=== PATIENT | female | born 1975 | race Caucasian/White ===

== ENCOUNTER 2017-11-01 20:14 | Emergency (ER) | payer BC, MEDICARE, MEDICAID, SELFPAY ==
[2017-11-01 20:40] VITALS: BP 148/111; PULSE 107; RESP 18; TEMP 37.1; O2SAT 97; BMI 44.6
--- NOTE | 2017-11-01 20:51 | CT_ITS ---
CT abdomen pelvis wo con CLINICAL INDICATION: Right flank pain ITS.REASON: RIGHT FLANK PAIN ORDERING PHYSICIAN: Jensen Torres MD PATIENT AGE: 42 years COMPARISON: 03/05/2017 TECHNIQUE: Axial images obtained with sagittal and coronal reformats. PROCEDURE: Oral Contrast: None IV Contrast: None . FINDINGS: Lung bases are clear. Prior cholecystectomy without ductal dilatation. The liver, spleen, adrenal glands, and pancreas have an unremarkable unenhanced CT appearance. No renal calculi, ureteral calculi, or hydronephrosis is evident. No intestinal obstruction or free air. No evidence of appendicitis or diverticulitis. There is a small umbilical hernia containing fat. There is also a small left paracentral abdominal wall hernia in the infraumbilical region which contains fat. Prior hysterectomy. Prominent soft tissue density is present in the left lower pelvic region measuring 5.8 x 3.6 cm. This may be related to an enlarged ovary. Please correlate with surgical history. If the left ovary has been removed, then adenopathy is a consideration. A slightly hypodense rounded lesion is present just anterior to the soft tissue density which is not significant change from 03/05/2017. No acute bony anomalies. IMPRESSION: 1. No acute abdominal or pelvic findings. 2. 5.8 x 3.6 cm soft tissue density left pelvic region which may represent an enlarged left ovary. Consider pelvic ultrasound for further evaluation. Differential diagnosis would include adenopathy if the ovary has been removed. There are post hysterectomy changes. 3. No obstructing ureteral calculi. No evidence of appendicitis 4. Umbilical hernia and small left periumbilical hernia containing fat
[2017-11-01 21:24] LABS: Microscopic, Urine URINE MICROSCOPIC (MICROSCOPIC)
[2017-11-01 21:27] LABS: Basophils # 0.1 K/mm3 (0-0.2); Basophils % 1.3 % (0.1-2.0); Eosinophils # 0.1 K/mm3 (0.0-0.4); Eosinophils % 1.4 % (0.1-12.0); Hematocrit 48.1 % (37.0-47.0); Hemoglobin 16.2 g/dL (12.2-16.2); Mean Corpuscular HGB Conc 33.6 g/dL (31.8-35.4); Mean Corpuscular Hemoglobin 28.5 pg (27.0-31.2); Mean Corpuscular Volume 84.9 fl (81-99); Mean Platelet Volume 8.1 fl (7.4-10.4); Monocytes # 0.4 K/mm3 (0.1-1.0); Monocytes % 5.1 % (1.7-9.3); Neutrophils # 4.4 K/mm3 (1.8-7.8); Neutrophils % 63.3 % (37.0-80.0); Platelet Count 253 K/mm3 (142-424); Red Blood Count 5.67 M/mm3 (4.20-5.40); Red Cell Distribution Width 13.2 % (11.5-17.5); White Blood Count 6.9 K/mm3 (4.8-10.8)
--- NOTE | 2017-11-01 21:27 | HMH.EDGENADL ---
ED Disposition Clinical Impression: RUQ abdominal pain, Hyperglycemia Disposition: Home, Self-Care Condition on Discharge: Good Additional Instructions: Please schedule a follow up appointment with dr. Smith regarding your left ovarian lesion, as soon as possible. Please follow up with Dr Flor regarding your right upper quadrant pain, call in the morning to arrange for an appointment. Referrals: Michel Chacon [Primary Care Provider] - Jens Smith MD [Staff Physician] - Time of Disposition: 22:27 - Critical Care Critical Care Time: No Attestation: On 11/01/17, the high probability of a clinically significant, sudden or life threatening deterioration of the following system(s) required my full and direct attention, intervention and personal management. The time I documented below is in addition to time spent performing reported procedures but includes the following listed in this critical care notation. Medical Decision Making - Medical Records Medical records reviewed: Yes: I reviewed the patient's medical records. Vital Signs: 11/01/17 20:40 11/01/17 21:37 11/02/17 00:29 Temperature 98.7 F Temperature Source Oral Pulse Rate Pulse Rate [Right Brachial] 107 H 85 78 Respiratory Rate 18 18 14 Blood Pressure Blood Pressure [Right Arm] 148/111 148/88 148/96 Blood Pressure Mean [Right Arm] 123 108 113 Blood Pressure Source Blood Pressure Source [Right Arm] Automatic Cuff Automatic Cuff Automatic Cuff Blood Pressure Position Blood Pressure Position [Right Arm] Sitting Supine Supine 02 Sat by Pulse Oximetry 97 97 97 Oxygen Delivery Method Room Air Room Air Room Air 11/02/17 01:45 Temperature 98.1 F Temperature Source Oral Pulse Rate 86 Pulse Rate [Right Brachial] Respiratory Rate 18 Blood Pressure 138/73 Blood Pressure [Right Arm] Blood Pressure Mean [Right Arm] Blood Pressure Source Automatic Cuff Blood Pressure Source [Right Arm] Blood Pressure Position Supine Blood Pressure Position [Right Arm] 02 Sat by Pulse Oximetry Oxygen Delivery Method Room Air - Lab Data Lab results reviewed: Yes: I reviewed the patient's lab results. Lab Results 11/01/17 20:57: Urine Color Yellow, Urine Appearance Clear, Urine pH 5.0, Ur Specific [place] 1.010, Urine Protein Negative, Urine Glucose (UA) 3+, Urine Ketones Negative, Urine Blood Negative, Urine Nitrate Negative, Urine Bilirubin Negative, Urine Urobilinogen 0.2, Ur Leukocyte Esterase Negative, Urine WBC 3-5, Ur Squamous Epith Cells 5-10, Urine Bacteria 1+ 11/01/17 21:10: WBC 6.9, RBC 5.67 H, Hgb 16.2, Hct 48.1 H, MCV 84.9, MCH 28.5, MCHC 33.6, RDW 13.2, Plt Count 253, MPV 8.1, Neut % (Auto) 63.3, Lymph % (Auto) 29.0, [place] % (Auto) 5.1, Eos % (Auto) 1.4, Baso % (Auto) 1.3, Neut # (Auto) 4.4, Lymph # (Auto) 2.0, [place] # (Auto) 0.4, Eos # (Auto) 0.1, Baso # (Auto) 0.1 11/01/17 21:10: Sodium 136, Potassium 4.6, Chloride 100, Carbon Dioxide 24, Anion Gap 16.6 H, BUN 9, Creatinine 0.83, Estimated Creat Clear 75, Estimated GFR 75, Est GFR ( Amer) 91, Glucose 456 H*, Calcium 9.4, Total Bilirubin 0.4, AST 10 L, ALT 31, Alkaline Phosphatase 87, Total Protein 7.3, Albumin 3.7, Globulin 3.6 H, Albumin/Globulin Ratio 1.0 L 11/01/17 21:10: Amylase 47, Lipase 108 11/02/17 00:26: POC Glucose 320 Result diagrams: 11/01/17 21:10 11/01/17 21:10 Orders (Tests/Meds): ED MEDICATIONS Discontinued Medications Generic Name Dose Route Start Last Admin Trade Name Amy PRN Reason Stop Dose Admin Sodium Chloride 1,000 mls @ 999 mls/hr 11/01/17 21:30 11/01/17 21:32 Sod Chlor 0.9% 1000ml Bag IV 11/01/17 22:30 999 mls/hr .Q1H1M PATRICK Administration Insulin Human Regular 8 unit 11/01/17 21:45 11/01/17 21:51 Humulin R Insulin 100 Units/Ml 10ml Vial IVP 11/01/17 21:46 8 unit ONCE ONE Administration Morphine Sulfate 4 mg 11/01/17 21:27 11/01/17 21:32 Morphine 4mg/Ml Syringe IV 11/01/17 21:28 4 mg ONCE ONE Adm
[2017-11-01 21:37] VITALS: BP 148/88; PULSE 85; RESP 18; O2SAT 97
[2017-11-01 21:38] LABS: Alanine Aminotransferase 31 U/L (12-78); Albumin Level 3.7 gm/dL (3.4-5.0); Alkaline Phosphatase 87 U/L (46-116); Anion Gap 16.6 mEq/L (5-15); Aspartate Amino Transferase 10 U/L (15-37); Bilirubin,Total 0.4 mg/dL (0.2-1.0); Blood Urea Nitrogen 9 mg/dL (7-18); Calcium 9.4 mg/dL (8.5-10.1); Carbon Dioxide 24 mmol/L (21.0-32.0); Chloride 100 mmol/L (98-107); Creatinine Clearance Estimated 75 mL/min (0-300); Creatinine,Serum 0.83 mg/dL (0.55-1.02); Estimated Glomerular Filt Rate 75 ml/min (>60); GFR (African American) 91 ML/MIN (>60); Globulin 3.6 gm/dl (1.3-3.2); Potassium 4.6 mmoL/L (3.5-5.1); Sodium 136 mmol/L (136-145); Total Protein,Serum 7.3 gm/dL (6.4-8.2)
[2017-11-01 21:39] LABS: Appearance,Urine CLEAR (Clear); Bilirubin,Urine Negative (Negative); Blood, Urine Negative (Negative); Color,Urine YELLOW (Yellow); Glucose,Urine (UA) 3+ (Negative); Ketones,Urine Negative (Negative); Leukocyte Esterase,Urine Negative (Negative); Nitrate,Urine Negative (Negative); Protein,Urine Negative (Negative); Urobilinogen,Urine 0.2 EU/dl (0.2)
[2017-11-01 21:40] LABS: Glucose 456 mg/dL (74-106)
--- NOTE | 2017-11-01 21:40 | PC.NURSE ---
glucose 446 called from lab, pt is diabetic aware
[2017-11-01 21:43] LABS: Amylase 47 U/L (25-125); Lipase 108 u/L (73-393)
[2017-11-01 21:53] LABS: Bacteria,Urine 1+ /lpf
--- NOTE | 2017-11-01 21:53 | PC.NURSE ---
CT ABD DONE
[2017-11-02 00:29] VITALS: BP 148/96; PULSE 78; RESP 14; O2SAT 97
[2017-11-02 00:34] LABS: POC Glucose,Bedside 320 mg/dL
[2017-11-02 01:45] VITALS: BP 138/73; PULSE 86; RESP 18; TEMP 36.7; O2SAT 97
== END 2017-11-02 00:50 | disposition home or self-care (01) ==
PROVIDERS: Emergency Provider Emergency Medicine; Family Provider Family Medicine; PCP Family Medicine
DX: R10.11 Right upper quadrant pain (principal); R10.31 Right lower quadrant pain; E11.65 Type 2 diabetes mellitus with hyperglycemia; Z88.7 Allergy status to serum and vaccine; Z88.8 Allergy status to other drugs, medicaments and biological substances; Z88.6 Allergy status to analgesic agent; N83.8 Other noninflammatory disorders of ovary, fallopian tube and broad ligament
CPT/HCPCS: 74176; 80053; 81001; 82150; 82962; 83690; 85025; 96365; 96375; 99283; J2405

== ENCOUNTER → 2018-04-22 14:22 | Outpatient (CLI) | payer BC, MEDICARE, SELFPAY ==
--- NOTE | 2018-04-22 14:25 | CA_ITS ---
PROCEDURE: 2-D M-mode and color Doppler study INDICATIONS FOR THE TEST: Chest pain + COPD Heart Murmur Tobacco Smoking Palpitations+ Fatigue+ Syncope Edema+ Hypertension+Diabetes Mellitus+ Rheumatic Fever SOB+PAINTING Obesity+Hyperlipidemia Family History HD Additional History TYRONE PATIENT INFORMATION HEIGHT: 63 WEIGHT:276 GENDER: Female B/P:150/86 2-D/M-MODE INTERPRETATION: 2-D MEASUREMENTS OBSERVED VALUES IN CMS Right Ventricular Dimension (RVDd) 2.3 Interventricular Septum (Thickness)(IVsd) 1.1 Left Ventricular Internal Dimensions(LVIDd) 4.7 Left Ventricular Posterior Wall (Thickness)(LVPWd) 1.0 Aortic Root 3.6 Aortic Cusp Separation 2.3 Left Atrial Dimensions (LAD) 3.5 2D 1. Left atrium is mildly enlarged, left ventricle is normal size, mild qualitative concentric left ventricular hypertrophy, visually estimated ejection fraction 55% with no obvious regional wall motion abnormality. 2. The right atrium and right ventricle are normal size and contractility. 3. The aortic valve is minimally thickened and fibrosed. 4. The mitral and tricuspid valve are grossly normal. 5. The pulmonic valve is poorly visualized. 6. No significant pericardial effusion noted. DOPPLER INTERROGATION: Doppler interrogation of the aortic, mitral and tricuspid valvular presence of mild mitral and tricuspid regurgitation, tricuspid and jet velocity is insufficient for calculation of the right ventricular systolic pressure, diastolic parameters are inconclusive. CONCLUSION: 1. Mildly enlarged left atrium, normal left ventricular size, mild qualitative concentric left ventricular hypertrophy, visually estimated ejection fraction 55% with no obvious regional wall motion abnormality, diastolic parameters are inconclusive. 2. Mild mitral and tricuspid regurgitation 3. No significant pericardial effusion noted.
== END ==
PROVIDERS: Family Provider Family Medicine; PCP Family Medicine; Visit Provider Internal Medicine
DX: R00.0 Tachycardia, unspecified (principal); I10 Essential (primary) hypertension
CPT/HCPCS: 93306

== ENCOUNTER 2019-03-12 13:46 | Observation (INO) ==
[2019-03-12 14:03] LABS: Appearance,Urine CLEAR (Clear); Bilirubin,Urine Negative (Negative); Blood, Urine Negative (Negative); Color,Urine YELLOW (Yellow); Glucose,Urine (UA) Negative (Negative); Ketones,Urine Negative (Negative); Leukocyte Esterase,Urine Negative (Negative); Microscopic, Urine URINE MICROSCOPIC (MICROSCOPIC); Protein,Urine Negative (Negative); Urobilinogen,Urine 0.2 EU/dl (0.2)
[2019-03-12 14:17] LABS: RBC,Urine Occasional #/hpf (0-3); Squamous Epithelial Cell,Urine 20-50 #/hpf (0-5); WBC,Urine Occasional #/hpf (0-3)
[2019-03-12 14:18] LABS: Amphetamine/Metha Screen,Urine Negative ng/mL (<1000); Bacteria,Urine Trace /lpf; Barbiturates Screen,Urine Negative ng/mL (<200); Benzodiazepines Screen,Urine Negative ng/mL (<200); Cannabinoid Screen,Urine Negative ng/mL (<50); Cocaine Screen,Urine Negative ng/mL (<300); Methadone Screen,Urine Negative ng/mL (<300); Opiate Screen,Urine Negative ng/mL (<300); Phencyclidine Screen,Urine Negative ng/mL (<25)
[2019-03-12 14:18] LABS: Basophils # 0.1 K/mm3 (0-0.2); Basophils % 0.9 % (0.1-2.0); Eosinophils # 0.2 K/mm3 (0.0-0.4); Eosinophils % 2.4 % (0.1-12.0); Hematocrit 42.9 % (37.0-47.0); Hemoglobin 13.8 g/dL (12.2-16.2); Lymphocytes # 2.3 K/mm3 (0.7-4.5); Lymphocytes % 28.4 % (10-50); Mean Corpuscular HGB Conc 32.1 g/dL (31.8-35.4); Mean Corpuscular Volume 87.6 fl (81-99); Mean Platelet Volume 7.9 fl (7.4-10.4); Monocytes # 0.4 K/mm3 (0.1-1.0); Monocytes % 4.9 % (1.7-9.3); Neutrophils # 5.1 K/mm3 (1.8-7.8); Neutrophils % 63.5 % (37.0-80.0); Platelet Count 216 K/mm3 (142-424); Red Blood Count 4.89 M/mm3 (4.20-5.40); Red Cell Distribution Width 12.9 % (11.5-17.5)
[2019-03-12 14:48] LABS: Alanine Aminotransferase 49 U/L (12-78); Albumin Level 3.3 gm/dL (3.4-5.0); Albumin/Globulin Ratio 1.1 (1.1-1.8); Alkaline Phosphatase 70 U/L (46-116); Anion Gap 10.4 mEq/L (5-15); Aspartate Amino Transferase 22 U/L (15-37); Bilirubin,Total 0.4 mg/dL (0.2-1.0); Blood Urea Nitrogen 15 mg/dL (7-18); Calcium 8.6 mg/dL (8.5-10.1); Carbon Dioxide 29 mmol/L (21.0-32.0); Chloride 106 mmol/L (98-107); Globulin 3.1 gm/dl (1.3-3.2); Glucose 117 mg/dL (74-106); Sodium 141 mmol/L (136-145); Total Protein,Serum 6.4 gm/dL (6.4-8.2)
--- NOTE | 2019-03-12 15:50 | Emergency Department Note ---
ED Disposition Clinical Impression: Syncope and collapse Disposition: Admitted as Observation Condition on Discharge: Good Instructions: DI for Syncope in Adults (Fainting) Referrals: Walter Anaya MD [Primary Care Provider] - Time of Disposition: 16:04 - Critical Care Critical Care Time: No Attestation: On 03/12/19, the high probability of a clinically significant, sudden or life threatening deterioration of the following system(s) required my full and direct attention, intervention and personal management. The time I documented below is in addition to time spent performing reported procedures but includes the following listed in this critical care notation. Medical Decision Making - Medical Records Medical records reviewed: Yes: I reviewed the patient's medical records. - Jelani Inquiry Pt receiving controlled substance: No Jelani was queried for this patient: No Vital Signs: 03/12/19 13:58 Temperature 98.0 F Temperature Source Oral Pulse Rate [Right Brachial] 79 Respiratory Rate 18 Blood Pressure [137/85] 137/85 Blood Pressure Mean [137/85] 102 02 Sat by Pulse Oximetry 100 Oxygen Delivery Method Room Air - Lab Data Lab results reviewed: Yes: I reviewed the patient's lab results. Lab Results 03/12/19 13:55: Urine Color Yellow, Urine Appearance Clear, Urine pH 7.0, Ur S pecific [place] 1.020, Urine Protein Negative, Urine Glucose (UA) Negative, Urine Ketones Negative, Urine Blood Negative, Urine Nitrate Negative, Urine Bilirubin Negative, Urine Urobilinogen 0.2, Ur Leukocyte Esterase Negative, Urine RBC Occasional, Urine WBC Occasional, Ur Squamous Epith Cells 20-50, Urine Bacteria Trace 03/12/19 13:55: Urine Opiates Screen Negative, Urine Methadone Screen Negative, Ur Barbituates Screen Negative, Ur Phencyclidine Scrn Negative, Ur Amphetamines Screen Negative, U Benzodiazepines Scrn Negative, Urine Cocaine Screen Negative, U Marijuana (THC) Screen Negative 03/12/19 14:05: WBC 8.0, RBC 4.89, Hgb 13.8, Hct 42.9, MCV 87.6, MCH 28.2, MCHC 32.1, RDW 12.9, Plt Count 216, MPV 7.9, Neut % (Auto) 63.5, Lymph % (Auto) 28.4, [place] % (Auto) 4.9, Eos % (Auto) 2.4, Baso % (Auto) 0.9, Neut # (Auto) 5.1, Lymph # (Auto) 2.3, [place] # (Auto) 0.4, Eos # (Auto) 0.2, Baso # (Auto) 0.1 03/12/19 14:05: Sodium 141, Potassium 4.4, Chloride 106, Carbon Dioxide 29, Anion Gap 10.4, BUN 15, Creatinine 0.70, Estimated Creat Clear 147, Estimated GFR 91, Est GFR ( Amer) 110, Glucose 117 H, Calcium 8.6, Total Bilirubin 0.4, AST 22, ALT 49, Alkaline Phosphatase 70, Troponin I < 0.02, Total Protein 6.4, Albumin 3.3 L, Globulin 3.1, Albumin/Globulin Ratio 1.1 Result diagrams: 03/12/19 14:05 03/12/19 14:05 - Physician Consults Physician Consulted: teddy Time: 16:03 Comment/Response: rule out, monitor, consult in am Additional Consult: kim Time: 16:03 Reason -: Admission, Cardiology Eval/Care General Adult HPI - General Chief complaint: Syncope Stated complaint: dizziness, passsed out and hit shoulder Time Seen by Provider: 03/12/19 15:51 Mode of Arrival: Family Vehicle Source of Information: Patient Limitations: No Limitations Description of Symptoms (Recalled from ER Triage Doc. by RN): had a syncopal episode this morning; resulting in right shoulder pain after falling this morning; pt had pain to head and neck just prior to episode - History of Present Illness HPI narrative: full syncope this am, preceded by dizziness... no chest pain or dyspnea - Related Data Home Medications Medication Instructions Recorded Confirmed albuterol sulfate HFA 90 1 puff INHALATION Q6H PRN 04/16/18 01/20/19 mcg/actuation aerosol inhaler cholecalciferol (vitamin D3) 5,000 5,000 unit PO DAILY cap 04/16/18 01/20/19 unit capsule epinephrine 0.3 mg/0.3 mL 0.3 mg IM ONCE PRN 04/16/18 01/20/19 injection, auto-injector hydroxyzine HCl 50 mg tablet 50 mg PO DAILY PRN tab 04/16/18 01/20/19 trazodone 100 mg tablet 100 mg PO QHS 04/16/18 01/20/19 biotin 10,000 mcg disintegrating 10,000 mcg PO DAILY 10/21/18 01/20/19 tablet mecobalamin (vitamin B12) 1,000 1,000 mcg SUBLINGUAL DAILY 10/21/18 01/20/19 mcg disintegrating tablet,sublingual multivitamin tablet 2 tab PO DAILY tab 10/21/18 01/20/19 omeprazole 40 mg capsule,delayed 40 mg PO DAILY 10/21/18 01/20/19 release Allergies Allergy/AdvReac Type Severity Reaction Status Date / Time hydromorphone [From Dilaudid] Allergy Severe rash, Verified 01/20/19 09:34 itching lisinopril [LISINOPRIL] Allergy Unknown Verified 01/20/19 09:34 paroxetine [From PAXIL] Allergy Unknown Verified 01/20/19 09:34 promethazine [From PHENERGAN] Allergy Unknown Verified 01/20/19 09:34 tetanus and diphtheria Allergy Unknown Verified 01/20/19 09:34 toxoids [TETANUS & DIPHTHERIA TOXOIDS] ibuprofen Allergy Verified 01/20/19 09:34 BEE STINGS Allergy Unknown S-SWELLS-OR Uncoded 01/20/19 09:34 AL/THROAT [facility] History - Hepatitis A Screen Drug use history?: No High risk sexual behaviors?: No History of sexually transmitted infection?: No Currently employed?: No Childcare worker?: No Do you have indoor plumbing?: Yes Do you have electricity?: Yes Attestation statement:: This patient has been screened for Hepatitis A risk factors. I have reviewed the patient's past medical history: Yes Medical History: Reports:: Diabetes Mellitus Type 2 Denies:: Cancer, Diabetes Mellitus Type 1, MRSA Other Medical History: Reports: Anemia, Blood Transfusion Reaction, Fibromyalgia Other Surgeries: Yes: Bariatric Surgery (10/07/2018), Hysterectomy-Partial Amputation: No Fractures: No - Social History Smoking Status: Never smoker Alcohol Intake: never Alcohol Intake Frequency:: other Substance Use Type: denies use Occupational Status: employed Family Hx:: No significant family history ROS Obtained: Yes All systems reviewed & no additional complaints - Constitutional Constitutional: Denies fever(s), Denies lethargy - Eyes Eyes: Reports blurry vision - Cardiovascular Cardiovascular: Denies chest pain, Denies chest pain at rest, Denies diaphoresis, Denies dyspnea, Denies palpitations - Respiratory Respiratory: No cough, No dyspnea - Musculoskeletal Musculoskeletal: Denies joint pain, Denies decreased muscle mass, Denies joint stiffness, Denies joint swelling - Integumentary/Breasts Skin/Breast: Denies redness, Denies new lesions - Neurologic Neurologic: Reports syncope, Denies vertigo, Denies weakness - Hematologic/Lymphatic Henatologic/Lymphatic: Denies easy bleeding, Denies easy bruising Physical Exam - General General appearance: alert, in no apparent distress - Head Head exam: atraumatic, normocephalic, normal inspection - Eye Eye exam: Present: normal appearance, PERRL, EOMI - ENT ENT exam: Present: normal exam, normal oropharynx, mucous membranes moist, TM's normal bilaterally, normal external ear exam - Neck Neck exam: Present: normal inspection, full ROM, trachea midline. Absent: meningismus, lymphadenopathy - Chest Chest inspection: Present: normal inspection, symmetric chest wall rise. Absent: tenderness - Respiratory Respiratory exam: Present: normal lung sounds bilaterally. Absent: respiratory distress - Cardiovascular Cardiovascular exam: Present: regular rate, normal rhythm. Absent: JVD - Extremities Exam Extremities exam: Present: normal inspection, full ROM, normal capillary refill. Absent: calf tenderness - Back Exam Back exam: Present: normal inspection. Absent: tenderness - Neurological Exam Neurological exam: Present: alert, oriented X3 - Psychiatric Psychiatric exam: Present: normal affect, normal mood - Skin Skin exam: Present: warm, dry, intact, normal color
--- NOTE | 2019-03-12 16:31 | History & Physical Report ---
*Admission Date: 03/12/19 *Chief complaint: syncope, shoulder pain *History of present illness: Ms. Franco is a 43yo female with a hx of Type 2 DM diet controlled after bariatric surgery, fibromyalgia, SVT followed by Dr. Zhong, asthma, depression, anxiety, and disability d/t anoxic brain injury who experienced a syncopal episode and injured her right shoulder when she fell this am. She states she was dizzy before the episode and afterward she did have some right shoulder pain and neck pain on the left side. She drove herself to meet some family members after the episode and felt dizzy and weak again and had a near sycopal episode, therefore she presented to the ER for evaluation. Head CT and shoulder x-ray showed nothing acute. She was admitted and placed on telemetry and cardiology was consulted. Of note, she was recently diagnosed with hereditary hemochromatosis and has had ferritin levels over 600. She has not yet had phlebotomy. [facility] History I have reviewed the patient's past medical history: Yes Medical History: Reports:: Anxiety, Depression, Diabetes Mellitus Type 2, MRSA Denies:: Cancer, Diabetes Mellitus Type 1 *Have you ever received a pneumonia vaccine?: No *Have you received a flu vaccine this season?: No Other Medical History: Reports: Anemia, Blood Transfusion Reaction, Fibromyalgia, Other (Anoxic brain injury with severe toxemia, hereditary hemochromatosis) Other Surgeries: Yes: Bariatric Surgery (10/07/2018), Cholecystectomy, C- section, Hysterectomy-Partial Amputation: No Fractures: No - *Social History Smoking Status: Never smoker Alcohol Intake: never Alcohol Intake Frequency:: other Substance Use Type: denies use *Occupational Status:: employed *Travel in the last 8 weeks: None Family Hx:: Coronary Artery Disease, Diabetes, Hypertension Review of Systems - Constitutional Reports weakness, Denies body ache(s), Denies fever(s) - Eyes Denies blurry vision, Denies double vision - ENT Denies nasal congestion, Denies sore throat - *Cardiovascular Denies chest pain, Denies shortness of breath, Denies rapid, pounding, or irregular heartbeat - *Respiratory Denies cough, Denies shortness of breath - *Gastrointestinal Denies abdominal pain, Denies loose stools, Denies nausea, Denies vomiting - *Genitourinary Denies difficulty urinating, Denies painful urination - *Musculoskeletal Reports joint pain (right shoulder), Reports neck pain - *Neurologic Reports fainting, Reports dizziness, Denies seizure-like activity, Denies weakness Meds Home Medications Medication Instructions Recorded Confirmed Type albuterol sulfate HFA 90 1 puff INHALATION Q6H PRN 04/16/18 01/20/19 History mcg/actuation aerosol inhaler epinephrine 0.3 mg/0.3 mL 0.3 mg IM ONCE PRN 04/16/18 01/20/19 History injection, auto-injector hydroxyzine HCl 50 mg tablet 50 mg PO DAILY PRN tab 04/16/18 01/20/19 History trazodone 100 mg tablet 100 mg PO QHS 04/16/18 01/20/19 History biotin 10,000 mcg disintegrating 10,000 mcg PO DAILY 10/21/18 01/20/19 History tablet mecobalamin (vitamin B12) 1,000 1,000 mcg SUBLINGUAL DAILY 10/21/18 01/20/19 History mcg disintegrating tablet,sublingual multivitamin tablet 2 tab PO DAILY tab 10/21/18 01/20/19 History Cholecalciferol (Vitamin D3) 50,000 unit PO WEEKLY 03/12/19 03/12/19 History [Vitamin D3 50,000 unit Cap] Omeprazole 20 mg PO HS 03/12/19 03/12/19 History Allergies Allergy/AdvReac Type Severity Reaction Status Date / Time duloxetine [From Cymbalta] Allergy Severe liver Verified 03/12/19 16:57 swelling hydromorphone [From Dilaudid] Allergy Severe rash, Verified 03/12/19 16:57 itching ibuprofen Allergy Severe swelling Verified 03/12/19 16:57 lisinopril [LISINOPRIL] Allergy Severe chokes Verified 03/12/19 16:57 promethazine [From PHENERGAN] AdvReac Severe hallucinati Verified 03/12/19 16:57 ons sertraline [From Zoloft] AdvReac Severe suicidal Verified 03/12/19 16:57 paroxetine [From PAXIL] AdvReac Intermediate Palpitation Verified 03/12/19 16:57 s tetanus and diphtheria AdvReac Intermediate vomitting Verified 03/12/19 16:57 toxoids [TETANUS & DIPHTHERIA TOXOIDS] BEE STINGS Allergy Severe Anaphylaxis Uncoded 03/12/19 16:57 Exam Vital signs and Labs for Last 24 Hours: Temp Pulse Resp BP Pulse Ox 98.0 F 64 18 118/74 98 03/12/19 13:58 03/12/19 16:12 03/12/19 13:58 03/12/19 16:12 03/12/19 16:12 Laboratory Results - last 24 hr 03/12/19 13:55: Urine Color Yellow, Urine Appearance Clear, Urine pH 7.0, Ur Specific [place] 1.020, Urine Protein Negative, Urine Glucose (UA) Negative, Urine Ketones Negative, Urine Blood Negative, Urine Nitrate Negative, Urine Bilirubin Negative, Urine Urobilinogen 0.2, Ur Leukocyte Esterase Negative, Urine RBC Occasional, Urine WBC Occasional, Ur Squamous Epith Cells 20-50, Urine Bacteria Trace 03/12/19 13:55: Urine Opiates Screen Negative, Urine Methadone Screen Negative, Ur Barbituates Screen Negative, Ur Phencyclidine Scrn Negative, Ur Amphetamines Screen Negative, U Benzodiazepines Scrn Negative, Urine Cocaine Screen Negative, U Marijuana (THC) Screen Negative 03/12/19 14:05: WBC 8.0, RBC 4.89, Hgb 13.8, Hct 42.9, MCV 87.6, MCH 28.2, MCHC 32.1, RDW 12.9, Plt Count 216, MPV 7.9, Neut % (Auto) 63.5, Lymph % (Auto) 28.4, [place] % (Auto) 4.9, Eos % (Auto) 2.4, Baso % (Auto) 0.9, Neut # (Auto) 5.1, Lymph # (Auto) 2.3, [place] # (Auto) 0.4, Eos # (Auto) 0.2, Baso # (Auto) 0.1 03/12/19 14:05: Sodium 141, Potassium 4.4, Chloride 106, Carbon Dioxide 29, Anion Gap 10.4, BUN 15, Creatinine 0.70, Estimated Creat Clear 147, Estimated GFR 91, Est GFR ( Amer) 110, Glucose 117 H, Calcium 8.6, Total Bilirubin 0.4, AST 22, ALT 49, Alkaline Phosphatase 70, Troponin I < 0.02, Total Protein 6.4, Albumin 3.3 L, Globulin 3.1, Albumin/Globulin Ratio 1.1 I & O for Last 24 hours: Intake & Output 06/17/19 06/18/19 06/19/19 06/20/19 11:59 11:59 11:59 11:59 Weight 200 lb - Constitutional no acute distress - *Routine HEENT Exam Head: Present: normocephalic Eye: Present: EOMI, PERRL ENT: Present: mucous membranes moist - *Routine Neck Exam Present: supple. Absent: carotid bruit, lymphadenopathy - *Routine Respiratory Exam Present: CTA bilaterally - *Routine Cardiovascular Exam Present: RRR - *Routine Abdominal Exam Present: soft, normoactive bowel sounds. Absent: tenderness - *Routine Extremities Exam Present: full ROM (but some ttp along the posterior right shoulder). Absent: cyanosis, clubbing, edema - *Routine Skin Exam Present: warm. Absent: rash - *Routine Neurological Exam Present: alert, oriented X3, CN II-XII intact, moving all extremities, normal speech H&P: Result - Impressions Head CT and Right shoulder x-ray with nothing acute Assessment and Plan (1) Syncope and collapse Current visit: Yes Status: Acute Category: Medical Code(s): R55 - Syncope and collapse (2) Hereditary hemochromatosis Current visit: Yes Status: Chronic Category: Medical Code(s): E83.110 - Hereditary hemochromatosis (3) History of paroxysmal supraventricular tachycardia Current visit: Yes Status: Chronic Category: Medical Code(s): Z86.79 - Personal history of other diseases of the circulatory system (4) Type 2 diabetes mellitus Current visit: Yes Status: Chronic Category: Medical Code(s): E11.9 - Type 2 diabetes mellitus without complications - Assessment and plan all Dx Assessment and Plan for all problems:: Patient has been admitted overnight for monitoring. Will place on telemetry and get an echo and carotid duplex. Will also check her ferritin level. Cardiology has been consulted.
--- NOTE | 2019-03-13 07:29 | Pharmacy Consult Notes ---
[facility] Pharmacy VTE Monitoring - Patient Demographics Admission date: 03/12/19 Report Date: 03/13/19 Time: 07:29 Allergies/Adverse Reactions: Patient Allergies duloxetine [From Cymbalta] Allergy (Severe, Verified 03/12/19 16:57) liver swelling hydromorphone [From Dilaudid] Allergy (Severe, Verified 03/12/19 16:57) rash, itching ibuprofen Allergy (Severe, Verified 03/12/19 16:57) swelling lisinopril [LISINOPRIL] Allergy (Severe, Verified 03/12/19 16:57) chokes promethazine [From PHENERGAN] Adverse Reaction (Severe, Verified 03/12/19 16:57) hallucinations sertraline [From Zoloft] Adverse Reaction (Severe, Verified 03/12/19 16:57) suicidal paroxetine [From PAXIL] Adverse Reaction (Intermediate, Verified 03/12/19 16:57) Palpitations tetanus and diphtheria toxoids [TETANUS & DIPHTHERIA TOXOIDS] Adverse Reaction (Intermediate, Verified 03/12/19 16:57) vomitting BEE STINGS Allergy (Severe, Uncoded 03/12/19 16:57) Anaphylaxis Height: 1.63 m Weight: 89.074 kg Patient Problems: Current Active Problems (Updated 03/12/19 @ 17:10 by ZACKARY Menon) Syncope and collapse (Acute) Hereditary hemochromatosis (Chronic) History of paroxysmal supraventricular tachycardia (Chronic) Type 2 diabetes mellitus (Chronic) - VTE Risk Labs: VTE Related Lab Results Hgb 13.8 g/dL (12.2-16.2) 03/12/19 14:05 Hct 42.9 % (37.0-47.0) 03/12/19 14:05 Plt Count 216 K/mm3 (142-424) 03/12/19 14:05 BUN 15 mg/dL (7-18) 03/12/19 14:05 Creatinine 0.70 mg/dL (0.55-1.02) 03/12/19 14:05 Estimated Creat Clear 147 mL/min (50-200) 03/12/19 14:05 Was VTE Risk Assessment Performed: Yes VTE Score: 1 Clinical Trial Participant: No - Prophylaxis VTE Prophylaxis Ordered?: Yes Types of VTE Prophylaxis: TEDS Knee High
--- NOTE | 2019-03-13 07:52 | Consult Report ---
History of Present Illness Consult date: 03/13/19 Requesting physician: Walter Anaya Chief complaint: syncope Additional Medical History:: 1. History of diabetes mellitus, controlled after bariatric surgery without medication 2. History of SVT, resolved after bariatric surgery 3. History of obesity status post bariatric surgery 2017 with subsequent greater than 80 pound weight loss 4. Asthma 5. Anxiety and depression 6. Hemochromatosis, newly diagnosed 2018 7. History of anoxic brain injury 8. History of HTN A. Echo, 03/2018, 1. Mildly enlarged left atrium, normal left ventricular size, mild qualitative concentric left ventricular hypertrophy, visually estimated ejection fraction 55% with no obvious regional wall motion abnormality, diastolic parameters are inconclusive. 2. Mild mitral and tricuspid regurgitation 3. No significant pericardial effusion noted History of present illness: Ms. Franco is a 43yo female with a hx of Type 2 DM diet controlled after bariatric surgery, fibromyalgia, SVT followed by Dr. Zhong, asthma, depression, anxiety, and disability d/t anoxic brain injury who experienced a syncopal episode and injured her right shoulder when she fell this am. She states she was dizzy before the episode and afterward she did have some right shoulder pain and neck pain on the left side. She drove herself to meet some family members after the episode and felt dizzy and weak again and had a near sycopal episode, therefore she presented to the ER for evaluation. Head CT and shoulder x-ray showed nothing acute. She was admitted and placed on telemetry and cardiology was consulted. Of note, she was recently diagnosed with hereditary hemochromatosis and has had ferritin levels over 600. She has not yet had phlebotomy. The above per Shayla Gant PA-C 43-year-old white female patient with a history of supraventricular tachycardia is admitted after an episode of syncope. She was working on placing a SIM card in her 's cell phone and lost consciousness. She is not recently been aware of heart rhythm disturbances but has the past history of supraventricular tachycardia. She is followed by Dr. Zhong. She has been admitted and placed on monitoring tech. Currently her heart has regular rate and rhythm and she monitors sinus rhythm slightly bradycardic at [address] Anaya Patient has noticed heart rates in the 40s and 50s per her apple watch mainly when she is at rest or sleeping. Since her gastric bypass surgery she has lost over 80 pounds and is no longer taking medications for SVT and has had no problems with this occurring. Telemetry reviewed with no significant tacky or bradycardia arrhythmias noted even during symptoms of dizziness. [facility] History Medical History: Reports:: Anxiety, Arrhythmia, Depression, MRSA Denies:: Cancer, Diabetes Mellitus Type 1, Diabetes Mellitus Type 2 *Have you ever received a pneumonia vaccine?: Yes *Have you received a flu vaccine this season?: Yes Other Medical History: Reports: Anemia, Blood Transfusion Reaction, Fibromyalgia, Other (Anoxic brain injury with severe toxemia, hereditary hemochromatosis) Other Surgeries: Yes: Bariatric Surgery (10/07/2018), Cholecystectomy, C- section, Hysterectomy-Partial Amputation: No Fractures: No - *Social History Smoking Status: Never smoker Alcohol Intake: never Alcohol Intake Frequency:: other Substance Use Type: denies use *Occupational Status:: employed Housing: house Household Members: spouse *Travel in the last 8 weeks: None - Psychiatric History Expresses thoughts of harming self/others: None Suicide Plan Description: No Plan Pschychiatric History:: Reports:: Anxiety, Depression Family Hx:: Coronary Artery Disease, Diabetes, Hypertension Meds Home Medications Medication Instructions Recorded Confirmed Type albuterol sulfate HFA 90 1 puff INHALATION Q6HP PRN 04/16/18 03/12/19 History mcg/actuation aerosol inhaler epinephrine 0.3 mg/0.3 mL 0.3 mg IM NEEDED PRN 04/16/18 03/13/19 History injection, auto-injector hydroxyzine HCl 50 mg tablet 50 mg PO TIDP PRN tab 04/16/18 03/13/19 History trazodone 100 mg tablet 100 mg PO HS 04/16/18 03/13/19 History biotin 10,000 mcg disintegrating 10,000 mcg PO DAILY 10/21/18 03/12/19 History tablet mecobalamin (vitamin B12) 1,000 1,000 mcg SUBLINGUAL DAILY 10/21/18 03/12/19 History mcg disintegrating tablet,sublingual multivitamin tablet 2 tab PO DAILY tab 10/21/18 03/12/19 History Cholecalciferol (Vitamin D3) 50,000 unit PO WEEKLY 03/12/19 03/12/19 History [Vitamin D3 50,000 unit Cap] Omeprazole 20 mg PO HS 03/12/19 03/12/19 History Allergies Allergy/AdvReac Type Severity Reaction Status Date / Time duloxetine [From Cymbalta] Allergy Severe liver Verified 03/12/19 16:57 swelling hydromorphone [From Dilaudid] Allergy Severe rash, Verified 03/12/19 16:57 itching ibuprofen Allergy Severe swelling Verified 03/12/19 16:57 lisinopril [LISINOPRIL] Allergy Severe chokes Verified 03/12/19 16:57 promethazine [From PHENERGAN] AdvReac Severe hallucinati Verified 03/12/19 16:57 ons sertraline [From Zoloft] AdvReac Severe suicidal Verified 03/12/19 16:57 paroxetine [From PAXIL] AdvReac Intermediate Palpitation Verified 03/12/19 16:57 s tetanus and diphtheria AdvReac Intermediate vomitting Verified 03/12/19 16:57 toxoids [TETANUS & DIPHTHERIA TOXOIDS] BEE STINGS Allergy Severe Anaphylaxis Uncoded 03/12/19 16:57 Review of Systems - *Cardiovascular Reports slow heart rate, Denies chest pain - *Respiratory Denies cough, Denies shortness of breath - *Gastrointestinal Denies abdominal pain, Denies nausea, Denies vomiting - *Genitourinary Denies blood in urine - *Musculoskeletal Denies joint pain, Denies back pain - *Neurologic Reports fainting, Reports dizziness, Reports weakness, Denies seizure-like activity Exam Vital signs and Labs for Last 24 Hours: Temp Pulse Resp BP Pulse Ox 98.3 F 69 17 108/69 L 98 03/13/19 07:27 03/13/19 07:27 03/13/19 07:27 03/13/19 07:27 03/13/19 07:27 Laboratory Results - last 24 hr 03/12/19 13:55: Urine Color Yellow, Urine Appearance Clear, Urine pH 7.0, Ur Specific [place] 1.020, Urine Protein Negative, Urine Glucose (UA) Negative, Urine Ketones Negative, Urine Blood Negative, Urine Nitrate Negative, Urine Bilirubin Negative, Urine Urobilinogen 0.2, Ur Leukocyte Esterase Negative, Urine RBC Occasional, Urine WBC Occasional, Ur Squamous Epith Cells 20-50, Urine Bacteria Trace 03/12/19 13:55: Urine Opiates Screen Negative, Urine Methadone Screen Negative, Ur Barbituates Screen Negative, Ur Phencyclidine Scrn Negative, Ur Amphetamines Screen Negative, U Benzodiazepines Scrn Negative, Urine Cocaine Screen Negative, U Marijuana (THC) Screen Negative 03/12/19 14:05: WBC 8.0, RBC 4.89, Hgb 13.8, Hct 42.9, MCV 87.6, MCH 28.2, MCHC 32.1, RDW 12.9, Plt Count 216, MPV 7.9, Neut % (Auto) 63.5, Lymph % (Auto) 28.4, [place] % (Auto) 4.9, Eos % (Auto) 2.4, Baso % (Auto) 0.9, Neut # (Auto) 5.1, Lymph # (Auto) 2.3, [place] # (Auto) 0.4, Eos # (Auto) 0.2, Baso # (Auto) 0.1 03/12/19 14:05: Sodium 141, Potassium 4.4, Chloride 106, Carbon Dioxide 29, Anion Gap 10.4, BUN 15, Creatinine 0.70, Estimated Creat Clear 147, Estimated GFR 91, Est GFR ( Amer) 110, Glucose 117 H, Calcium 8.6, Total Bilirubin 0.4, AST 22, ALT 49, Alkaline Phosphatase 70, Troponin I < 0.02, Total Protein 6.4, Albumin 3.3 L, Globulin 3.1, Albumin/Globulin Ratio 1.1 03/12/19 14:05: Ferritin 459 H 03/12/19 17:30: Troponin I < 0.02 03/12/19 20:20: Troponin I < 0.02 I & O for Last 24 hours: Intake & Output 03/10/19 03/11/19 03/12/19 03/13/19 11:59 11:59 11:59 11:59 Intake Total 945 / 945 Output Total 300 / 300 Balance 645 / 645 Weight 196 lb 6 oz - *Routine HEENT Exam Head: Present: normocephalic Eye: Present: EOMI, PERRL ENT: Present: mucous membranes moist - *Routine Neck Exam Present: supple. Absent: JVD, carotid bruit - *Routine Respiratory Exam Present: CTA bilaterally. Absent: accessory muscle use, rales, rhonchi, wheezes - *Routine Cardiovascular Exam Present: RRR. Absent: murmur, gallop, rubs - *Routine Abdominal Exam Present: soft. Absent: tenderness, distended, guarding - *Routine Extremities Exam Absent: edema, calf tenderness - *Routine Neurological Exam Present: alert, oriented X3, moving all extremities Assessment and Plan (1) Syncope and collapse Current visit: Yes Status: Acute Category: Medical Code(s): R55 - Syncope and collapse (2) Hereditary hemochromatosis Current visit: Yes Status: Chronic Category: Medical Code(s): E83.110 - Hereditary hemochromatosis (3) History of paroxysmal supraventricular tachycardia Current visit: Yes Status: Chronic Category: Medical Code(s): Z86.79 - Personal history of other diseases of the circulatory system (4) Type 2 diabetes mellitus Current visit: Yes Status: Chronic Category: Medical Code(s): E11.9 - Type 2 diabetes mellitus without complications - Assessment and plan all Dx Assessment and Plan for all problems:: 1. Syncope with concern for bradyarrhythmia or high grade conduction abnormality vs possible CAD. Continue telemetry. With history of DM and syncope, will plan to proceed with [facility] today. 2. Echo ordered, will await results. 3. Further recommendations to follow.
--- NOTE | 2019-03-13 08:24 | Progress Note ---
<Shayla Gant - Last Filed: 03/13/19 08:22> Internal Medicine - PN: Subj *Date: 03/13/19 *Time: 08:22 Interval history: Patient states she is feeling a little bit better this morning. She still had a few dizzy episodes during the night that were accompanied with neck pain. She is currently getting an echo and carotid Doppler this morning. Exam Vital signs and Labs for Last 24 Hours: Temp Pulse Resp BP Pulse Ox 98.3 F 69 17 108/69 L 98 03/13/19 07:27 03/13/19 07:27 03/13/19 07:27 03/13/19 07:27 03/13/19 07:27 Laboratory Results - last 24 hr 03/12/19 13:55: Urine Color Yellow, Urine Appearance Clear, Urine pH 7.0, Ur Specific [place] 1.020, Urine Protein Negative, Urine Glucose (UA) Negative, Urine Ketones Negative, Urine Blood Negative, Urine Nitrate Negative, Urine Bilirubin Negative, Urine Urobilinogen 0.2, Ur Leukocyte Esterase Negative, Urine RBC Occasional, Urine WBC Occasional, Ur Squamous Epith Cells 20-50, Urine Bacteria Trace 03/12/19 13:55: Urine Opiates Screen Negative, Urine Methadone Screen Negative, Ur Barbituates Screen Negative, Ur Phencyclidine Scrn Negative, Ur Amphetamines Screen Negative, U Benzodiazepines Scrn Negative, Urine Cocaine Screen Negative, U Marijuana (THC) Screen Negative 03/12/19 14:05: WBC 8.0, RBC 4.89, Hgb 13.8, Hct 42.9, MCV 87.6, MCH 28.2, MCHC 32.1, RDW 12.9, Plt Count 216, MPV 7.9, Neut % (Auto) 63.5, Lymph % (Auto) 28.4, [place] % (Auto) 4.9, Eos % (Auto) 2.4, Baso % (Auto) 0.9, Neut # (Auto) 5.1, Lymph # (Auto) 2.3, [place] # (Auto) 0.4, Eos # (Auto) 0.2, Baso # (Auto) 0.1 03/12/19 14:05: Sodium 141, Potassium 4.4, Chloride 106, Carbon Dioxide 29, Anion Gap 10.4, BUN 15, Creatinine 0.70, Estimated Creat Clear 147, Estimated GFR 91, Est GFR ( Amer) 110, Glucose 117 H, Calcium 8.6, Total Bilirubin 0.4, AST 22, ALT 49, Alkaline Phosphatase 70, Troponin I < 0.02, Total Protein 6.4, Albumin 3.3 L, Globulin 3.1, Albumin/Globulin Ratio 1.1 03/12/19 14:05: Ferritin 459 H 03/12/19 17:30: Troponin I < 0.02 03/12/19 20:20: Troponin I < 0.02 I & O for Last 24 hours: Intake & Output 03/10/19 03/11/19 03/12/19 03/13/19 11:59 11:59 11:59 11:59 Intake Total 945 / 945 Output Total 300 / 300 Balance 645 / 645 Weight 196 lb 6 oz - Constitutional no acute distress - *Routine Respiratory Exam Present: CTA bilaterally - *Routine Cardiovascular Exam Present: RRR - *Routine Abdominal Exam Present: soft, normoactive bowel sounds. Absent: tenderness - *Routine Extremities Exam Absent: cyanosis, clubbing, edema Assessment and Plan (1) Syncope and collapse Current visit: Yes Status: Acute Category: Medical Code(s): R55 - Syncope and collapse (2) Hereditary hemochromatosis Current visit: Yes Status: Chronic Category: Medical Code(s): E83.110 - Hereditary hemochromatosis (3) History of paroxysmal supraventricular tachycardia Current visit: Yes Status: Chronic Category: Medical Code(s): Z86.79 - Personal history of other diseases of the circulatory system (4) Type 2 diabetes mellitus Current visit: Yes Status: Chronic Category: Medical Code(s): E11.9 - Type 2 diabetes mellitus without complications - Assessment and plan all Dx Assessment and Plan for all problems:: Ferritin level is elevated. Cardiology is seeing the patient this morning. Will await echo and carotid results. <Walter Anyaa - Last Filed: 03/13/19 13:43> Internal Medicine - PN: Subj *Date: 03/13/19 *Time: 13:42 Exam Vital signs and Labs for Last 24 Hours: Temp Pulse Resp BP Pulse Ox 98.5 F 64 16 127/80 96 03/13/19 11:26 03/13/19 13:00 03/13/19 13:00 03/13/19 13:00 03/13/19 13:00 Laboratory Results - last 24 hr 03/12/19 13:55: Urine Color Yellow, Urine Appearance Clear, Urine pH 7.0, Ur Specific [place] 1.020, Urine Protein Negative, Urine Glucose (UA) Negative, Urine Ketones Negative, Urine Blood Negative, Urine Nitrate Negative, Urine Bilirubin Negative, Urine Urobilinogen 0.2, Ur Leukocyte Esterase Negative, Urine RBC Occasional, Urine WBC Occasional, Ur Squamous Epith Cells 20-50, Urine Bacteria Trace 03/12/19 13:55: Urine Opiates Screen Negative, Urine Methadone Screen Negative, Ur Barbituates Screen Negative, Ur Phencyclidine Scrn Negative, Ur Amphetamines Screen Negative, U Benzodiazepines Scrn Negative, Urine Cocaine Screen Negative, U Marijuana (THC) Screen Negative 03/12/19 14:05: WBC 8.0, RBC 4.89, Hgb 13.8, Hct 42.9, MCV 87.6, MCH 28.2, MCHC 32.1, RDW 12.9, Plt Count 216, MPV 7.9, Neut % (Auto) 63.5, Lymph % (Auto) 28.4, [place] % (Auto) 4.9, Eos % (Auto) 2.4, Baso % (Auto) 0.9, Neut # (Auto) 5.1, Lymph # (Auto) 2.3, [place] # (Auto) 0.4, Eos # (Auto) 0.2, Baso # (Auto) 0.1 03/12/19 14:05: Sodium 141, Potassium 4.4, Chloride 106, Carbon Dioxide 29, Anion Gap 10.4, BUN 15, Creatinine 0.70, Estimated Creat Clear 147, Estimated GFR 91, Est GFR ( Amer) 110, Glucose 117 H, Calcium 8.6, Total Bilirubin 0.4, AST 22, ALT 49, Alkaline Phosphatase 70, Troponin I < 0.02, Total Protein 6.4, Albumin 3.3 L, Globulin 3.1, Albumin/Globulin Ratio 1.1 03/12/19 14:05: Ferritin 459 H 03/12/19 17:30: Troponin I < 0.02 03/12/19 20:20: Troponin I < 0.02 I & O for Last 24 hours: Intake & Output 03/11/19 03/12/19 03/13/1919 11:59 11:59 11:59 11:59 Intake Total 1185 / 1185 Output Total 300 / 300 Balance 885 / 885 Weight 196 lb 6 oz Assessment and Plan (1) Syncope and collapse Current visit: Yes Status: Acute Category: Medical Code(s): R55 - Syncope and collapse (2) Hereditary hemochromatosis Current visit: Yes Status: Chronic Category: Medical Code(s): E83.110 - Hereditary hemochromatosis (3) History of paroxysmal supraventricular tachycardia Current visit: Yes Status: Chronic Category: Medical Code(s): Z86.79 - Personal history of other diseases of the circulatory system (4) Type 2 diabetes mellitus Current visit: Yes Status: Chronic Category: Medical Code(s): E11.9 - Type 2 diabetes mellitus without complications - Assessment and plan all Dx Assessment and Plan for all problems:: Patient seen and examined this AM. She has been up and about the room with no symptoms. Awaiting echo and carotid results. Telemetry has been normal.
--- NOTE | 2019-03-13 08:31 | Carotid Imaging Report ---
"Cerebrovascular Exam Indications: 780.4 Dizziness and giddiness. 780.2 Syncope and collapse. IMPRESSIONS 1. The bilateral vertebral arteries are patent with normal antegrade flow. 2. Study suggests less than 20% stenosis involving the right internal carotid artery and the left internal carotid artery. History: Syncope. Risk factors: Diabetes mellitus. Carotid duplex study. Complete study and Doppler flow study including spectral analysis, color and ordonez scale imaging. Height: Height: 162.6cm. Height: 64in. Weight: Weight: 87.5kg. Weight: 192.6lb. Body mass index: BMI: 33.1kg/m^2. Body surface area: BSA: 2.02m^2. Location: Bedside. Patient status: Inpatient. Tables: Arterial flow: + +--------+--------+ |Location |V sys |V ed | + +--------+--------+ |Right CCA - proximal|102cm/s |19.6cm/s| + +--------+--------+ |Right CCA - distal |105cm/s |29.1cm/s| + +--------+--------+ |Right ECA |66.3cm/s|--------| + +--------+--------+ |Right ICA - proximal|84.5cm/s|18.2cm/s| + +--------+--------+ |Right ICA - mid |75.4cm/s|34.2cm/s| + +--------+--------+ |Right ICA - distal |79.6cm/s|37cm/s | + +--------+--------+ |Right vertebral |41.3cm/s|--------| + +--------+--------+ |Left CCA - proximal |97.6cm/s|23.7cm/s| + +--------+--------+ |Left CCA - distal |104cm/s |30.8cm/s| + +--------+--------+ |Left ECA |80.3cm/s|--------| + +--------+--------+ |Left ICA - proximal |73.5cm/s|30.8cm/s| + +--------+--------+ |Left ICA - mid |66.7cm/s|31.9cm/s| + +--------+--------+ |Left ICA - distal |74.6cm/s|33.4cm/s| + +--------+--------+ |Left vertebral |53.1cm/s|--------| + +--------+--------+ Velocity ratios: + + + + + + | |Right, V sys|Right, V ed|Left, V sys|Left, V ed| + + + + + + |Max ICA/dist CCA|0.8 |1.27 |0.72 |1.08 | + + + + + + (Report amended ) Electronically signed by: Masood Zuniga [id number]"
--- NOTE | 2019-03-13 14:03 | Cardiology Report ---
PROCEDURE: 2-D M-mode and color Doppler study INDICATIONS FOR THE TEST: Chest pain+ COPD Heart Murmur Tobacco Smoking Palpitations Fatigue+ Syncope Edema+ Hypertension+Diabetes Mellitus+ Rheumatic Fever SOB+PAINTING Obesity+Hyperlipidemia Family History HD Additional History TYRONE, SVT, bradycardia, bariatric sleeve surgery 09/2018, hx of asthma, anoxic brain injury PATIENT INFORMATION HEIGHT: 65 WEIGHT: 193 GENDER: Female B/P: 118/74 2-D/M-MODE INTERPRETATION: 2-D MEASUREMENTS OBSERVED VALUES IN CMS Right Ventricular Dimension (RVDd) 2.0 Interventricular Septum (Thickness)(IVsd) 0.8 Left Ventricular Internal Dimensions(LVIDd) 5.6 Left Ventricular Posterior Wall (Thickness)(LVPWd) 0.9 Aortic Root 3.3 Aortic Cusp Separation 2.5 Left Atrial Dimensions (LAD) 3.1 2D 1. Left atrium is mildly enlarged, left ventricle is normal size, there is mild qualitative concentric left ventricular hypertrophy, visually estimated ejection fraction 55% with no regional wall motion abnormality. 2. The right atrium is mildly enlarged, left ventricle is normal size and contractility. 3. The aortic valve is minimally thickened and fibrosed. 4. The mitral and tricuspid valves are minimally thickened. 5. The pulmonic valve is poorly visualized. 6. No significant pericardial effusion noted. DOPPLER INTERROGATION: Doppler interrogation of the aortic, mitral and tricuspid valvular presence of mild mitral and tricuspid regurgitation, tricuspid regurgitation jet velocity is inadequate for calculation of the right ventricular systolic pressure, grade 1 diastolic dysfunction seen with tissue Doppler evidence of raised left atrial pressure. CONCLUSION: 1. Mild biatrial enlargement, normal left ventricular size, mild qualitative concentric left ventricular hypertrophy, visually estimated ejection fraction of 55% with no regional wall motion abnormality, grade 1 diastolic dysfunction seen with tissue Doppler evidence of raised left atrial pressure. 2. Mildly mitral and tricuspid regurgitation 3. No significant pericardial effusion noted.
[2019-03-13 14:26] LABS: Free T4 (Free Thyroxine) 0.95 ng/dl (0.76-1.46); Thyroid Stimulating Hormone 1.42 uIU/ml (0.358-3.740)
--- NOTE | 2019-03-14 07:47 | Progress Note ---
Subjective Date: 03/14/19 Time: 07:37 Principal diagnosis: Syncope Interval history: 43 yo WF in bed eating breakfast in NAD. Telemetry shows no arrhythmias. Orthostatic BP is stable. Exam Vital signs and Labs for Last 24 Hours: Temp Pulse Resp BP Pulse Ox 97.8 F 57 L 18 116/67 99 03/14/19 04:00 03/14/19 04:00 03/14/19 04:00 03/14/19 04:00 03/14/19 04:00 Laboratory Results - last 24 hr 03/13/19 13:20: TSH 1.42, Free T4 0.95 I & O for Last 24 hours: Intake & Output 03/11/19 03/12/19 03/13/19 03/14/19 11:59 11:59 11:59 11:59 Intake Total 1185 / 1185 1674 / 1674 Output Total 300 / 300 Balance 885 / 885 1674 / 1674 Weight 196 lb 6 oz 200 lb - *Routine HEENT Exam Head: Present: normocephalic Eye: Present: EOMI, PERRL ENT: Present: mucous membranes moist - *Routine Respiratory Exam Present: CTA bilaterally. Absent: accessory muscle use, rales, rhonchi, wheezes - *Routine Cardiovascular Exam Present: RRR. Absent: murmur, gallop, rubs - *Routine Neurological Exam Present: alert, oriented X3, moving all extremities Progress Note: A&P (1) Syncope and collapse Status: Acute Current Visit: Yes (2) Hereditary hemochromatosis Status: Chronic Current Visit: Yes (3) History of paroxysmal supraventricular tachycardia Status: Chronic Current Visit: Yes (4) Type 2 diabetes mellitus Status: Chronic Current Visit: Yes Assessment and Plan for All Diagnoses:: OK for discharge home from cardiology standpoint. Likely has vasovagal syncope. Recommend increasing salt intake. [address] Follow up in our office in 1-2 wks. Consider getting cardiac MRI at (to further assess for infiltrative myocardial process) if syncope continues despite increasing salt intake or if arrhythmias noted on holter. Echo was not indicative of such a process but does not exclude it.
--- NOTE | 2019-03-14 08:35 | Progress Note ---
<Shayla Gant - Last Filed: 03/14/19 08:32> Internal Medicine - PN: Subj *Date: 03/14/19 *Time: 08:32 Interval history: Patient states she is feeling better this morning. She is only had one episode of dizziness this morning and it was not accompanied by neck pain. She states this episode was not as bad as her previous episodes. She denies any pain today and states she slept well and ate a decent breakfast. Her right shoulder is still sore. Exam Vital signs and Labs for Last 24 Hours: Temp Pulse Resp BP Pulse Ox 98.5 F 64 17 136/79 99 03/14/19 07:48 03/14/19 07:48 03/14/19 07:48 03/14/19 07:48 03/14/19 07:48 Laboratory Results - last 24 hr 03/13/19 13:20: TSH 1.42, Free T4 0.95 I & O for Last 24 hours: Intake & Output 03/11/19 03/12/19 03/13/19 03/14/19 11:59 11:59 11:59 11:59 Intake Total 1185 / 1185 2033 Output Total 300 / 300 Balance 885 / 885 2033 Weight 196 lb 6 oz 200 lb Radiology Reports for the Last 24 Hours: Carotid U/S 1. The bilateral vertebral arteries are patent with normal antegrade flow. 2. Study suggests less than 20% stenosis involving the right internal carotid artery and the left internal carotid artery. Echo 1. Mild biatrial enlargement, normal left ventricular size, mild qualitative concentric left ventricular hypertrophy, visually estimated ejection fraction of 55% with no regional wall motion abnormality, grade 1 diastolic dysfunction seen with tissue Doppler evidence of raised left atrial pressure. 2. Mildly mitral and tricuspid regurgitation 3. No significant pericardial effusion noted. Cardiac Cath IMPRESSION: 1. Normal coronary arteries 2. Normal ejection fraction 3. Normal left ventricular end-diastolic pressure PLAN: 1. Medical management 2. Evaluation of nonischemic symptomatology - Constitutional no acute distress - *Routine Respiratory Exam Present: CTA bilaterally - *Routine Cardiovascular Exam Present: RRR - *Routine Abdominal Exam Present: soft, normoactive bowel sounds. Absent: tenderness - *Routine Extremities Exam Absent: cyanosis, clubbing, edema - *Routine Neurological Exam Present: alert, oriented X3 Assessment and Plan (1) Syncope and collapse Status: Acute Category: Medical Code(s): R55 - Syncope and collapse (2) Hereditary hemochromatosis Status: Chronic Category: Medical Code(s): E83.110 - Hereditary hemochromatosis (3) History of paroxysmal supraventricular tachycardia Status: Chronic Category: Medical Code(s): Z86.79 - Personal history of other diseases of the circulatory system (4) Type 2 diabetes mellitus Status: Chronic Category: Medical Code(s): E11.9 - Type 2 diabetes mellitus without complications - Assessment and plan all Dx Assessment and Plan for all problems:: Echo, carotid artery duplex, and cardiac cath reviewed. Cardiology felt her syncope may be vasovagal or orthostatic in nature. They felt she was stable to be discharged home. Will discuss with Dr. Anaya. <Walter Anaya - Last Filed: 03/25/19 08:12> Internal Medicine - PN: Subj *Date: 03/25/19 *Time: 08:11 Exam Vital signs and Labs for Last 24 Hours: Temp Pulse Resp BP Pulse Ox 98.5 F 80 17 136/79 99 03/14/19 07:48 03/14/19 08:00 03/14/19 07:48 03/14/19 07:48 03/14/19 07:48 Assessment and Plan (1) Syncope and collapse Status: Acute Category: Medical Code(s): R55 - Syncope and collapse (2) Hereditary hemochromatosis Status: Chronic Category: Medical Code(s): E83.110 - Hereditary hemochromatosis (3) History of paroxysmal supraventricular tachycardia Status: Chronic Category: Medical Code(s): Z86.79 - Personal history of other diseases of the circulatory system (4) Type 2 diabetes mellitus Status: Chronic Category: Medical Code(s): E11.9 - Type 2 diabetes mellitus without complications - Assessment and plan all Dx Assessment and Plan for all problems:: Patient seen and examined. She is stable for discharge to complete w/u as outpt.
--- NOTE | 2019-03-14 09:43 | Discharge Summary ---
General - General Admission date:: 03/12/19 <Walter Anaya - 03/25/19 08:09> 03/12/19 <Shayla Gant - 03/14/19 09:44> Discharge date: 03/14/19 <StalinShayla - 03/14/19 09:44> HPI HPI: Ms. Franco is a 43yo female with a hx of Type 2 DM diet controlled after bariatric surgery, fibromyalgia, SVT followed by Dr. Zhong, asthma, depression, anxiety, and disability d/t anoxic brain injury who experienced a syncopal episode and injured her right shoulder when she fell this am. She states she was dizzy before the episode and afterward she did have some right shoulder pain and neck pain on the left side. She drove herself to meet some family members after the episode and felt dizzy and weak again and had a near sycopal episode, therefore she presented to the ER for evaluation. Head CT and shoulder x-ray showed nothing acute. She was admitted and placed on telemetry and cardiology was consulted. Of note, she was recently diagnosed with hereditary hemochromatosis and has had ferritin levels over 600. She has not yet had phlebotomy. <Shayla Gant - 03/14/19 09:44> Hospital Course Hospital Course: The patient's labs were relatively unremarkable. She was admitted and placed on telemetry. An echo and carotid duplex were ordered and her ferritin level was checked as well. Cardiology was consulted. Her ferritin level was 459, which was elevated. Her carotid ultrasound showed less than 20% stenosis of the bilateral carotid arteries. Her echo showed mild biatrial enlargement and mild concentric left ventricular hypertrophy. Her ejection fraction was 55% and she did have grade 1 diastolic dysfunction. She was seen in consultation by cardiology who felt she would need a heart cath. This was performed and it showed normal coronary arteries. Telemetry showed no arrhythmias to explain a syncopal episode. The patient's echo did not indicate evidence of iron storage in the cardiac tissue. They felt the syncope was vasovagal in origin but wanted to place a 48-hour Holter monitor upon discharge. If negative they would consider an implantable loop recorder in the future. They also may consider getting a cardiac MRI at if the syncope continues. Her orthostatic blood pressure was stable. They felt the patient was stable to be discharged home and will need to follow-up with them in a week. They did encourage her to increase her salt intake. <Shayla Gant - 03/14/19 09:44> Objective Vital signs: Temp Pulse Resp BP Pulse Ox 98.5 F 80 17 136/79 99 03/14/19 07:48 03/14/19 08:00 03/14/19 07:48 03/14/19 07:48 03/14/19 07:48 <Walter Anaya - 03/25/19 08:09> Temp Pulse Resp BP Pulse Ox 98.5 F 64 17 136/79 99 03/14/19 07:48 03/14/19 07:48 03/14/19 07:48 03/14/19 07:48 03/14/19 07:48 <Shayla Gant - 03/14/19 09:44> Narrative: - Constitutional no acute distress - *Routine Respiratory Exam Present: CTA bilaterally - *Routine Cardiovascular Exam Present: RRR - *Routine Abdominal Exam Present: soft, normoactive bowel sounds. Absent: tenderness - *Routine Extremities Exam Absent: cyanosis, clubbing, edema - *Routine Neurological Exam Present: alert, oriented X3 <Shayla Gant - 03/14/19 09:44> Results Labs on day of discharge: Labs from last 24 hours 03/13/19 13:20 TSH 1.42 Free T4 0.95 <Shayla Gant - 03/14/19 09:44> DS: Diagnosis - Discharge Diagnosis (1) Syncope and collapse Status: Acute (2) Hereditary hemochromatosis Status: Chronic (3) History of paroxysmal supraventricular tachycardia Status: Chronic (4) Type 2 diabetes mellitus Status: Chronic <Shayla Gant - 03/14/19 09:38> (1) Syncope and collapse Status: Acute (2) Hereditary hemochromatosis Status: Chronic (3) History of paroxysmal supraventricular tachycardia Status: Chronic (4) Type 2 diabetes mellitus Status: Chronic <Walter Anaya - 03/25/19 08:09> Discharge Plan - Patient Discharge Instructions ACTIVITY: Continue current activity <Shayla Gant - 03/14/19 09:44> DIET: continue same diet <Shayla Gant 03/14/19 09:44> Patient Instructions: DI for Syncope in Adults (Fainting), Heart-Healthy Diet, DI for Cardiac Catheterization, DI for Surgical Site Infection <Walter Anaya - 03/25/19 08:09> Forms: <Walter Anaya - 03/25/19 08:09> - Follow up Plan Follow up with: Shayla Gant PA [Physician End Worker] - 03/21/19 10:00 am Walter Anaya MD [Primary Care Provider] - Javed Zhong MD [Staff Physician] - 03/20/19 1:40 pm <Walter Anaya - 03/25/19 08:09> Disposition: Home, Self-Care <Walter Anaya - 03/25/19 08:09> Home Medications: Home Medications Medication Instructions Recorded Confirmed Type albuterol sulfate HFA 90 1 puff INHALATION Q6HP PRN 04/16/18 03/12/19 History mcg/actuation aerosol inhaler epinephrine 0.3 mg/0.3 mL 0.3 mg IM NEEDED PRN 04/16/18 03/13/19 History injection, auto-injector hydroxyzine HCl 50 mg tablet 50 mg PO TIDP PRN tab 04/16/18 03/13/19 History trazodone 100 mg tablet 100 mg PO HS 04/16/18 03/13/19 History biotin 10,000 mcg disintegrating 10,000 mcg PO DAILY 10/21/18 03/12/19 History tablet mecobalamin (vitamin B12) 1,000 1,000 mcg SUBLINGUAL DAILY 10/21/18 03/12/19 History mcg disintegrating tablet,sublingual multivitamin tablet 2 tab PO DAILY tab 10/21/18 03/12/19 History Cholecalciferol (Vitamin D3) 50,000 unit PO WEEKLY 03/12/19 03/12/19 History [Vitamin D3 50,000 unit Cap] Omeprazole 20 mg PO HS 03/12/19 03/12/19 History sumatriptan 25 mg tablet 25 mg PO Q2H PRN 03/20/19 03/20/19 History topiramate 25 mg tablet 25 mg PO DAILY tab 03/20/19 03/20/19 History <Walter Anaya - 03/25/19 08:09> Prescriptions/Medication Reconciliation: Continued trazodone 100 mg tablet 100 mg PO HS epinephrine 0.3 mg/0.3 mL injection, auto-injector 0.3 mg IM NEEDED PRN PRN Reason: anaphylaxis hydroxyzine HCl 50 mg tablet 50 mg PO TIDP PRN tab PRN Reason: Anxiety albuterol sulfate HFA 90 mcg/actuation aerosol inhaler 1 puff INHALATION Q6HP PRN PRN Reason: Shortness Of Breath multivitamin tablet 2 tab PO DAILY tab mecobalamin (vitamin B12) 1,000 mcg disintegrating tablet,sublingual 1,000 mcg SUBLINGUAL DAILY biotin 10,000 mcg disintegrating tablet 10,000 mcg PO DAILY Omeprazole 20 mg PO HS Cholecalciferol (Vitamin D3) [Vitamin D3 50,000 unit Cap] 50,000 unit PO WEEKLY No Action sumatriptan 25 mg tablet 25 mg PO Q2H PRN topiramate 25 mg tablet 25 mg PO DAILY tab <Walter Anaya - 03/25/19 08:09> - Additional Information Additional Information: Concur with plan for discharge as outlined above. <Walter Anaya - 03/25/19 08:09>
== END 2019-03-14 10:43 | disposition home or self-care (01) ==
LOC: ER 13:46 → 2ND 13:46
PROVIDERS: ADMIT Family Medicine; ATTEND Family Medicine
DX: E11.9 Type 2 diabetes mellitus without complications; Z79.899 Other long term (current) drug therapy; Z91.030 Bee allergy status; R55 Syncope and collapse; E83.110 Hereditary hemochromatosis; Z98.84 Bariatric surgery status; I20.0 Unstable angina; Z88.8 Allergy status to other drugs, medicaments and biological substances; Z88.7 Allergy status to serum and vaccine; M25.511 Pain in right shoulder; I47.1 Supraventricular tachycardia; Z86.79 Personal history of other diseases of the circulatory system; Z72.0 Tobacco use
CPT/HCPCS: 36415; 70450; 73030; 80053; 80305; 81001; 82728; 84439; 84443; 84484; 85025; 93005; 93306; 93458; 93880; 99152; 99283; C1725; C1769; G0378; J1644; Q9967

== ENCOUNTER 2019-03-15 13:38 | Emergency (ER) | payer BC, MEDICARE, SELFPAY ==
[2019-03-15 13:56] VITALS: BP 109/69; PULSE 80; RESP 18; TEMP 36.7; O2SAT 98; BMI 33.1
--- NOTE | 2019-03-15 14:04 | CT_ITS ---
CT head/brain wo con HISTORY: ..REASON: dizziness, blurred vision, visual spots. Fall 2 days ago ORDERING PHYSICIAN: Praful Luu MD PATIENT AGE: 43 years COMPARISON: Previous CT head without contrast 03/12/2019 & June [address] [id number] TECHNIQUE: Axial images obtained without contrast. Brain and bone windows reviewed. All CT scans at the facility use one or more dose reduction, viz: automated exposure control, ma/kV adjustment per patient size (including targeted exams where dose is matched to indication, i.e. head), or iterative reconstruction technique. FINDINGS: No acute intracranial findings No mass effect or midline shift.. No intracranial hemorrhage,. No territorial infarct. Ventricles and basal cisterns appear satisfactory clear. Normal size ventricles.., No subdural nor extra-axial fluid collection. Stable dense anterior falx calcification measuring up to 16 mm AP x 12 mm wide mm wide is seen at the anterior superior falx projected more to the the right of midline. This feature unchanged since studies dating back to 2010. Favor benign prominent dense falx calcification and. A stable small calcified meningioma conceivably could have similar appearance but less likely given it is unchanged since 2010.. And there is there is no mass effect or edema from this feature.. If anything there is scant stable atrophy in adjacent to this feature unchanged 2010 . The skull intact otherwise unremarkable and stable. . Imaged portions of paranasal sinuses but no significant findings.... No air-fluid levels. Mastoid air cells well-developed and fairly clear with only scant mucosal thickening & fluid at posterior right mastoid air cell towards right mastoid tip.-This also Unchanged since 2010 as well.. No significant or new mastoid effusion. Middle ear is clear. Regarding visual symptoms the orbits unremarkable. Globes unremarkable. Suprasellar region appear stable since 2012. No significant findings here. A would note the sella is generous upper normal in size likely partial empty sella. & This appearance a stable since 2010 as well IMPRESSION: No acute or discrete findings. Stable CT head without contrast. Stable Prominent dense anterior falx calcification again noted--unchanged since 2010 CT head
--- NOTE | 2019-03-15 14:26 | PC.NURSE ---
Pt to rad
--- NOTE | 2019-03-15 14:28 | PC.NURSE ---
pt to CT
[2019-03-15 14:33] LABS: Basophils # 0.1 K/mm3 (0-0.2); Basophils % 0.7 % (0.1-2.0); Eosinophils # 0.1 K/mm3 (0.0-0.4); Eosinophils % 1.6 % (0.1-12.0); Hematocrit 41.9 % (37.0-47.0); Hemoglobin 13.2 g/dL (12.2-16.2); Lymphocytes # 1.3 K/mm3 (0.7-4.5); Lymphocytes % 19.7 % (10-50); Mean Corpuscular HGB Conc 31.4 g/dL (31.8-35.4); Mean Corpuscular Hemoglobin 28.2 pg (27.0-31.2); Mean Corpuscular Volume 89.7 fl (81-99); Mean Platelet Volume 8.1 fl (7.4-10.4); Monocytes # 0.4 K/mm3 (0.1-1.0); Monocytes % 5.9 % (1.7-9.3); Neutrophils # 4.8 K/mm3 (1.8-7.8); Platelet Count 194 K/mm3 (142-424); Red Blood Count 4.67 M/mm3 (4.20-5.40); Red Cell Distribution Width 12.9 % (11.5-17.5); White Blood Count 6.7 K/mm3 (4.8-10.8)
[2019-03-15 14:48] LABS: Alanine Aminotransferase 48 U/L (12-78); Albumin Level 3.3 gm/dL (3.4-5.0); Albumin/Globulin Ratio 1.1 (1.1-1.8); Alkaline Phosphatase 67 U/L (46-116); Anion Gap 14.2 mEq/L (5-15); Aspartate Amino Transferase 20 U/L (15-37); Bilirubin,Total 0.4 mg/dL (0.2-1.0); Blood Urea Nitrogen 15 mg/dL (7-18); Calcium 8.5 mg/dL (8.5-10.1); Carbon Dioxide 26 mmol/L (21.0-32.0); Chloride 107 mmol/L (98-107); Creatinine Clearance Estimated 127 mL/min (50-200); Creatinine,Serum 0.78 mg/dL (0.55-1.02); Estimated Glomerular Filt Rate 80 ml/min (>60); GFR (African American) 97 ML/MIN (>60); Glucose 187 mg/dL (74-106); Potassium 4.2 mmoL/L (3.5-5.1); Sodium 143 mmol/L (136-145); Total Protein,Serum 6.3 gm/dL (6.4-8.2); Troponin I < 0.02 ng/ml (0.00-0.06)
[2019-03-15 15:19] VITALS: BP 120/67; PULSE 71; O2SAT 98
--- NOTE | 2019-03-15 15:42 | [facility].EDGENADL ---
ED Disposition Clinical Impression: CVA (cerebral vascular accident), Headache, Hypertension, Obesity Disposition: Xfer Short-Term Hosp Condition on Discharge: Fair Referrals: Walter Anaya MD [Primary Care Provider] - - Critical Care Critical Care Time: No Attestation: On 03/15/19, the high probability of a clinically significant, sudden or life threatening deterioration of the following system(s) required my full and direct attention, intervention and personal management. The time I documented below is in addition to time spent performing reported procedures but includes the following listed in this critical care notation. Medical Decision Making - Jelani Inquiry Pt receiving controlled substance: No Jelani was queried for this patient: No Vital Signs: 03/15/19 13:56 03/15/19 15:19 03/15/19 16:01 Temperature 98.0 F Temperature Source Oral Pulse Rate [Right Radial] 80 71 59 L Respiratory Rate 18 Blood Pressure [Left Arm] 109/69 L 120/67 117/70 Blood Pressure Mean [Left Arm] 82 84 85 Blood Pressure Source [Left Arm] Automatic Cuff Automatic Cuff Automatic Cuff Blood Pressure Position [Left Arm] Sitting Sitting Sitting 02 Sat by Pulse Oximetry 98 98 98 Oxygen Delivery Method Room Air Room Air Room Air - Lab Data Lab Results 03/15/19 14:20: WBC 6.7, RBC 4.67, Hgb 13.2, Hct 41.9, MCV 89.7, MCH 28.2, MCHC 31.4 L, RDW 12.9, Plt Count 194, MPV 8.1, Neut % (Auto) 72.0, Lymph % (Auto) 19.7, [place] % (Auto) 5.9, Eos % (Auto) 1.6, Baso % (Auto) 0.7, Neut # (Auto) 4.8, Lymph # (Auto) 1.3, [place] # (Auto) 0.4, Eos # (Auto) 0.1, Baso # (Auto) 0.1 03/15/19 14:20: Sodium 143, Potassium 4.2, Chloride 107, Carbon Dioxide 26, Anion Gap 14.2, BUN 15, Creatinine 0.78, Estimated Creat Clear 127, Estimated GFR 80, Est GFR ( Amer) 97, Glucose 187 H, Calcium 8.5, Total Bilirubin 0.4, AST 20, ALT 48, Alkaline Phosphatase 67, Troponin I < 0.02, Total Protein 6.3 L, Albumin 3.3 L, Globulin 3.0, Albumin/Globulin Ratio 1.1 Result diagrams: 03/15/19 14:20 03/15/19 14:20 Orders (Tests/Meds): ORDERS Category Date Time Status CT head/brain wo con Stat Cat Scan 03/15/19 14:04 Taken - CT Data CT Scan: Head Time Received: 16:[address] Reviewed: Yes: I have viewed the radiologist's interpretation Preliminary Findings: Normal/NAD Medical Decision Narrative: I reviewed the patient meds past medical history and most recent cardiac catheterization, progression of symptoms and most recently visual field defect with Dr. Tucker stroke attending who advised the patient be transferred to [facility] for evaluation. The patient was agreeable for transfer and preferred to go by private vehicle. General Adult HPI - General Chief complaint: Dizziness Stated complaint: dizzy, wavy vision, haedache Time Seen by Provider: 03/15/19 13:45 Mode of Arrival: Ambulatory Limitations: No Limitations Description of Symptoms (Recalled from ER Triage Doc. by RN): Pt reports angelita eyes are not focusing and vision is blurry and dizziness, pt reports this began lastnight. Pt reports she was discharged from the hospital yesterday after having a heart cath on . Pt is wearing a heart monitor that she is supposed to mail back tonight. Pt reports she has had a headache since her heart cath . Pt reports she initially came to the hospital sunday after a syncople episode. - History of Present Illness HPI narrative: 43 years old white female who was admitted to [facility] 3 days ago due to an episode of syncope. She was admitted and underwent normal cardiac catheterization and after which she developed headache. She describes her headache as generalized on top of the head sharp in character fluctuating between 7 and 10. Today while she was having lunch she developed an episode of dizziness, squiggly lines involving the right side of the visual field and became scared. 6 mon
--- NOTE | 2019-03-15 15:46 | ED_ITS ---
ED Disposition Clinical Impression: CVA (cerebral vascular accident), Headache, Hypertension, Obesity Disposition: Xfer Short-Term Hosp Condition on Discharge: Fair Referrals: Walter Anaya MD [Primary Care Provider] - - Critical Care Critical Care Time: No Attestation: On 03/15/19, the high probability of a clinically significant, sudden or life threatening deterioration of the following system(s) required my full and direct attention, intervention and personal management. The time I documented below is in addition to time spent performing reported procedures but includes the following listed in this critical care notation. Medical Decision Making - Jelani Inquiry Pt receiving controlled substance: No Jelani was queried for this patient: No Vital Signs: 03/15/19 13:56 03/15/19 15:19 03/15/19 16:01 Temperature 98.0 F Temperature Source Oral Pulse Rate [Right Radial] 80 71 59 L Respiratory Rate 18 Blood Pressure [Left Arm] 109/69 L 120/67 117/70 Blood Pressure Mean [Left Arm] 82 84 85 Blood Pressure Source [Left Arm] Automatic Cuff Automatic Cuff Automatic Cuff Blood Pressure Position [Left Arm] Sitting Sitting Sitting 02 Sat by Pulse Oximetry 98 98 98 Oxygen Delivery Method Room Air Room Air Room Air - Lab Data Lab Results 03/15/19 14:20: WBC 6.7, RBC 4.67, Hgb 13.2, Hct 41.9, MCV 89.7, MCH 28.2, MCHC 31.4 L, RDW 12.9, Plt Count 194, MPV 8.1, Neut % (Auto) 72.0, Lymph % (Auto) 19.7, [place] % (Auto) 5.9, Eos % (Auto) 1.6, Baso % (Auto) 0.7, Neut # (Auto) 4.8, Lymph # (Auto) 1.3, [place] # (Auto) 0.4, Eos # (Auto) 0.1, Baso # (Auto) 0.1 03/15/19 14:20: Sodium 143, Potassium 4.2, Chloride 107, Carbon Dioxide 26, Anion Gap 14.2, BUN 15, Creatinine 0.78, Estimated Creat Clear 127, Estimated GFR 80, Est GFR ( Amer) 97, Glucose 187 H, Calcium 8.5, Total Bilirubin 0.4, AST 20, ALT 48, Alkaline Phosphatase 67, Troponin I < 0.02, Total Protein 6.3 L, Albumin 3.3 L, Globulin 3.0, Albumin/Globulin Ratio 1.1 Result diagrams: 03/15/19 14:20 03/15/19 14:20 Orders (Tests/Meds): ORDERS Category Date Time Status CT head/brain wo con Stat Cat Scan 03/15/19 14:04 Taken - CT Data CT Scan: Head Time Received: 16:[address] Reviewed: Yes: I have viewed the radiologist's interpretation Preliminary Findings: Normal/NAD Medical Decision Narrative: I reviewed the patient meds past medical history and most recent cardiac catheterization, progression of symptoms and most recently visual field defect with Dr. Tucker stroke attending who advised the patient be transferred to [facility] for evaluation. The patient was agreeable for transfer and preferred to go by private vehicle. General Adult HPI - General Chief complaint: Dizziness Stated complaint: dizzy, wavy vision, haedache Time Seen by Provider: 03/15/19 13:45 Mode of Arrival: Ambulatory Limitations: No Limitations Description of Symptoms (Recalled from ER Triage Doc. by RN): Pt reports angelita eyes are not focusing and vision is blurry and dizziness, pt reports this began lastnight. Pt reports she was discharged from the hospital yesterday after having a heart cath on . Pt is wearing a heart monitor that she is supposed to mail back tonight. Pt reports she
--- NOTE | 2019-03-15 15:46 | PC.NURSE ---
calling dr lyn per request
[2019-03-15 16:01] VITALS: BP 117/70; PULSE 59; O2SAT 98
--- NOTE | 2019-03-15 16:15 | PC.NURSE ---
EDWARD HOWARD contacted [facility], reports pt is accepted to [facility] per Dr. Tucker
--- NOTE | 2019-03-15 16:37 | PC.NURSE ---
Dr. Gabriel returned call and spoke with Dr. Luu. Dr Luu has spoke with [facility] and pt will be transferred there
[2019-03-15 16:38] VITALS: BP 116/76; PULSE 57; O2SAT 97
--- NOTE | 2019-03-15 17:17 | PC.NURSE ---
Pt up to restroom
--- NOTE | 2019-03-15 17:18 | PC.NURSE ---
ER states that pt IV can be left in place for pt transfer to ER per POV
--- NOTE | 2019-03-15 17:40 | PC.NURSE ---
report called to MARGI White at ER
[2019-03-15 17:43] VITALS: BP 119/85; PULSE 64; RESP 18; TEMP 36.9; O2SAT 98
== END 2019-03-15 17:43 | disposition short-term general hospital (02) ==
PROVIDERS: Emergency Provider Emergency Medicine; PCP Family Medicine
DX: I63.9 Cerebral infarction, unspecified (principal); E66.9 Obesity, unspecified; Z68.33 Body mass index [BMI] 33.0-33.9, adult; E83.110 Hereditary hemochromatosis; E11.9 Type 2 diabetes mellitus without complications; M79.7 Fibromyalgia; F41.8 Other specified anxiety disorders; Z90.49 Acquired absence of other specified parts of digestive tract
CPT/HCPCS: 70450; 80053; 84484; 85025; 93005; 99284

== ENCOUNTER 2019-06-03 08:50 | Outpatient (CLI) | payer BC, MEDICARE, SELFPAY ==
[2019-06-03 09:10] VITALS: BP 125/78; PULSE 68; RESP 20; TEMP 36.9; O2SAT 95
[2019-06-03 09:30] VITALS: BP 126/80; PULSE 68; RESP 20; TEMP 36.9; O2SAT 95
== END 2019-06-03 09:30 | disposition home or self-care (01) ==
LOC: INF 08:54
PROVIDERS: PCP Emergency Medicine; Visit Provider Emergency Medicine
DX: N39.0 Urinary tract infection, site not specified (principal); A59.9 Trichomoniasis, unspecified
CPT/HCPCS: 96372

== ENCOUNTER 2019-06-04 09:33 | Outpatient (CLI) | payer BC, MEDICARE, SELFPAY ==
[2019-06-04 09:30] VITALS: BP 122/69; PULSE 63; RESP 18; TEMP 36.6; O2SAT 100
== END 2019-06-04 09:48 | disposition home or self-care (01) ==
LOC: INF 09:33
PROVIDERS: Visit Provider Emergency Medicine
DX: A59.9 Trichomoniasis, unspecified (principal); N39.0 Urinary tract infection, site not specified
CPT/HCPCS: 96372

== ENCOUNTER 2019-06-05 10:43 | Outpatient (CLI) | payer BC, MEDICARE, SELFPAY ==
[2019-06-05 10:54] VITALS: BP 135/84; PULSE 66; RESP 18; TEMP 36.6; O2SAT 99
[2019-06-05 11:15] VITALS: BP 129/72; PULSE 69; RESP 18; TEMP 36.7; O2SAT 99
== END 2019-06-05 11:15 | disposition home or self-care (01) ==
LOC: INF 10:43
PROVIDERS: Visit Provider Emergency Medicine
DX: A59.9 Trichomoniasis, unspecified (principal); N39.0 Urinary tract infection, site not specified
CPT/HCPCS: 96372

== ENCOUNTER 2019-06-06 09:04 | Outpatient (CLI) | payer BC, MEDICARE, SELFPAY ==
[2019-06-06 09:22] VITALS: BP 115/76; PULSE 63; RESP 18; TEMP 36.7; O2SAT 99
== END 2019-06-06 09:38 | disposition home or self-care (01) ==
LOC: INF 09:04
PROVIDERS: Visit Provider Emergency Medicine
DX: N39.0 Urinary tract infection, site not specified (principal); A59.9 Trichomoniasis, unspecified
CPT/HCPCS: 96372

== ENCOUNTER 2019-06-07 11:28 | Outpatient (CLI) | payer BC, MEDICARE, SELFPAY ==
[2019-06-07 11:40] VITALS: BP 117/75; PULSE 92; RESP 18; TEMP 36.8; O2SAT 100
[2019-06-07 12:15] VITALS: BP 120/78; PULSE 92; RESP 18; O2SAT 100
== END 2019-06-07 12:15 | disposition home or self-care (01) ==
LOC: INF 11:30
PROVIDERS: PCP Emergency Medicine; Visit Provider Emergency Medicine
DX: N39.0 Urinary tract infection, site not specified (principal); A59.9 Trichomoniasis, unspecified
CPT/HCPCS: 96372

== ENCOUNTER → 2019-06-08 16:11 | Outpatient (CLI) | payer BC, MEDICARE, SELFPAY ==
[2019-06-08 16:20] VITALS: BP 115/78; PULSE 70; RESP 16; TEMP 36.7; O2SAT 99
== END ==
PROVIDERS: PCP Family Medicine; Visit Provider Emergency Medicine
DX: N39.0 Urinary tract infection, site not specified (principal); A59.9 Trichomoniasis, unspecified
CPT/HCPCS: 96372

== ENCOUNTER → 2019-09-12 10:31 | Outpatient (CLI) | payer BC, MEDICARE, SELFPAY ==
[2019-09-12 12:44] LABS: Alanine Aminotransferase 44 U/L (12-78); Albumin Level 3.8 gm/dL (3.4-5.0); Albumin/Globulin Ratio 1.3 (1.1-1.8); Alkaline Phosphatase 54 U/L (46-116); Aspartate Amino Transferase 13 U/L (15-37); Bilirubin,Total 0.4 mg/dL (0.2-1.0); Blood Urea Nitrogen 19 mg/dL (7-18); Calcium 8.8 mg/dL (8.5-10.1); Carbon Dioxide 27 mmol/L (21.0-32.0); Chloride 103 mmol/L (98-107); Chol/HDL Ratio 2.2 (1-3.5); Cholesterol 164 mg/dL (140-200); Creatinine,Serum 0.63 mg/dL (0.55-1.02); Estimated Glomerular Filt Rate 102 ml/min (>60); Ferritin 380 ng/mL (8-388); Free T4 (Free Thyroxine) 0.87 ng/dl (0.76-1.46); GFR (African American) 124 ML/MIN (>60); Globulin 2.9 gm/dl (1.3-3.2); Glucose 92 mg/dL (74-106); HDL Cholesterol 73 mg/dL (29-89); LDL Cholesterol 82 mg/dL (0-130); Sodium 141 mmol/L (136-145); Thyroid Stimulating Hormone 1.22 uIU/ml (0.358-3.740); Total Protein,Serum 6.7 gm/dL (6.4-8.2); Triglycerides 47 mg/dL (30-200); VLDL Cholesterol 9 mg/dL (0-40)
[2019-09-12 16:51] LABS: Hemoglobin A1C 5.4 % (0.0-7.0)
[2019-09-13 13:05] LABS: Vitamin B12 1656 pg/mL (232-1245)
== END ==
PROVIDERS: Visit Provider Physician Assistant
DX: E53.8 Deficiency of other specified B group vitamins (principal); E11.9 Type 2 diabetes mellitus without complications; E83.110 Hereditary hemochromatosis; Z13.29 Encounter for screening for other suspected endocrine disorder; Z13.220 Encounter for screening for lipoid disorders
CPT/HCPCS: 36415; 80053; 80061; 82607; 82728; 83036; 84439; 84443

== ENCOUNTER 2020-11-30 02:16 | Emergency (ER) | payer BC, MEDICARE, MEDICAID, SELFPAY ==
[2020-11-30 02:17] VITALS: BP 114/78; PULSE 74; RESP 18; TEMP 36.9; O2SAT 99; BMI 30.7
--- NOTE | 2020-11-30 02:37 | HMH.EDANX ---
ED Disposition Clinical Impression: Antidepressant discontinuation syndrome Qualifiers: Encounter type: initial encounter Qualified Code(s): T43.205A - Adverse effect of unspecified antidepressants, initial encounter Disposition: Home, Self-Care Condition on Discharge: Good Instructions: Anxiety and Panic Attacks (Alternative Therapy) Additional Instructions: resume meds and call pcp Referrals: Walter Anaya MD [Primary Care Provider] - - Critical Care Critical Care Time: No Attestation: On 11/30/20, the high probability of a clinically significant, sudden or life threatening deterioration of the following system(s) required my full and direct attention, intervention and personal management. The time I documented below is in addition to time spent performing reported procedures but includes the following listed in this critical care notation. Medical Decision Making - Medical Records Medical records reviewed: Yes: I reviewed the patient's medical records. - Jelani Inquiry Pt receiving controlled substance: No Vital Signs: 11/30/20 02:17 Temperature 98.4 F Temperature Source Oral Pulse Rate [Right] 74 Respiratory Rate 18 Blood Pressure [Right Arm] 114/78 Blood Pressure Mean [Right Arm] 90 Blood Pressure Source [Right Arm] Automatic Cuff Blood Pressure Position [Right Arm] Supine 02 Sat by Pulse Oximetry 99 Oxygen Delivery Method Room Air - Lab Data Lab results reviewed: Yes: I reviewed the patient's lab results. Lab Results 11/30/20 02:50: WBC 6.1, RBC 4.64, Hgb 13.6, Hct 41.5, MCV 89.6, MCH 29.4, MCHC 32.8, RDW 12.6, Plt Count 189, MPV 7.8, Neut % (Auto) 58.7, Lymph % (Auto) 31.9, White % (Auto) 5.6, Eos % (Auto) 2.4, Baso % (Auto) 1.4, Neut # (Auto) 3.6, Lymph # (Auto) 1.9, White # (Auto) 0.3, Eos # (Auto) 0.1, Baso # (Auto) 0.1 11/30/20 02:50: Sodium 137, Potassium 4.0, Chloride 106, Carbon Dioxide 25, Anion Gap 10.0, BUN 28 H, Creatinine 0.60, Estimated Creat Clear 150, Estimated GFR 108, Est GFR ( Amer) 130, Glucose 137 H, Calcium 9.0, Total Bilirubin 0.3, AST 25, ALT 17, Alkaline Phosphatase 41, C-Reactive Protein 0.3, Total Protein 6.7, Albumin 4.0, Globulin 2.7, Albumin/Globulin Ratio 1.5, Procalcitonin 0.036 Result diagrams: 11/30/20 02:50 11/30/20 02:50 Orders (Tests/Meds): ED MEDICATIONS Generic Name Dose Route Start Last Admin Trade Name Freq PRN Reason Stop Dose Admin Sodium Chloride 1,000 mls @ 999 mls/hr 11/30/20 02:45 11/30/20 03:00 Sod Chlor 0.9% 1000ml Bag IV 11/30/20 03:45 999 mls/hr .Q1H1M PATRICK Administration ORDERS Category Date Time Status Complete Blood Count Auto Diff Stat Lab 11/30/20 02:50 Results Erythrocyte Sedimentation Rate Stat Lab 11/30/20 02:50 Results - Reevaluation(s) Time: 03:44 Reevaluation #1: improved Medical Decision Narrative: discussed meds and use and call pcp for follow up-sounds like antidepressant discontinuation syn Anxiety HPI - General Chief Complaint: Anxiety Stated Complaint: Anxiety Time Seen by Provider: 11/30/20 02:37 Mode of Arrival: EMS Source of Information: Patient, EMS, Medical Record Limitations: No Limitations Description of Symptoms (Recalled from ER Triage Doc. by RN): Pt states her physician is weaning her off her effexor and starting her on Lexapro and tonight she felt dizzy and had an anxiety attack. She called [facility] to bring her here and they gave 1 mg of versed in route to calm her down. - History of Present Illness HPI narrative: hx of tapering off effexor and on lexapro but missed dose tonight and about 2hrs with shakey and dizzyness -- no def syncope MD complaint: anxiety Onset (ago): hour(s) Severity: moderate Place: home History of similar episodes: No Associated symptoms: denies other symptoms - Related Data Home Medications: Home Medications Medication Instructions Recorded Confirmed albuterol sulfate 90 mcg/actuation 1 puff INHALATI
[2020-11-30 03:05] LABS: Basophils # 0.1 K/mm3 (0-0.2); Basophils % 1.4 % (0.1-2.0); Eosinophils # 0.1 K/mm3 (0.0-0.4); Eosinophils % 2.4 % (0.1-12.0); Hematocrit 41.5 % (37.0-47.0); Hemoglobin 13.6 g/dL (12.2-16.2); Lymphocytes # 1.9 K/mm3 (0.7-4.5); Lymphocytes % 31.9 % (10-50); Mean Corpuscular HGB Conc 32.8 g/dL (31.8-35.4); Mean Corpuscular Hemoglobin 29.4 pg (27.0-31.2); Mean Corpuscular Volume 89.6 fl (81-99); Mean Platelet Volume 7.8 fl (7.4-10.4); Monocytes # 0.3 K/mm3 (0.1-1.0); Monocytes % 5.6 % (1.7-9.3); Neutrophils # 3.6 K/mm3 (1.8-7.8); Neutrophils % 58.7 % (37.0-80.0); Platelet Count 189 K/mm3 (142-424); Red Blood Count 4.64 M/mm3 (4.20-5.40); Red Cell Distribution Width 12.6 % (11.5-17.5); White Blood Count 6.1 K/mm3 (4.8-10.8)
[2020-11-30 03:12] LABS: Alanine Aminotransferase 17 U/L (12-78); Albumin/Globulin Ratio 1.5 (1.1-1.8); Alkaline Phosphatase 41 U/L (38-126); Aspartate Amino Transferase 25 U/L (14-36); Bilirubin,Total 0.3 mg/dl (0.2-1.3); Blood Urea Nitrogen 28 mg/dl (7-17); Carbon Dioxide 25 mmol/L (22.0-30.0); Chloride 106 mmol/L (98-107); Creatinine Clearance Estimated 150 mL/min (50-200); Estimated Glomerular Filt Rate 108 ml/min (>60); GFR (African American) 130 ML/MIN (>60); Globulin 2.7 g/dL (1.3-3.2); Glucose 137 mg/dl (74-100); Sodium 137 mmol/L (136-145); Total Protein,Serum 6.7 g/dl (6.3-8.2)
[2020-11-30 03:18] LABS: C-Reactive Protein 0.3 mg/L (0-4)
[2020-11-30 03:29] LABS: Procalcitonin 0.036 ng/mL (0.0-2.0)
[2020-11-30 03:42] LABS: Erythrocyte Sedimentation Rate 5 mm/hr (0-20)
[2020-11-30 03:55] VITALS: BP 119/79; PULSE 68; RESP 14; TEMP 36.9; O2SAT 99
== END 2020-11-30 03:58 | disposition home or self-care (01) ==
PROVIDERS: Emergency Provider Emergency Medicine; PCP Family Medicine
DX: R42 Dizziness and giddiness (principal); T43.205A Adverse effect of unspecified antidepressants, initial encounter; F41.8 Other specified anxiety disorders; E11.9 Type 2 diabetes mellitus without complications; I10 Essential (primary) hypertension; I47.2 Ventricular tachycardia; Z86.73 Personal history of transient ischemic attack (TIA), and cerebral infarction without residual deficits; Z79.899 Other long term (current) drug therapy; Z88.8 Allergy status to other drugs, medicaments and biological substances
CPT/HCPCS: 80053; 84145; 85025; 85651; 86140; 96365; 99282

== ENCOUNTER 2021-02-17 20:50 | Emergency (ER) | payer BC, MEDICARE, MEDICAID, SELFPAY ==
[2021-02-17] VITALS (9 sets, daily range): BP systolic 106–125; BP diastolic 69–86; PULSE 68–83; RESP 18–20; TEMP 37; O2SAT 99–100; BMI 29.8
--- NOTE | 2021-02-17 21:38 | HMH.EDPSYCH ---
ED Disposition Clinical Impression: Suicidal ideation Depression Qualifiers: Depression Type: major depressive disorder Major depression recurrence: unspecified whether recurrent Active/Remission status: remission status unspecified Qualified Code(s): F32.9 - Major depressive disorder, single episode, unspecified UTI (urinary tract infection) Qualifiers: Urinary tract infection type: site unspecified Hematuria presence: without hematuria Qualified Code(s): N39.0 - Urinary tract infection, site not specified Disposition: Xfer Psychiatric Hosp Condition on Discharge: Good Instructions: DI for Depression -- Adult Referrals: Walter Anaya MD [Primary Care Provider] - - Critical Care Critical Care Time: No Attestation: On 02/17/21, the high probability of a clinically significant, sudden or life threatening deterioration of the following system(s) required my full and direct attention, intervention and personal management. The time I documented below is in addition to time spent performing reported procedures but includes the following listed in this critical care notation. Medical Decision Making - Medical Records Medical records reviewed: Yes: I reviewed the patient's medical records. - Jelani Inquiry Pt receiving controlled substance: No Vital Signs: 02/17/21 20:51 02/17/21 21:33 02/17/21 21:45 Temperature 98.6 F Temperature Source Oral Pulse Rate 83 82 Pulse Rate [Right] 80 Respiratory Rate 18 18 18 Blood Pressure 122/86 123/81 Blood Pressure [Right Arm] 125/82 Blood Pressure Mean [Right Arm] 96 Blood Pressure Source Automatic Cuff Automatic Cuff Blood Pressure Source [Right Arm] Automatic Cuff Blood Pressure Position Sitting Sitting 02 Sat by Pulse Oximetry 100 100 100 Oxygen Delivery Method Room Air Room Air Room Air 02/17/21 22:00 02/17/21 22:15 02/17/21 22:30 Temperature Temperature Source Pulse Rate 81 78 82 Pulse Rate [Right] Respiratory Rate 20 18 18 Blood Pressure 106/74 L 117/69 114/69 Blood Pressure [Right Arm] Blood Pressure Mean [Right Arm] Blood Pressure Source Automatic Cuff Automatic Cuff Automatic Cuff Blood Pressure Source [Right Arm] Blood Pressure Position Supine Supine Supine 02 Sat by Pulse Oximetry 99 99 100 Oxygen Delivery Method Room Air Room Air Room Air 02/17/21 22:45 Temperature Temperature Source Pulse Rate 74 Pulse Rate [Right] Respiratory Rate 20 Blood Pressure 110/71 Blood Pressure [Right Arm] Blood Pressure Mean [Right Arm] Blood Pressure Source Automatic Cuff Blood Pressure Source [Right Arm] Blood Pressure Position Supine 02 Sat by Pulse Oximetry 100 Oxygen Delivery Method Room Air - Lab Data Lab results reviewed: Yes: I reviewed the patient's lab results. Lab Results 02/17/21 21:19: WBC 7.9, RBC 5.23, Hgb 15.1, Hct 44.7, MCV 85.6, MCH 28.8, MCHC 33.7, RDW 13.0, Plt Count 212, MPV 7.8, Neut % (Auto) 60.1, Lymph % (Auto) 28.9, [place] % (Auto) 4.7, Eos % (Auto) 5.1, Baso % (Auto) 1.1, Neut # (Auto) 4.7, Lymph # (Auto) 2.3, [place] # (Auto) 0.4, Eos # (Auto) 0.4, Baso # (Auto) 0.1, ESR 8 02/17/21 21:19: Sodium 137, Potassium 4.1, Chloride 105, Carbon Dioxide 27, Anion Gap 9.1, BUN 19 H, Creatinine 0.60, Estimated Creat Clear 146, Estimated GFR 108, Est GFR ( Amer) 130, Glucose 87, Calcium 9.2, Total Bilirubin 0.7, AST 27, ALT 15, Alkaline Phosphatase 43, Troponin I < 0.01, C-Reactive Protein 0.4, Total Protein 7.3, Albumin 4.6, Globulin 2.7, Albumin/Globulin Ratio 1.7, TSH 0.71, Thyroxine (T4) 8.1, Salicylates < 1.0 L, Acetaminophen < 10 L 02/17/21 21:19: Plasma/Serum Alcohol < 10 02/17/21 21:23: Urine Color Yellow, Urine Appearance Cloudy, Urine pH 6.0, Ur Specific [place] 1.025, Urine Protein Negative, Urine Glucose (UA) Negative, Urine Ketones 3+, Urine Blood Negative, Urine Nitrate Positive, Urine Bilirubin Negative, Urine Urobilinogen 1.0, Ur Leukocyte Esterase Negative, Urine WBC 10-20, Ur Squamous Epit
[2021-02-17 22:02] LABS: Microscopic, Urine URINE MICROSCOPIC (MICROSCOPIC)
[2021-02-17 22:04] LABS: Appearance,Urine CLOUDY (Clear); Bilirubin,Urine Negative (Negative); Blood, Urine Negative (Negative); Color,Urine YELLOW (Yellow); Glucose,Urine (UA) Negative (Negative); Ketones,Urine 3+ (Negative); Leukocyte Esterase,Urine Negative (Negative); Nitrate,Urine POSITIVE (Negative); Protein,Urine Negative (Negative); Specific Gravity, Urine 1.025 (1.005-1.030)
[2021-02-17 22:10] LABS: Basophils # 0.1 K/mm3 (0-0.2); Basophils % 1.1 % (0.1-2.0); Eosinophils # 0.4 K/mm3 (0.0-0.4); Eosinophils % 5.1 % (0.1-12.0); Hematocrit 44.7 % (37.0-47.0); Hemoglobin 15.1 g/dL (12.2-16.2); Lymphocytes # 2.3 K/mm3 (0.7-4.5); Lymphocytes % 28.9 % (10-50); Mean Corpuscular HGB Conc 33.7 g/dL (31.8-35.4); Mean Corpuscular Hemoglobin 28.8 pg (27.0-31.2); Mean Corpuscular Volume 85.6 fl (81-99); Mean Platelet Volume 7.8 fl (7.4-10.4); Monocytes # 0.4 K/mm3 (0.1-1.0); Monocytes % 4.7 % (1.7-9.3); Neutrophils # 4.7 K/mm3 (1.8-7.8); Neutrophils % 60.1 % (37.0-80.0); Platelet Count 212 K/mm3 (142-424); Red Blood Count 5.23 M/mm3 (4.20-5.40); White Blood Count 7.9 K/mm3 (4.8-10.8)
[2021-02-17 22:12] LABS: Alanine Aminotransferase 15 U/L (12-78); Albumin Level 4.6 g/dl (3.5-5.0); Albumin/Globulin Ratio 1.7 (1.1-1.8); Alkaline Phosphatase 43 U/L (38-126); Anion Gap 9.1 mEq/L (5-15); Aspartate Amino Transferase 27 U/L (14-36); Bilirubin,Total 0.7 mg/dl (0.2-1.3); Blood Urea Nitrogen 19 mg/dl (7-17); Calcium 9.2 mg/dl (8.4-10.2); Carbon Dioxide 27 mmol/L (22.0-30.0); Chloride 105 mmol/L (98-107); Creatinine Clearance Estimated 146 mL/min (50-200); Estimated Glomerular Filt Rate 108 ml/min (>60); GFR (African American) 130 ML/MIN (>60); Globulin 2.7 g/dL (1.3-3.2); Glucose 87 mg/dl (74-100); Potassium 4.1 mmoL/L (3.5-5.1); Sodium 137 mmol/L (136-145); Total Protein,Serum 7.3 g/dl (6.3-8.2)
[2021-02-17 22:13] LABS: Bacteria,Urine 4+ /lpf
[2021-02-17 22:13] LABS: Acetaminophen < 10 ug/ml (10-30); Ethyl Alcohol < 10 mg/dl (0-10); Salicylate < 1.0 mg/dL (2.0-20.0)
[2021-02-17 22:17] LABS: Benzodiazepines Screen,Urine Negative ng/ml (<200)
[2021-02-17 22:17] LABS: C-Reactive Protein 0.4 mg/L (0-4)
[2021-02-17 22:18] LABS: Amphetamine/Metha Screen,Urine Negative ng/ml (<1000); Barbiturates Screen,Urine Negative ng/ml (<200)
[2021-02-17 22:19] LABS: Cannabinoid Screen,Urine Negative ng/ml (<50); Cocaine Screen,Urine Negative ng/ml (<300)
[2021-02-17 22:20] LABS: Methadone Screen,Urine Negative ng/ml (<300)
[2021-02-17 22:21] LABS: Opiate Screen,Urine Negative ng/ml (<300); Phencyclidine Screen,Urine Negative ng/ml (<25)
[2021-02-17 22:28] LABS: Troponin I < 0.01 ng/ml (0.00-0.034)
[2021-02-17 22:31] LABS: T4 (Thyroxine) 8.1 ug/dl (5.53-11.0)
[2021-02-17 22:37] LABS: Erythrocyte Sedimentation Rate 8 mm/hr (0-20)
[2021-02-17 22:45] LABS: Thyroid Stimulating Hormone 0.71 uIU/mL (0.465-4.68)
--- NOTE | 2021-02-17 23:16 | PC.NURSE ---
Late Entry: Pt was placed in SI precautions and 1:1 OBSV established, pt was placed in a gown and personal items given to her .
--- NOTE | 2021-02-17 23:19 | PC.NURSE ---
[facility] dept here to transport pt. Called Report to Deyanira KISER at [facility].
--- NOTE | 2021-02-17 23:20 | PC.NURSE ---
Deputy Sosay here to transport pt and questioned the unsigned form [id number] . He contacted Business Economist Custard in this RN's presence. The Business Economist stated he saw the form but did not need to sign it.
--- NOTE | 2021-02-18 03:02 | PC.NURSE ---
Received a call from Salima Ghosh that [facility] contacted them regarding the 711 form. This RN called [facility] to verify that the form was submitted to Criminal Justice Teacher Custguanako however he reported that he did not need to sign it. They stated that this was not accurate information and the form does need to be sign for 72hr hold so that they may examine the pt. They reported that they will pass it along to their supervisor lead refinery and will contact the Criminal Justice Teacher for further education. Gave [facility] Dispatch's phone number so that they can contact Criminal Justice Teacher Custguanako.
== END 2021-02-17 23:22 ==
PROVIDERS: Emergency Provider Emergency Medicine; PCP Family Medicine
DX: R45.851 Suicidal ideations (principal); F32.9 Major depressive disorder, single episode, unspecified; N39.0 Urinary tract infection, site not specified; E11.9 Type 2 diabetes mellitus without complications; I10 Essential (primary) hypertension; Z86.73 Personal history of transient ischemic attack (TIA), and cerebral infarction without residual deficits; I47.1 Supraventricular tachycardia; Z79.899 Other long term (current) drug therapy; Z88.7 Allergy status to serum and vaccine; Z88.8 Allergy status to other drugs, medicaments and biological substances
CPT/HCPCS: 80053; 80305; 80329; 81001; 84436; 84443; 84484; 85025; 85651; 86140; 87086; 87088; 87186; 99283

== ENCOUNTER 2021-06-16 16:02 | Emergency (ER) | payer BC, MEDICARE, MEDICAID, SELFPAY ==
[2021-06-16 16:02] VITALS: BP 134/85; PULSE 85; RESP 13; TEMP 36.9; O2SAT 100; BMI 28.3
--- NOTE | 2021-06-16 16:02 | ECG_ITS ---
APPROVED REPORT Exam: Resting ECG HR:81 bpm ECG Measurements Heart Rate 81 AXES AR 154 P 35 QRSd 88 QRS -30 QT 386 T 15 QTc 448 Conclusion Normal sinus rhythm Left axis deviation Low voltage QRS Abnormal ECG Electronically signed by : Akira Bryant MD 06/17/2021 17:37:40
--- NOTE | 2021-06-16 16:09 | HMH.EDGENADL ---
ED Disposition Clinical Impression: Atypical chest pain, Adverse reaction to COVID-19 vaccine Disposition: Home, Self-Care Condition on Discharge: Good Instructions: DI for Atypical Chest Pain Additional Instructions: Tylenol as needed for pain and fever. Follow-up with your primary care provider, call for appointment. Additional instructions for CHEST PAIN: See your physician as soon as possible for further evaluation. Return immediately if worsening chest pain, vomiting, shortness of breath, fever, coughing of blood. Referrals: Walter Anaya MD [Primary Care Provider] - - Critical Care Critical Care Time: No Attestation: On , the high probability of a clinically significant, sudden or life threatening deterioration of the following system(s) required my full and direct attention, intervention and personal management. The time I documented below is in addition to time spent performing reported procedures but includes the following listed in this critical care notation. Medical Decision Making - Jelani Inquiry Pt receiving controlled substance: No Vital Signs: 06/16/21 16:02 Temperature 98.5 F Temperature Source Oral Pulse Rate [Right Radial] 85 Respiratory Rate 13 Blood Pressure [Right Arm] 134/85 Blood Pressure Mean [Right Arm] 101 Blood Pressure Source [Right Arm] Automatic Cuff Blood Pressure Position [Right Arm] Supine 02 Sat by Pulse Oximetry 100 - Lab Data Lab Results 06/16/21 16:16: WBC 5.0, RBC 4.34, Hgb 13.5, Hct 41.2, MCV 94.9, MCH 31.0, MCHC 32.7, RDW 13.4, Plt Count 173, MPV 8.7, Neut % (Auto) 76.5, Lymph % (Auto) 14.2, [place] % (Auto) 6.2, Eos % (Auto) 2.1, Baso % (Auto) 1.0, Neut # (Auto) 3.8, Lymph # (Auto) 0.7, [place] # (Auto) 0.3, Eos # (Auto) 0.1, Baso # (Auto) 0.1 06/16/21 16:16: Sodium 138, Potassium 3.7, Chloride 105, Carbon Dioxide 25, Anion Gap 11.7, BUN 25 H, Creatinine 0.50 L, Estimated Creat Clear 164, Estimated GFR 132, Est GFR ( Amer) 160, Glucose 101 H, Calcium 8.7, Troponin I < 0.01 06/16/21 16:16: D-Dimer 1.12 H 06/16/21 19:17: Troponin I < 0.01 Result diagrams: 06/16/21 16:16 06/16/21 16:16 Orders (Tests/Meds): ED MEDICATIONS Discontinued Medications Generic Name Dose Route Start Last Admin Trade Name Amy PRN Reason Stop Dose Admin Iopamidol 70 ml 06/16/21 19:20 06/16/21 19:21 Iopamidol-370 (76%);100ml Bottle IV 06/16/21 19:21 70 ml ONCE ONE Administration Sodium Chloride 50 ml 06/16/21 19:20 06/16/21 19:21 0.9 % Sodium Chloride 50 Ml Vial IV 06/16/21 19:21 50 ml ONCE ONE Administration Sodium Chloride 10 ml 06/16/21 19:20 06/16/21 19:21 Sodium Chloride 0.9% 10ml Syr (Rad Only) IV 06/16/21 19:21 10 ml ONCE ONE Administration ORDERS Category Date Time Status Troponin I Q3H Lab 06/16/21 22:15 Ordered - Radiology Data #1 Image(s): Chest Image Reviewed: Yes I reviewed the patient's radiology image, Yes I have reviewed radiologist's interpretation PROCEDURE INFORMATION: Exam: XR Chest Exam date and time: 06/16/2021 4:13 PM Age: 46 years old Clinical indication: Pain and abnormal findings; Abnormal diagnostic tests; Elevated d-dimer; Other: Not specified; Additional info: Cp TECHNIQUE: Imaging protocol: XR of the chest. Views: 1 view. COMPARISON: CR XR CHEST PORTABLE 12/17/2019 6:35 PM FINDINGS: Lungs: Unremarkable. No consolidation. Pleural spaces: Unremarkable. No pleural effusion. No pneumothorax. Heart/Mediastinum: Unremarkable. No cardiomegaly. Bones/joints: Unremarkable. IMPRESSION: No acute findings. - CT Data CT Scan: Chest (CTA) Time Received: 18:[address] Reviewed: Yes: I have viewed the radiologist's interpretation Findings Narrative: PROCEDURE INFORMATION: Exam: CTA Chest With Contrast Exam date and time: 06/16/2021 4:42 PM Age: 46 years old Clinical indication: Pa
--- NOTE | 2021-06-16 16:13 | XR_ITS ---
PROCEDURE INFORMATION: Exam: XR Chest Exam date and time: 06/16/2021 4:13 PM Age: 46 years old Clinical indication: Pain and abnormal findings; Abnormal diagnostic tests; Elevated d-dimer; Other: Not specified; Additional info: Cp TECHNIQUE: Imaging protocol: XR of the chest. Views: 1 view. COMPARISON: CR XR CHEST PORTABLE 12/17/2019 6:35 PM FINDINGS: Lungs: Unremarkable. No consolidation. Pleural spaces: Unremarkable. No pleural effusion. No pneumothorax. Heart/Mediastinum: Unremarkable. No cardiomegaly. Bones/joints: Unremarkable. IMPRESSION: No acute findings.
[2021-06-16 16:24] LABS: Basophils # 0.1 K/mm3 (0-0.2); Eosinophils # 0.1 K/mm3 (0.0-0.4); Eosinophils % 2.1 % (0.1-12.0); Hematocrit 41.2 % (37.0-47.0); Hemoglobin 13.5 g/dL (12.2-16.2); Lymphocytes # 0.7 K/mm3 (0.7-4.5); Lymphocytes % 14.2 % (10-50); Mean Corpuscular HGB Conc 32.7 g/dL (31.8-35.4); Mean Corpuscular Volume 94.9 fl (81-99); Mean Platelet Volume 8.7 fl (7.4-10.4); Monocytes # 0.3 K/mm3 (0.1-1.0); Monocytes % 6.2 % (1.7-9.3); Neutrophils # 3.8 K/mm3 (1.8-7.8); Neutrophils % 76.5 % (37.0-80.0); Platelet Count 173 K/mm3 (142-424); Red Blood Count 4.34 M/mm3 (4.20-5.40); Red Cell Distribution Width 13.4 % (11.5-17.5)
[2021-06-16 16:39] LABS: D-Dimer 1.12 ug/mL (0.0-0.5)
--- NOTE | 2021-06-16 16:42 | CT_ITS ---
PROCEDURE INFORMATION: Exam: CTA Chest With Contrast Exam date and time: 06/16/2021 4:42 PM Age: 46 years old Clinical indication: Patient HX: Chest pain, elevated d-dimer, PT states she received her 2nd dose of moderna covid shot yesterday and started feeling bad today with chest pain; Additional info: Chest pain, elev d-dimer TECHNIQUE: Imaging protocol: Computed tomographic angiography of the chest with contrast. 3D rendering (Not supervised by radiologist): MIP and/or 3D reconstructed images were created by the technologist. Radiation optimization: All CT scans at this facility use at least one of these dose optimization techniques: automated exposure control; mA and/or kV adjustment per patient size (includes targeted exams where dose is matched to clinical indication); or iterative reconstruction. Contrast material: ISOVUE; Contrast volume: 70 ml; Contrast route: INTRAVENOUS (IV); COMPARISON: CR XR CHEST PORTABLE 06/16/2021 4:59 PM FINDINGS: Pulmonary arteries: Normal. No pulmonary emboli. Aorta: Unremarkable. No aortic aneurysm. Lungs: Unremarkable. No consolidation. No masses. Pleural spaces: Unremarkable. No pneumothorax. No pleural effusion. Heart: Coronary artery calcifications.. No cardiomegaly. No pericardial effusion. Lymph nodes: Unremarkable. No enlarged lymph nodes. Bones/joints: Unremarkable. No acute fracture. Soft tissues: Unremarkable. IMPRESSION: 1. No evidence of pulmonary embolus 2. Coronary artery calcifications somewhat advanced for age and gender.
--- NOTE | 2021-06-16 16:56 | PC.NURSE ---
RAD at bedside
[2021-06-16 17:00] LABS: Chloride 105 mmol/L (98-107); Potassium 3.7 mmoL/L (3.5-5.1); Sodium 138 mmol/L (136-145)
[2021-06-16 17:03] LABS: Anion Gap 11.7 mEq/L (5-15); Blood Urea Nitrogen 25 mg/dl (7-17); Calcium 8.7 mg/dl (8.4-10.2); Carbon Dioxide 25 mmol/L (22.0-30.0); Creatinine Clearance Estimated 164 mL/min (50-200); Estimated Glomerular Filt Rate 132 ml/min (>60); GFR (African American) 160 ML/MIN (>60); Glucose 101 mg/dl (74-100)
[2021-06-16 17:17] LABS: Troponin I < 0.01 ng/ml (0.00-0.034)
[2021-06-16 19:49] LABS: Troponin I < 0.01 ng/ml (0.00-0.034)
[2021-06-16 21:08] VITALS: BP 135/75; PULSE 84; RESP 14; TEMP 36.9; O2SAT 97
== END 2021-06-16 21:10 | disposition home or self-care (01) ==
PROVIDERS: Emergency Provider Emergency Medicine; PCP Family Medicine
DX: R07.89 Other chest pain (principal); T50.Z95A Adverse effect of other vaccines and biological substances, initial encounter; F41.8 Other specified anxiety disorders; I10 Essential (primary) hypertension; E11.9 Type 2 diabetes mellitus without complications; I47.1 Supraventricular tachycardia; Z79.899 Other long term (current) drug therapy
CPT/HCPCS: 71045; 71275; 80048; 84484; 85025; 85378; 93005; 99283; Q9967

== ENCOUNTER 2021-07-01 12:22 | Emergency (ER) | payer BC, MEDICARE, MEDICAID, SELFPAY ==
--- NOTE | 2021-07-01 12:22 | ECG_ITS ---
APPROVED REPORT Exam: Resting ECG HR:70 bpm ECG Measurements Heart Rate 70 AXES DE 150 P 11 QRSd 80 QRS -35 QT 400 T 28 QTc 432 Conclusion Normal sinus rhythm Left axis deviation Low voltage QRS Abnormal ECG Electronically signed by : Akira Bryant MD 07/02/2021 09:46:57
[2021-07-01 12:31] VITALS: BP 110/83; PULSE 74; RESP 16; TEMP 37.3; O2SAT 100; BMI 28.3
--- NOTE | 2021-07-01 12:31 | XR_ITS ---
PROCEDURE: XR CHEST PORTABLE CLINICAL HISTORY: cough COMPARISON: CR CXR CHEST(2 VIEWS-NOT PORTABLE) from 09/03/2017 CR XR CHEST PORTABLE from 12/17/[address] ANGIO CHEST PE PROTOCOL from 06/16/2021 CR XR CHEST PORTABLE from 06/16/2021 FINDINGS: The cardiomediastinal silhouette and pulmonary vascularity are within normal limits. The lungs are clear without infiltrates, suspicious nodules, or pleural effusions. No acute bony abnormalities. IMPRESSION: No acute findings. Dictated by: Dr. Jensen Bonilla MD 07/01/2021 12:58 Dr. Jensen Bonilla MD in [facility] 07/01/2021 12:58
--- NOTE | 2021-07-01 12:31 | CA_ITS ---
APPROVED REPORT EXAM: Comprehensive 2D, Doppler, and color-flow Echocardiogram Customer Field Representative: Georgie Caldera RVT Ht: 5 ft 4 in Wt: 167lbs BSA: 1.81 BP: 110/83 mmHg Indications: CHF,SMOKER,DM,HTN,SOA,ABN EKG,ARRHYTHMIA,HX CVA 2D Dimensions LVOT 2.45 cm (M/F) 1.5-2.5 LA Volume 22.50 mL LA Volume Index 12.43 mL/m2 (M/F) 16-34 M-Mode Dimensions RVDd 2.31 cm (0.9-2.6) LA Diam 3.77 cm (1.9-4.0) LVDd 4.72 cm (3.5-5.7) Ao Diam 3.19 cm (2.0-3.7) LVDs 3.31 cm (3.5-5.7) IVSd 0.74 cm (0.6-1.1) PWd 0.87 cm (0.6-1.1) EF (Teich) 57.00% FS 29.90% EDV (Teich) 103.40 mL TAPSE 2.70 (<1.7) ESV (Teich) 44.50 mL LV Diastology E Decel Time 177.00 (160-240 msec) E/A Ratio 1.2 MED E' 9.30 (< 7 cm/sec) E'/MED E' Ratio 8.30 (>14) LAT E' 11.90 (<10 cm/sec) E/LAT E' Ratio 6.49 (>14) Aortic Valve AO Peak GR. 4.60 mmHg Mitral Valve MV E Max Andres. 77.00 (40-130 cm/s) MV A Velocity 64.00 (40-130 cm/s) E/A Ratio 1.20 MV Decel. Time 177.00 (160-240 ms) MV PHT 52.00 ms Pulmonary Valve PV Peak Velocity 62.00 (50-150 cm/s) Tricuspid Valve TR P. Velocity 250.00 cm/s RAP Estimate 10.00 mmHg RVSP 35.00 mmHg Left Ventricle Left atrium is mildly enlarged, left ventricle is normal size, visually estimated ejection fraction 55% with no regional wall motion abnormality, diastolic parameters are within normal range. Right Ventricle Right atrium and right ventricle are mildly enlarged with normal contractility. Aortic Valve Aortic valve is minimally thickened and calcified without Doppler evidence of aortic stenosis or aortic insufficiency. Mitral Valve Mitral valve is grossly normal, there is trace mitral regurgitation. Tricuspid Valve Tricuspid valve is grossly normal, there is mild tricuspid regurgitation, calculated right ventricular systolic pressure 35 mmHg. Pulmonic Valve Pulmonic valve is poorly visualized. Great Vessels Aortic root is normal size. Inferior vena cava is mildly dilated with normal inspiratory collapse. Pericardium There are echocardiographic indications for cardiac tamponade. Conclusion 1. Biatrial enlargement, normal left ventricular size, visually estimated ejection fraction 55% with no regional wall motion abnormality, diastolic parameters are within normal range. 2. Mildly enlarged right ventricle with normal contractility. 3. Trace mitral and mild tricuspid regurgitation, calculated right ventricular systolic pressure 35 mmHg. 4. No significant pericardial effusion noted. 5. Inferior vena cava is mildly dilated with normal inspiratory collapse. Electronically signed by : Matthew Carrera MD 07/03/2021 17:56:11
[2021-07-01 12:43] LABS: Basophils # 0.1 K/mm3 (0-0.2); Eosinophils # 0.1 K/mm3 (0.0-0.4); Eosinophils % 1.4 % (0.1-12.0); Hematocrit 42.8 % (37.0-47.0); Hemoglobin 14.2 g/dL (12.2-16.2); Lymphocytes # 1.7 K/mm3 (0.7-4.5); Lymphocytes % 25.7 % (10-50); Mean Corpuscular HGB Conc 33.1 g/dL (31.8-35.4); Mean Corpuscular Hemoglobin 30.7 pg (27.0-31.2); Mean Corpuscular Volume 92.7 fl (81-99); Mean Platelet Volume 7.9 fl (7.4-10.4); Monocytes # 0.4 K/mm3 (0.1-1.0); Monocytes % 6.1 % (1.7-9.3); Neutrophils # 4.3 K/mm3 (1.8-7.8); Neutrophils % 65.9 % (37.0-80.0); Platelet Count 198 K/mm3 (142-424); Red Blood Count 4.62 M/mm3 (4.20-5.40); Red Cell Distribution Width 12.6 % (11.5-17.5); White Blood Count 6.5 K/mm3 (4.8-10.8)
--- NOTE | 2021-07-01 12:43 | PC.NURSE ---
notified cv lab of echo order
--- NOTE | 2021-07-01 12:43 | HMH.EDCP ---
ED Disposition Clinical Impression: Pericarditis Qualifiers: Pericarditis type: unspecified type Chronicity: acute Qualified Code(s): I30.9 - Acute pericarditis, unspecified Disposition: Home, Self-Care Condition on Discharge: Good Instructions: DI for Atypical Chest Pain Referrals: Walter Anaya MD [Primary Care Provider] - Javed Zhong MD [Staff Physician] - - Critical Care Critical Care Time: No Attestation: On 07/01/21, the high probability of a clinically significant, sudden or life threatening deterioration of the following system(s) required my full and direct attention, intervention and personal management. The time I documented below is in addition to time spent performing reported procedures but includes the following listed in this critical care notation. Medical Decision Making - Medical Records Medical records reviewed: Yes: I reviewed the patient's medical records. - Jelani Inquiry Pt receiving controlled substance: No Vital Signs: 07/01/21 12:31 Temperature 99.1 F Temperature Source Oral Pulse Rate [Right Radial] 74 Respiratory Rate 16 Blood Pressure [Right Arm] 110/83 Blood Pressure Mean [Right Arm] 92 Blood Pressure Source [Right Arm] Automatic Cuff Blood Pressure Position [Right Arm] Sitting 02 Sat by Pulse Oximetry 100 Oxygen Delivery Method Room Air - Lab Data Lab Results 07/01/21 12:30: WBC 6.5, RBC 4.62, Hgb 14.2, Hct 42.8, MCV 92.7, MCH 30.7, MCHC 33.1, RDW 12.6, Plt Count 198, MPV 7.9, Neut % (Auto) 65.9, Lymph % (Auto) 25.7, [place] % (Auto) 6.1, Eos % (Auto) 1.4, Baso % (Auto) 1.0, Neut # (Auto) 4.3, Lymph # (Auto) 1.7, [place] # (Auto) 0.4, Eos # (Auto) 0.1, Baso # (Auto) 0.1 07/01/21 12:30: PT 10.7, INR 0.94, APTT 26.5 07/01/21 12:30: Sodium 138, Potassium 3.9, Chloride 108 H, Carbon Dioxide 25, Anion Gap 8.9, BUN 20 H, Creatinine 0.50 L, Estimated Creat Clear 164, Estimated GFR 132, Est GFR ( Amer) 160, Glucose 103 H, Calcium 8.9, Total Bilirubin 0.5, AST 22, ALT 14, Alkaline Phosphatase 46, Troponin I < 0.01, NT-Pro-B Natriuret Pep 48.0, Total Protein 6.5, Albumin 3.8, Globulin 2.5, Albumin/Globulin Ratio 1.5, Lipase 71 07/01/21 12:48: SARS-CoV-2 (PCR) Not detected, Influenza A Untype (PCR) Not detected, Influenza Type B (PCR) Not detected Result diagrams: 07/01/21 12:30 07/01/21 12:30 Orders (Tests/Meds): ED MEDICATIONS Discontinued Medications Generic Name Dose Route Start Last Admin Trade Name Freq PRN Reason Stop Dose Admin Iopamidol 70 ml 07/01/21 14:07 07/01/21 14:09 Iopamidol-370 (76%);100ml Bottle IV 07/01/21 14:08 70 ml ONCE ONE Administration Sodium Chloride 10 ml 07/01/21 14:07 07/01/21 14:09 Sodium Chloride 0.9% 10ml Syr (Rad Only) IV 07/01/21 14:08 10 ml ONCE ONE Administration Sodium Chloride 50 ml 07/01/21 14:07 07/01/21 14:10 0.9 % Sodium Chloride 50 Ml Vial IV 07/01/21 14:08 50 ml ONCE ONE Administration ORDERS Category Date Time Status Troponin I Q3H Lab 07/01/21 15:45 Ordered Troponin I Q3H Lab 07/01/21 18:45 Ordered - Radiology Data #1 Image(s): Chest Image Reviewed: Yes I reviewed the patient's radiology results, Yes I reviewed the patient's radiology image, Yes I reviewed the patient's radiology image w/the ED provider Preliminary Findings: Normal/NAD - CT Data CT Scan: Chest Time Received: 14:[address] Reviewed: Yes: I have reviewed the patient's CT results, I have viewed the radiologist's interpretation Findings Narrative: IMPRESSION: No evidence of pulmonary emboli, question minimal bilateral lower lobe bronchiectasis, negative for pneumonic infiltrate - ECG Data Tracing #1 I reviewed this ECG and interpreted as documented below: Normal ventricular rate of 70 bpm, ME interval 150 ms, normal QTC. Sinus rhythm with left axis deviation, nonspecific changes ECG initial impression date: 07/01/21 ECG initial impression time: 12:22 Normal Sinus Rhythm
[2021-07-01 12:51] LABS: Chloride 108 mmol/L (98-107)
[2021-07-01 12:52] LABS: Potassium 3.9 mmoL/L (3.5-5.1); Sodium 138 mmol/L (136-145)
[2021-07-01 12:53] LABS: Activated Partial Thrombo Time 26.5 seconds (22.8-30.6); INR 0.94 (0.9-1.1); Prothrombin Time 10.7 seconds (10.1-12.5)
[2021-07-01 12:57] LABS: Alanine Aminotransferase 14 U/L (12-78); Albumin Level 3.8 g/dl (3.5-5.0); Alkaline Phosphatase 46 U/L (38-126); Anion Gap 8.9 mEq/L (5-15); Aspartate Amino Transferase 22 U/L (14-36); Bilirubin,Total 0.5 mg/dl (0.2-1.3); Blood Urea Nitrogen 20 mg/dl (7-17); Calcium 8.9 mg/dl (8.4-10.2); Carbon Dioxide 25 mmol/L (22.0-30.0); Creatinine Clearance Estimated 164 mL/min (50-200); Estimated Glomerular Filt Rate 132 ml/min (>60); GFR (African American) 160 ML/MIN (>60); Glucose 103 mg/dl (74-100); Lipase 71 U/L (23-300); Total Protein,Serum 6.5 g/dl (6.3-8.2)
[2021-07-01 12:58] LABS: Coronavirus 19, PCR Not Detected (NotDetected); Influenza A, PCR Not Detected (NotDetected); Influenza B, PCR Not Detected (NotDetected)
[2021-07-01 13:11] LABS: Troponin I < 0.01 ng/ml (0.00-0.034)
--- NOTE | 2021-07-01 13:39 | CT_ITS ---
PROCEDURE: CT ANGIO CHEST PE PROTOCOL CLINCIAL INDICATION: dyspnea on exertion COMPARISON: CT CT ANGIO CHEST PE PROTOCOL from 06/16/2021 TECHNIQUE: IV Contrast: 70ML Isovue 370 Axial images obtained with sagittal and coronal reformats. All CT scans at the facility use one or more dose reduction, viz: automated exposure control, ma/kV adjustment per patient size (including targeted exams where dose is matched to indication, i.e. head), or iterative reconstruction technique. FINDINGS: HEART AND MEDIASTINAL STRUCTURES: Size is normal. There is excellent vascular opacification. There is no CT evidence of pulmonary emboli. There is calcification of the left anterior descending coronary artery. There is no pleural fluid. LUNGS AND PLEURAL SPACES: The lung cameron are well-expanded and appear clear of infiltrate. There is a calcified granuloma left upper lobe subpleural location. There is minimal bilateral lower lobe bronchiectasis. BONY STRUCTURES: There minor degenerate changes of the thoracic spine. UPPER ABDOMEN: Post cholecystectomy ADDITIONAL FINDINGS: No other significant abnormalities. IMPRESSION: No evidence of pulmonary emboli, question minimal bilateral lower lobe bronchiectasis, negative for pneumonic infiltrate Dictated by: Dr. Jensen Bonilla MD 07/01/2021 14:25 Dr. Jensen Bonlila MD in [facility] 07/01/2021 14:25
[2021-07-01 14:20] LABS: Albumin/Globulin Ratio 1.5 (1.1-1.8); Globulin 2.5 g/dL (1.3-3.2)
[2021-07-01 15:19] VITALS: BP 143/74; PULSE 74; RESP 16; TEMP 36.6; O2SAT 98
== END 2021-07-01 15:20 | disposition home or self-care (01) ==
PROVIDERS: Emergency Provider Emergency Medicine; PCP Family Medicine
DX: I30.9 Acute pericarditis, unspecified (principal); F41.9 Anxiety disorder, unspecified; Z86.73 Personal history of transient ischemic attack (TIA), and cerebral infarction without residual deficits; F32.A Depression, unspecified; E11.9 Type 2 diabetes mellitus without complications; I10 Essential (primary) hypertension
CPT/HCPCS: 71045; 71275; 80053; 83690; 83880; 84484; 85025; 85610; 85730; 93005; 93306; 99283; C9803; Q9967; U0003; U0005

== ENCOUNTER → 2021-07-07 10:41 | Outpatient (CLI) | payer BC, MEDICARE, MEDICAID, SELFPAY ==
--- NOTE | 2021-07-07 10:42 | NM_ITS ---
APPROVED REPORT Exam: Nuclear Stress Test Indication: Chest pain, Abnormal EKG, SOB, Palpitations, Syncope, Fatigue, HTN, DM, Tobacco use, Family history Patient Location: Outpatient Stress Tech: Blanca Iverson NM Tech:LUDA Holm RT(R)(N) Ht: 5 ft 4 in Wt: 164 lbs Bra Size: 36DDD HR: 70 bpm BP: 117/75 mmHg BSA: 1.80 m2 BMI: 28.1 History: Chest pain, Abnormal EKG, SOB, Palpitations, Syncope, Fatigue, HTN, DM, Tobacco use, Family history Procedure: Patient received a 0.4 mg of intravenous Lexiscan, resting heart rate 70 bpm, resting blood pressure 117/75 mmHg, with Lexiscan maximum heart rate achived was 107 bpm which is Less than 85 % of the maximum predicted heart rate and blood pressure was 136/77 mmHg. Electrocardiogram Resting electrocardiogram showed sinus rhythm, with Lexiscan there is less than 1.[address] segment depression noted from the baseline EKG. The EKG portion of the Lexiscan is nondiagnostic. Cardiac Stress and Resting SPECT Images: Cardiac Stress and Resting SPECT images were obtained using technetium 99m Myoview 31.4 mCi stress and 10.36 mCi at rest. Gated SPECT for analysis of segmental wall motion and calculation of the ejection fraction also done. Prone images were also obtained. Cardiac stress and resting SPECT images show mild fixed defect in the anterior apical wall with reduced contractility on the gated SPECT is likely secondary to nontransmural myocardial scarring, computer derived ejection fraction 46% with moderate anterior apical wall hypokinesis. Right ventricle is mildly enlarged with normal contractility. Conclusion: 1. The EKG portion of the Lexiscan Myoview is nondiagnostic. 2. Scintigraphic evidence of nontransmural myocardial scarring involving the anterior apical wall, computer derived ejection fraction is 46% with segmental wall motion abnormality described above, right ventricle is mildly enlarged with normal contractility. 3. Abnormal Lexiscan Myoview study, this study is technically limited due to patient's body habitus. Electronically signed by : Matthew Carrera MD 07/08/2021 09:41:17
--- NOTE | 2021-07-07 10:42 | CA_ITS ---
APPROVED REPORT Exam: Pharmacologic Technologist: MERLIN KIM, Ht: 5 ft 4 in Wt: 167 lbs BSA: 1.81 m2 HR: 62 bpm BP: 117/75 mmHg Indications: CP Medical History Medications: Lorazepam,,,,, Albuterol,,,,, Trazodone,,,,, Multivitamin,,,,, Epinephrine,,,,, Furosemide,,,,, Stress Test Details Test: LEXISCAN HR Resting HR: 70 bpm Max Heart Rate (APMHR): 173.218900 bpm Max HR Achieved: 107 bpm Target HR (85% APMHR): 147.215669 bpm % of APMHR: 61.85 Recovery HR: 62 bpm BP Resting BP: 117/75 mmHg Max BP: 136/77 mmHg Recovery BP: 128.0/74.0 mmHg ECG Resting ECG: NSR, low voltage QRS Clinical Exercise duration: 04:01 min Highest Stage Achieved: Exercise capacity: 1.0 METs Stress ECG Conclusion 1 Minute: CP, SOA 2 Minute: CP, SOA, tearful, anxious 3 Minute: CP 4 Minute: CP, L arm and neck pain Aminophylline 100mg slow IV 3 Minute Recovery: Sxs better 7 Minute Recovery: Sxs better, back to baseline Symptoms: CP with radiation into L arm and L neck. SOA. Arrhythmias/Ectopy: None ST-T Changes: No significant changes. 30 mins after test and Aminophylline injection, her CP returned with radiation into L arm and L neck, NTG SL spray x1 given with resolution of CP. After stress images, she remained free of CP or other sxs. BP was 124/76. Conclusion: Chest, arm, neck pain during Lexiscan stress suggestive of angina but no EKG changes. Myoview images reported separately. Pt will see cardiology at 9am tomorrow, Pt given NTG SL spray bottle and instructed on safe proper use. Test Summary REST 04:58 . . 70 . 117/ 75 . . Stage 1 01:00 . . 96 . . . . Stage 2 . . . . . . . Chest pain Stage 2 01:00 . . 101 . 122/ 74 . . Stage 3 . . . . . . . left arm pain Stage 3 01:00 . . 101 . 127/ 82 . . Stage 4 01:00 . . 94 . 130/ 76 . . Stage 4 01:01 . . 93 . 130/ 76 . Stop exercise at 04:01 RECOVERY 01:00 . . 91 . 119/ 77 . . RECOVERY 02:00 . . 79 . 119/ 77 . . RECOVERY 03:00 . . 75 . 129/ 75 . . RECOVERY 04:00 . . 64 . 129/ 75 . . RECOVERY 05:00 . . 62 . 136/ 77 . . RECOVERY 05:37 . . 66 . 136/ 77 . . Electronically signed by : Matthew Carrera MD 07/08/2021 09:33:33
--- NOTE | 2021-07-07 15:07 | HMH.ITSHM ---
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 []TRAZODONE MULTIVITAMIN FUROSEMIDE ALBUTEROL LORAZEPAM
== END ==
PROVIDERS: PCP Family Medicine; Visit Provider Internal Medicine
DX: R07.9 Chest pain, unspecified (principal); R06.00 Dyspnea, unspecified; R42 Dizziness and giddiness; I10 Essential (primary) hypertension; E11.9 Type 2 diabetes mellitus without complications; E66.01 Morbid (severe) obesity due to excess calories
CPT/HCPCS: 78452; 93017; A9502; J2785

== ENCOUNTER 2021-07-26 08:48 | Day surgery (SDC) | payer BC, MEDICARE, MEDICAID, SELFPAY ==
[2021-07-26] VITALS (13 sets, daily range): BP systolic 98–133; BP diastolic 62–80; PULSE 57–76; RESP 13–19; O2SAT 98–100; BMI 28.3
--- NOTE | 2021-07-26 07:08 | IR_ITS ---
APPROVED REPORT Patient Location: Outpatient Market Research Assistant: LUDA Mccormick RT (R) PROCEDURES Left heart catheterization Left ventriculogram Selective coronary angiogram Drug-eluting stent deployment to the proximal and mid LAD in a contiguous manner INDICATION High risk abnormal Myoview, Coronary disease, Angina pectoris Informed consent was obtained prior to the procedure. COMPLICATIONS NONE Estimated Blood Loss: LESS THAN 10 ML TECHNIQUE One percent lidocaine used to anesthetize the right anterior aspect of the wrist. The right radial artery was accessed via the Seldinger technique. A 6 Syriac sheath was placed in the right radial artery. 2.5 mg of verapamil, 800 mcg of nitroglycerin, 1mg Lidocaine and 5000 U Heparin were given through the arterial sheath. The Videostrippa catheter was also used to perform left heart catheterization, left ventriculogram and selective coronary angiogram. At the end the diagnostic angiogram therapeutic heparin was administered giving a therapeutic ACT and a Choice PT extra-support wire was placed distally in the LAD 3 mm x 26 mm resolute Jl stent was deployed at 24 ana reducing the stenosis. The target lesion was not quite covered to my satisfaction therefore an additional 3 mm x 12 mm resolute [place] stent was placed proximal to the first stent yet still overlapping it and deployed at 24 ana reducing the stenosis to 0%. JOANN-3 flow was present before and after the procedure. At the end of the procedure the apparatus was removed the sheath was removed and hemostasis was achieved using TR banding patient was transferred to the postop putting in stable condition ANGIOGRAPHIC RESULTS The left main artery Normal The left anterior descending artery Has a proximal eccentric greater than 80% stenosis immediately adjacent to a small first diagonal artery followed by an additional hazy 30 to 40% stenosis followed by mild luminal irregularities distally The circumflex artery Nondominant with mild 10% stenoses in the terminal obtuse marginal artery The right coronary artery Is a dominant vessel and normal The AVELAR ventriculogram reveals Mild dilatation with ejection fraction 50% mild anterior wall hypokinesis The left ventricular end-diastolic pressure 20 mmHg IMPRESSION Severe eccentric plaque in the proximal LAD followed by a suspicious hazy moderate stenosis both reduced with drug-eluting stents placed in a contiguous manner reducing the stenosis to 0% Regional wall motion abnormality with ejection fraction of 50% Mildly elevated LVEDP PLAN 1. Dual antiplatelet therapy 2. Standard therapy for ischemic heart disease 3. Avoidance of tobacco products 4. LDL less than 55 5. Cardiac rehabilitation 6. Risk factor modification Electronically signed by : Javed Zhong MD 07/26/2021 10:46:57
[2021-07-26 09:44] LABS: Coronavirus 19, PCR Not Detected (NotDetected); Influenza A, PCR Not Detected (NotDetected); Influenza B, PCR Not Detected (NotDetected)
[2021-07-26 09:47] LABS: Basophils # 0.1 K/mm3 (0-0.2); Basophils % 1.4 % (0.1-2.0); Eosinophils # 0.1 K/mm3 (0.0-0.4); Eosinophils % 2.1 % (0.1-12.0); Hematocrit 42.9 % (37.0-47.0); Hemoglobin 14.4 g/dL (12.2-16.2); Lymphocytes # 1.3 K/mm3 (0.7-4.5); Lymphocytes % 22.2 % (10-50); Mean Corpuscular HGB Conc 33.5 g/dL (31.8-35.4); Mean Corpuscular Hemoglobin 30.6 pg (27.0-31.2); Mean Corpuscular Volume 91.3 fl (81-99); Mean Platelet Volume 8.5 fl (7.4-10.4); Monocytes # 0.3 K/mm3 (0.1-1.0); Monocytes % 4.7 % (1.7-9.3); Neutrophils # 4.1 K/mm3 (1.8-7.8); Neutrophils % 69.6 % (37.0-80.0); Platelet Count 188 K/mm3 (142-424); Red Cell Distribution Width 13.3 % (11.5-17.5); White Blood Count 5.9 K/mm3 (4.8-10.8)
[2021-07-26 09:55] LABS: Chloride 104 mmol/L (98-107); Sodium 138 mmol/L (136-145)
[2021-07-26 09:58] LABS: Blood Urea Nitrogen 17 mg/dl (7-17); Creatinine Clearance Estimated 164 mL/min (50-200); Estimated Glomerular Filt Rate 132 ml/min (>60); GFR (African American) 160 ML/MIN (>60)
[2021-07-26 09:59] LABS: Calcium 9.1 mg/dl (8.4-10.2); Carbon Dioxide 27 mmol/L (22.0-30.0); Glucose 104 mg/dl (74-100)
[2021-07-26 11:35] LABS: CATHL Activated Clotting Time 249 SEC (74-125)
--- NOTE | 2021-07-26 13:26 | HMH.PHACLD ---
Fanny Franco has received discharge medication counseling on the following medications: BRILINTA (BLEED RISK, BRUISING, WHAT TO DO IF HEAD BUMPED, IMPORTANCE OF TAKING BID), ASA, ROSUVASTATIN, METOPROLOL
== END 2021-07-26 14:15 | disposition home or self-care (01) ==
LOC: CATHLAB 08:51
PROVIDERS: PCP Family Medicine; Visit Provider Internal Medicine
DX: I25.10 Atherosclerotic heart disease of native coronary artery without angina pectoris (principal); I10 Essential (primary) hypertension; E11.9 Type 2 diabetes mellitus without complications; R94.39 Abnormal result of other cardiovascular function study
CPT/HCPCS: 80048; 85025; 85347; 92928; 93458; 99152; C1725; C1769; C1876; C9600; C9803; J1644; Q9967; U0003; U0005

== ENCOUNTER → 2021-08-03 08:38 | Outpatient (CLI) | payer BC, MEDICARE, MEDICAID, SELFPAY ==
[2021-08-03 09:34] LABS: Basophils # 0.1 K/mm3 (0-0.2); Basophils % 1.3 % (0.1-2.0); Eosinophils # 0.2 K/mm3 (0.0-0.4); Eosinophils % 3.4 % (0.1-12.0); Hematocrit 42.2 % (37.0-47.0); Hemoglobin 13.8 g/dL (12.2-16.2); Lymphocytes # 1.5 K/mm3 (0.7-4.5); Lymphocytes % 27.1 % (10-50); Mean Corpuscular HGB Conc 32.8 g/dL (31.8-35.4); Mean Corpuscular Hemoglobin 30.7 pg (27.0-31.2); Mean Corpuscular Volume 93.6 fl (81-99); Mean Platelet Volume 8.4 fl (7.4-10.4); Monocytes # 0.4 K/mm3 (0.1-1.0); Monocytes % 6.4 % (1.7-9.3); Neutrophils # 3.5 K/mm3 (1.8-7.8); Neutrophils % 61.8 % (37.0-80.0); Platelet Count 198 K/mm3 (142-424); Red Cell Distribution Width 13.2 % (11.5-17.5); White Blood Count 5.6 K/mm3 (4.8-10.8)
[2021-08-03 10:05] LABS: Microscopic, Urine URINE MICROSCOPIC (MICROSCOPIC)
--- NOTE | 2021-08-03 10:18 | CA_ITS ---
APPROVED REPORT Laterality: Unilateral right Eyelet Maker: Georgie Caldera, RVT Indications CAD Comments PT HAD HEART CATH ON 07/26/21, C/O PAIN AND SWELLING RT WRIST, PT ON BRILINTA Findings Study suggests no evidence of pseudoaneurysm or AV fistula is seen in the right wrist. Study suggests thrombus of the right radial artery, no color flow or doppler seen in the right radial artery. Conclusion Study suggests no evidence of pseudoaneurysm or AV fistula in the right wrist. Study suggests thrombus of the right radial artery, no color flow or doppler seen in the right radial artery. Critical Notification Physician Notified Date: 08/03/2021 Time: 11:02 Physician Name: Allegra Electronically signed by : Masood Zuniga MD 08/03/2021 17:14:03
[2021-08-03 10:51] LABS: Anion Gap 11.1 mEq/L (5-15); Blood Urea Nitrogen 12 mg/dl (7-17); Calcium 8.9 mg/dl (8.4-10.2); Carbon Dioxide 27 mmol/L (22.0-30.0); Chloride 106 mmol/L (98-107); Estimated Glomerular Filt Rate 171 ml/min (>60); GFR (African American) 207 ML/MIN (>60); Glucose 101 mg/dl (74-100); Potassium 4.1 mmoL/L (3.5-5.1); Sodium 140 mmol/L (136-145)
[2021-08-03 11:08] LABS: Appearance,Urine CLEAR (Clear); Bilirubin,Urine Negative (Negative); Blood, Urine Negative (Negative); Color,Urine YELLOW (Yellow); Glucose,Urine (UA) Negative (Negative); Ketones,Urine Negative (Negative); Leukocyte Esterase,Urine Negative (Negative); Nitrate,Urine Negative (Negative); Protein,Urine Negative (Negative); Specific Gravity, Urine >= 1.030 (1.005-1.030)
== END ==
PROVIDERS: Nurse Practitioner Family; PCP Family Medicine; Visit Provider Internal Medicine
DX: R06.00 Dyspnea, unspecified (principal); R07.9 Chest pain, unspecified; R07.89 Other chest pain; R42 Dizziness and giddiness; I25.10 Atherosclerotic heart disease of native coronary artery without angina pectoris; E11.9 Type 2 diabetes mellitus without complications; I10 Essential (primary) hypertension; R31.9 Hematuria, unspecified; R94.31 Abnormal electrocardiogram [ECG] [EKG]; E66.01 Morbid (severe) obesity due to excess calories; Z68.29 Body mass index [BMI] 29.0-29.9, adult; Z95.5 Presence of coronary angioplasty implant and graft
CPT/HCPCS: 36415; 80048; 81001; 85025; 93931

== ENCOUNTER → 2021-08-08 10:34 | Outpatient (CLI) | payer BC, MEDICARE, MEDICAID, SELFPAY | PROVIDERS: PCP Family Medicine; Visit Provider Urology | DX: R42 Dizziness and giddiness (principal) | CPT/HCPCS: 93225 ==

== ENCOUNTER → 2021-08-15 08:56 | Outpatient (CLI) | payer BC, MEDICARE, MEDICAID, SELFPAY | PROVIDERS: PCP Family Medicine; Visit Provider Urology | DX: R55 Syncope and collapse (principal); R42 Dizziness and giddiness | CPT/HCPCS: 93270 ==

== ENCOUNTER → 2021-08-24 09:26 | Outpatient (CLI) | payer BC, MEDICARE, MEDICAID, SELFPAY ==
--- NOTE | 2021-08-24 09:30 | CA_ITS ---
APPROVED REPORT Laterality: Unilateral right Lumber Tailer: Rubia Castro, RADIOLOGICAL EQUIPMENT SPECIALIST Indications Current Smoker Symptoms Current Smoker Comments Pt had a cath 07/26/21, 08/03/21 pt had RUE arterial clot in right radial artery at cath sight. PT on Brilinta and Xarelto. Findings Right radial artery positive for thrombus, visible thrombus in artery. Thrombus is still present. Conclusion Right radial artery positive for thrombus, visible thrombus in artery. Critical Notification Critical Value: Yes Date: 08/24/2021 Time: 10:18 Physician Name: Tyler Aguayo Other Discipline: Report Read Back Electronically signed by : Masood Zuniga MD 08/24/2021 17:51:53
== END ==
PROVIDERS: PCP Family Medicine; Visit Provider Physician Assistant
DX: I74.2 Embolism and thrombosis of arteries of the upper extremities (principal); R06.00 Dyspnea, unspecified; R00.0 Tachycardia, unspecified; I25.10 Atherosclerotic heart disease of native coronary artery without angina pectoris; I10 Essential (primary) hypertension; R42 Dizziness and giddiness; R55 Syncope and collapse; R94.31 Abnormal electrocardiogram [ECG] [EKG]; Z72.0 Tobacco use; Z95.5 Presence of coronary angioplasty implant and graft
CPT/HCPCS: 93931

== ENCOUNTER 2021-09-06 10:00 | Outpatient (RCR) | payer BC, MEDICARE, MEDICAID, SELFPAY | END 2021-12-20 14:28 | disposition home or self-care (01) | LOC: PT 10:00 | PROVIDERS: Visit Provider Physician Assistant | DX: I25.10 Atherosclerotic heart disease of native coronary artery without angina pectoris (principal); R42 Dizziness and giddiness; Z95.5 Presence of coronary angioplasty implant and graft; I10 Essential (primary) hypertension ==

== ENCOUNTER 2021-09-12 15:29 | Emergency (ER) | payer BC, MEDICARE, MEDICAID, SELFPAY ==
--- NOTE | 2021-09-12 | CA_ITS ---
APPROVED REPORT Right Upper Extremity Venous Study for DVT. Sales Expert: Raquel Guido RCS, RVS Indications Upper Extremity Pain: Right Hx- chronic Right radial thrombus s/p cardiac Cath 08/14 Vein Imaging IJV (R): Normal phasic flow is seen. Normal flow, augmentation and compression is seen. No evidence of Deep Vein Thrombosis. No abnormalities are demonstrated. SCV (R): Normal phasic flow is seen. Normal flow, augmentation and compression is seen. No evidence of Deep Vein Thrombosis. No abnormalities are demonstrated. Axillary (R): Normal phasic flow is seen. Normal flow, augmentation and compression is seen. No evidence of Deep Vein Thrombosis. No abnormalities are demonstrated. Brachial (R): Normal phasic flow is seen. Normal flow, augmentation and compression is seen. No evidence of Deep Vein Thrombosis. No abnormalities are demonstrated. Basilic (R): Normal phasic flow is seen. Normal flow, augmentation and compression is seen. No evidence of Deep Vein Thrombosis. No abnormalities are demonstrated. Cephalic (R): Normal phasic flow is seen. Normal flow, augmentation and compression is seen. No evidence of Deep Vein Thrombosis. No abnormalities are demonstrated. Radial (R): Normal phasic flow is seen. Normal flow, augmentation and compression is seen. No evidence of Deep Vein Thrombosis. No abnormalities are demonstrated. Findings No evidence of intraluminal venous thrombosis In right Upper extremity veins. With evidence of persistant thrombus of right radial artery. Conclusion No evidence of intraluminal venous thrombosis In right Upper extremity veins. With evidence of persistant thrombus of right radial artery. Critical Notification Critical Value: No Physician Notified Date: 09/12/2021 Time: 17:21 Physician Name: Ketty Electronically signed by : Masood Zuniga MD 09/13/2021 17:41:19
[2021-09-12 16:00] VITALS: BP 135/76; PULSE 74; RESP 20; O2SAT 100; BMI 29.1
--- NOTE | 2021-09-12 16:53 | HMH.EDGENADL ---
ED Disposition Clinical Impression: Right radial artery thrombus Strain of right triceps Qualifiers: Encounter type: initial encounter Qualified Code(s): S46.311A - Strain of muscle, fascia and tendon of triceps, right arm, initial encounter Disposition: Home, Self-Care Condition on Discharge: Good Instructions: DI for Muscle Strain Additional Instructions: You have been evaluated for right upper arm pain, bicep strain. The arteries of the forearm and upper arm are clear, with the exception of the known right radial wrist thrombus. There are no clots in the veins. Please continue taking all medications as prescribed, Xarelto and Brilinta. Use heat, stretching. Follow-up with your primary care doctor within 1 to 2 days for symptom recheck. Follow-up with cardiology. Return to the emergency department for any new or worsening symptoms, hand numbness, worsening arm pain, pain or shortness of breath Referrals: Watler Anaya MD [Primary Care Provider] - Time of Disposition: 17:40 - Critical Care Critical Care Time: No Attestation: On 09/12/21, the high probability of a clinically significant, sudden or life threatening deterioration of the following system(s) required my full and direct attention, intervention and personal management. The time I documented below is in addition to time spent performing reported procedures but includes the following listed in this critical care notation. Medical Decision Making - Medical Records Medical records reviewed: Yes: I reviewed the patient's medical records. - Jelani Inquiry Pt receiving controlled substance: No Vital Signs: 09/12/21 16:00 Pulse Rate [Left Brachial] 74 Respiratory Rate 20 Blood Pressure [Left Arm] 135/76 Blood Pressure Mean [Left Arm] 95 Blood Pressure Source [Left Arm] Automatic Cuff Blood Pressure Position [Left Arm] Sitting 02 Sat by Pulse Oximetry 100 Oxygen Delivery Method Room Air Medical Decision Narrative: In summary this is a 46-year-old female with history of radial arterial thrombus presenting to the emergency department with upper arm pain. Patient clinically stable on arrival. Vital signs within normal limits. Her pain distribution is atypical for an arterial occlusion. Possibly brachial or cephalic vein. Arterial and venous ultrasound obtained. Ultrasound shows no arterial obstruction other than the known distal right radial thrombus. No venous obstruction either from the jugular to the wrist. On further questioning, patient was making candy yesterday, frequent starting motion. Possibly musculoskeletal injury. Counseled to continue taking all medications as prescribed. Her hand is well-perfused and she is not having ischemic pain of the hand. No chest pain, shortness of breath. Counseled on close PCP and cardiology follow-up. Given return precautions General Adult HPI - General Chief complaint: Extremity Injury, Upper Stated complaint: HX blood clot R arm, pain, sent [facility] office Time Seen by Provider: 09/12/21 16:33 Mode of Arrival: Ambulatory Limitations: No Limitations Description of Symptoms (Recalled from ER Triage Doc. by RN): PATIENT C/O PAIN TO RIGHT ARM THAT RADIATES INTO SHOULDER AND NECK. SHE REPORTS SHE HAD A HEART CATH ON 07/26 AND DEVELOPED A BLOOD CLOT IN HER ARTERY, WHICH THEY FOUND ON 08/03. SHE SPOKE WITH DR. MCKEON'S OFFICE TODAY REGARDING HER ARM PAIN AND THEY REFERRED HER TO ER FOR FURTHER EVALUATION. DENIES ANY SOA OR CHEST PAIN - History of Present Illness HPI narrative: 46-year-old female presenting to the emergency department with right arm pain. Pain started yesterday. The pain is located near her elbow on the ulnar side. Radiates from her elbow to her mid humerus. The pain was worse today when she was at cardiac rehab doing exercises. No pain in the elbow joint. No pain at the shoulder joint. No pain with motion. No numbness, weakness, tingling in her fingers. No known traum
[2021-09-12 18:45] VITALS: BP 132/87; PULSE 87; RESP 16; TEMP 36.6; O2SAT 98
== END 2021-09-12 18:47 | disposition home or self-care (01) ==
PROVIDERS: Emergency Provider Emergency Medicine; PCP Family Medicine
DX: I74.2 Embolism and thrombosis of arteries of the upper extremities (principal); S46.311A Strain of muscle, fascia and tendon of triceps, right arm, initial encounter; F41.8 Other specified anxiety disorders; E11.9 Type 2 diabetes mellitus without complications; I10 Essential (primary) hypertension; I47.2 Ventricular tachycardia; M79.7 Fibromyalgia; F17.210 Nicotine dependence, cigarettes, uncomplicated; Z79.899 Other long term (current) drug therapy
CPT/HCPCS: 93931; 99282

== ENCOUNTER 2021-09-19 17:50 | Observation (INO) | payer BC, MEDICARE, MEDICAID, SELFPAY ==
[2021-09-19 17:50] VITALS: BP 124/85; PULSE 66; RESP 18; TEMP 36.5; O2SAT 99; BMI 29.4
--- NOTE | 2021-09-19 17:50 | ECG_ITS ---
APPROVED REPORT Exam: Resting ECG HR:67 bpm ECG Measurements Heart Rate 67 AXES WI 154 P 52 QRSd 82 QRS -22 QT 430 T 31 QTc 454 Conclusion Normal sinus rhythm Normal ECG Electronically signed by : Akira Bryant MD 09/21/2021 13:25:56
--- NOTE | 2021-09-19 18:01 | XR_ITS ---
PROCEDURE INFORMATION: Exam: XR Chest Exam date and time: 09/19/2021 6:01 PM Age: 46 years old Clinical indication: Pain; Chest pressure; Additional info: Cp TECHNIQUE: Imaging protocol: XR of the chest. Views: 1 view. Total images: 1 COMPARISON: CR XR CHEST PORTABLE 07/01/2021 12:43 PM FINDINGS: Lungs: Normal pulmonary expansion. Pulmonary vasculature grossly normal. No gross pulmonary infiltrates or edema pattern. 4 mm nodule in the peripheral left mid lung unchanged from 12/17/2019 and does not require further assessment. Pleural spaces: No pleural effusion. No pneumothorax. Heart/Mediastinum: Heart size normal. No tracheal/mediastinal shift. Bones/joints: No acute osseous abnormalities are identified. IMPRESSION: No acute thoracic process.
--- NOTE | 2021-09-19 18:03 | HMH.EDCP ---
ED Disposition <Da Harper - Last Filed: 09/19/21 18:03> Condition on Discharge: Good - Critical Care Critical Care Time: No <Michel Campoverde - Last Filed: 09/19/21 22:51> Clinical Impression: Unstable angina, Tobacco use, History of coronary artery stent placement Episode of syncope Qualifiers: Syncope type: unspecified Qualified Code(s): R55 - Syncope and collapse Disposition: Admitted as Observation Referrals: Provider,Referral, MD [Primary Care Provider] - Attestation: On 09/19/21, the high probability of a clinically significant, sudden or life threatening deterioration of the following system(s) required my full and direct attention, intervention and personal management. The time I documented below is in addition to time spent performing reported procedures but includes the following listed in this critical care notation. Medical Decision Making - Jelani Inquiry Pt receiving controlled substance: No <Da Harper - Last Filed: 09/19/21 18:03> - Medical Records Medical records reviewed: Yes: I reviewed the patient's medical records. - Lab Data Lab results reviewed: Yes: I reviewed the patient's lab results. Result diagrams: 09/19/21 18:00 09/19/21 18:00 - Radiology Data #1 Image(s): Chest Image Reviewed: Yes I have reviewed radiologist's interpretation Preliminary Findings: Normal/NAD - ECG Data Tracing #1 Normal Sinus Rhythm: Yes Ischemic changes: non-specific ST-T wave changes - Physician Consults Physician Consulted: altagracia Reason -: Admission Additional Consult: teddy Reason -: Pt condition <Michel Campoverde - Last Filed: 09/19/21 22:51> Vital Signs: 09/19/21 17:50 09/19/21 19:00 09/19/21 19:30 Temperature 97.7 F Temperature Source Oral Pulse Rate 62 59 L Pulse Rate [Left Radial] 66 Respiratory Rate 18 18 19 Blood Pressure 133/83 115/73 Blood Pressure [Right Arm] 124/85 Blood Pressure Mean Blood Pressure Mean [Right Arm] 98 Blood Pressure Source [Right Arm] Automatic Cuff Blood Pressure Position [Right Arm] Sitting 02 Sat by Pulse Oximetry 99 100 100 Oxygen Delivery Method Room Air Room Air Room Air 09/19/21 20:01 09/19/21 20:30 09/19/21 21:01 Temperature Temperature Source Pulse Rate 60 66 Pulse Rate [Left Radial] Respiratory Rate 20 19 Blood Pressure 133/85 133/84 147/95 H Blood Pressure [Right Arm] Blood Pressure Mean 98 Blood Pressure Mean [Right Arm] Blood Pressure Source [Right Arm] Blood Pressure Position [Right Arm] 02 Sat by Pulse Oximetry 100 100 100 Oxygen Delivery Method Room Air Room Air Room Air - Lab Data Lab Results 09/19/21 18:00: WBC 6.1, RBC 4.66, Hgb 14.0, Hct 43.2, MCV 92.7, MCH 30.1, MCHC 32.5, RDW 13.2, Plt Count 182, MPV 8.4, Neut % (Auto) 58.2, Lymph % (Auto) 31.2, Roberts % (Auto) 6.5, Eos % (Auto) 2.1, Baso % (Auto) 2.0, Neut # (Auto) 3.6, Lymph # (Auto) 1.9, Roberts # (Auto) 0.4, Eos # (Auto) 0.1, Baso # (Auto) 0.1 09/19/21 18:00: Sodium 141, Potassium 3.3 L, Chloride 107, Carbon Dioxide 28, Anion Gap 9.3, BUN 11, Creatinine 0.50 L, Estimated Creat Clear 165, Estimated GFR 132, Est GFR ( Amer) 160, Glucose 123 H, Calcium 8.6, Total Bilirubin 0.2, AST 40 H, ALT 36, Alkaline Phosphatase 39, Troponin I < 0.01, Total Protein 6.6, Albumin 4.1, Globulin 2.5, Albumin/Globulin Ratio 1.6 09/19/21 21:09: Troponin I < 0.01 09/19/21 21:15: SARS-CoV-2 (PCR) Not detected, Influenza A Untype (PCR) Not detected, Influenza Type B (PCR) Not detected Orders (Tests/Meds): ED MEDICATIONS Generic Name Dose Route Start Last Admin Trade Name Freq PRN Reason Stop Dose Admin Sodium Chloride 1,000 mls @ 999 mls/hr 09/19/21 18:15 09/19/21 18:55 Sod Chlor 0.9% 1000ml Bag IV 09/19/21 19:15 999 mls/hr .Q1H1M PATRICK Administration Discontinued Medications Generic Name Dose Route Start Last Admin Trade Name Freq PRN Reason Stop Dose Admin Ondansetron HCl 8 mg 12/
[2021-09-19 18:10] LABS: Basophils # 0.1 K/mm3 (0-0.2); Eosinophils # 0.1 K/mm3 (0.0-0.4); Eosinophils % 2.1 % (0.1-12.0); Hematocrit 43.2 % (37.0-47.0); Lymphocytes # 1.9 K/mm3 (0.7-4.5); Lymphocytes % 31.2 % (10-50); Mean Corpuscular HGB Conc 32.5 g/dL (31.8-35.4); Mean Corpuscular Hemoglobin 30.1 pg (27.0-31.2); Mean Corpuscular Volume 92.7 fl (81-99); Mean Platelet Volume 8.4 fl (7.4-10.4); Monocytes # 0.4 K/mm3 (0.1-1.0); Monocytes % 6.5 % (1.7-9.3); Neutrophils # 3.6 K/mm3 (1.8-7.8); Neutrophils % 58.2 % (37.0-80.0); Platelet Count 182 K/mm3 (142-424); Red Blood Count 4.66 M/mm3 (4.20-5.40); Red Cell Distribution Width 13.2 % (11.5-17.5); White Blood Count 6.1 K/mm3 (4.8-10.8)
[2021-09-19 18:11] LABS: Chloride 107 mmol/L (98-107); Potassium 3.3 mmoL/L (3.5-5.1); Sodium 141 mmol/L (136-145)
[2021-09-19 18:14] LABS: Alanine Aminotransferase 36 U/L (12-78); Albumin Level 4.1 g/dl (3.5-5.0); Albumin/Globulin Ratio 1.6 (1.1-1.8); Alkaline Phosphatase 39 U/L (38-126); Anion Gap 9.3 mEq/L (5-15); Aspartate Amino Transferase 40 U/L (14-36); Bilirubin,Total 0.2 mg/dl (0.2-1.3); Blood Urea Nitrogen 11 mg/dl (7-17); Carbon Dioxide 28 mmol/L (22.0-30.0); Creatinine Clearance Estimated 165 mL/min (50-200); Estimated Glomerular Filt Rate 132 ml/min (>60); GFR (African American) 160 ML/MIN (>60); Globulin 2.5 g/dL (1.3-3.2); Total Protein,Serum 6.6 g/dl (6.3-8.2)
[2021-09-19 18:15] LABS: Calcium 8.6 mg/dl (8.4-10.2); Glucose 123 mg/dl (74-100)
[2021-09-19 18:51] LABS: Troponin I < 0.01 ng/ml (0.00-0.034)
[2021-09-19 19:00] VITALS: BP 133/83; PULSE 62; RESP 18; O2SAT 100
[2021-09-19 19:30] VITALS: BP 115/73; PULSE 59; RESP 19; O2SAT 100
[2021-09-19 20:01] VITALS: BP 133/85; PULSE 60; RESP 20; O2SAT 100
[2021-09-19 20:30] VITALS: BP 133/84; O2SAT 100
[2021-09-19 21:01] VITALS: BP 147/95; PULSE 66; RESP 19; O2SAT 100
[2021-09-19 21:24] LABS: Coronavirus 19, PCR Not Detected (NotDetected); Influenza A, PCR Not Detected (NotDetected); Influenza B, PCR Not Detected (NotDetected)
[2021-09-19 22:09] LABS: Troponin I < 0.01 ng/ml (0.00-0.034)
[2021-09-19 22:49] VITALS: BMI 31.0
--- NOTE | 2021-09-19 22:50 | PC.NURSE ---
Dr. Nirali Anaya
[2021-09-20] VITALS (27 sets, daily range): BP systolic 103–122; BP diastolic 52–78; PULSE 50–78; RESP 15–20; TEMP 36.6–36.7; O2SAT 93–99; BMI 31.0
--- NOTE | 2021-09-20 | IR_ITS ---
APPROVED REPORT Patient Location: Inpatient Supervisor Public Health Nursing: LUDA Salcedo RT (R) PROCEDURES Left heart catheterization Left ventriculogram Selective coronary angiogram FFR to the LAD Drug-eluting stent deployment to the proximal LAD INDICATION Unstable angina, Coronary artery disease, FFR index 0.78 SCAI INDICATION Clinical history: Patient with known coronary disease who recently underwent a proximal LAD stent who presented to the hospital with classic accelerated angina pectoris. Because of patient's profound symptoms it was decided to bring her to the [facility] for coronary angiography. Informed consent was obtained prior to the procedure. COMPLICATIONS NONE Estimated Blood Loss: LESS THAN 10 ML TECHNIQUE One percent lidocaine was used to anesthetize the right groin. The right femoral artery was accessed via the Seldinger technique. A 4-Wolof sheath was placed in the right femoral artery. The JL-4 and JR-4 catheter was also used to perform left heart catheterization left ventriculogram and selective coronary angiogram. At the end of the diagnostic procedure therapeutic heparin was administered giving a therapeutic ACT and the 4 Wolof sheath was exchanged for a 6 Wolof sheath. A JL4 guide catheter was placed in the left main artery and a BMW wire was placed distally in the LAD. A nevus FFR catheter was then advanced and adenosine was infused per protocol. The FFR index dropped to 0.78. Given the hemodynamic significance of the proximal LAD lesion a 3 mm x 18 mm resolute [place] stent was placed proximally in the LAD overlapping the proximal portion of the previously placed proximal LAD stent. Stent was deployed at 20 ana reducing the hemodynamically severe stenosis to 0%. JOANN-3 flow was present before and after the procedure. At the end of the procedure the apparatus was removed the groin was reprepped gloves were changed sheath was removed good hemostasis was achieved using Perclose device patient was transferred to the postop holding area stable condition ANGIOGRAPHIC RESULTS The left main artery Normal The left anterior descending artery Has a proximal tubular 40% stenosis immediately proximal to a widely patent proximal to mid LAD stent. The stent has excellent distal transitioning The circumflex artery Nondominant with mild luminal irregularities The right coronary artery Dominant and normal The AVELAR ventriculogram reveals Preserved at 55% The left ventricular end-diastolic pressure 10 to 15 mmHg IMPRESSION Angiographically unimpressive yet hemodynamically severe proximal LAD stenosis which produced an FFR index of 0.78 Successful stenting of a hemodynamically severe proximal LAD lesion reducing the stenosis to 0% with 1 drug-eluting stent Preserved ejection fraction Borderline LVEDP PLAN 1. Dual antiplatelet therapy 2. LDL less than 55 3. Risk factor modification 4. Cardiac rehabilitation 5. Avoidance of tobacco products Electronically signed by : Javed Zhong MD 09/20/2021 12:28:29
--- NOTE | 2021-09-20 00:54 | PC.NURSE ---
PT ARRIVED TO FLOOR VIA W/C FROM ED W/STAFF @ [id number]
[2021-09-20 01:25] LABS: Troponin I < 0.01 ng/ml (0.00-0.034)
[2021-09-20 06:56] LABS: Basophils # 0.1 K/mm3 (0-0.2); Basophils % 1.3 % (0.1-2.0); Eosinophils # 0.1 K/mm3 (0.0-0.4); Hematocrit 37.6 % (37.0-47.0); Lymphocytes # 1.5 K/mm3 (0.7-4.5); Lymphocytes % 36.6 % (10-50); Mean Corpuscular HGB Conc 32.4 g/dL (31.8-35.4); Mean Corpuscular Hemoglobin 30.2 pg (27.0-31.2); Mean Corpuscular Volume 93.1 fl (81-99); Mean Platelet Volume 8.6 fl (7.4-10.4); Monocytes # 0.2 K/mm3 (0.1-1.0); Monocytes % 5.7 % (1.7-9.3); Neutrophils # 2.2 K/mm3 (1.8-7.8); Neutrophils % 53.5 % (37.0-80.0); Platelet Count 162 K/mm3 (142-424); Red Blood Count 4.03 M/mm3 (4.20-5.40); Red Cell Distribution Width 13.3 % (11.5-17.5); White Blood Count 4.1 K/mm3 (4.8-10.8)
[2021-09-20 07:00] LABS: Chloride 112 mmol/L (98-107); Potassium 3.4 mmoL/L (3.5-5.1); Sodium 139 mmol/L (136-145)
[2021-09-20 07:03] LABS: Anion Gap 5.4 mEq/L (5-15); Blood Urea Nitrogen 9 mg/dl (7-17); Calcium 7.8 mg/dl (8.4-10.2); Carbon Dioxide 25 mmol/L (22.0-30.0); Creatinine Clearance Estimated 174 mL/min (50-200); Estimated Glomerular Filt Rate 132 ml/min (>60); GFR (African American) 160 ML/MIN (>60); Glucose 90 mg/dl (74-100); Magnesium 1.5 mg/dl (1.6-2.3)
[2021-09-20 07:15] LABS: Hemoglobin 12.3 g/dL (12.2-16.2)
--- NOTE | 2021-09-20 07:48 | PC.NURSE ---
pt axo, VSS, pt on tele bandar at times, no complaints of chest pain, pt complains of dizziness, pt states she is a diabetic however does not take any meds to treat at home. no issues noted through the night.
--- NOTE | 2021-09-20 08:15 | P.CONPHA_ITS ---
[facility] Pharmacy VTE Monitoring - Patient Demographics Admission date: 09/19/21 Report Date: 09/20/21 Time: 08:15 Allergies/Adverse Reactions: Patient Allergies duloxetine [From Cymbalta] Allergy (Severe, Verified 08/24/21 08:51) liver swelling hydromorphone [From Dilaudid] Allergy (Severe, Verified 08/24/21 08:51) rash, itching ibuprofen Allergy (Severe, Verified 08/24/21 08:51) swelling lisinopril [LISINOPRIL] Allergy (Severe, Verified 08/24/21 08:51) chokes venom-honey bee Allergy (Severe, Verified 08/24/21 08:51) Anaphylaxis venom-wasp Allergy (Severe, Verified 08/24/21 08:51) Anaphylaxis promethazine [From PHENERGAN] Adverse Reaction (Severe, Verified 08/24/21 08:51) hallucinations sertraline [From Zoloft] Adverse Reaction (Severe, Verified 08/24/21 08:51) suicidal paroxetine [From PAXIL] Adverse Reaction (Intermediate, Verified 08/24/21 08:51) Palpitations tetanus and diphtheria toxoids [TETANUS & DIPHTHERIA TOXOIDS] Adverse Reaction (Intermediate, Verified 08/24/21 08:51) vomitting Height: 1.6 m Weight: 79.379 kg Patient Problems: Current Active Problems Unstable angina (Acute) History of coronary artery stent placement (Chronic) Tobacco use (Chronic) Syncope (Acute) - VTE Risk Labs: VTE Related Lab Results Hgb 12.3 g/dL (12.2-16.2) D 09/20/21 06:30 Hct 37.6 % (37.0-47.0) 09/20/21 06:30 Plt Count 162 K/mm3 (142-424) 09/20/21 06:30 BUN 9 mg/dl (7-17) 09/20/21 06:30 Creatinine 0.50 mg/dl (0.52-1.04) L 09/20/21 06:30 Estimated Creat Clear 174 mL/min (50-200) 09/20/21 06:30 Was VTE Risk Assessment Performed: Yes VTE Score: 3 VTE Risk Level: Low Risk - Prophylaxis VTE Prophylaxis Ordered?: Yes Types of VTE Prophylaxis: TEDS Knee High, Pharmacological Location of Applied Device: Bilateral Lower Extremeties Pharmacologic Type: Other (XARELTO)
--- NOTE | 2021-09-20 08:55 | HMH.HP ---
*Admission Date: 09/19/21 <Ashley Lopez - 09/20/21 09:09> *Chief complaint: Chest pain and syncope <Ashley Lopez - 09/20/21 09:09> *History of present illness: Ms. Franco is a 46-year-old female with a history of type 2 diabetes mellitus, fibromyalgia, kidney stones, SVT, anxiety and depression, PTSD, asthma, and coronary artery disease with recent stents in July 2021 who presented to the emergency room after experiencing syncopal episode yesterday p.m. She states she suffered with chest discomfort intermittently throughout the day and describes the pain like a band being placed around her chest. She noted also that she took a 7 mile hike on . The following day she just felt exhausted. The chest pain began yesterday 09/19/2021. Yesterday evening she was out with her when cutting wood and stayed in the truck due to dizziness and ongoing intermittent chest discomfort. She said at some point in time her observed her in the truck and felt she was sleeping. He then noted that she had actually passed out. She states that she was out for about 20 minutes. She had no loss of bowel or bladder function. She was able to drive the truck home and then her brought her to the emergency room for evaluation. Her watch did calculate her heart rate to be 140. She states after her syncopal episode she had no further chest discomfort. She had ongoing dizziness yesterday and some nausea as well. She also noted shortness of breath with the chest pain. In the emergency room she did receive a liter of IV fluids and was given Zofran for nausea. Decision was made to admit her with acute unstable angina with syncopal episode with significant coronary artery disease and recent stents. Laboratory data on admission showed a normal CBC. Blood chemistries with sodium of 141 and potassium of 3.3. BUN and creatinine with BUN of 11 and creatinine 0.5. Troponin I's have been normal x3. Chest x-ray showed no acute thoracic process. This a.m. patient remains dizzy. She denies chest pain. She is somewhat nauseated. She is n.p.o. for cardiology consult. <Ashley Lopez - 09/20/21 09:23> [facility] History Medical History: Reports:: Anxiety, Arrhythmia (SVT), Coronary Artery Disease, Cerebrovascular Accident, Depression, Diabetes Mellitus Type 1, Hypertension, MRSA (HISTORY FROM SPIDER BITE ON STOMACH 2012), Supraventricular Tachycardia Denies:: Cancer, Diabetes Mellitus Type 2, Internal Pacemaker, Seizures <LopezAshley sadler 09/20/21 09:09> *Have you ever received a pneumonia vaccine?: Yes (2019) <LopezAshley sadler 09/20/21 09:09> *Have you received a flu vaccine this season?: No <Ashley Lopez 09/20/21 09:09> Other Medical History: Reports: Anemia, Blood Transfusion Reaction, Fibromyalgia, Other (Arterial clot right arm and is on Xarelto) <Cathy Lopezhy 09/20/21 09:09> Other Surgeries: Yes: Bariatric Surgery, Cardiac Catheterization, Cholecystectomy, Coronary Stent, , EGD, Hysterectomy-Partial, Ureter Stent, Other (KIDNEY STONES; gastric sleeve 10/07/2018). No: Pacemaker <Ashley Lopez 09/20/21 09:09> Amputation: No <Cathy Lopezhy 09/20/21 09:09> Fractures: No <JessicaAshley 09/20/21 09:09> - *Social History Last grade of school completed: Some college <Ashley Lopez 09/20/21 09:09> Smoking Status: Current every day smoker <Cathy Lopezhy 09/20/21 09:09> Tobacco Type: cigarettes <Cathy Lopezhy 09/20/21 09:09> # Packs/Day (cigarettes): 1 <Ashley Lopez 09/20/21 09:09> Alcohol Intake: never <Cathy Lopezhy 09/20/21 09:09> Alcohol Intake Frequency:: other <Cathy Lopezhy 09/20/21 09:09> Substance Use Type: denies use <Ashley Lopez 09/20/21 09:09> *Occupational Status:: disabled <Ashley Lopez 09/20/21 09:09> Housing: house <Ashley Lopez 09/20/21 09:09> Household Members: spouse, children <Ashley Lopez 09/20/21 09:09> *Travel in the last 8 weeks: None <Ashley Lopez - 09/20/21 09:09>
--- NOTE | 2021-09-20 09:35 | HMH.CNCARD ---
History of Present Illness Consult date: 09/20/21 Requesting physician: Watler Anaya Consult reason: chest pain Chief complaint: chest pain and syncope History of present illness: This is a 46-year old white female who presented to the emergency department with complaints of chest pain and syncope. The patient states that on she went hiking and felt fine and on Sunday she took her [place] tree down and just felt really exhausted. Yesterday which was Sunday she states that she was going to load up would with her but she was too tired to do anything so she sat in the truck while her was out cutting wood. She states that she had sudden onset of substernal chest pain which she described as a squeezing sensation. She states that this was in the substernal aspect of her chest and radiated to the left side of her chest into her neck. She states that this was associated with dizziness and she had a syncopal episode. She states that she passed out in the truck and was out for about 20 minutes. She denies losing control of her bowels or bladder. She states that following the syncopal episode she was able to drive her truck home and then her brought her into the emergency department. She states that she remains dizzy and feels somewhat nauseated as well. She is also complaining of a foul-smelling, dark-colored urine this morning. She states that she was also short of breath yesterday as well as nauseous when she had the chest pain. The patient ruled out for an CO. She did have recent cardiac stenting in July 2021 for severe proximal LAD disease with a moderate hazy plaque. Following this procedure she did have a right radial thrombus which still persist at this time and she is on Xarelto. [facility] History I have reviewed the patient's past medical history: Yes Medical History: Reports:: Anxiety, Arrhythmia (SVT), Coronary Artery Disease, Cerebrovascular Accident, Depression, Diabetes Mellitus Type 1, Hypertension, MRSA (HISTORY FROM SPIDER BITE ON STOMACH 2012), Supraventricular Tachycardia Denies:: Cancer, Diabetes Mellitus Type 2, Internal Pacemaker, Seizures *Have you ever received a pneumonia vaccine?: Yes (2019) *Have you received a flu vaccine this season?: No Other Medical History: Reports: Anemia, Blood Transfusion Reaction, Fibromyalgia, Other (Arterial clot right arm and is on Xarelto) Other Surgeries: Yes: Bariatric Surgery, Cardiac Catheterization, Cholecystectomy, Coronary Stent, , EGD, Hysterectomy-Partial, Ureter Stent, Other (KIDNEY STONES; gastric sleeve 10/07/2018). No: Pacemaker Amputation: No Fractures: No - *Social History Last grade of school completed: Some college Smoking Status: Current every day smoker Tobacco Type: cigarettes # Packs/Day (cigarettes): 1 Alcohol Intake: never Alcohol Intake Frequency:: other Substance Use Type: denies use *Occupational Status:: disabled Housing: house Household Members: spouse, children *Travel in the last 8 weeks: None - Psychiatric History Pschychiatric History:: Reports:: Anxiety, Depression Family Hx:: Asthma, Cancer, Coronary Artery Disease, Diabetes, Heart Attack, Hyperlipidemia, Hypertension, Kidney Disease, Mental illness Meds Home Medications Medication Instructions Recorded Confirmed Type albuterol sulfate 90 mcg/actuation 1 puff INHALATION Q6HP PRN 04/16/18 09/20/21 History aerosol inhaler epinephrine 0.3 mg/0.3 mL 0.3 mg IM NEEDED PRN 04/16/18 09/20/21 History injection, auto-injector trazodone 100 mg tablet 100 mg PO HS 04/16/18 09/20/21 History multivitamin 2 tab PO DAILY tab 10/21/18 09/20/21 History LORazepam [Lorazepam 0.5mg Tablet] 0.5 mg PO HS 11/30/20 09/20/21 History nitroglycerin 400 mcg/spray 1 spray TL Q5M PRN 07/08/21 09/20/21 History translingual furosemide 20 mg tablet 20 mg PO DAILY PRN #30 tab 08/03/21 09/20/21 Rx metoprolol succinate 25 mg 25 mg PO DAILY #30 tab 08/03/21 09/20/21 Rx tablet,extended
[2021-09-20 10:03] LABS: Microscopic, Urine URINE MICROSCOPIC (MICROSCOPIC)
--- NOTE | 2021-09-20 10:21 | HMH.PHAINT ---
MEDICATION RECONCILIATION COMPLETED ON PATIENT USING EXTERNAL FILL HISTORY FROM PHARMACY, KENNETH REPORT, AND LIST FROM CARDIOLOGY OFFICE. -MARYBETH WINTERD
[2021-09-20 10:24] LABS: Appearance,Urine CLEAR (Clear); Bilirubin,Urine Negative (Negative); Blood, Urine Negative (Negative); Color,Urine YELLOW (Yellow); Glucose,Urine (UA) Negative (Negative); Ketones,Urine Negative (Negative); Leukocyte Esterase,Urine 2+ (Negative); Nitrate,Urine POSITIVE (Negative); Protein,Urine Negative (Negative); Specific Gravity, Urine 1.025 (1.005-1.030)
[2021-09-20 12:48] LABS: CATHL Activated Clotting Time 377 SEC (74-125)
[2021-09-20 15:53] LABS: Bacteria,Urine 3+ /lpf
--- NOTE | 2021-09-20 17:17 | PC.NURSE ---
since arrival back to floor from cardiac cath rn patient has done wellcath site has remained soft and free of any drainage. did sleep a couple of hours after procedure. at bedside. eatting well. per cardiology could be discharged from their stand point. ambulated to bathroom with no bleeding noted. no complaints
--- NOTE | 2021-09-20 17:43 | PC.NURSE ---
called and spoke with md about patient urine. he ordered a one time dose of iv levaquin 500mg.
[2021-09-21] VITALS: BP 118/75; PULSE 60; PULSE 64; RESP 16; TEMP 36.4; O2SAT 95
[2021-09-21 03:34] VITALS: BP 112/77; PULSE 67; RESP 16; TEMP 36.4; O2SAT 97
[2021-09-21 04:00] VITALS: PULSE 60
[2021-09-21 04:52] VITALS: BMI 30.7
[2021-09-21 06:49] LABS: Basophils % 0.8 % (0.1-2.0); Eosinophils # 0.1 K/mm3 (0.0-0.4); Eosinophils % 1.8 % (0.1-12.0); Hematocrit 38.3 % (37.0-47.0); Hemoglobin 12.3 g/dL (12.2-16.2); Lymphocytes # 1.1 K/mm3 (0.7-4.5); Lymphocytes % 23.2 % (10-50); Mean Corpuscular HGB Conc 32.1 g/dL (31.8-35.4); Mean Corpuscular Hemoglobin 30.2 pg (27.0-31.2); Mean Corpuscular Volume 94.1 fl (81-99); Mean Platelet Volume 8.5 fl (7.4-10.4); Monocytes # 0.3 K/mm3 (0.1-1.0); Monocytes % 6.8 % (1.7-9.3); Neutrophils # 3.3 K/mm3 (1.8-7.8); Neutrophils % 67.5 % (37.0-80.0); Platelet Count 150 K/mm3 (142-424); Red Blood Count 4.07 M/mm3 (4.20-5.40); Red Cell Distribution Width 13.2 % (11.5-17.5); White Blood Count 4.9 K/mm3 (4.8-10.8)
[2021-09-21 06:55] LABS: Chloride 112 mmol/L (98-107); Potassium 3.8 mmoL/L (3.5-5.1); Sodium 138 mmol/L (136-145)
[2021-09-21 06:58] LABS: Anion Gap 6.8 mEq/L (5-15); Blood Urea Nitrogen 11 mg/dl (7-17); Carbon Dioxide 23 mmol/L (22.0-30.0); Cholesterol 79 mg/dl (140-200); Creatinine Clearance Estimated 173 mL/min (50-200); Estimated Glomerular Filt Rate 132 ml/min (>60); GFR (African American) 160 ML/MIN (>60); Triglycerides 74 mg/dl (30-150); VLDL Cholesterol 15 mg/dL (0-40)
[2021-09-21 06:59] LABS: Calcium 7.7 mg/dl (8.4-10.2); Glucose 85 mg/dl (74-100); HDL Cholesterol 40 mg/dl (40-60)
--- NOTE | 2021-09-21 06:59 | PC.NURSE ---
pt rested well through the night, no issues or concerns noted, vss, dressing cdi to right groin.
[2021-09-21 07:11] LABS: Direct LDL Cholesterol < 30.00 mg/dL (100-129)
[2021-09-21 08:00] VITALS: BP 104/67; PULSE 65; PULSE 74; RESP 17; TEMP 36.5; O2SAT 98
--- NOTE | 2021-09-21 08:12 | HMH.ACPN2 ---
<Shayla Gant - Last Filed: 09/21/21 08:12> Internal Medicine - PN: Subj *Date: 09/21/21 *Time: 08:12 Interval history: Patient had a heart cath yesterday and had successful stenting of a hemodynamically severe proximal LAD lesion. She is to be continued on dual antiplatelet therapy and should also continue Xarelto for right atrial thrombus. She is to remain on triple therapy for 30 days and then discontinue her aspirin. She states she feels well this morning other than some groin pain. She slept well and ate well and wants to go home. Exam Vital signs and Labs for Last 24 Hours: Temp Pulse Resp BP Pulse Ox 97.7 F 65 17 104/67 L 98 09/21/21 08:00 09/21/21 08:00 09/21/21 08:00 09/21/21 08:00 09/21/21 08:00 Laboratory Results - last 24 hr 09/20/21 09:26: Urine Color Yellow, Urine Appearance Clear, Urine pH 6.0, Ur Specific [place] 1.025, Urine Protein Negative, Urine Glucose (UA) Negative, Urine Ketones Negative, Urine Blood Negative, Urine Nitrate Positive, Urine Bilirubin Negative, Urine Urobilinogen 2.0, Ur Leukocyte Esterase 2+ A, Urine RBC 3-5, Urine WBC 5-10, Ur Squamous Epith Cells 3-5, Urine Bacteria 3+ 09/20/21 13:11: Activated Clotting Time 377 H* 09/21/21 06:23: WBC 4.9, RBC 4.07 L, Hgb 12.3, Hct 38.3, MCV 94.1, MCH 30.2, MCHC 32.1, RDW 13.2, Plt Count 150, MPV 8.5, Neut % (Auto) 67.5, Lymph % (Auto) 23.2, [place] % (Auto) 6.8, Eos % (Auto) 1.8, Baso % (Auto) 0.8, Neut # (Auto) 3.3, Lymph # (Auto) 1.1, [place] # (Auto) 0.3, Eos # (Auto) 0.1, Baso # (Auto) 0.0 09/21/21 06:23: Sodium 138, Potassium 3.8, Chloride 112 H, Carbon Dioxide 23, Anion Gap 6.8, BUN 11, Creatinine 0.50 L, Estimated Creat Clear 173, Estimated GFR 132, Est GFR ( Amer) 160, Glucose 85, Calcium 7.7 L, Triglycerides 74, Cholesterol 79 L, LDL Cholesterol Direct < 30.00 L, VLDL Cholesterol 15, HDL Cholesterol 40, Cholesterol/HDL Ratio 2.0 I & O for Last 24 hours: Intake & Output 09/18/21 09/19/21 09/20/21 09/21/21 11:59 11:59 11:59 11:59 Intake Total 2343 / 2343 600 / 600 Output Total 280 / 280 Balance 2343 / 2343 320 / 320 Weight 175 lb 0.012 oz 173 lb 6 oz - Constitutional no acute distress - *Routine HEENT Exam Head: Present: normocephalic Eye: Present: EOMI, PERRL ENT: Present: mucous membranes moist - *Routine Neck Exam Present: supple. Absent: lymphadenopathy - *Routine Respiratory Exam Present: CTA bilaterally - *Routine Cardiovascular Exam Present: RRR - *Routine Abdominal Exam Present: soft, normoactive bowel sounds. Absent: tenderness - *Routine Extremities Exam Absent: cyanosis, clubbing, edema - *Routine Skin Exam Present: warm. Absent: rash - *Routine Neurological Exam Present: alert, oriented X3 Assessment and Plan (1) Unstable angina Status: Acute Category: Medical Code(s): I20.0 - Unstable angina (2) Syncope Status: Acute Qualifiers: Syncope type: unspecified Qualified Code(s): R55 - Syncope and collapse Category: Medical Code(s): R55 - Syncope and collapse (3) Coronary artery disease Problem details: JUL 2021-Severe eccentric plaque in the proximal LAD followed by a suspicious hazy moderate stenosis both reduced with drug-eluting stents placed in a contiguous manner reducing the stenosis to 0% Regional wall motion abnormality with ejection fraction of 50% Mildly elevated LVEDP Status: Chronic Qualifiers: Coronary Disease-Associated Artery/Lesion type: [place] artery [place] vs. 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
--- NOTE | 2021-09-21 09:18 | HMH.PNCARD ---
Subjective Date: 09/21/21 Time: 09:00 Principal diagnosis: angina, cad Interval history: This is a 46-year-old white female who presented to the emergency department complaints of chest pain and syncope. She underwent left cardiac catheterization yesterday and had stenting to her proximal LAD with 1 drug-eluting stent. The patient tolerated the procedure well. She will remain on dual antiplatelet therapy for her recent stent. This morning she states she feels so much better. She states that she could immediately tell a difference following her left heart cath with stenting. She denies any chest pain or pressure. She denies any dizziness or syncope. She denies any fever, chills, nausea, vomiting, diarrhea, PND or orthopnea. The patient states that she is ready to be discharged home. Exam Vital signs and Labs for Last 24 Hours: Temp Pulse Resp BP Pulse Ox 97.7 F 65 17 104/67 L 98 09/21/21 08:00 09/21/21 08:00 09/21/21 08:00 09/21/21 08:00 09/21/21 08:00 Laboratory Results - last 24 hr 09/20/21 09:26: Urine Color Yellow, Urine Appearance Clear, Urine pH 6.0, Ur Specific [place] 1.025, Urine Protein Negative, Urine Glucose (UA) Negative, Urine Ketones Negative, Urine Blood Negative, Urine Nitrate Positive, Urine Bilirubin Negative, Urine Urobilinogen 2.0, Ur Leukocyte Esterase 2+ A, Urine RBC 3-5, Urine WBC 5-10, Ur Squamous Epith Cells 3-5, Urine Bacteria 3+ 09/20/21 13:11: Activated Clotting Time 377 H* 09/21/21 06:23: WBC 4.9, RBC 4.07 L, Hgb 12.3, Hct 38.3, MCV 94.1, MCH 30.2, MCHC 32.1, RDW 13.2, Plt Count 150, MPV 8.5, Neut % (Auto) 67.5, Lymph % (Auto) 23.2, [place] % (Auto) 6.8, Eos % (Auto) 1.8, Baso % (Auto) 0.8, Neut # (Auto) 3.3, Lymph # (Auto) 1.1, [place] # (Auto) 0.3, Eos # (Auto) 0.1, Baso # (Auto) 0.0 09/21/21 06:23: Sodium 138, Potassium 3.8, Chloride 112 H, Carbon Dioxide 23, Anion Gap 6.8, BUN 11, Creatinine 0.50 L, Estimated Creat Clear 173, Estimated GFR 132, Est GFR ( Amer) 160, Glucose 85, Calcium 7.7 L, Triglycerides 74, Cholesterol 79 L, LDL Cholesterol Direct < 30.00 L, VLDL Cholesterol 15, HDL Cholesterol 40, Cholesterol/HDL Ratio 2.0 I & O for Last 24 hours: Intake & Output 09/18/21 09/19/21 09/20/21 09/21/21 23:59 23:59 23:59 23:59 Intake Total 2583 / 2583 360 / 360 Output Total 280 / 280 Balance 2303 / 2303 360 / 360 Weight 175 lb 175 lb 0.012 oz 173 lb 6 oz Narrative: [facility] shows: The left main artery Normal The left anterior descending artery Has a proximal tubular 40% stenosis immediately proximal to a widely patent proximal to mid LAD stent. The stent has excellent distal transitioning The circumflex artery Nondominant with mild luminal irregularities The right coronary artery Dominant and normal The AVELAR ventriculogram reveals Preserved at 55% The left ventricular end-diastolic pressure 10 to 15 mmHg IMPRESSION Angiographically unimpressive yet hemodynamically severe proximal LAD stenosis which produced an FFR index of 0.78 Successful stenting of a hemodynamically severe proximal LAD lesion reducing the stenosis to 0% with 1 drug-eluting stent Preserved ejection fraction Borderline LVEDP PLAN 1. Dual antiplatelet therapy 2. LDL less than 55 3. Risk factor modification 4. Cardiac rehabilitation 5. Avoidance of tobacco products - Constitutional no acute distress, obese - *Routine HEENT Exam Head: Present: normocephalic, atraumatic Eye: Present: EOMI, PERRL ENT: Present: mucous membranes moist - *Routine Neck Exam Present: supple, full ROM, normal carotid upstroke. Absent: JVD, carotid bruit, lymphadenopathy - *Routine Respiratory Exam Present: CTA bilaterally - *Routine Cardiovascular Exam Present: RRR, Normal S1, Normal S2. Absent: murmur - *Routine Abdominal Exam Present: soft, normoactive bowel sounds. Absent: tenderness, distended - *Routine Extremities Exam Present: full ROM, pulses intact, normal capillary refill. Absent: cyanosis, clubbi
--- NOTE | 2021-09-22 16:05 | HMH.DCSUM ---
General - General Admission date:: 09/20/21 <Walter Anaya - 11/06/21 14:51> 09/20/21 <Shayla Gant - 09/22/21 16:10> Discharge date: 09/21/21 <Shayla Gant - 09/22/21 16:10> HPI HPI: Ms. Franco is a 46-year-old female with a history of type 2 diabetes mellitus, fibromyalgia, kidney stones, SVT, anxiety and depression, PTSD, asthma, and coronary artery disease with recent stents in July 2021 who presented to the emergency room after experiencing syncopal episode yesterday p.m. She states she suffered with chest discomfort intermittently throughout the day and describes the pain like a band being placed around her chest. She noted also that she took a 7 mile hike on . The following day she just felt exhausted. The chest pain began yesterday 09/19/2021. Yesterday evening she was out with her when cutting wood and stayed in the truck due to dizziness and ongoing intermittent chest discomfort. She said at some point in time her observed her in the truck and felt she was sleeping. He then noted that she had actually passed out. She states that she was out for about 20 minutes. She had no loss of bowel or bladder function. She was able to drive the truck home and then her brought her to the emergency room for evaluation. Her watch did calculate her heart rate to be 140. She states after her syncopal episode she had no further chest discomfort. She had ongoing dizziness yesterday and some nausea as well. She also noted shortness of breath with the chest pain. In the emergency room she did receive a liter of IV fluids and was given Zofran for nausea. Decision was made to admit her with acute unstable angina with syncopal episode with significant coronary artery disease and recent stents. Laboratory data on admission showed a normal CBC. Blood chemistries with sodium of 141 and potassium of 3.3. BUN and creatinine with BUN of 11 and creatinine 0.5. Troponin I's have been normal x3. Chest x-ray showed no acute thoracic process. This a.m. patient remains dizzy. She denies chest pain. She is somewhat nauseated. She is n.p.o. for cardiology consult. <Shayla Gant - 09/22/21 16:10> Hospital Course Hospital Course: The patient was seen in consultation by cardiology and they felt she was having symptoms consistent with unstable angina. They wanted to proceed with a left heart cath. This was performed and she had severe proximal LAD stenosis which was successfully stented. She was started on dual antiplatelet therapy and cardiology felt she should have cardiac rehabilitation. By 09/21/2021, she was feeling much better. She had only some groin pain, but had slept well and eaten well and wanted to go home. Urinalysis had shown what appeared to be a urinary tract infection, she was started on Levaquin and discharged home. She will follow up with cardiology as well as [facility]. <Shayla Gant - 09/22/21 16:10> Objective Vital signs: Temp Pulse Resp BP Pulse Ox 97.7 F 65 17 104/67 L 98 09/21/21 08:00 09/21/21 08:00 09/21/21 08:00 09/21/21 08:00 09/21/21 08:00 <Walter Anaya - 11/06/21 14:51> Temp Pulse Resp BP Pulse Ox 97.7 F 65 17 104/67 L 98 09/21/21 08:00 09/21/21 08:00 09/21/21 08:00 09/21/21 08:00 09/21/21 08:00 <Shayla Gant - 09/22/21 16:10> Narrative: - Constitutional no acute distress - *Routine HEENT Exam Head: Present: normocephalic Eye: Present: EOMI, PERRL ENT: Present: mucous membranes moist - *Routine Neck Exam Present: supple. Absent: lymphadenopathy - *Routine Respiratory Exam Present: CTA bilaterally - *Routine Cardiovascular Exam Present: RRR - *Routine Abdominal Exam Present: soft, normoactive bowel sounds. Absent: tenderness - *Routine Extremities Exam Absent: cyanosis, clubbing, edema - *Routine Skin Exam Present: warm. Absent: rash - *Routine Neurol
== END 2021-09-21 10:27 | disposition home or self-care (01) ==
LOC: ER 22:41 → 2ND 22:49
PROVIDERS: Emergency Medicine; Internal Medicine; Nurse Practitioner Family; Admitting Provider Family Medicine; Emergency Provider Emergency Medicine; Visit Provider Family Medicine
DX: I25.110 Atherosclerotic heart disease of native coronary artery with unstable angina pectoris (principal); R55 Syncope and collapse; E11.9 Type 2 diabetes mellitus without complications; Z20.822 Contact with and (suspected) exposure to COVID-19; F17.210 Nicotine dependence, cigarettes, uncomplicated; Z79.899 Other long term (current) drug therapy; N39.0 Urinary tract infection, site not specified; I74.2 Embolism and thrombosis of arteries of the upper extremities; Z79.01 Long term (current) use of anticoagulants; Z88.8 Allergy status to other drugs, medicaments and biological substances
CPT/HCPCS: 36415; 71045; 80048; 80053; 80061; 81001; 83735; 84484; 85025; 85347; 87086; 92928; 93005; 93458; 93571; 96365; 96375; 99152; 99153; 99284; C1725; C1760; C1769; C1876; C1894; C9600; C9803; G0378; J0153; J1644; J1956; J2405; Q9967; U0003; U0005

== ENCOUNTER → 2021-09-26 11:58 | Outpatient (CLI) | payer BC, MEDICARE, MEDICAID, SELFPAY ==
--- NOTE | 2021-09-26 12:00 | CA_ITS ---
FINAL REPORT TECHNIQUE: Spectral and color Doppler images of the vessels of the right groin were obtained. CLINICAL HISTORY: right groin pain s/p cardiac cath. CATH 09/22/21 FINDINGS: There is proper flow in the common femoral artery and vein. No pseudoaneurysm is seen. There is no significant hematoma. IMPRESSION: No evidence of pseudoaneurysm or significant hematoma in the right groin. Reviewed, Interpreted and Dictated by Yemi Son MD Transcribed by Guadalupe Case Authenticated by Yemi Son MD on 09/26/2021 02:20:19 PM [facility]
--- NOTE | 2021-09-26 13:50 | CT_ITS ---
FINAL REPORT TECHNIQUE: Axial CT images of the abdomen were obtained without contrast. Coronal reformatted images were also obtained.This study was performed with techniques to keep radiation doses as low as reasonably achievable (ALARA). Individualized dose reduction techniques using automated exposure control or adjustment of mA and/or kV according to the patient''s size were employed. CLINICAL HISTORY: abd pain post op cardiac cath FINDINGS: The lung bases are clear. The liver parenchyma is homogeneous. The gallbladder is surgically absent. Postoperative changes from gastric sleeve are seen. The spleen measures 12.7 cm in craniocaudal dimension. The adrenal glands and pancreas are unremarkable. There is a tiny nonobstructing stone in the lower pole of the right kidney. The left kidney is normal. There is no retroperitoneal hematoma. The appendix is unremarkable. IMPRESSION: Postoperative changes from gastric sleeve. Tiny nonobstructing stone in the lower pole the right kidney. Reviewed, Interpreted and Dictated by Yemi Son MD Transcribed by Guadalupe Case Authenticated by Yemi Son MD on 09/26/2021 02:35:03 PM [facility]
== END ==
PROVIDERS: PCP Family Medicine; Visit Provider Nurse Practitioner Family
DX: R10.31 Right lower quadrant pain (principal); G89.18 Other acute postprocedural pain; R06.00 Dyspnea, unspecified; R07.9 Chest pain, unspecified; R00.0 Tachycardia, unspecified; R42 Dizziness and giddiness; R55 Syncope and collapse; I74.2 Embolism and thrombosis of arteries of the upper extremities; R94.31 Abnormal electrocardiogram [ECG] [EKG]; Z72.0 Tobacco use; Z95.5 Presence of coronary angioplasty implant and graft
CPT/HCPCS: 74150; 93926

== ENCOUNTER 2021-10-03 09:41 | Day surgery (SDC) | payer BC, MEDICARE, MEDICAID, SELFPAY ==
[2021-10-03 09:55] VITALS: BMI 32.0
[2021-10-03 10:17] VITALS: BP 131/82; PULSE 57; RESP 19; O2SAT 100
[2021-10-03 10:22] VITALS: PULSE 60
[2021-10-03 10:41] VITALS: BP 131/82; PULSE 57; RESP 19; O2SAT 100
[2021-10-03 10:42] VITALS: PULSE 77
[2021-10-03 10:43] VITALS: BP 116/76; PULSE 60; RESP 13; O2SAT 100
--- NOTE | 2021-10-03 11:24 | P.PCN_ITS ---
[facility] Loop Recorder Date: 10/03/21 Time: 10:30 Procedure Performed:: Implantation of loop recorder Indication:: Recurrent syncope Technique:: Patient was brought to the cardiac [employer]. After informed consent obtained, 1% lidocaine with epinephrine was used to anesthetize the site along the left anterior aspect of the chest near the sternal border. Using the preformed scalpel, an incision was made and using the supplied preloaded apparatus, the loop recorder was placed subcutaneously without difficulty. Following the deployment of the loop recorder interrogation of the device was performed to ensure appropriate voltage was being detected (0.25 mV). Once this was verified, Steri-Strips were placed over the incision and the patient was prepped to discharge home. Patient tolerated the procedure well with minimal discomfort. Impression:: Successful implantation of loop recorder Serial Number:: [employer] Lux-Dx [id number] serial #[id number] Plan:: Routine postop care
== END 2021-10-03 10:57 | disposition home or self-care (01) ==
LOC: CATHLAB 09:44
PROVIDERS: PCP Family Medicine; Visit Provider Internal Medicine
DX: R55 Syncope and collapse (principal); Z95.5 Presence of coronary angioplasty implant and graft; Z79.899 Other long term (current) drug therapy; Z79.01 Long term (current) use of anticoagulants; Z88.7 Allergy status to serum and vaccine; Z88.8 Allergy status to other drugs, medicaments and biological substances; E11.9 Type 2 diabetes mellitus without complications; I25.10 Atherosclerotic heart disease of native coronary artery without angina pectoris; F17.210 Nicotine dependence, cigarettes, uncomplicated; I25.83 Coronary atherosclerosis due to lipid rich plaque
CPT/HCPCS: 33285

== ENCOUNTER → 2021-10-04 12:17 | Outpatient (CLI) | payer BC, MEDICARE, MEDICAID, SELFPAY | PROVIDERS: PCP Internal Medicine; Visit Provider Nurse Practitioner | DX: U07.1 COVID-19 (principal) | CPT/HCPCS: C9803; U0003; U0005 ==

== ENCOUNTER → 2021-10-05 13:06 | Outpatient (CLI) | payer BC, MEDICARE, MEDICAID, SELFPAY ==
--- NOTE | 2021-10-05 13:12 | XR_ITS ---
FINAL REPORT CLINICAL HISTORY: COVID TESTING COMPARISON: 09/19/2021 FINDINGS: A single view of the chest was obtained. There is an implantable loop recorder. The heart is normal in size. The mediastinum is unremarkable. There is no active disease. There is no pleural effusion. There is no pneumothorax. There is no acute osseous abnormality. IMPRESSION: No acute cardiopulmonary process. Reviewed, Interpreted and Dictated by Johnny Colindres III, MD Transcribed by Guadalupe Case Authenticated by Johnny Colindres III, MD on 11/10/2021 03:09:25 PM [facility]
== END ==
PROVIDERS: PCP Physician Assistant; Visit Provider Physician Assistant
DX: U07.1 COVID-19 (principal)
CPT/HCPCS: 71045

== ENCOUNTER → 2021-11-15 13:06 | Outpatient (CLI) | payer BC, MEDICARE, MEDICAID, SELFPAY ==
--- NOTE | 2021-11-15 13:08 | CA_ITS ---
FINAL REPORT TECHNIQUE: Spectral and color Doppler was obtained of the right upper extremity. CLINICAL HISTORY: E66.9 - Obesity, smoker 07/26/21 cath and stents 08/24/21Thrombus in R radial artery 09/12/21 Thrombus continues in R radial artery COMPARISON: 09/12/2021 FINDINGS: The radial artery was reevaluated. The thrombus has diminished since the previous exam. There is still a small amount of residual thrombus present. IMPRESSION: Small amount of residual thrombus. Recommend continued follow-up. Reviewed, Interpreted and Dictated by Yemi Son MD Transcribed by Ashley Delgado Authenticated by Yemi Son MD on 11/15/2021 04:35:48 PM [facility]
== END ==
PROVIDERS: PCP Physician Assistant; Visit Provider Internal Medicine
DX: R06.00 Dyspnea, unspecified (principal); R10.9 Unspecified abdominal pain; R42 Dizziness and giddiness; R55 Syncope and collapse; I74.2 Embolism and thrombosis of arteries of the upper extremities; I25.10 Atherosclerotic heart disease of native coronary artery without angina pectoris; I10 Essential (primary) hypertension; E11.9 Type 2 diabetes mellitus without complications; E66.01 Morbid (severe) obesity due to excess calories; E66.9 Obesity, unspecified; E78.5 Hyperlipidemia, unspecified; R94.31 Abnormal electrocardiogram [ECG] [EKG]; Z72.0 Tobacco use; Z95.5 Presence of coronary angioplasty implant and graft; Z79.84 Long term (current) use of oral hypoglycemic drugs; Z68.30 Body mass index [BMI] 30.0-30.9, adult
CPT/HCPCS: 93931

== ENCOUNTER → 2021-11-19 12:20 | Outpatient (CLI) | payer BC, MEDICARE, MEDICAID, SELFPAY ==
[2021-11-19 14:00] LABS: Occult Blood,Stool Negative (Negative)
== END ==
PROVIDERS: PCP Family Medicine; Referring Provider Physician Assistant; Visit Provider Family Medicine
DX: R19.5 Other fecal abnormalities (principal)
CPT/HCPCS: 82272; G0328

== ENCOUNTER → 2021-12-14 08:41 | Outpatient (CLI) | payer BC, MEDICARE, MEDICAID, SELFPAY ==
--- NOTE | 2021-12-14 08:41 | CA_ITS ---
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 PT taking Xarelto and Brilinta COMPARISON: November 15, 2021 FINDINGS: UPPER EXTREMITY ARTERIAL DUPLEX Spectral and Doppler waveform evaluations of the right radial artery were performed. Spectral analysis was performed. The previously identified thrombus in the right radial artery has resolved. IMPRESSION: Resolved right radial artery thrombus. Reviewed, Interpreted and Dictated by Yemi Son MD Transcribed by Dennis Li Authenticated by Yemi Son MD on 12/14/2021 12:26:52 PM [facility]
== END ==
PROVIDERS: PCP Family Medicine; Visit Provider Physician Assistant
DX: I74.2 Embolism and thrombosis of arteries of the upper extremities (principal)
CPT/HCPCS: 93931

== ENCOUNTER 2022-02-04 16:25 | Emergency (ER) | payer BC, MEDICARE, MEDICAID, SELFPAY ==
[2022-02-04] VITALS (8 sets, daily range): BP systolic 110–123; BP diastolic 70–85; PULSE 65–76; RESP 18; TEMP 36.9; O2SAT 96–99; BMI 29.0
--- NOTE | 2022-02-04 16:26 | ECG_ITS ---
APPROVED REPORT Exam: Resting ECG HR:82 bpm ECG Measurements Heart Rate 82 AXES OH 168 P 38 QRSd 89 QRS -27 QT 387 T 21 QTc 426 Conclusion SINUS RHYTHM BORDERLINE LEFT AXIS DEVIATION [QRS AXIS < -20] LOW QRS VOLTAGE IN PRECORDIAL LEADS [QRS DEFLECTION < 1.0 mV IN CHEST LEADS] PATTERN CONSISTENT WITH PULMONARY DISEASE POSSIBLE RIGHT VENTRICULAR CONDUCTION DELAY [RSR (QR) IN V1/V2] ABNORMAL ECG UNCONFIRMED REPORT Electronically signed by : Akira Bryant MD 02/05/2022 09:02:42
--- NOTE | 2022-02-04 16:26 | XR_ITS ---
PROCEDURE INFORMATION: Exam: XR Chest Exam date and time: 02/04/2022 4:30 PM Age: 46 years old Clinical indication: Pain; Chest pressure; Additional info: Cp TECHNIQUE: Imaging protocol: XR of the chest. Views: 2 views. COMPARISON: CR XR CHEST PORTABLE 10/05/2021 1:46 PM FINDINGS: Tubes, catheters and devices: Loop recorder is noted. Lungs: No focal pneumonia or pneumothorax. Pleural spaces: There are no pleural effusions present. There are no pleural effusions present. Heart/Mediastinum: Unremarkable. No cardiomegaly. Bones/joints: Unremarkable. IMPRESSION: No focal pneumonia or pneumothorax.
--- NOTE | 2022-02-04 16:34 | HMH.EDGENADL ---
ED Disposition Clinical Impression: Chest pressure UTI (urinary tract infection) Qualifiers: Urinary tract infection type: acute cystitis Hematuria presence: without hematuria Qualified Code(s): N30.00 - Acute cystitis without hematuria Disposition: Home, Self-Care Condition on Discharge: Good Instructions: DI for Chest Pain, Urinary Tract Infection Additional Instructions: follow up cardiology next week, return here for worse or any concerns Prescriptions: Sulfamethoxazole/Trimethoprim [Bactrim DS tablet] 1 each PO BID #14 tab Transmission Status: Pending to [facility] - Critical Care Critical Care Time: No Attestation: On , the high probability of a clinically significant, sudden or life threatening deterioration of the following system(s) required my full and direct attention, intervention and personal management. The time I documented below is in addition to time spent performing reported procedures but includes the following listed in this critical care notation. Medical Decision Making - Medical Records Medical records reviewed: Yes: I reviewed the patient's medical records. - Jelani Inquiry Pt receiving controlled substance: No Vital Signs: 02/04/22 16:25 02/04/22 16:47 02/04/22 17:00 Temperature 98.5 F Temperature Source Oral Pulse Rate 69 70 Pulse Rate [Left Radial] 76 Respiratory Rate 18 Blood Pressure 121/70 120/78 Blood Pressure [Right Arm] 123/85 Blood Pressure Mean Blood Pressure Mean [Right Arm] 97 Blood Pressure Source [Right Arm] Automatic Cuff Blood Pressure Position [Right Arm] Sitting 02 Sat by Pulse Oximetry 98 98 97 Oxygen Delivery Method Room Air 02/04/22 17:30 02/04/22 18:00 02/04/22 18:30 Temperature Temperature Source Pulse Rate 65 66 69 Pulse Rate [Left Radial] Respiratory Rate Blood Pressure 117/83 113/77 110/76 Blood Pressure [Right Arm] Blood Pressure Mean 82 Blood Pressure Mean [Right Arm] Blood Pressure Source [Right Arm] Blood Pressure Position [Right Arm] 02 Sat by Pulse Oximetry 97 97 96 Oxygen Delivery Method 02/04/22 19:00 Temperature Temperature Source Pulse Rate 65 Pulse Rate [Left Radial] Respiratory Rate Blood Pressure 118/83 Blood Pressure [Right Arm] Blood Pressure Mean 94 Blood Pressure Mean [Right Arm] Blood Pressure Source [Right Arm] Blood Pressure Position [Right Arm] 02 Sat by Pulse Oximetry 98 Oxygen Delivery Method - Lab Data Lab Results 02/04/22 16:30: WBC 7.1, RBC 4.63, Hgb 14.4, Hct 42.1, MCV 90.9, MCH 31.0, MCHC 34.1, RDW 13.4, Plt Count 209, MPV 8.2, Neut % (Auto) 71.3, Lymph % (Auto) 19.2, [place] % (Auto) 6.0, Eos % (Auto) 1.3, Baso % (Auto) 2.3 H, Neut # (Auto) 5.0, Lymph # (Auto) 1.4, [place] # (Auto) 0.4, Eos # (Auto) 0.1, Baso # (Auto) 0.2 02/04/22 16:30: Sodium 138, Potassium 3.5, Chloride 105, Carbon Dioxide 28, Anion Gap 8.5, BUN 15, Creatinine 0.60, Estimated Creat Clear 140, Estimated GFR 107, Est GFR ( Amer) 130, Glucose 146 H, Calcium 9.2, Troponin I 0.03 02/04/22 16:43: Urine Color Yellow, Urine Appearance Cloudy, Urine pH 7.5, Ur Specific [place] 1.015, Urine Protein Negative, Urine Glucose (UA) Negative, Urine Ketones Negative, Urine Blood Negative, Urine Nitrate Positive, Urine Bilirubin Negative, Urine Urobilinogen 2.0, Ur Leukocyte Esterase 3+ A, Urine RBC None, Urine WBC 10-20, Ur Squamous Epith Cells 3-5, Urine Bacteria 3+ 02/04/22 18:50: Troponin I 0.03 Result diagrams: 02/04/22 16:30 02/04/22 16:30 Orders (Tests/Meds): ED MEDICATIONS Discontinued Medications Generic Name Dose Route Start Last Admin Trade Name Amy PRN Reason Stop Dose Admin Aspirin 324 mg 02/04/22 16:34 02/04/22 17:53 Aspirin 81mg Chewable Tablet PO 02/04/22 16:35 324 mg ONCE ONE Administration Nitroglycerin 0.5 gm 02/04/22 16:34 02/04/22 17:53 Nitroglycerin 1 Gm Ointment TD 02/04/22 16:35 0.5 gm ONCE ONE Administration Trim
--- NOTE | 2022-02-04 16:37 | PC.NURSE ---
Pt to rad
[2022-02-04 16:43] LABS: Basophils # 0.2 K/mm3 (0-0.2); Basophils % 2.3 % (0.1-2.0); Eosinophils # 0.1 K/mm3 (0.0-0.4); Eosinophils % 1.3 % (0.1-12.0); Hematocrit 42.1 % (37.0-47.0); Hemoglobin 14.4 g/dL (12.2-16.2); Lymphocytes # 1.4 K/mm3 (0.7-4.5); Lymphocytes % 19.2 % (10-50); Mean Corpuscular HGB Conc 34.1 g/dL (31.8-35.4); Mean Corpuscular Volume 90.9 fl (81-99); Mean Platelet Volume 8.2 fl (7.4-10.4); Monocytes # 0.4 K/mm3 (0.1-1.0); Neutrophils % 71.3 % (37.0-80.0); Platelet Count 209 K/mm3 (142-424); Red Blood Count 4.63 M/mm3 (4.20-5.40); Red Cell Distribution Width 13.4 % (11.5-17.5); White Blood Count 7.1 K/mm3 (4.8-10.8)
[2022-02-04 16:49] LABS: Chloride 105 mmol/L (98-107)
[2022-02-04 16:50] LABS: Potassium 3.5 mmoL/L (3.5-5.1); Sodium 138 mmol/L (136-145)
[2022-02-04 16:52] LABS: Blood Urea Nitrogen 15 mg/dl (7-17); Creatinine Clearance Estimated 140 mL/min (50-200); Estimated Glomerular Filt Rate 107 ml/min (>60); GFR (African American) 130 ML/MIN (>60)
[2022-02-04 16:53] LABS: Anion Gap 8.5 mEq/L (5-15); Calcium 9.2 mg/dl (8.4-10.2); Carbon Dioxide 28 mmol/L (22.0-30.0); Glucose 146 mg/dl (74-100)
[2022-02-04 17:01] LABS: Microscopic, Urine URINE MICROSCOPIC (MICROSCOPIC)
[2022-02-04 17:03] LABS: Appearance,Urine CLOUDY (Clear); Bilirubin,Urine Negative (Negative); Blood, Urine Negative (Negative); Color,Urine YELLOW (Yellow); Glucose,Urine (UA) Negative (Negative); Ketones,Urine Negative (Negative); Leukocyte Esterase,Urine 3+ (Negative); Nitrate,Urine POSITIVE (Negative); PH,Urine 7.5 (5.0-8.5); Protein,Urine Negative (Negative); Specific Gravity, Urine 1.015 (1.005-1.030)
[2022-02-04 17:05] LABS: Troponin I 0.03 ng/ml (0.00-0.034)
[2022-02-04 17:33] LABS: Bacteria,Urine 3+ /lpf
[2022-02-04 19:04] LABS: Coronavirus 19, PCR Not Detected (NotDetected); Influenza A, PCR Not Detected (NotDetected); Influenza B, PCR Not Detected (NotDetected)
[2022-02-04 19:28] LABS: Troponin I 0.03 ng/ml (0.00-0.034)
--- NOTE | 2022-02-04 19:32 | PC.NURSE ---
ED in talking to patient
== END 2022-02-04 19:47 | disposition home or self-care (01) ==
PROVIDERS: Emergency Provider Emergency Medicine; PCP Family Medicine
DX: N30.00 Acute cystitis without hematuria (principal); R07.89 Other chest pain; F41.8 Other specified anxiety disorders; I25.10 Atherosclerotic heart disease of native coronary artery without angina pectoris; M79.7 Fibromyalgia; F17.210 Nicotine dependence, cigarettes, uncomplicated; Z79.899 Other long term (current) drug therapy
CPT/HCPCS: 71046; 80048; 81001; 84484; 85025; 87086; 87088; 87186; 93005; 99283; C9803; U0003; U0005

== ENCOUNTER → 2022-02-08 07:59 | Outpatient (CLI) | payer BC, MEDICARE, MEDICAID, SELFPAY | PROVIDERS: PCP Family Medicine; Visit Provider Physician Assistant | DX: I73.9 Peripheral vascular disease, unspecified (principal) | CPT/HCPCS: 93923 ==

== ENCOUNTER → 2022-02-15 15:26 | Outpatient (CLI) | payer BC, MEDICARE, MEDICAID, SELFPAY ==
[2022-02-15 17:41] LABS: Basophils # 0.1 K/mm3 (0-0.2); Basophils % 1.2 % (0.1-2.0); Eosinophils # 0.1 K/mm3 (0.0-0.4); Eosinophils % 1.7 % (0.1-12.0); Hematocrit 43.6 % (37.0-47.0); Hemoglobin 14.8 g/dL (12.2-16.2); Lymphocytes # 1.5 K/mm3 (0.7-4.5); Lymphocytes % 23.4 % (10-50); Mean Corpuscular HGB Conc 33.9 g/dL (31.8-35.4); Mean Corpuscular Hemoglobin 31.1 pg (27.0-31.2); Mean Corpuscular Volume 91.6 fl (81-99); Mean Platelet Volume 8.5 fl (7.4-10.4); Monocytes # 0.4 K/mm3 (0.1-1.0); Monocytes % 5.8 % (1.7-9.3); Neutrophils # 4.3 K/mm3 (1.8-7.8); Neutrophils % 67.9 % (37.0-80.0); Platelet Count 193 K/mm3 (142-424); Red Blood Count 4.76 M/mm3 (4.20-5.40); Red Cell Distribution Width 13.5 % (11.5-17.5); White Blood Count 6.4 K/mm3 (4.8-10.8)
[2022-02-23 11:17] LABS: D001-IgE D pteronyssinus <0.10 kU/L (Class 0); D002-IgE D farinae <0.10 kU/L (Class 0); E001-IgE Cat Dander <0.10 kU/L (Class 0); E005-IgE Dog Dander <0.10 kU/L (Class 0); E072-IgE Mouse Urine <0.10 kU/L (Class 0); G002-IgE Bermuda Grass <0.10 kU/L (Class 0); G006-IgE Timothy Grass <0.10 kU/L (Class 0); I006-IgE Cockroach, German <0.10 kU/L (Class 0); Immunoglobulin E, Total 6 IU/mL (6-495); M001-IgE Penicillium chrysogen <0.10 kU/L (Class 0); M002-IgE Cladosporium herbarum <0.10 kU/L (Class 0); M003-IgE Aspergillus fumigatus <0.10 kU/L (Class 0); M006-IgE Alternaria alternata <0.10 kU/L (Class 0); T001-IgE Maple/Box Elder <0.10 kU/L (Class 0); T003-IgE Common Silver Birch <0.10 kU/L (Class 0); T006-IgE Cedar, Mountain <0.10 kU/L (Class 0); T007-IgE Oak, White <0.10 kU/L (Class 0); T008-IgE Elm, American <0.10 kU/L (Class 0); T010-IgE Walnut <0.10 kU/L (Class 0); T011-IgE Maple Leaf Sycamore <0.10 kU/L (Class 0); T014-IgE Cottonwood <0.10 kU/L (Class 0); T015-IgE Ash, White <0.10 kU/L (Class 0); T022-IgE Pecan, Hickory <0.10 kU/L (Class 0); T070-IgE White Mulberry <0.10 kU/L (Class 0); W001-IgE Ragweed, Short <0.10 kU/L (Class 0); W011-IgE Thistle, Russian <0.10 kU/L (Class 0); W014-IgE Pigweed, Common <0.10 kU/L (Class 0); W018-IgE Sheep Sorrel <0.10 kU/L (Class 0)
== END ==
PROVIDERS: PCP Family Medicine; Visit Provider Internal Medicine Pulmonary Disease
DX: J45.909 Unspecified asthma, uncomplicated (principal)
CPT/HCPCS: 36415; 82785; 85025; 86003

== ENCOUNTER → 2022-02-22 12:53 | Outpatient (CLI) | payer BC, MEDICARE, MEDICAID, SELFPAY ==
[2022-02-22 13:45] VITALS: BP 102/70; BP 138/98; PULSE 70; PULSE 78; PULSE 80; RESP 16; O2SAT 98
== END ==
PROVIDERS: PCP Family Medicine; Visit Provider Internal Medicine Pulmonary Disease
DX: R06.00 Dyspnea, unspecified (principal)
CPT/HCPCS: 94060; 94618; 94640; 94726; 94729

== ENCOUNTER 2022-02-28 11:54 | Emergency (ER) | payer BC, MEDICARE, MEDICAID, SELFPAY ==
[2022-02-28 11:57] VITALS: BP 153/91; PULSE 88; RESP 20; TEMP 37.2; O2SAT 100; BMI 29.2
--- NOTE | 2022-02-28 12:11 | CT_ITS ---
FINAL REPORT TECHNIQUE: Axial images through the abdomen and pelvis were performed without contrast. This study was performed with techniques to keep radiation doses as low as reasonably achievable, (ALARA). Individualized dose reduction techniques using automated exposure control or adjustment of mA and/or kV according to the patient's size were employed. CLINICAL HISTORY: rt flank pain, h/o stones COMPARISON: 09/26/2021 FINDINGS: ABDOMEN: There is mild bibasilar atelectasis. The heart size is normal. Limited images of the liver are unremarkable. Postoperative changes are seen from gastric sleeve. The patient is status post cholecystectomy. The spleen is normal. No adrenal mass is identified. The aorta is normal in caliber. There is no significant free fluid or adenopathy. There is a less than 3 mm nonobstructing stone in the lower pole of each kidney. There is no hydronephrosis. PELVIS: The appendix is unremarkable. The urinary bladder is unremarkable. There is no significant free fluid or adenopathy. IMPRESSION: Bilateral nephrolithiasis. Reviewed, Interpreted and Dictated by Johnny Colindres III, MD Transcribed by Ashley Delgado Authenticated and . [facility]
[2022-02-28 12:17] LABS: Microscopic, Urine URINE MICROSCOPIC (MICROSCOPIC)
--- NOTE | 2022-02-28 12:17 | HMH.EDGENADL ---
ED Disposition Clinical Impression: Kidney stone, Right flank pain UTI (urinary tract infection) Qualifiers: Urinary tract infection type: site unspecified Hematuria presence: with hematuria Qualified Code(s): N39.0 - Urinary tract infection, site not specified Disposition: Home, Self-Care Condition on Discharge: Good Instructions: Urinary Tract Infection, Kidney Stones -- Adult, DI for Flank Pain Prescriptions: Hydrocodone/Acetaminophen [Hydrocodone-Acetamin 5-325 mg] 1 tab PO QID PRN #12 tab PRN Reason: Moderate Pain Transmission Status: Received by [id number] Cefdinir [Omnicef 300mg Capsule] 300 mg PO BID #20 cap Transmission Status: Received by [id number] Referrals: Alexei Hernandez MD [Staff Physician] - - Critical Care Critical Care Time: No Attestation: On 02/28/22, the high probability of a clinically significant, sudden or life threatening deterioration of the following system(s) required my full and direct attention, intervention and personal management. The time I documented below is in addition to time spent performing reported procedures but includes the following listed in this critical care notation. Medical Decision Making - Medical Records Medical records reviewed: Yes: I reviewed the patient's medical records. - Jelani Inquiry Pt receiving controlled substance: No Vital Signs: 02/28/22 11:57 02/28/22 12:24 02/28/22 12:30 Temperature 98.9 F Temperature Source Oral Pulse Rate 72 77 Pulse Rate [Right Radial] 88 Respiratory Rate 20 16 16 Blood Pressure 132/76 136/77 Blood Pressure [Right Arm] 153/91 H Blood Pressure Mean 103 104 Blood Pressure Mean [Right Arm] 111 Blood Pressure Source [Right Arm] Automatic Cuff Blood Pressure Position [Right Arm] Sitting 02 Sat by Pulse Oximetry 100 100 97 Oxygen Delivery Method Room Air Room Air Room Air 02/28/22 13:00 02/28/22 13:30 02/28/22 15:25 Temperature 98.9 F Temperature Source Pulse Rate 77 81 80 Pulse Rate [Right Radial] Respiratory Rate 16 16 18 Blood Pressure 127/70 127/77 128/79 Blood Pressure [Right Arm] Blood Pressure Mean 98 102 Blood Pressure Mean [Right Arm] Blood Pressure Source [Right Arm] Blood Pressure Position [Right Arm] 02 Sat by Pulse Oximetry 98 99 Oxygen Delivery Method Room Air Room Air - Lab Data Lab Results 02/28/22 12:00: Urine Color Yellow, Urine Appearance Cloudy, Urine pH 6.0, Ur Specific [place] >= 1.030, Urine Protein 2+, Urine Glucose (UA) Negative, Urine Ketones Negative, Urine Blood 2+, Urine Nitrate Positive, Urine Bilirubin Negative, Urine Urobilinogen 2.0, Ur Leukocyte Esterase 2+ A, Urine RBC 10-20, Urine WBC 20-50, Ur Squamous Epith Cells 5-10, Urine Bacteria 3+ Orders (Tests/Meds): ED MEDICATIONS Discontinued Medications Generic Name Dose Route Start Last Admin Trade Name Amy PRN Reason Stop Dose Admin Diphenhydramine HCl 25 mg 02/28/22 12:16 02/28/22 12:20 Diphenhydramine 50mg/Ml Vial IV 02/28/22 12:17 25 mg ONCE ONE Administration Morphine Sulfate 5 mg 02/28/22 12:16 Morphine 5mg/Ml Syringe IV 02/28/22 12:17 ONCE ONE Morphine Sulfate 4 mg 02/28/22 12:19 02/28/22 12:20 Morphine 4mg/Ml Syringe IV 02/28/22 12:20 4 mg ONCE ONE Administration Oxycodone/Acetaminophen 1 each 02/28/22 13:26 02/28/22 13:28 Oxycodone 7.5mg W/Apap 325mg Tablet PO 02/28/22 13:27 1 each ONCE ONE Administration Sodium Chloride 10 ml 02/28/22 12:36 Sodium Chloride 0.9% 10ml Flush Syringe IV 03/30/22 12:35 NEEDED PRN Maintain IV Site ORDERS Category Date Time Status Urine Culture Stat Micro 02/28/22 12:00 Received - Reevaluation(s) Time: 14:10 (reeval, vss, appears well, pain controlled, discussed ct findings and poss passed stone with colic, ok with plan to rx and f/u urology) General Adult HPI - General Chief complaint: PAIN Stated complaint: unable to urni
[2022-02-28 12:21] LABS: Appearance,Urine CLOUDY (Clear); Bilirubin,Urine Negative (Negative); Blood, Urine 2+ (Negative); Color,Urine YELLOW (Yellow); Glucose,Urine (UA) Negative (Negative); Ketones,Urine Negative (Negative); Leukocyte Esterase,Urine 2+ (Negative); Nitrate,Urine POSITIVE (Negative); Protein,Urine 2+ (Negative); Specific Gravity, Urine >= 1.030 (1.005-1.030)
[2022-02-28 12:24] VITALS: BP 132/76; PULSE 72; RESP 16; O2SAT 100
[2022-02-28 12:30] VITALS: BP 136/77; PULSE 77; RESP 16; O2SAT 97
[2022-02-28 12:36] LABS: Bacteria,Urine 3+ /lpf; WBC,Urine 20-50 #/hpf (0-3)
--- NOTE | 2022-02-28 12:36 | PC.NURSE ---
pt to CT via stretcher
[2022-02-28 13:00] VITALS: BP 127/70; PULSE 77; RESP 16; O2SAT 98
--- NOTE | 2022-02-28 13:24 | PC.NURSE ---
checked on pt at this time, reports her pain is coming back. Pt given warm blanket. Will notify ER MD of pt pain returning.
--- NOTE | 2022-02-28 13:26 | PC.NURSE ---
notified ER MD of pt reporting pain is worsening again
[2022-02-28 13:30] VITALS: BP 127/77; PULSE 81; RESP 16; O2SAT 99
[2022-02-28 15:25] VITALS: BP 128/79; PULSE 80; RESP 18; TEMP 37.2; O2SAT 98
== END 2022-02-28 15:25 | disposition home or self-care (01) ==
PROVIDERS: Emergency Provider Emergency Medicine; PCP Family Medicine
DX: N20.0 Calculus of kidney (principal); N39.0 Urinary tract infection, site not specified; Z88.6 Allergy status to analgesic agent; Z88.7 Allergy status to serum and vaccine; Z88.8 Allergy status to other drugs, medicaments and biological substances; F41.9 Anxiety disorder, unspecified; J45.909 Unspecified asthma, uncomplicated; I25.10 Atherosclerotic heart disease of native coronary artery without angina pectoris; E10.9 Type 1 diabetes mellitus without complications; E78.5 Hyperlipidemia, unspecified; I10 Essential (primary) hypertension; I25.2 Old myocardial infarction; Z86.73 Personal history of transient ischemic attack (TIA), and cerebral infarction without residual deficits
CPT/HCPCS: 74176; 81001; 87086; 87088; 87186; 96374; 96375; 99284

== ENCOUNTER 2022-04-05 18:09 | Emergency (ER) | payer BC, MEDICARE, MEDICAID, SELFPAY ==
[2022-04-05 18:10] VITALS: BP 115/70; PULSE 75; RESP 18; TEMP 36.7; O2SAT 97; BMI 28.3
--- NOTE | 2022-04-05 18:12 | ECG_ITS ---
APPROVED REPORT Exam: Resting ECG HR:72 bpm ECG Measurements Heart Rate 72 AXES [place] 167 P 55 QRSd 93 QRS -48 QT 414 T 51 QTc 437 Conclusion SINUS RHYTHM Late r wave progression Atrial abnormality ABNORMAL ECG UNCONFIRMED REPORT Electronically signed by : Akira Bryant MD 04/06/2022 09:31:28
[2022-04-05 18:15] VITALS: BMI 28.3
--- NOTE | 2022-04-05 18:16 | XR_ITS ---
PROCEDURE INFORMATION: Exam: XR Chest Exam date and time: 04/05/2022 6:33 PM Age: 47 years old Clinical indication: Pain; Chest pressure; Prior surgery; Additional info: SOA, cp. SOA, chest pain in mid chest after being bit/stung by something on her right side of her back , PT also stated that she has singles at this time. Smoker. Loop recorder TECHNIQUE: Imaging protocol: Radiologic exam of the chest. Views: 1 view. COMPARISON: CR XR CHEST 2V 02/04/2022 4:30 PM FINDINGS: Tubes, catheters and devices: Loop recorder device projects over the left heart. Lungs: Normal. Pleural spaces: Unremarkable. No pleural effusion. No pneumothorax. Heart/Mediastinum: Normal. Bones/joints: No acute abnormality. IMPRESSION: No acute cardiopulmonary abnormality.
--- NOTE | 2022-04-05 18:21 | PC.NURSE ---
family to bedside
[2022-04-05 18:30] VITALS: BP 110/74; PULSE 73; O2SAT 96
[2022-04-05 18:32] LABS: Basophils # 0.1 K/mm3 (0-0.2); Basophils % 1.5 % (0.1-2.0); Eosinophils # 0.1 K/mm3 (0.0-0.4); Eosinophils % 1.4 % (0.1-12.0); Hematocrit 40.9 % (37.0-47.0); Hemoglobin 13.1 g/dL (12.2-16.2); Lymphocytes # 1.1 K/mm3 (0.7-4.5); Lymphocytes % 18.7 % (10-50); Mean Corpuscular Hemoglobin 31.4 pg (27.0-31.2); Mean Corpuscular Volume 98.3 fl (81-99); Mean Platelet Volume 8.5 fl (7.4-10.4); Monocytes # 0.3 K/mm3 (0.1-1.0); Monocytes % 5.4 % (1.7-9.3); Neutrophils # 4.4 K/mm3 (1.8-7.8); Platelet Count 207 K/mm3 (142-424); Red Blood Count 4.16 M/mm3 (4.20-5.40); Red Cell Distribution Width 14.5 % (11.5-17.5)
[2022-04-05 18:40] LABS: Chloride 107 mmol/L (98-107)
[2022-04-05 18:41] LABS: Potassium 3.5 mmoL/L (3.5-5.1); Sodium 137 mmol/L (136-145)
[2022-04-05 18:44] LABS: Anion Gap 8.5 mEq/L (5-15); Blood Urea Nitrogen 25 mg/dl (7-17); Calcium 9.2 mg/dl (8.4-10.2); Carbon Dioxide 25 mmol/L (22.0-30.0); Creatinine Clearance Estimated 135 mL/min (50-200); Estimated Glomerular Filt Rate 107 ml/min (>60); GFR (African American) 129 ML/MIN (>60); Glucose 175 mg/dl (74-100)
[2022-04-05 19:00] VITALS: BP 110/69; PULSE 73; RESP 18; O2SAT 96
[2022-04-05 19:03] LABS: Troponin I < 0.01 ng/ml (0.00-0.034)
[2022-04-05 19:30] VITALS: BP 100/71; PULSE 65; RESP 18; O2SAT 96
--- NOTE | 2022-04-05 19:39 | PC.NURSE ---
Pt updated on POC. No other needs.
--- NOTE | 2022-04-05 20:13 | HMH.EDALLER ---
ED Disposition Clinical Impression: Insect bite Qualifiers: Encounter type: initial encounter Site of insect bite: thoracic wall Front or back of thoracic wall: back Thoracic wall location detail: right Qualified Code(s): S20.461A - Insect bite (nonvenomous) of right back wall of thorax, initial encounter; W57.XXXA - Bitten or stung by nonvenomous insect and other nonvenomous arthropods, initial encounter Disposition: Home, Self-Care Condition on Discharge: Good Instructions: DI for Insect Bites and Stings Additional Instructions: use meds and call pcp in am Prescriptions: predniSONE [Prednisone 20mg Tab] 20 mg PO BID #10 tab Transmission Status: Pending to [id number] Referrals: Walter Anaya MD [Primary Care Provider] - - Critical Care Critical Care Time: No Attestation: On 04/05/22, the high probability of a clinically significant, sudden or life threatening deterioration of the following system(s) required my full and direct attention, intervention and personal management. The time I documented below is in addition to time spent performing reported procedures but includes the following listed in this critical care notation. Medical Decision Making - Medical Records Medical records reviewed: Yes: I reviewed the patient's medical records. - Jelani Inquiry Pt receiving controlled substance: No Vital Signs: 04/05/22 18:10 04/05/22 18:30 04/05/22 19:00 Temperature 98.1 F Temperature Source Oral Pulse Rate 73 73 Pulse Rate [Left Radial] 75 Respiratory Rate 18 18 Blood Pressure 110/74 110/69 Blood Pressure [Right Arm] 115/70 Blood Pressure Mean 81 78 Blood Pressure Mean [Right Arm] 85 Blood Pressure Source [Right Arm] Automatic Cuff Blood Pressure Position [Right Arm] Sitting 02 Sat by Pulse Oximetry 97 96 96 Oxygen Delivery Method Room Air 04/05/22 19:30 Temperature Temperature Source Pulse Rate 65 Pulse Rate [Left Radial] Respiratory Rate 18 Blood Pressure 100/71 L Blood Pressure [Right Arm] Blood Pressure Mean 77 Blood Pressure Mean [Right Arm] Blood Pressure Source [Right Arm] Blood Pressure Position [Right Arm] 02 Sat by Pulse Oximetry 96 Oxygen Delivery Method - Lab Data Lab results reviewed: Yes: I reviewed the patient's lab results. Lab Results 04/05/22 18:15: WBC 6.0, RBC 4.16 L, Hgb 13.1, Hct 40.9, MCV 98.3, MCH 31.4 H, MCHC 32.0, RDW 14.5, Plt Count 207, MPV 8.5, Neut % (Auto) 73.0, Lymph % (Auto) 18.7, [place] % (Auto) 5.4, Eos % (Auto) 1.4, Baso % (Auto) 1.5, Neut # (Auto) 4.4, Lymph # (Auto) 1.1, [place] # (Auto) 0.3, Eos # (Auto) 0.1, Baso # (Auto) 0.1 04/05/22 18:15: Sodium 137, Potassium 3.5, Chloride 107, Carbon Dioxide 25, Anion Gap 8.5, BUN 25 H, Creatinine 0.60, Estimated Creat Clear 135, Estimated GFR 107, Est GFR ( Amer) 129, Glucose 175 H, Calcium 9.2, Troponin I < 0.01 Result diagrams: 04/05/22 18:15 04/05/22 18:15 Orders (Tests/Meds): ED MEDICATIONS Generic Name Dose Route Start Last Admin Trade Name Freq PRN Reason Stop Dose Admin Sodium Chloride 10 ml 04/05/22 18:16 Sodium Chloride 0.9% 10ml Flush Syringe IV 05/05/22 18:15 NEEDED PRN Maintain IV Site ORDERS Category Date Time Status Troponin I Q3H Lab 04/05/22 21:30 Ordered Troponin I Q3H Lab 04/06/22 00:30 Ordered - Radiology Data #1 Image(s): Chest Image Reviewed: Yes I have reviewed radiologist's interpretation Preliminary Findings: Normal/NAD - ECG Data Tracing #1 Normal Sinus Rhythm: Yes Ischemic changes: non-specific ST-T wave changes - ADARSH Score for Non-Stemi Age of Patient: 40-49 years old Heart Rate: 70-89 bpm Systolic Blood Pressure: 100-119 mmHg Serum Creatinine: 0.40-0.79 mg/dl CHF [place] Class: I-No CHF Other Risk Factors: None Non-Stemi Risk Score: 81 Medical Decision Narrative: has acute bee sting post chest with pain - stable exam and labs Allergic React/Insect Bite HP
[2022-04-05 20:44] VITALS: BP 110/74; PULSE 65; RESP 18; TEMP 36.7; O2SAT 97
== END 2022-04-05 20:45 | disposition home or self-care (01) ==
PROVIDERS: Emergency Medicine; Emergency Provider Emergency Medicine; PCP Family Medicine
DX: S20.461A Insect bite (nonvenomous) of right back wall of thorax, initial encounter (principal); W57.XXXA Bitten or stung by nonvenomous insect and other nonvenomous arthropods, initial encounter; Z88.5 Allergy status to narcotic agent; Z88.7 Allergy status to serum and vaccine; Z88.8 Allergy status to other drugs, medicaments and biological substances; Z91.030 Bee allergy status; Z91.038 Other insect allergy status; Z79.84 Long term (current) use of oral hypoglycemic drugs; E10.9 Type 1 diabetes mellitus without complications; I10 Essential (primary) hypertension; E78.5 Hyperlipidemia, unspecified; J45.909 Unspecified asthma, uncomplicated; I25.10 Atherosclerotic heart disease of native coronary artery without angina pectoris; Z86.73 Personal history of transient ischemic attack (TIA), and cerebral infarction without residual deficits
CPT/HCPCS: 71045; 80048; 84484; 85025; 93005; 96374; 99284

== ENCOUNTER 2022-04-13 23:20 | Emergency (ER) | payer BC, MEDICARE, MEDICAID, SELFPAY ==
[2022-04-13 23:22] VITALS: BP 116/76; PULSE 67; RESP 18; TEMP 36.7; O2SAT 100; BMI 28.8
[2022-04-13 23:30] VITALS: BP 121/81; PULSE 62; O2SAT 100
--- NOTE | 2022-04-13 23:44 | ECG_ITS ---
APPROVED REPORT Exam: Resting ECG HR:61 bpm ECG Measurements Heart Rate 61 AXES [place] 161 P 48 QRSd 98 QRS -37 QT 443 T 28 QTc 446 Conclusion SINUS RHYTHM LEFT AXIS DEVIATION [QRS AXIS < -30] LOW QRS VOLTAGE IN PRECORDIAL LEADS [QRS DEFLECTION < 1.0 mV IN CHEST LEADS] PATTERN CONSISTENT WITH PULMONARY DISEASE ABNORMAL ECG UNCONFIRMED REPORT Electronically signed by : Akira Bryant MD 04/14/2022 15:35:29
[2022-04-13 23:51] VITALS: BP 114/74; PULSE 61; O2SAT 99
--- NOTE | 2022-04-14 | XR_ITS ---
PROCEDURE INFORMATION: Exam: XR Chest Exam date and time: 04/13/2022 11:57 PM Age: 47 years old Clinical indication: Pain; Other: Weakness; Chest pressure; Prior surgery; Additional info: Weakness/chest pressure TECHNIQUE: Imaging protocol: Radiologic exam of the chest. Views: 2 views. COMPARISON: CR XR CHEST PORTABLE 04/05/2022 6:33 PM FINDINGS: Tubes, catheters and devices: Precordial loop recorder. Lungs: Unremarkable. No consolidation. Pleural spaces: Unremarkable. No pleural effusion. No pneumothorax. Heart/Mediastinum: Unremarkable. No cardiomegaly. Bones/joints: Unremarkable. IMPRESSION: No acute cardiopulmonary abnormality.
[2022-04-14 00:02] LABS: Coronavirus 19, PCR Not Detected (NotDetected); Influenza A, PCR Not Detected (NotDetected); Influenza B, PCR Not Detected (NotDetected)
[2022-04-14 00:07] LABS: Basophils # 0.1 K/mm3 (0-0.2); Eosinophils # 0.1 K/mm3 (0.0-0.4); Eosinophils % 1.9 % (0.1-12.0); Hematocrit 40.2 % (37.0-47.0); Hemoglobin 13.6 g/dL (12.2-16.2); Lymphocytes % 29.1 % (10-50); Mean Corpuscular HGB Conc 33.8 g/dL (31.8-35.4); Mean Corpuscular Volume 91.9 fl (81-99); Mean Platelet Volume 7.6 fl (7.4-10.4); Monocytes # 0.6 K/mm3 (0.1-1.0); Monocytes % 8.2 % (1.7-9.3); Neutrophils # 4.1 K/mm3 (1.8-7.8); Neutrophils % 59.8 % (37.0-80.0); Platelet Count 195 K/mm3 (142-424); Red Blood Count 4.37 M/mm3 (4.20-5.40); Red Cell Distribution Width 13.9 % (11.5-17.5); White Blood Count 6.9 K/mm3 (4.8-10.8)
[2022-04-14 00:14] VITALS: BP 109/76; BP 114/74; BP 120/82
[2022-04-14 00:17] LABS: Chloride 107 mmol/L (98-107)
[2022-04-14 00:18] LABS: Potassium 3.7 mmoL/L (3.5-5.1); Sodium 136 mmol/L (136-145)
--- NOTE | 2022-04-14 00:19 | PC.NURSE ---
Pt given pillow and warm blanket for comfort. No other needs at this time. Call light within reach.
[2022-04-14 00:20] LABS: Microscopic, Urine URINE MICROSCOPIC (MICROSCOPIC)
[2022-04-14 00:22] LABS: Alanine Aminotransferase 29 U/L (12-78); Albumin/Globulin Ratio 1.6 (1.1-1.8); Alkaline Phosphatase 44 U/L (38-126); Amylase 91 U/L (30-110); Anion Gap 6.7 mEq/L (5-15); Aspartate Amino Transferase 30 U/L (14-36); Bilirubin,Total 0.3 mg/dl (0.2-1.3); Blood Urea Nitrogen 23 mg/dl (7-17); Calcium 8.9 mg/dl (8.4-10.2); Carbon Dioxide 26 mmol/L (22.0-30.0); Creatinine Clearance Estimated 138 mL/min (50-200); Estimated Glomerular Filt Rate 107 ml/min (>60); GFR (African American) 129 ML/MIN (>60); Globulin 2.5 g/dL (1.3-3.2); Glucose 169 mg/dl (74-100); Lactic Acid 1.3 mmol/L (0.7-2.1); Lipase 91 U/L (23-300); Total Protein,Serum 6.5 g/dl (6.3-8.2)
--- NOTE | 2022-04-14 00:23 | PC.NURSE ---
at speaking with pt about POC
[2022-04-14 00:30] VITALS: BP 116/76; PULSE 53; O2SAT 100
--- NOTE | 2022-04-14 00:30 | CT_ITS ---
PROCEDURE INFORMATION: Exam: CT Head Without Contrast Exam date and time: 04/14/2022 12:36 AM Age: 47 years old Clinical indication: Dizziness TECHNIQUE: Imaging protocol: Computed tomography of the head without contrast. Radiation optimization: All CT scans at this facility use at least one of these dose optimization techniques: automated exposure control; mA and/or kV adjustment per patient size (includes targeted exams where dose is matched to clinical indication); or iterative reconstruction. COMPARISON: HEADWO CT head/brain wo con 03/15/2019 2:29 PM FINDINGS: Brain: Normal. No hemorrhage. Unremarkable white matter. No mass effect. Cerebral ventricles: No ventriculomegaly. Paranasal sinuses: Visualized sinuses are unremarkable. No fluid levels. Mastoid air cells: Visualized mastoid air cells are well aerated. Bones/joints: Normal symmetric internal auditory canals. No acute fracture. Soft tissues: Unremarkable. IMPRESSION: No evidence of acute intracranial hemorrhage, mass effect, or edema.
--- NOTE | 2022-04-14 00:38 | PC.NURSE ---
pt gone to ct
--- NOTE | 2022-04-14 00:44 | PC.NURSE ---
pt back from ct
[2022-04-14 00:45] LABS: Appearance,Urine CLEAR (Clear); Bilirubin,Urine Negative (Negative); Blood, Urine Negative (Negative); Color,Urine YELLOW (Yellow); Glucose,Urine (UA) Negative (Negative); Ketones,Urine Negative (Negative); Leukocyte Esterase,Urine Negative (Negative); Nitrate,Urine Negative (Negative); PH,Urine 6.5 (5.0-8.5); Protein,Urine Negative (Negative)
[2022-04-14 00:45] LABS: Troponin I < 0.01 ng/ml (0.00-0.034)
[2022-04-14 00:54] LABS: Thyroid Stimulating Hormone 1.53 uIU/mL (0.465-4.68)
[2022-04-14 01:00] VITALS: BP 114/74; PULSE 50; O2SAT 100
--- NOTE | 2022-04-14 01:07 | PC.NURSE ---
rounded on pt. pt voiced no c/o updated on POC and awaiting ct scan results
[2022-04-14 01:17] LABS: Bacteria,Urine 1+ /lpf
[2022-04-14 01:18] LABS: Calcium Oxalate Crystals,Urine 2+ /lpf
[2022-04-14 01:30] VITALS: BP 105/71; PULSE 51; O2SAT 98
[2022-04-14 01:48] LABS: C-Reactive Protein < 0.3 mg/L (0-4)
--- NOTE | 2022-04-14 01:48 | HMH.EDDIZZ ---
ED Disposition Clinical Impression: Dizziness Disposition: Home, Self-Care Condition on Discharge: Fair Instructions: DI for Vertigo Additional Instructions: call card about meds and see pcp for follow up Referrals: Walter Anaya MD [Primary Care Provider] - - Critical Care Critical Care Time: No Attestation: On 04/13/22, the high probability of a clinically significant, sudden or life threatening deterioration of the following system(s) required my full and direct attention, intervention and personal management. The time I documented below is in addition to time spent performing reported procedures but includes the following listed in this critical care notation. Medical Decision Making - Medical Records Medical records reviewed: Yes: I reviewed the patient's medical records. - Jelani Inquiry Pt receiving controlled substance: No Vital Signs: 04/13/22 23:22 04/13/22 23:30 04/13/22 23:51 Temperature 98.0 F Temperature Source Oral Pulse Rate 62 61 Pulse Rate [Right] 67 Respiratory Rate 18 Blood Pressure 121/81 114/74 Blood Pressure [Orthostatic Lying] Blood Pressure [Orthostatic Sitting] Blood Pressure [Orthostatic Standing] Blood Pressure [Right Arm] 116/76 Blood Pressure Mean 92 83 Blood Pressure Mean [Right Arm] 89 02 Sat by Pulse Oximetry 100 100 99 04/14/22 00:14 04/14/22 00:30 04/14/22 01:00 Temperature Temperature Source Pulse Rate 53 L 50 L Pulse Rate [Right] Respiratory Rate Blood Pressure 116/76 114/74 Blood Pressure [Orthostatic Lying] 114/74 Blood Pressure [Orthostatic Sitting] 120/82 Blood Pressure [Orthostatic Standing] 109/76 L Blood Pressure [Right Arm] Blood Pressure Mean 89 86 Blood Pressure Mean [Right Arm] 02 Sat by Pulse Oximetry 100 100 04/14/22 01:30 04/14/22 03:56 Temperature 98.0 F Temperature Source Oral Pulse Rate 51 L 57 L Pulse Rate [Right] Respiratory Rate 16 Blood Pressure 105/71 L 107/81 L Blood Pressure [Orthostatic Lying] Blood Pressure [Orthostatic Sitting] Blood Pressure [Orthostatic Standing] Blood Pressure [Right Arm] Blood Pressure Mean 78 Blood Pressure Mean [Right Arm] 02 Sat by Pulse Oximetry 98 - Lab Data Lab results reviewed: Yes: I reviewed the patient's lab results. Lab Results 04/13/22 23:50: WBC 6.9, RBC 4.37, Hgb 13.6, Hct 40.2, MCV 91.9, MCH 31.0, MCHC 33.8, RDW 13.9, Plt Count 195, MPV 7.6, Neut % (Auto) 59.8, Lymph % (Auto) 29.1, [place] % (Auto) 8.2, Eos % (Auto) 1.9, Baso % (Auto) 1.0, Neut # (Auto) 4.1, Lymph # (Auto) 2.0, [place] # (Auto) 0.6, Eos # (Auto) 0.1, Baso # (Auto) 0.1, ESR 15 04/13/22 23:50: Sodium 136, Potassium 3.7, Chloride 107, Carbon Dioxide 26, Anion Gap 6.7, BUN 23 H, Creatinine 0.60, Estimated Creat Clear 138, Estimated GFR 107, Est GFR ( Amer) 129, Glucose 169 H, Calcium 8.9, Total Bilirubin 0.3, AST 30, ALT 29, Alkaline Phosphatase 44, Troponin I < 0.01, C-Reactive Protein < 0.3, Total Protein 6.5, Albumin 4.0, Globulin 2.5, Albumin/Globulin Ratio 1.6, Amylase 91, Lipase 91, Procalcitonin 0.043, TSH 1.53 04/13/22 23:50: Lactate 1.3 04/13/22 23:50: SARS-CoV-2 (PCR) Not detected, Influenza A Untype (PCR) Not detected, Influenza Type B (PCR) Not detected 04/13/22 23:59: Urine Color Yellow, Urine Appearance Clear, Urine pH 6.5, Ur Specific [place] 1.020, Urine Protein Negative, Urine Glucose (UA) Negative, Urine Ketones Negative, Urine Blood Negative, Urine Nitrate Negative, Urine Bilirubin Negative, Urine Urobilinogen 2.0, Ur Leukocyte Esterase Negative, Urine WBC 3-5, Ur Squamous Epith Cells 5-10, Calcium Oxalate Crystal 2+, Urine Bacteria 1+ 04/14/22 02:33: Troponin I < 0.01 Result diagrams: 04/13/22 23:50 04/13/22 23:50 Orders (Tests/Meds): ED MEDICATIONS Generic Name Dose Route Start Last Admin Trade Name Freq PRN Reason Stop Dose Admin Sodium Chloride 1,000 mls @ 999 mls/hr 04/13/22 23:45 04/13/22 23:44 Sod Chlor
[2022-04-14 02:08] LABS: Erythrocyte Sedimentation Rate 15 mm/hr (0-20)
[2022-04-14 02:19] LABS: Procalcitonin 0.043 ng/mL (0.0-2.0)
--- NOTE | 2022-04-14 02:36 | PC.NURSE ---
Second trop drawn. No complaints voiced. Call light within reach.
[2022-04-14 03:10] LABS: Troponin I < 0.01 ng/ml (0.00-0.034)
--- NOTE | 2022-04-14 03:39 | PC.NURSE ---
Updated pt on POC. No needs or complaints voiced.
[2022-04-14 03:56] VITALS: BP 107/81; PULSE 57; RESP 16; TEMP 36.7; O2SAT 100
== END 2022-04-14 04:06 | disposition home or self-care (01) ==
PROVIDERS: Emergency Provider Emergency Medicine; PCP Family Medicine
DX: R42 Dizziness and giddiness (principal); R41.0 Disorientation, unspecified; R53.1 Weakness; F17.210 Nicotine dependence, cigarettes, uncomplicated; E11.9 Type 2 diabetes mellitus without complications; Z79.84 Long term (current) use of oral hypoglycemic drugs; I10 Essential (primary) hypertension; I25.10 Atherosclerotic heart disease of native coronary artery without angina pectoris; Z86.73 Personal history of transient ischemic attack (TIA), and cerebral infarction without residual deficits
CPT/HCPCS: 70450; 71046; 80053; 81001; 82150; 83605; 83690; 84145; 84443; 84484; 85025; 85651; 86140; 87040; 93005; 96360; 99285; C9803; U0003; U0005

== ENCOUNTER 2022-07-03 20:37 | Observation (INO) | payer BC, MEDICARE, MEDICAID, SELFPAY ==
[2022-07-03] VITALS (8 sets, daily range): BP systolic 114–155; BP diastolic 60–85; PULSE 55–67; RESP 8–20; TEMP 36.7–36.9; O2SAT 97–100; BMI 27.4; BMI 29.0
--- NOTE | 2022-07-03 20:38 | XR_ITS ---
PROCEDURE INFORMATION: Exam: XR Chest Exam date and time: 07/03/2022 9:00 PM Age: 47 years old Clinical indication: Pain; Angina pectoris; Patient HX: C/O cp; Additional info: Chest pain TECHNIQUE: Imaging protocol: Radiologic exam of the chest. Views: 1 view. COMPARISON: CR XR CHEST 2V 04/13/2022 11:57 PM FINDINGS: Lungs: No consolidation. Pleural spaces: No pneumothorax. Heart/Mediastinum: No cardiomegaly. Bones/joints: No acute abnormality. IMPRESSION: No acute findings.
--- NOTE | 2022-07-03 20:38 | ECG_ITS ---
APPROVED REPORT Exam: Resting ECG HR:60 bpm ECG Measurements Heart Rate 60 AXES [place] 142 P -7 QRSd 90 QRS -28 QT 411 T 16 QTc 411 Conclusion SINUS RHYTHM BORDERLINE LEFT AXIS DEVIATION [QRS AXIS < -20] BORDERLINE ECG UNCONFIRMED REPORT Electronically signed by : Akira Bryant MD 07/04/2022 20:13:04
--- NOTE | 2022-07-03 20:54 | PC.NURSE ---
Pt now rates pain 3 out of 10 at this time
[2022-07-03 20:58] LABS: Basophils # 0.1 K/mm3 (0-0.2); Basophils % 2.1 % (0.1-2.0); Eosinophils # 0.1 K/mm3 (0.0-0.4); Eosinophils % 1.4 % (0.1-12.0); Hemoglobin 14.4 g/dL (12.2-16.2); Lymphocytes # 1.8 K/mm3 (0.7-4.5); Lymphocytes % 33.2 % (10-50); Mean Corpuscular HGB Conc 33.5 g/dL (31.8-35.4); Mean Corpuscular Hemoglobin 31.1 pg (27.0-31.2); Mean Corpuscular Volume 92.6 fl (81-99); Mean Platelet Volume 8.2 fl (7.4-10.4); Monocytes # 0.3 K/mm3 (0.1-1.0); Neutrophils # 3.2 K/mm3 (1.8-7.8); Neutrophils % 57.3 % (37.0-80.0); Platelet Count 208 K/mm3 (142-424); Red Blood Count 4.64 M/mm3 (4.20-5.40); Red Cell Distribution Width 13.3 % (11.5-17.5); White Blood Count 5.5 K/mm3 (4.8-10.8)
[2022-07-03 21:08] LABS: Chloride 103 mmol/L (98-107); Potassium 3.7 mmoL/L (3.5-5.1); Sodium 140 mmol/L (136-145)
--- NOTE | 2022-07-03 21:10 | HMH.EDCP ---
Discharge Plan Disposition Patient Disposition: Admitted as Observation Chief Complaint: Chest Pain Prescriptions Prescriptions: No Action multivitamin tablet 2 tab PO DAILY ticagrelor 90 mg tablet 90 mg PO BID Qty: 60 11RF metformin 500 mg tablet extended release 24 hr 500 mg PO DAILY Label Comments: TAKE ONE TABLET BY MOUTH EVERY DAY albuterol sulfate 90 mcg/actuation HFA aerosol inhaler 2 inh IH Q6H PRN (Reason: shortness of breath or wheezing) 90 Days Qty: 8.5 3RF trazodone 100 mg tablet 100 mg PO HS nitroglycerin 400 mcg/spray spray,non-aerosol 1 spray TL Q5M PRN (Reason: Chest Pain) Rx Instructions: do not exceed 3 doses per episode ciprofloxacin HCl 100 mg tablet 500 mg PO BID rosuvastatin 20 mg tablet 20 mg PO DAILY Qty: 30 5RF aspirin 81 MG tablet,delayed release (DR/EC) 81 mg PO DAILY furosemide 20 MG tablet See Rx Instructions .Route .COMPLEX Rx Instructions: TAKE ONE TABLET BY MOUTH EVERY DAY NEEDED FOR EDEMA metoprolol succinate 25 MG tablet extended release 24 hr See Rx Instructions .Route .COMPLEX Rx Instructions: TAKE ONE TABLET BY MOUTH EVERY DAY FOR HIGH BLOOD PRESSURE ranolazine 500 MG tablet extended release 12 hr 1,000 mg PO BID fluticasone furoate-vilanterol 1 EACH blister with device 1 inh IH DAILY Discharge ED Provider: Michel Campoverde Chest Pain HPI General Chief Complaint: Chest Pain Stated Complaint: Chest Pain Time Seen by Provider: 07/03/22 21:10 Mode of Arrival: Ambulatory Source of Information: Patient, Spouse and Medical Record Limitations: No Limitations Description of Symptoms (Recalled from ER Triage Doc. by RN): Pt c/o cp she describes as an intermittent, sharp pressure that started around 4:30pm while she was working. She endorses SOA as well. She says her pain is an 8 out of 10 at this time. She used 3 SL sprays of nitro in route that she says helped ease the pain at the time. History of Present Illness HPI narrative: acute onset of chest pain with rad to lt upper ext with hx of pain while at work and relieved with ntg and then returned - has hx of cad and stents complaint: chest pain indicative of cardiac Onset (ago): hour(s) Duration: intermittent and now resolved Activity at onset: light activity Pain location: substernal Severity: moderate Quality: tightness Pain radiation: LUE Relieving factors: nitroglycerin Associated symptoms: dyspnea Risk Factors for CAD: Hypertension, Family Hx of CAD and Smoking Treatments prior to or on arrival for Cardiac Chest Pain: nitroglycerin ADARSH Score for Non-Stemi Age of Patient: 40-49 years old Heart Rate: 50-69 bpm Systolic Blood Pressure: 120-139 mmhg Serum Creatinine: 0.40-0.79 mg/dl CHF [place] Class: I-No CHF Other Risk Factors: None Non-Stemi Risk Score: 66 Related Data Prior Cardiac Testing/Procedures: Stenting On Oral Contraceptives: No Home Medications Medication Instructions Recorded Confirmed trazodone 100 mg tablet 100 mg PO HS sleep 04/16/18 04/14/22 multivitamin 2 tab PO DAILY Supplement 10/21/18 04/14/22 nitroglycerin 400 mcg/spray 1 spray translingual Q5M PRN Chest 07/08/21 04/14/22 translingual Pain metformin 500 mg tablet,extended 500 mg PO DAILY dm 11/16/21 04/14/22 release 24 hr ciprofloxacin HCl 100 mg tablet 500 mg PO BID Infection 04/13/22 04/14/22 aspirin 81 mg tablet,delayed 81 mg PO DAILY . 04/14/22 04/14/22 release fluticasone furoate 100 1 inh inhalation DAILY Breathing 04/14/22 04/14/22 mcg-vilanterol 25 mcg/dose problems inhalation powder furosemide 20 mg tablet See Rx Instructions .Route 04/14/22 04/14/22 .COMPLEX Fluid metoprolol succinate 25 mg See Rx Instructions .Route 04/14/22 04/14/22 tablet,extended release 24 hr .COMPLEX High blood pressure ranolazine 500 mg tablet,extended 1,000 mg PO BID . 04/14/22 04/14/22 release,12 hr Previous Rx's Medication I
[2022-07-03 21:11] LABS: Anion Gap 9.7 mEq/L (5-15); Blood Urea Nitrogen 21 mg/dl (7-17); Calcium 9.1 mg/dl (8.4-10.2); Carbon Dioxide 31 mmol/L (22.0-30.0); Creatinine Clearance Estimated 131 mL/min (50-200); Estimated Glomerular Filt Rate 107 ml/min (>60); GFR (African American) 129 ML/MIN (>60); Glucose 106 mg/dl (74-100)
[2022-07-03 21:31] LABS: Troponin I < 0.01 ng/ml (0.00-0.034)
--- NOTE | 2022-07-03 21:44 | PC.NURSE ---
Nirali speaking to Annette for admission. Pt accepted [facility] notified at this time of need for bed
--- NOTE | 2022-07-03 21:53 | PC.NURSE ---
ATTEMPTING TO CALL REPORT. NURSE ASSIGNMENT HAS NOT BEEN ESTABLISHED, WILL CALL BACK.
--- NOTE | 2022-07-03 22:10 | PC.NURSE ---
ATTEMPTED TO CALL REPORT, ACCEPTING NURSE UNABLE TO RECEIVE REPORT AT THIS TIME, SHE WILL CALL BACK.
[2022-07-03 22:13] LABS: Coronavirus 19, PCR Not Detected (NotDetected); Influenza A, PCR Not Detected (NotDetected); Influenza B, PCR Not Detected (NotDetected)
--- NOTE | 2022-07-03 22:51 | PC.NURSE ---
PT ARRIVED TO FLOOR VIA WHEELCHAIR AT [id number].
[2022-07-04] VITALS (18 sets, daily range): BP systolic 105–133; BP diastolic 60–77; PULSE 50–73; RESP 14–18; TEMP 36.5–36.8; O2SAT 97–100
--- NOTE | 2022-07-04 | IR_ITS ---
APPROVED REPORT Patient Location: Inpatient [facility] Folder: LUDA Salcedo RT (R) PROCEDURES Left heart catheterization Left ventriculogram Selective coronary angiogram INDICATION Known coronary artery disease, Unstable angina Informed consent was obtained prior to the procedure. COMPLICATIONS None Estimated Blood Loss: Less than 10 mls TECHNIQUE One percent lidocaine used to anesthetize the right anterior aspect of the wrist. The right radial artery was accessed via the Seldinger technique. A 6 [place] sheath was placed in the right radial artery. 2.5 mg of verapamil, 800 mcg of nitroglycerin, 1mg Lidocaine and 5000 U Heparin were given through the arterial sheath. The papa catheter was also used to perform left heart catheterization, left ventriculogram and selective coronary angiogram. At the end of the procedure the sheath was removed good hemostasis was achieved using Traclet band, patient was transferred to the postop holding area in stable condition. ANGIOGRAPHIC RESULTS The left main artery Normal The left anterior descending artery Has a stent in the proximal segment which is widely patent free of in-stent restenosis with excellent proximal distal transitioning The circumflex artery Is a codominant vessel widely patent with minimal 10% luminal regularities The right coronary artery Is codominant and normal The AVELAR ventriculogram reveals Preserved at 55% The left ventricular end-diastolic pressure 10mmHg IMPRESSION Widely patent proximal LAD stent Preserved ejection fraction with normal left ventricular end-diastolic pressure PLAN 1. Continue medical management 2. Evaluation of nonischemic chest pain Electronically signed by : Javed Zhong MD 07/04/2022 14:36:07
--- NOTE | 2022-07-04 05:36 | PC.NURSE ---
pt admitted this shift. A&OX4. no complaints of chest pain or SOB. ambulates to and from bathroom with standby assistance. bandar with prolonged qt intervals on tele. FSBS 83 this am. CB in reach.
[2022-07-04 05:54] LABS: POC Glucose,Bedside 83 (70-110)
--- NOTE | 2022-07-04 07:31 | HMH.PHAINT1 ---
Pharmacy Intervention Comments: Home medication reconciliation completed using outpatient pharmacy list.
[2022-07-04 07:42] LABS: Chloride 106 mmol/L (98-107)
[2022-07-04 07:43] LABS: Potassium 3.6 mmoL/L (3.5-5.1); Sodium 140 mmol/L (136-145)
[2022-07-04 07:44] LABS: Basophils # 0.1 K/mm3 (0-0.2); Basophils % 1.7 % (0.1-2.0); Eosinophils # 0.1 K/mm3 (0.0-0.4); Eosinophils % 3.4 % (0.1-12.0); Hematocrit 38.7 % (37.0-47.0); Lymphocytes # 1.4 K/mm3 (0.7-4.5); Lymphocytes % 38.2 % (10-50); Mean Corpuscular HGB Conc 33.7 g/dL (31.8-35.4); Mean Corpuscular Hemoglobin 31.2 pg (27.0-31.2); Mean Corpuscular Volume 92.6 fl (81-99); Mean Platelet Volume 8.2 fl (7.4-10.4); Monocytes # 0.3 K/mm3 (0.1-1.0); Monocytes % 7.8 % (1.7-9.3); Neutrophils # 1.8 K/mm3 (1.8-7.8); Neutrophils % 48.8 % (37.0-80.0); Platelet Count 164 K/mm3 (142-424); Red Blood Count 4.18 M/mm3 (4.20-5.40); Red Cell Distribution Width 13.1 % (11.5-17.5); White Blood Count 3.7 K/mm3 (4.8-10.8)
[2022-07-04 07:45] LABS: Blood Urea Nitrogen 18 mg/dl (7-17); Creatinine Clearance Estimated 166 mL/min (50-200); Estimated Glomerular Filt Rate 132 ml/min (>60); GFR (African American) 159 ML/MIN (>60)
[2022-07-04 07:46] LABS: Anion Gap 7.6 mEq/L (5-15); Calcium 8.2 mg/dl (8.4-10.2); Carbon Dioxide 30 mmol/L (22.0-30.0); Glucose 88 mg/dl (74-100)
--- NOTE | 2022-07-04 07:48 | EXP.HP ---
History of Present Illness *Admission Date: 07/03/22 *Reason for visit:: Chest pain *History of present illness: Ms. Franco is a 47-year-old female patient with a history of hypertension, hyperlipidemia, type 2 diabetes mellitus, GERD, paroxysmal supraventricular tachycardia, mild intermittent asthma, history of coronary artery stent placement in 2020 who presented to [facility] emergency room after experiencing midsternal chest discomfort described as a pressure sensation with sharpness radiating in through the back and down the left arm. This was associated with shortness of breath and paresthesia of the left arm/hand. She denies having nausea, diaphoresis, and heart palpitations, She was sitting at work around 4:30 PM when the discomfort started. She thought it was anxiety and took a break to smoke a cigarette. The pain continued to increase and thus she presented to the emergency room. She said nitroglycerin did decrease the discomfort and describes the pain is minimal this morning but still present. The pain Continues to go through to her back between her shoulder blades. Initial Troponin I was noted to be normal. She was given an aspirin along with application of nitroglycerin ointment. Chest x-ray showed no acute processes. EKG showed ischemic changes with nonspecific ST-T wave changes. She was thus admitted for cardiac work-up with cardiology consult. 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 SVT (supraventricular tachycardia) Syncope Tachycardia Tobacco abuse counseling Tobacco abuse disorder Surgical History (Updated 07/04/22 @ 08:06 by Ashley Lopez APRN) H/O: hysterectomy History of coronary artery stent placement History of gastric restrictive surgery Hx laparoscopic cholecystectomy Previous section Family History (Updated 06/19/22 @ 14:06 by RT Samy) Diabetes Coronary artery disease Hyperlipidemia Kidney disease Heart attack FHx: mental illness Cancer Hypertension Asthma Social History (Updated 07/03/22 @ 23:46 by Polly Amezquita RN) Smoking Status: Current every day smoker tobacco type: cigarettes packs per day: 1 second hand exposure: No alcohol intake: never substance use type: denies use current occupational status: employed and disabled Travel in the last 8 weeks: None household members: spouse and children housing: house marital status: education level: high school current occupational exposures/hazards: No caffeine: Yes Review of Systems Constitutional Constitutional: Reports headache(s) (Thinks headache is due to nitro) Eyes Eyes: Denies change in vision and Denies loss of vision ENT Ears, Nose, Mouth, and Throat: Denies dizziness, Denies otalgia, Reports headache(s) (Thinks headache is due to nitro), Denies nasal congestion and Denies sore throat *Cardiovascular Cardiovascular: Reports chest pain, Reports chest pain at rest, Reports chest pain with activity, Denies diaphoresis, Reports dyspnea, Denies edema, Denies irregular heart rhythm and Denies leg edema *Respiratory Respiratory: Denies chest congestion, Denies cough and Reports dyspnea *Gastrointestinal Gastrointestinal: Denies abdominal pain, Denies change in bowel habits, Reports constipation, Reports heartburn, Denies hematemesis, Denies loose stools, Denies nausea and Denies vomiting *Genitourinary Genitourinary: Denies difficulty voiding (Minimal urinary output) *Musculoskeletal Musculoskeletal: Denies abnormal gait and Denies arthralgias *Neurologic Neurologic: Denies abnormal gait, Denies abnormal speech, Denies
[2022-07-04 08:50] LABS: Troponin I < 0.01 ng/ml (0.00-0.034)
--- NOTE | 2022-07-04 09:36 | PC.NURSE ---
Lesley with [facility] from [facility] lab technician stated that it was okay for pt to have light breakfast. Called dietary to request yogurt.
--- NOTE | 2022-07-04 09:50 | EXP.CARD.CON ---
History of Present Illness History of Present Illness Consult date: 07/04/22 Requesting physician: Amadou Holman Consult reason: chest pain Chief complaint: chest pain Additional Medical History:: Significant past medical Hx: CAD- Ricky LAD Jul 2021. Ricky to LAD August 2021 DM Essential HTN Mixed hyperlipidemia Gastrick surgery Loop recorder Cath 08/2021 IMPRESSION Angiographically unimpressive yet hemodynamically severe proximal LAD stenosis which produced an FFR index of 0.78 Successful stenting of a hemodynamically severe proximal LAD lesion reducing the stenosis to 0% with 1 drug-eluting stent Preserved ejection fraction Borderline LVEDP PLAN 1. Dual antiplatelet therapy 2. LDL less than 55 3. Risk factor modification 4. Cardiac rehabilitation 5. Avoidance of tobacco products Echo 06/2021 Conclusion 1.? Biatrial enlargement, normal left ventricular size, visually estimated ejection fraction 55% with no regional wall motion abnormality, diastolic parameters are within normal range. 2.? Mildly enlarged right ventricle with normal contractility. 3.? Trace mitral and mild tricuspid regurgitation, calculated right ventricular systolic pressure 35 mmHg. 4.? No significant pericardial effusion noted. 5.? Inferior vena cava is mildly dilated with normal inspiratory collapse. History of present illness: 47 year old female with above past medical hx presented to ED yesterday with complaint of midsternal chest pain. Patient reports she was at work yesterday around 0430 when developed midsternal chest pain radiating into left arm, jaws, and into back 10/10 associated with soa and nausea. Reports went outside thinking she could walk it off, smoked a cigarette and pain did not resolve. She took nitro which helped symptoms but they never fully resolved prompting her to go to ER. Patient reports she has been doing well since cath last year with little to no episodes of chest pain up until yesterday. Reports she is afraid because pain was similar to what she experienced last year prior to receiving stents. Serial Trops are negative. EKG shows NSR rate of 60 with no acute ischemic changes noted. Chest xray was negative for acute cardiopulmonary process. Labs essentially unremarkable. Continues to report ache between shoulder blades this am. 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 SVT (supraventricular tachycardia) Syncope Tachycardia Tobacco abuse counseling Tobacco abuse disorder Surgical History (Updated 07/04/22 @ 08:06 by Ashley Lopez APRN) H/O: hysterectomy History of coronary artery stent placement History of gastric restrictive surgery Hx laparoscopic cholecystectomy Previous section Family History (Updated 06/19/22 @ 14:06 by Hanny Sainz RT) Other Asthma Cancer Coronary artery disease Diabetes FHx: mental illness Heart attack Hyperlipidemia Hypertension Kidney disease Social History (Updated 07/03/22 @ 23:46 by Polly Amezquita RN) Smoking Status: Current every day smoker tobacco type: cigarettes packs per day: 1 second hand exposure: No alcohol intake: never substance use type: denies use current occupational status: employed and disabled Travel in the last 8 weeks: None household members: spouse and children housing: house marital status: education level: high school current occupational exposures/hazards: No caffeine: Yes Review of Systems Review of Systems Review of systems:: pertinent systems reviewed and negative unless documented below Constitutional Constitutional: Reports headache(s) (
--- NOTE | 2022-07-04 10:34 | PC.NURSE ---
Called River's office and asked about pt needs order for VTE. Mail Weigher stated that she would ask him about and call back. Waiting for response.
[2022-07-04 11:58] LABS: POC Glucose,Bedside 147 (70-110)
--- NOTE | 2022-07-04 13:57 | PC.NURSE ---
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
[2022-07-04 17:57] LABS: POC Glucose,Bedside 108 (70-110)
--- NOTE | 2022-07-04 20:26 | PC.NURSE ---
Pt is A/Ox4. She had a Heart cath today and it was done femoral. She had an episode where the gauze was saturated with blood. Called Dr. Zhong he came up to look at it, and held pressure manually for 15 mins, and extended time to sit up and get up. She looks to have a small hematoma present near site. She has not complained of pain. She has tolerated eating just fine.
--- NOTE | 2022-07-04 22:18 | CA_ITS ---
APPROVED REPORT EXAM: Comprehensive 2D, Doppler, and color-flow Echocardiogram Mortgage Clerk: Rubia Castro CRT Ht: 5 ft 4 in Wt: 168lbs BSA: 1.82 BP: 139/80 mmHg Indications: Abnormal ECG, Chest Pain, Congestive Heart Failure, CVA/TIA, stents, loop recorder, SVT 2D Dimensions LVOT 2.14 cm (M/F) 1.5-2.5 LA Volume 38.40 mL LA Volume Index 21.10 mL/m2 (M/F) 16-34 M-Mode Dimensions RVDd 2.31 cm (0.9-2.6) LA Diam 3.98 cm (1.9-4.0) LVDd 5.09 cm (3.5-5.7) Ao Diam 4.65 cm (2.0-3.7) LVDs 3.56 cm (3.5-5.7) IVSd 1.57 cm (0.6-1.1) PWd 0.82 cm (0.6-1.1) EF (Teich) 57.00% FS 30.10% EDV (Teich) 123.20 mL TAPSE 2.91 (<1.7) ESV (Teich) 53.00 mL LV Diastology E Decel Time 283.00 (160-240 msec) E/A Ratio 1.27 MED E' 7.70 (< 7 cm/sec) MED A' 10.10 cm/s E'/MED E' Ratio 9.75 (>14) LAT E' 10.10 (<10 cm/sec) LAT A' 9.50 cm/s E/LAT E' Ratio 7.44 (>14) Aortic Valve AO Peak GR. 3.70 mmHg Mitral Valve MV A Velocity 59.00 (40-130 cm/s) E/A Ratio 1.27 MV Decel. Time 283.00 (160-240 ms) Pulmonary Valve PV Peak Velocity 115.00 (50-150 cm/s) Tricuspid Valve TR P. Velocity 289.00 cm/s RAP Estimate 10.00 mmHg RVSP 43.30 mmHg Left Ventricle Left atrium is mildly, left ventricle is normal size, mild concentric left ventricular hypertrophy, estimated ejection fraction 55% with no regional wall motion abnormality, diastolic parameters are inconclusive Right Ventricle Right atrium and right ventricular mildly enlarged with normal contractility. Aortic Valve Aortic valve is minimally thickened and fibrosed there is no aortic stenosis or aortic insufficiency. Mitral Valve Mitral valve is grossly normal, there is trace mitral regurgitation. Tricuspid Valve Tricuspid valve grossly normal, there is trace tricuspid regurgitation, tricuspid regurgitation jet velocity is inadequate for calculation of the right ventricular systolic pressure. Pulmonic Valve Pulmonic valve is poorly visualized. Great Vessels Aortic root is normal size. Inferior vena cava is poorly visualized. Pericardium No significant pericardial effusion noted. Conclusion 1. Mild biatrial enlargement, normal left ventricular size, mild concentric left ventricular hypertrophy, estimated ejection fraction 55% with no regional wall motion abnormality, diastolic parameters are inconclusive. 2. Mildly enlarged right ventricle with normal contractility. 3. Trace mitral and tricuspid regurgitation. 4. No significant pericardial effusion noted. 5. Inferior vena cava is poorly visualized. Electronically signed by : Matthew Carrera MD 07/04/2022 19:03:06
[2022-07-05] VITALS: PULSE 70
[2022-07-05 03:29] VITALS: BP 99/58; PULSE 59; RESP 18; TEMP 36.6; O2SAT 98; BMI 28.6
[2022-07-05 04:00] VITALS: PULSE 60
--- NOTE | 2022-07-05 04:59 | PC.NURSE ---
pt c/o right femoral cath site being tender at beginning of shift, has had no further complaints. right femoral cath site dressing (2X2 Gauze with tegaderm) noted to be saturated in blood at beginning of shift. no changed noted to dressing t/o the shift. BLE pink/warm. she remains on RA with O2 sats around 98%. Remains sinus bandar-NSR on telemetry. HR has been 58-67. SBP has been 99-122. Pt has ambulated to with standby assist, no c/o CP or SOA.
[2022-07-05 05:58] LABS: POC Glucose,Bedside 155 (70-110)
[2022-07-05 05:58] LABS: POC Glucose,Bedside 100 (70-110)
[2022-07-05 06:49] LABS: Basophils # 0.1 K/mm3 (0-0.2); Basophils % 1.1 % (0.1-2.0); Eosinophils # 0.1 K/mm3 (0.0-0.4); Eosinophils % 2.1 % (0.1-12.0); Hematocrit 38.9 % (37.0-47.0); Hemoglobin 12.4 g/dL (12.2-16.2); Lymphocytes # 1.6 K/mm3 (0.7-4.5); Lymphocytes % 32.4 % (10-50); Mean Corpuscular HGB Conc 31.9 g/dL (31.8-35.4); Mean Corpuscular Hemoglobin 29.9 pg (27.0-31.2); Mean Corpuscular Volume 93.6 fl (81-99); Mean Platelet Volume 7.4 fl (7.4-10.4); Monocytes # 0.3 K/mm3 (0.1-1.0); Monocytes % 6.7 % (1.7-9.3); Neutrophils # 2.9 K/mm3 (1.8-7.8); Neutrophils % 57.7 % (37.0-80.0); Platelet Count 165 K/mm3 (142-424); Red Blood Count 4.15 M/mm3 (4.20-5.40); Red Cell Distribution Width 12.6 % (11.5-17.5)
[2022-07-05 06:51] LABS: Chloride 109 mmol/L (98-107); Potassium 3.9 mmoL/L (3.5-5.1); Sodium 141 mmol/L (136-145)
[2022-07-05 06:54] LABS: Blood Urea Nitrogen 14 mg/dl (7-17); Creatinine Clearance Estimated 138 mL/min (50-200); Estimated Glomerular Filt Rate 107 ml/min (>60); GFR (African American) 129 ML/MIN (>60)
[2022-07-05 06:55] LABS: Anion Gap 8.9 mEq/L (5-15); Carbon Dioxide 27 mmol/L (22.0-30.0); Glucose 92 mg/dl (74-100)
[2022-07-05 07:58] VITALS: BP 96/65; PULSE 69; RESP 14; TEMP 37; O2SAT 98
--- NOTE | 2022-07-05 08:07 | EXP.ACUTE.PN ---
Subjective *Date: 07/05/22 *Time: 08:16 Interval history: Patient is feeling well this morning. Had some bleeding from the cath site in the right groin last night and has some pain there today. Denies any chest pain or SOA. Slept well. Medical Exam Vital signs and Labs for Last 24 Hours: Temp Pulse Resp BP Pulse Ox 98.6 F 69 14 96/65 L 98 07/05/22 07:58 07/05/22 07:58 07/05/22 07:58 07/05/22 07:58 07/05/22 07:58 Laboratory Results - last 24 hr 07/04/22 07:25: Troponin I < 0.01 07/04/22 11:51: POC Glucose 147 H 07/04/22 17:34: POC Glucose 108 07/04/22 20:18: POC Glucose 155 H 07/05/22 05:48: POC Glucose 100 07/05/22 06:10: WBC 5.0 D, RBC 4.15 L, Hgb 12.4, Hct 38.9, MCV 93.6, MCH 29.9, MCHC 31.9, RDW 12.6, Plt Count 165, MPV 7.4, Neut % (Auto) 57.7, Lymph % (Auto) 32.4, [place] % (Auto) 6.7, Eos % (Auto) 2.1, Baso % (Auto) 1.1, Neut # (Auto) 2.9, Lymph # (Auto) 1.6, [place] # (Auto) 0.3, Eos # (Auto) 0.1, Baso # (Auto) 0.1 07/05/22 06:10: Sodium 141, Potassium 3.9, Chloride 109 H, Carbon Dioxide 27, Anion Gap 8.9, BUN 14, Creatinine 0.60, Estimated Creat Clear 138, Estimated GFR 107, Est GFR ( Amer) 129, Glucose 92, Calcium 8.0 L I & O for Labs for Last 24 Hours: Intake & Output 07/02/22 07/03/22 07/04/22 07/05/22 11:59 11:59 11:59 11:59 Intake Total 0 / 0 1853 Output Total 0 / 0 0 / 0 Balance 0 / 0 1853 Weight 168 lb 14.4 oz 167 lb 12.8 oz Constitutional: Present no acute distress Respiratory: Present CTA bilaterally Cardiac: Present Reg Rate and Rhythm GI: Present soft and normal bowel sounds; Absent distention or tenderness Extremities: Absent edema, clubbing or cyanosis Skin: Present intact Comment:: Dressing in the right groin saturated with blood, no ecchymosis around the site Neuro: Present alert and awake Assessment and Plan *Assessment and plan (1) Coronary artery disease: Status: Acute Category: Medical Code(s): I25.10 - Atherosclerotic heart disease of [place] coronary artery without angina pectoris (2) Depression: Status: Chronic Qualifiers: Active/Remission status: remission status unspecified Depression Type: major depressive disorder Major depression recurrence: unspecified whether recurrent Qualified Code(s): F32.9 - Major depressive disorder, single episode, unspecified Category: Medical Code(s): F32.9 - Major depressive disorder, single episode, unspecified (3) Tobacco abuse disorder: Status: Chronic Category: Medical Code(s): Z72.0 - Tobacco use (4) GERD (gastroesophageal reflux disease): Status: Acute Category: Medical Code(s): K21.9 - Gastro-esophageal reflux disease without esophagitis (5) Hypertension: Status: Acute Category: Medical Code(s): I10 - Essential (primary) hypertension (6) Chest pain: Status: Acute Category: Medical Code(s): R07.9 - Chest pain, unspecified (7) History of coronary artery stent placement: Status: Chronic Category: Surgical Code(s): Z95.5 - Presence of coronary angioplasty implant and graft Plan Heart cath from yesterday as follows: IMPRESSION Widely patent proximal LAD stent Preserved ejection fraction with normal left ventricular end-diastolic pressure PLAN 1. Continue medical management 2. Evaluation of nonischemic chest pain Cardiology to see today but can likely discharge. Dr. Holman entry - Saw patient, agree with above note.
--- NOTE | 2022-07-05 08:37 | EXP.CARD.PN ---
Subjective Subjective Date: 07/05/22 Time: 08:37 Principal diagnosis: chest pain Interval history: s/p [facility] 07/04/2022 IMPRESSION Widely patent proximal LAD stent Preserved ejection fraction with normal left ventricular end-diastolic pressure PLAN 1. Continue medical management 2. Evaluation of nonischemic chest pain Patient resting, denies chest pain or soa. Had some bleeding at right groin site over the evening but none now. Vitals stable Exam Data for Last 24 hours Vital signs and Labs for Last 24 Hours: Temp Pulse Resp BP Pulse Ox 98.6 F 69 14 96/65 L 98 07/05/22 07:58 07/05/22 07:58 07/05/22 07:58 07/05/22 07:58 07/05/22 07:58 Laboratory Results - last 24 hr 07/04/22 07:25: Troponin I < 0.01 07/04/22 11:51: POC Glucose 147 H 07/04/22 17:34: POC Glucose 108 07/04/22 20:18: POC Glucose 155 H 07/05/22 05:48: POC Glucose 100 07/05/22 06:10: WBC 5.0 D, RBC 4.15 L, Hgb 12.4, Hct 38.9, MCV 93.6, MCH 29.9, MCHC 31.9, RDW 12.6, Plt Count 165, MPV 7.4, Neut % (Auto) 57.7, Lymph % (Auto) 32.4, [place] % (Auto) 6.7, Eos % (Auto) 2.1, Baso % (Auto) 1.1, Neut # (Auto) 2.9, Lymph # (Auto) 1.6, [place] # (Auto) 0.3, Eos # (Auto) 0.1, Baso # (Auto) 0.1 07/05/22 06:10: Sodium 141, Potassium 3.9, Chloride 109 H, Carbon Dioxide 27, Anion Gap 8.9, BUN 14, Creatinine 0.60, Estimated Creat Clear 138, Estimated GFR 107, Est GFR ( Amer) 129, Glucose 92, Calcium 8.0 L I & O for Last 24 hours: Intake & Output 07/02/22 07/03/22 07/04/22 07/05/22 23:59 23:59 23:59 23:59 Intake Total 0 / 0 120 / 342 1734 / 1734 Output Total 0 / 0 0 / 0 Balance 0 / 0 120 / 342 1734 / 1734 Weight 168 lb 14.4 oz 167 lb 12.8 oz Constitutional Constitutional: no acute distress *Routine Respiratory Exam Respiratory: Present CTA bilaterally and symmetric chest movement *Routine Cardiovascular Exam Cardiovascular: Present RRR, Normal S1 and Normal S2 *Routine Abdominal Exam Abdominal: Present soft and normoactive bowel sounds; Absent tenderness *Routine Extremities Exam Extremities: Present full ROM and normal capillary refill; Absent edema *Routine Skin Exam Skin: Present intact, dry and warm Detailed Neck Exam: Thyroids Thyroid: Absent bruit Progress Note: A&P Assessment and plan (1) Coronary artery disease: Status: Acute (2) Depression: Status: Chronic (3) Tobacco abuse disorder: Status: Chronic (4) GERD (gastroesophageal reflux disease): Status: Acute (5) Hypertension: Status: Acute (6) Chest pain: Status: Acute (7) History of coronary artery stent placement: Status: Chronic Assessment and Plan Assessment and Plan for All Diagnoses:: Ongoing Angina-resolved -s/p LHC see report above. Hx of CAD -Continue aspirin 81mg QD, Metoprolol succinate 25mg QD, and crestor 40mg QD. HTN -Continue metoprolol succinate 25mg QD HLD -LDL goal < 55, crestor 40mg QD DM -Given hx of? DM and hx of CAD s/p stenting would recommend adding ozempic to current therapy. Consider prior to DC home. ? CV stable for dc home. Follow up in office in 2 weeks. Cardiology meds Aspirin 81mg QD Metoprolol Succinate 25mg QD Crestor 40mg QD Consider ozempic Add xarelto 2.5 mg BID in office after groin site has fully healed and no further bleeding noted.
[2022-07-05 11:48] LABS: POC Glucose,Bedside 115 (70-110)
[2022-07-05 12:00] VITALS: BP 110/71; PULSE 63; RESP 14; TEMP 36.8; O2SAT 98
--- NOTE | 2022-07-05 15:23 | PC.NURSE ---
Spoke with Tyler Aguayo he stated that pt needs to be off work for 1 week, and needs follow up appt with cards on sunday.
--- NOTE | 2022-07-05 15:25 | PC.NURSE ---
Called Dr. aguilar in [facility] to let him know she needs to be off for 1 wk.
--- NOTE | 2022-07-06 13:30 | CARE MANAGER ---
Called and spoke with Ms. Franco regarding post discharge status. Patient states that she is doing well, and is aware of her f/u appts. I informed her of the survey that she may receive in the mail, and asked her to please fill it out and return to us. Patient voiced no complaints or concerns at time of call.
--- NOTE | 2022-07-09 22:46 | EXP.DC.SUM ---
General Admission date:: 07/03/22 Discharge date: 07/05/22 HPI HPI HPI: Ms. Franco is a 47-year-old female patient with a history of hypertension, hyperlipidemia, type 2 diabetes mellitus, GERD, paroxysmal supraventricular tachycardia, mild intermittent asthma, history of coronary artery stent placement in 2020 who presented to [facility] emergency room after experiencing midsternal chest discomfort described as a pressure sensation with sharpness radiating in through the back and down the left arm. This was associated with shortness of breath and paresthesia of the left arm/hand. She denies having nausea, diaphoresis, and heart palpitations, She was sitting at work around 4:30 PM when the discomfort started. She thought it was anxiety and took a break to smoke a cigarette. The pain continued to increase and thus she presented to the emergency room. She said nitroglycerin did decrease the discomfort and describes the pain is minimal this morning but still present. The pain Continues to go through to her back between her shoulder blades. Initial Troponin I was noted to be normal. She was given an aspirin along with application of nitroglycerin ointment. Chest x-ray showed no acute processes. EKG showed ischemic changes with nonspecific ST-T wave changes. She was thus admitted for cardiac work-up with cardiology consult. Hospital Course Hospital Course Hospital Course: Patient was admitted with a cardiology consult. They saw the patient and wanted to proceed with a heart cath. They did recommend given her history of diabetes and coronary artery disease, adding Ozempic to her current therapy. The patient's heart cath showed widely patent proximal LAD stent and a preserved ejection fraction. They recommended continued medical management. Patient did have some bleeding at the right groin, but it resolved. Cardiology felt she was stable to be discharged home and should follow-up in their office in 2 weeks. They felt 2.5 mg of Xarelto twice daily should be added after the groin site had fully healed and no further bleeding was noted. Exam Data for Last 24 hours Vital signs and Labs for Last 24 Hours: Temp Pulse Resp BP Pulse Ox 98.2 F 63 14 110/71 98 07/05/22 12:00 07/05/22 12:00 07/05/22 12:00 07/05/22 12:00 07/05/22 12:00 Narrative: Constitutional Constitutional: no acute distress *Routine HEENT Exam Head: Present normocephalic and atraumatic Eye: Present PERRL; Absent conjunctival icterus, scleral injection or conjunctivae pink ENT: Present mucous membranes moist and oropharynx clear *Routine Neck Exam Neck: Present supple and full ROM; Absent carotid bruit, lymphadenopathy or thyromegaly Routine Chest/Breast/Axilla Exam Chest wall: Absent tenderness *Routine Respiratory Exam Respiratory: Present CTA bilaterally (Anteriorly and posteriorly) *Routine Cardiovascular Exam Cardiovascular: Present RRR and bradycardia (Heart rate is in the 50s) *Routine Abdominal Exam Abdominal: Present soft and normoactive bowel sounds; Absent tenderness or distended *Routine Rectal Exam Rectal:: deferred *Routine Genitalia Exam Genitalia:: deferred *Routine Extremities Exam Extremities: Present pulses intact; Absent edema or calf tenderness *Routine Neurological Exam Neurological: Present alert and oriented X3 DS: Diagnosis Discharge Diagnosis (1) Coronary artery disease: Status: Acute (2) Depression: Status: Chronic (3) Tobacco abuse disorder: Status: Chronic (4) GERD (gastroesophageal reflux disease): Status: Acute (5) Hypertension: Status: Acute (6) Chest pain: Status: Acute (7) History of coronary artery stent placement: Status: Chronic Meds Home Medications and Allergies Home Medications Medication Instructions Recorded Confirmed Type multivitamin 2 tab PO DAILY Supplement 10/21/18 07/03/22 History nitroglycerin 400 mcg/spray 1 spray trans
== END 2022-07-05 17:12 | disposition home or self-care (01) ==
LOC: ER 21:12 → 2ND 21:52
PROVIDERS: Internal Medicine; Admitting Provider Internal Medicine Adolescent Medicine; Emergency Provider Emergency Medicine; PCP Family Medicine; Visit Provider Family Medicine
DX: I25.110 Atherosclerotic heart disease of native coronary artery with unstable angina pectoris (principal); E11.9 Type 2 diabetes mellitus without complications; I10 Essential (primary) hypertension; R07.9 Chest pain, unspecified; E78.2 Mixed hyperlipidemia; F32.9 Major depressive disorder, single episode, unspecified; K21.9 Gastro-esophageal reflux disease without esophagitis; Z95.5 Presence of coronary angioplasty implant and graft; Z79.84 Long term (current) use of oral hypoglycemic drugs; Z79.01 Long term (current) use of anticoagulants; Z79.899 Other long term (current) drug therapy
CPT/HCPCS: 36415; 71045; 80048; 82962; 84484; 85025; 93005; 93306; 93458; 99152; 99285; C1725; C1769; C9803; G0378; J1644; Q9967; U0003; U0005

== ENCOUNTER → 2022-07-11 11:22 | Outpatient (CLI) | payer BC, MEDICARE, MEDICAID, SELFPAY ==
--- NOTE | 2022-07-11 11:23 | CA_ITS ---
FINAL REPORT CLINICAL HISTORY: post op hematoma/bruising/pain right groin. Cath 07/04/22 FINDINGS: Spectral and Doppler waveform evaluations of the right groin was performed. Spectral analysis was performed. The right common femoral artery is patent. There is no evidence of pseudoaneurysm. IMPRESSION: No evidence of pseudoaneurysm. Reviewed, Interpreted and Dictated by Johnny Colindres III, MD Transcribed by Ashley Delgado Authenticated and [facility]
[2022-07-11 12:53] LABS: Basophils # 0.1 K/mm3 (0-0.2); Basophils % 1.7 % (0.1-2.0); Eosinophils # 0.1 K/mm3 (0.0-0.4); Eosinophils % 2.6 % (0.1-12.0); Hematocrit 43.7 % (37.0-47.0); Hemoglobin 14.1 g/dL (12.2-16.2); Lymphocytes # 1.4 K/mm3 (0.7-4.5); Mean Corpuscular HGB Conc 32.2 g/dL (31.8-35.4); Mean Corpuscular Hemoglobin 30.1 pg (27.0-31.2); Mean Corpuscular Volume 93.4 fl (81-99); Mean Platelet Volume 8.3 fl (7.4-10.4); Monocytes # 0.4 K/mm3 (0.1-1.0); Monocytes % 8.5 % (1.7-9.3); Neutrophils # 2.7 K/mm3 (1.8-7.8); Neutrophils % 57.2 % (37.0-80.0); Platelet Count 192 K/mm3 (142-424); Red Blood Count 4.68 M/mm3 (4.20-5.40); White Blood Count 4.7 K/mm3 (4.8-10.8)
[2022-07-11 13:26] LABS: Chloride 101 mmol/L (98-107); Sodium 142 mmol/L (136-145)
[2022-07-11 13:28] LABS: Blood Urea Nitrogen 21 mg/dl (7-17); Estimated Glomerular Filt Rate 107 ml/min (>60); GFR (African American) 129 ML/MIN (>60)
[2022-07-11 13:29] LABS: Alanine Aminotransferase 26 U/L (12-78); Albumin Level 4.3 g/dl (3.5-5.0); Alkaline Phosphatase 49 U/L (38-126); Aspartate Amino Transferase 28 U/L (14-36); Bilirubin,Direct 0.1 mg/dl (0.0-0.4); Bilirubin,Indirect 0.5 mg/dL (0.0-0.9); Bilirubin,Total 0.6 mg/dl (0.2-1.3); Bilirubin,Unconjugated 0.5 mg/dL (0.0-1.1); Carbon Dioxide 33 mmol/L (22.0-30.0); Cholesterol 121 mg/dl (140-200); Glucose 106 mg/dl (74-100); Total Protein,Serum 6.6 g/dl (6.3-8.2); Triglycerides 61 mg/dl (30-150); VLDL Cholesterol 12 mg/dL (0-40)
[2022-07-11 13:30] LABS: Chol/HDL Ratio 2.1 (1-3.5); HDL Cholesterol 59 mg/dl (40-60); Magnesium 1.8 mg/dl (1.6-2.3)
[2022-07-11 13:40] LABS: Direct LDL Cholesterol 43.08 mg/dL (100-129)
== END ==
PROVIDERS: PCP Family Medicine; Visit Provider Nurse Practitioner
DX: G89.18 Other acute postprocedural pain (principal); I25.10 Atherosclerotic heart disease of native coronary artery without angina pectoris; I10 Essential (primary) hypertension; T14.8XXA Other injury of unspecified body region, initial encounter; Z71.6 Tobacco abuse counseling
CPT/HCPCS: 36415; 80048; 80061; 80076; 83735; 85025; 93926

== ENCOUNTER → 2022-11-22 12:45 | Outpatient (CLI) | payer BC, MEDICARE, MEDICAID, SELFPAY ==
--- NOTE | 2022-11-22 13:19 | CT_ITS ---
FINAL REPORT TECHNIQUE: Multiple axial CT sections were performed from the foramen magnum to the vertex. Coronal reformatted images were also obtained. Precontrast and postcontrast injection images were obtained. This study was performed with technique to keep radiation doses as low as reasonably achievable, (ALARA). Individualized dose reduction techniques using automated exposure control or adjustment of mA and/or kV according to the patient's size were employed. CLINICAL HISTORY: SYNCOPE DIZZINESS FATIGUE ALTERED MENTAL STATUS COMPARISON: 04/14/2022 FINDINGS: CT HEAD/BRAIN W & W/O CONTRAST The ventricles are normal in size. There is no evidence of hemorrhage. No masses are identified. No extra-axial fluid collection is seen. There is a small amount of fluid in the right mastoid air cells. No osseous abnormality is seen on the bone window images. Postcontrast images demonstrate no enhancing lesions. The major intracranial vessels are patent. IMPRESSION: 1. No acute intracranial abnormality or abnormal enhancement. 2. Small amount of fluid in the right mastoid air cells. Reviewed, Interpreted and Dictated by Bharti Torres MD Transcribed by Barbara Roche Authenticated and [facility]
== END ==
PROVIDERS: PCP Family Medicine; Visit Provider Family Medicine
DX: R42 Dizziness and giddiness (principal); R55 Syncope and collapse; R53.83 Other fatigue; R20.2 Paresthesia of skin; R41.82 Altered mental status, unspecified
CPT/HCPCS: 70470; Q9966

== ENCOUNTER 2022-11-29 17:22 | Emergency (ER) | payer BC, MEDICARE, MEDICAID, SELFPAY ==
[2022-11-29 17:25] VITALS: BP 129/79; PULSE 99; RESP 18; TEMP 37.3; O2SAT 98; BMI 25.0
--- NOTE | 2022-11-29 17:50 | CT_ITS ---
PROCEDURE INFORMATION: Exam: CT Abdomen And Pelvis With Contrast Exam date and time: 11/29/2022 6:49 PM Age: 47 years old Clinical indication: Vomiting; Prior surgery; Surgery date: 6+ months; Surgery type: Hysterectomy, choleycystectomy, cardiac stents TECHNIQUE: Imaging protocol: Computed tomography of the abdomen and pelvis with contrast. Radiation optimization: All CT scans at this facility use at least one of these dose optimization techniques: automated exposure control; mA and/or kV adjustment per patient size (includes targeted exams where dose is matched to clinical indication); or iterative reconstruction. Contrast material: ISOVUE; Contrast volume: 75 ml; Contrast route: IV; REPORTING DATA: Count of CT and Cardiac NM exams in prior 12 months: This patient has received 3 known CTs and 0 known cardiac nuclear medicine studies in the 12 months prior to the current study. COMPARISON: CT ABDOMEN PELVIS WO CON 02/28/2022 12:34 PM FINDINGS: Lungs: Visualized lung bases are clear. Heart: Heart size normal. Coronary arteries: LAD stent noted. Mediastinal space: The visualized distal esophagus is largely contracted without gross abnormality. Liver: Mild hepatomegaly measuring 21 cm craniocaudal, decreased from 02/28/2022. Normal contour. No mass lesions. Slight intrahepatic biliary ductal dilatation. Gallbladder and bile ducts: Prior cholecystectomy with no significant dilatation of the common bile duct. Pancreas: Normal. No inflammatory changes or ductal dilation. Spleen: Mild splenomegaly measuring 14 cm craniocaudal slightly decreased from 02/28/2022. Granulomatous calcification in the spleen. Adrenal glands: Normal. No adrenal mass. Kidneys and ureters: No acute abnormalities. No hydronephrosis or hydroureter. No urinary tract stones are identified. Stomach and bowel: Prior gastric sleeve procedure without evidence of associated complication. Mildly excessive fluid content in the distal small bowel and proximal colonwith mildly increased mucosal enhancement, suggesting developing diarrheal state and mild enterocolitis. No small bowel dilatation or transition point suggestive of bowel obstruction was identified. No evidence of perforation or abscess. Appendix: The appendix is normal in caliber and demonstrates no evidence of appendicitis. Intraperitoneal space: No free fluid or air. Chronic simple appearing 3.1 x 2.1 cm cyst in the left iliac fossa may be of ovarian origin or could represent a peritoneal duplication cyst, unchanged. Vasculature: No acute process. No abdominal aortic aneurysm. Mild calcific atherosclerosis. Lymph nodes: No adenopathy. Urinary bladder: The urinary bladder is partially contracted without gross abnormality. Reproductive: Prior hysterectomy. Bones/joints: No acute osseous abnormalities. Chronic mild anterior wedging of the T12 superior endplate unchanged. Multilevel moderate lower thoracic disc degenerative changes, unchanged. Soft tissues: Moderate soft tissue stranding/edema in the peripheral subcutaneous tissues suggesting volume overload or anasarca. IMPRESSION: 1. Findings consistent with mild generalized enterocolitis and developing diarrheal state. No evidence of bowel obstruction, perforation, or abscess. 2. Moderate generalized anasarca/volume overload. 3. Additional nonemergent findings detailed above.
[2022-11-29 18:11] LABS: Microscopic, Urine URINE MICROSCOPIC (MICROSCOPIC)
[2022-11-29 18:14] VITALS: BP 128/78; PULSE 104; RESP 18; TEMP 39.3; O2SAT 99
--- NOTE | 2022-11-29 18:14 | XR_ITS ---
PROCEDURE INFORMATION: Exam: XR Chest Exam date and time: 11/29/2022 6:35 PM Age: 47 years old Clinical indication: Fever TECHNIQUE: Imaging protocol: Radiologic exam of the chest. Views: 1 view. COMPARISON: CR XR CHEST PORTABLE 07/03/2022 9:00 PM FINDINGS: Tubes, catheters and devices: Loop recorder device projecting over the cardiac silhouette. Lungs: Granulomatous calcification in the peripheral left mid lung unchanged. Normal pulmonary expansion. Pulmonary vasculature grossly normal. No gross pulmonary infiltrates or edema pattern. Pleural spaces: No pleural effusion. No pneumothorax. Heart/Mediastinum: Coronary stent faintly visualized. Heart size normal. No tracheal/mediastinal shift. Vasculature: Mild aortic ectasia/tortuosity. Bones/joints: No acute osseous abnormalities are identified. Other findings: Mild leftward rotation. IMPRESSION: No acute thoracic process.
[2022-11-29 18:19] LABS: Appearance,Urine CLEAR (Clear); Bilirubin,Urine Negative (Negative); Blood, Urine Negative (Negative); Color,Urine YELLOW (Yellow); Glucose,Urine (UA) Negative (Negative); Ketones,Urine Negative (Negative); Leukocyte Esterase,Urine Negative (Negative); Nitrate,Urine Negative (Negative); Protein,Urine Negative (Negative); Urobilinogen,Urine 0.2 EU/dl (0.2)
[2022-11-29 18:21] LABS: Chloride 101 mmol/L (98-107); Potassium 4.3 mmoL/L (3.5-5.1); Sodium 137 mmol/L (136-145)
[2022-11-29 18:23] LABS: Blood Urea Nitrogen 21 mg/dl (7-17); Creatinine Clearance Estimated 116 mL/min (50-200); Estimated Glomerular Filt Rate 107 ml/min (>60); GFR (African American) 129 ML/MIN (>60)
[2022-11-29 18:24] LABS: Alanine Aminotransferase 43 U/L (12-78); Albumin Level 4.5 g/dl (3.5-5.0); Albumin/Globulin Ratio 1.6 (1.1-1.8); Alkaline Phosphatase 44 U/L (38-126); Anion Gap 12.3 mEq/L (5-15); Aspartate Amino Transferase 36 U/L (14-36); Bilirubin,Total 0.9 mg/dl (0.2-1.3); Calcium 8.8 mg/dl (8.4-10.2); Carbon Dioxide 28 mmol/L (22.0-30.0); Globulin 2.9 g/dL (1.3-3.2); Glucose 114 mg/dl (74-100); Lipase 53 U/L (23-300); Total Protein,Serum 7.4 g/dl (6.3-8.2)
[2022-11-29 18:29] LABS: Basophils # 0.1 K/mm3 (0-0.2); Basophils % 0.5 % (0.1-2.0); Eosinophils # 0.1 K/mm3 (0.0-0.4); Eosinophils % 0.6 % (0.1-12.0); Hematocrit 44.9 % (37.0-47.0); Hemoglobin 15.3 g/dL (12.2-16.2); Lymphocytes # 0.2 K/mm3 (0.7-4.5); Mean Corpuscular HGB Conc 34.1 g/dL (31.8-35.4); Mean Corpuscular Hemoglobin 30.8 pg (27.0-31.2); Mean Corpuscular Volume 90.4 fl (81-99); Mean Platelet Volume 7.5 fl (7.4-10.4); Monocytes # 0.2 K/mm3 (0.1-1.0); Monocytes % 2.5 % (1.7-9.3); Neutrophils # 8.7 K/mm3 (1.8-7.8); Neutrophils % 94.4 % (37.0-80.0); Platelet Count 170 K/mm3 (142-424); Red Blood Count 4.97 M/mm3 (4.20-5.40); Red Cell Distribution Width 13.5 % (11.5-17.5); White Blood Count 9.2 K/mm3 (4.8-10.8)
[2022-11-29 18:30] LABS: MANUAL DIFFERENTIAL MANUAL DIFFERENTIAL (MANUAL DIFF)
[2022-11-29 18:34] LABS: Bacteria,Urine Trace /lpf; WBC,Urine Occasional #/hpf (0-3)
[2022-11-29 18:52] LABS: Lactic Acid 1.5 mmol/L (0.7-2.1)
[2022-11-29 19:24] LABS: Lymphocytes % 1 % (10-50); Monocytes % 1 % (2-9); Neutrophils % 98 % (42-76); Total Cells Counted 100
[2022-11-29 19:25] LABS: Platelet Estimate Normal; RBC Morphology Normal
--- NOTE | 2022-11-29 19:37 | PC.NURSE ---
Pt resting in bed. No needs or complaints voiced. Call light within reach.
--- NOTE | 2022-11-29 20:27 | HMH.EDGENADL ---
Discharge Plan Disposition Patient Disposition: Home, Self-Care Condition: Good Prescriptions Prescriptions: New sulfamethoxazole-trimethoprim [Bactrim DS] 800-160 mg tablet 1 tab PO BID Qty: 20 0RF metronidazole 500 mg tablet 500 mg PO TID Qty: 10 0RF ondansetron 4 mg tablet,disintegrating 4 mg PO Q8H PRN (Reason: nausea and vomiting) 4 Days Qty: 14 0RF dicyclomine 10 mg capsule 10 mg PO TID PRN (Reason: cramps) Qty: 12 0RF No Action multivitamin tablet 2 tab PO DAILY metformin 500 mg tablet extended release 24 hr 500 mg PO DAILY Label Comments: TAKE ONE TABLET BY MOUTH EVERY DAY albuterol sulfate 90 mcg/actuation HFA aerosol inhaler 2 inh IH Q6H PRN (Reason: shortness of breath or wheezing) 90 Days Qty: 8.5 3RF metoclopramide HCl 5 mg tablet 5 mg PO BID Label Comments: TAKE 1 TABLET BY MOUTH TWICE DAILY nitroglycerin 400 mcg/spray spray,non-aerosol 1 spray TL Q5M PRN (Reason: Chest Pain) Rx Instructions: do not exceed 3 doses per episode metoprolol succinate 25 mg tablet extended release 24 hr 25 mg PO DAILY Qty: 30 5RF rosuvastatin 20 mg tablet 20 mg PO DAILY Qty: 30 5RF pantoprazole 40 mg tablet,delayed release (DR/EC) 40 mg PO HS Qty: 30 5RF Ozempic 0.25 mg or 0.5 mg(2 mg/1.5 mL) pen injector 0.5 mg SQ WEEKLY Qty: 1.5 2RF Rx Instructions: for 4 doses ticagrelor 90 mg tablet 90 mg PO BID Qty: 60 2RF aspirin 81 MG tablet,delayed release (DR/EC) 81 mg PO DAILY furosemide 20 MG tablet See Rx Instructions .Route .COMPLEX Rx Instructions: TAKE ONE TABLET BY MOUTH EVERY DAY NEEDED FOR EDEMA trazodone 100 mg tablet See Rx Instructions .ROUTE .COMPLEX Label Comments: TAKE 1 TO 2 TABLETS BY MOUTH AT BEDTIME Rx Instructions: TAKE 1 TO 2 TABLETS BY MOUTH AT BEDTIME ranolazine 1,000 mg tablet extended release 12 hr 1,000 mg PO Q12 Label Comments: TAKE 1 BY MOUTH EVERY 12 HOURS fluticasone furoate-vilanterol [Breo Ellipta] 100-25 mcg/dose blister with device 1 inh INHALATION DAILY Label Comments: INHALE 1 PUFF BY MOUTH ONCE DAILY Referrals Follow up/Referrals: Walter Anaya MD [Primary Care Provider] - See instructions Activity Restrictions/Add. Instructions Additional Instructions/Restrictions: Clear liquid diet with an oral rehydration solution such as Politte Pedialyte and then advance as tolerated to bland foods. Avoid fried greasy or spicy foods. Avoid dairy products and caffeine. She you develop watery diarrhea take a stool specimen to your primary care provider for analysis. Clinical Impressions Clinical Impression: Enterocolitis Stand Alone Forms Stand Alone Forms: Work/School Release Instructions Patient Instructions: DI for Diarrhea and Traveler's Diarrhea -- Adult, DI for Diarrhea and Traveler's Diarrhea -- Child, DI for Nausea -- Adult, DI for Nausea -- Child Discharge ED Provider: Keron Gregory General Adult HPI General Chief complaint: Nausea/Vomiting/Diarrhea Stated complaint: chills, vomiting Time Seen by Provider: 11/29/22 17:40 Mode of Arrival: Wheelchair Source of Information: Patient Limitations: No Limitations Description of Symptoms (Recalled from ER Triage Doc. by RN): 47 F presents with n/v, chills, body aches, generalized weakness. States she has been ill for 1 week at this point. She was told at [facility] she had a UTI, but her PCP the next day said that she did not. This was before the weekend. She feels worse today. No complaints of urinary issues. History of Present Illness HPI narrative: Patient presents with a weeklong history of chills and body aches and vomiting. She denies diarrhea. Does note some crampy abdominal discomfort. She describes symptoms as moderate without exacerbating alleviating factors. Related Data Home Medications Medication Instructions Recorded Confirmed
[2022-11-29 20:51] VITALS: BP 134/74; PULSE 71; RESP 17; TEMP 36.9; O2SAT 97
== END 2022-11-29 20:56 | disposition home or self-care (01) ==
PROVIDERS: Emergency Provider Emergency Medicine; PCP Family Medicine
DX: A04.71 Enterocolitis due to Clostridium difficile, recurrent (principal); F17.210 Nicotine dependence, cigarettes, uncomplicated
CPT/HCPCS: 71045; 74177; 80053; 81001; 83605; 83690; 85007; 85025; 87040; 96361; 96374; 96375; 99284; 99285; C9803; J2405; Q9967; U0003; U0005

== ENCOUNTER → 2022-12-25 08:49 | Outpatient (CLI) | payer BC, MEDICARE, MEDICAID, SELFPAY ==
--- NOTE | 2022-12-25 08:52 | MR_ITS ---
FINAL REPORT CLINICAL HISTORY: . MEMORY LOSS. DIZZINESS AND BLURRED VISION. HEAD TRAUMA IN 1994. POSSIBLE STROKE 2019 FINDINGS: Multiplanar MR imaging of the brain was performed without and with contrast. There is no evidence of intracranial hemorrhage or mass. No abnormal extra-axial fluid collection is seen. The ventricular size is within normal limits. There is no evidence of shift of the midline structures. The posterior fossa and brainstem have an unremarkable appearance. No area of abnormal restricted diffusion is identified. No abnormal contrast enhancement is seen. Normal major vessel vascular flow voids are noted. IMPRESSION: No acute intracranial abnormality identified. Reviewed, Interpreted and Dictated by Yemi Son MD Transcribed by Dennis Li Authenticated and [facility]
== END ==
PROVIDERS: PCP Family Medicine; Visit Provider Nurse Practitioner Family
DX: R51.9 Headache, unspecified (principal); R42 Dizziness and giddiness; G93.40 Encephalopathy, unspecified; G89.29 Other chronic pain; I95.9 Hypotension, unspecified; N96 Recurrent pregnancy loss; R00.1 Bradycardia, unspecified; R41.3 Other amnesia; Z86.69 Personal history of other diseases of the nervous system and sense organs; Z86.718 Personal history of other venous thrombosis and embolism; Z87.59 Personal history of other complications of pregnancy, childbirth and the puerperium; Z87.898 Personal history of other specified conditions
CPT/HCPCS: 70553; A9576

== ENCOUNTER 2023-01-03 08:00 | Outpatient (RCR) | payer BC, MEDICARE, MEDICAID, SELFPAY ==
--- NOTE | 2022-12-25 13:34 | HMH.SLAPHASI ---
Speech & Language Evaluation Speech/Language Aphasia Evaluation Start: 12/25/22 13:17 Freq: once Status: Complete Protocol: Document 12/25/22 13:17 MABLE (Rec: 12/25/22 13:34 MABLE [id number]) Aphasia Assessment/Goals/Plan Assessment Date of Evaluation: 12/25/22 Evaluation Type Initial Certification Assessment/Problems Encephalopathy and amnesia per MD order. Does Patient Qualify for Service Yes Qualify/Failure Comment Based on the results of the cognitive communication assessment, pt would benefit from skilled ST services to improve cognitive linguistic skills. Plan Pt will be seen # times/week 1 for # weeks 12 Anticipate reaching STG in # weeks 8 Anticipate reaching LTG in # weeks 12 Pt/Guardian verbally ack understanding Yes of dx/prognosis/goals Pt/Guardian verbally ack understanding Yes of/consent to tx prog G -code Required No STG-Attending/Orientation/Memory Delayed Recall 70 Memory Recall 70 STG-Comparative/Linguistic Skills Thought Organization 80 Categorization Ability 80 Mcc Goals Increase cognitive skills to communicate Yes w/family & friends Education Instructions provided Preliminary assessment results , POC, and goals were discussed with pt who expressed understanding. Pt/Caregiver Able to Recall Information Able to recall/restate Reinforcement needed No Speech & Language HPI History Present Illness Description of Patient Problem Ms. Franco is a 47 y.o. woman presenting to [facility] for an assessment of cognitive communication skills. She reports this began several years ago. In 2019 she fainted and had a heart cath placed, and after she was released from the hospital she reports she had difficulty with vision and had possibly had a CVA. She has difficulty remembering past things as well as learning new things. She also discussed that it has gotten worse since she found out her had an affair. Rehab Servic
== END 2023-01-03 08:05 | disposition home or self-care (01) ==
LOC: ST 08:00
PROVIDERS: PCP Family Medicine; Visit Provider Nurse Practitioner Family
DX: G93.40 Encephalopathy, unspecified; R41.3 Other amnesia; R41.841 Cognitive communication deficit
CPT/HCPCS: 92523; 97129; 97130

== ENCOUNTER → 2023-01-03 08:57 | Day surgery (SDC) | payer BC, MEDICARE, MEDICAID, SELFPAY ==
[2023-01-03 09:55] LABS: Eosinophils # 0.1 K/mm3 (0.0-0.4); Eosinophils % 1.3 % (0.1-12.0); Hematocrit 45.8 % (37.0-47.0); Hemoglobin 14.9 g/dL (12.2-16.2); Lymphocytes # 1.2 K/mm3 (0.7-4.5); Lymphocytes % 30.7 % (10-50); Mean Corpuscular HGB Conc 32.6 g/dL (31.8-35.4); Mean Corpuscular Hemoglobin 30.1 pg (27.0-31.2); Mean Corpuscular Volume 92.2 fl (81-99); Mean Platelet Volume 7.6 fl (7.4-10.4); Monocytes # 0.3 K/mm3 (0.1-1.0); Monocytes % 7.6 % (1.7-9.3); Neutrophils # 2.3 K/mm3 (1.8-7.8); Neutrophils % 59.3 % (37.0-80.0); Platelet Count 202 K/mm3 (142-424); Red Blood Count 4.96 M/mm3 (4.20-5.40); Red Cell Distribution Width 12.9 % (11.5-17.5); White Blood Count 3.9 K/mm3 (4.8-10.8)
[2023-01-03 10:02] VITALS: BMI 24.7
[2023-01-03 10:07] LABS: INR 0.94 (0.9-1.1); Prothrombin Time 10.2 seconds (10.1-12.5)
[2023-01-03 10:26] LABS: POC Glucose,Bedside 87 (70-110)
[2023-01-03 10:27] LABS: Iron 140 ug/dL (37-170)
[2023-01-03 10:29] LABS: Total Iron Binding Capacity 340 ug/dL (265-497)
[2023-01-03 10:37] LABS: Thyroid Stimulating Hormone 1.45 uIU/mL (0.465-4.68)
[2023-01-03 10:45] VITALS: BP 116/79; PULSE 78; RESP 18; O2SAT 100
[2023-01-03 10:51] VITALS: BP 122/84; PULSE 74; RESP 17; O2SAT 100
[2023-01-03 10:55] VITALS: BP 122/82; PULSE 76; RESP 16; O2SAT 100
[2023-01-03 11:05] VITALS: BP 115/89; PULSE 81; RESP 16; O2SAT 100
[2023-01-03 11:13] LABS: Vitamin B12 514 pg/mL (239-931)
[2023-01-03 11:15] VITALS: BP 118/86; PULSE 81; RESP 17; O2SAT 100
[2023-01-03 11:18] LABS: Folate > 20.00 ng/mL
[2023-01-03 11:20] VITALS: BP 116/81; PULSE 81; RESP 17; O2SAT 100
--- NOTE | 2023-01-03 11:44 | P.PCN_ITS ---
Findings:: PROCEDURE: Upright Tilt Table Test REQUESTING PHYSICIAN: Camille Posadas APRN INDICATION: Dizziness, Hypotension, Bradycardia BETA SHABBIR: None PRE-TEST VITAL SIGNS: (supine position) HR 64 and regular, BP 96/67, O2sat 100%. PROCEDURE SUMMARY: Patient was prepped per protocol, procedure explained, IV started, connected to heart, blood pressure and sat monitors and safety straps applied. She was then tilted upright at 70 degrees for a total of 35 minutes. Vital signs were checked after she was placed upright revealing a BP of 116/79, HR 78 (sinus rhythm) and O2sats 100%. After 6 minutes upright she complained of feeling dizzy, as if her blood sugar was dropping, but nursing checked her blood glucose and it was 91. Her vital signs were also stable/normal at this time with BP 122/84, HR 74 (sinus rhythm), O2sats 100%. For the remainder of the test she had no complaints or signs of syncope or near syncope and her vital signs remained stable and well within normal. Her lowest BP was 115/89 after 20 minutes upright and highest was 122/84 after 6 minutes upright. Her heart rate varied between 74 and 81 beats per minute while r emaining in a sinus rhythm throughout the test. O2sats were 100% throughout. CONCLUSIONS: Unremarkable upright tilt table test. The patient had one episode of dizziness during the test with no correlating change in blood pressure, heart rate or heart rhythm.
[2023-01-03 12:20] LABS: POC Glucose,Bedside 91 (70-110)
[2023-01-04 08:17] LABS: Homocyst(e)ine 8.8 umol/L (0.0-14.5)
[2023-01-05 09:06] LABS: Peripheral Smear Review Scanned Result
[2023-01-06 02:25] LABS: Anti-Thrombin III Antigen 116 % (72-124); Antithrombin Activity 136 % (75-135); Factor VIII Activity 90 % (56-140); Protein C Functional 127 % (73-180); Protein S, Free 69 % (61-136); Protein S, Total 80 % (60-150); Protein S-Functional 68 % (63-140)
[2023-01-09 19:46] LABS: Protein C Antigen 96 % (60-150)
== END ==
PROVIDERS: PCP Family Medicine; Visit Provider Nurse Practitioner Family
DX: I95.9 Hypotension, unspecified (principal); G89.29 Other chronic pain; G93.40 Encephalopathy, unspecified; R00.1 Bradycardia, unspecified; R42 Dizziness and giddiness; R51.9 Headache, unspecified; Z86.69 Personal history of other diseases of the nervous system and sense organs; R55 Syncope and collapse
CPT/HCPCS: 36415; 81241; 82607; 82746; 82962; 83090; 83540; 83550; 84443; 85025; 85240; 85300; 85301; 85302; 85305; 85306; 85610; 86148; 93660

== ENCOUNTER → 2023-01-19 09:32 | Outpatient (CLI) | payer BC, MEDICARE, MEDICAID, SELFPAY ==
[2023-01-19 11:26] LABS: Chol/HDL Ratio 2.5 (1-3.5); Cholesterol 158 mg/dl (140-200); HDL Cholesterol 64 mg/dl (40-60); Triglycerides 43 mg/dl (30-150); VLDL Cholesterol 9 mg/dL (0-40)
[2023-01-20 10:13] LABS: Rapid Plasma Reagin Ab Titer Non Reactive (NonRea<1:1)
== END ==
PROVIDERS: PCP Family Medicine; Visit Provider Nurse Practitioner Family
DX: E78.5 Hyperlipidemia, unspecified (principal); G89.29 Other chronic pain; G93.40 Encephalopathy, unspecified; R41.3 Other amnesia; R51.9 Headache, unspecified; Z72.51 High risk heterosexual behavior
CPT/HCPCS: 36415; 80061; 86593

== ENCOUNTER 2023-01-21 23:37 | Emergency (ER) | payer BC, MEDICARE, MEDICAID, SELFPAY ==
[2023-01-21 23:37] VITALS: BP 116/83; PULSE 78; RESP 16; TEMP 36.7; O2SAT 99; BMI 24.5
[2023-01-22] VITALS (8 sets, daily range): BP systolic 116–127; BP diastolic 72–87; PULSE 60–102; RESP 11–17; TEMP 36.7; O2SAT 92–100; BMI 24.5
--- NOTE | 2023-01-22 00:08 | XR_ITS ---
PROCEDURE INFORMATION: Exam: XR Chest Exam date and time: 01/22/2023 12:45 AM Age: 47 years old Clinical indication: Pain; Chest pressure; Additional info: Cp TECHNIQUE: Imaging protocol: Radiologic exam of the chest. Views: 2 views. Total images: 2 COMPARISON: CR XR CHEST PORTABLE 11/29/2022 6:35 PM FINDINGS: Tubes, catheters and devices: Status post cardiac loop recorder. EKG leads are present. Lungs: Unremarkable. No consolidation. No pulmonary vascular congestion or edema. Pleural spaces: Unremarkable. No pleural effusion. No pneumothorax. Heart/Mediastinum: Coronary arterial stenting along the LAD. Normal heart size. No mediastinal widening or hilar enlargement. Bones/joints: Mild degenerative changes thoracic spine. IMPRESSION: No radiographically acute cardiopulmonary process.
--- NOTE | 2023-01-22 00:08 | ECG_ITS ---
APPROVED REPORT Exam: Resting ECG HR:79 bpm ECG Measurements Heart Rate 79 AXES CA 151 P 61 QRSd 94 QRS -28 QT 370 T 46 QTc 405 Conclusion SINUS RHYTHM BORDERLINE LEFT AXIS DEVIATION [QRS AXIS < -20] BORDERLINE ECG UNCONFIRMED REPORT Electronically signed by : Akira Bryant MD 01/22/2023 20:14:01
--- NOTE | 2023-01-22 00:14 | CT_ITS ---
PROCEDURE INFORMATION: Exam: CT Abdomen And Pelvis With Contrast Exam date and time: 01/22/2023 1:02 AM Age: 47 years old Clinical indication: Abdominal pain; Additional info: Ruq epigastric abdominal pain TECHNIQUE: Imaging protocol: Computed tomography of the abdomen and pelvis with contrast. 3D rendering (Not supervised by radiologist): MIP and/or 3D reconstructed images were created by the technologist. Total images: 1581 Radiation optimization: All CT scans at this facility use at least one of these dose optimization techniques: automated exposure control; mA and/or kV adjustment per patient size (includes targeted exams where dose is matched to clinical indication); or iterative reconstruction. Contrast material: ISOVUE; Contrast volume: 100 ml; Contrast route: IV; REPORTING DATA: Count of CT and Cardiac NM exams in prior 12 months: This patient has received 4 known CTs and 0 known cardiac nuclear medicine studies in the 12 months prior to the current study. COMPARISON: CT ABDOMEN PELVIS W CON 11/29/2022 6:49 PM FINDINGS: Liver: Stable mild hepatomegaly at 21 cm. Gallbladder and bile ducts: Status post cholecystectomy. No biliary ductal dilatation. Pancreas: Normal. No ductal dilation. Spleen: Heterogeneous splenic enhancement compatible phase of contrast. Borderline splenomegaly at 13.5 cm, unchanged. Calcified splenic granuloma. Adrenal glands: Normal. No mass. Kidneys and ureters: No nephrolithiasis, hydronephrosis, or renal mass. No perinephric fluid. Stomach and bowel: Status post gastric sleeve/gastric bypass procedure. Residual stomach is collapsed. Fluid-filled nondilated small bowel. No ileus or bowel obstruction. Fecalization of the distal ileum compatible with chronic stasis. Moderate colonic stool burden. No colonic wall thickening or inflammatory change. Unremarkable rectum. Appendix: Normal appendix. Intraperitoneal space: No ascites. No free air. Vasculature: Abdominal aorta is normal in course and caliber without aneurysm or dissection. No significant atherosclerotic irregularity. Lymph nodes: Unremarkable. No enlarged lymph nodes. Urinary bladder: Unremarkable as visualized. Reproductive: Status post hysterectomy. Chronic simple appearing 3 x 2 cm cyst in the far lateral left adnexa . Bones/joints: No acute osseous abnormality. Mild degenerative changes bilateral SI joints. Mild degenerative changes lumbar spine. Six lumbar type vertebral bodies. Minor anterior wedging L1 vertebral body with nonacute features (previously assigned T12 level). Soft tissues: Body wall edema/anasarca. IMPRESSION: 1. No aortic aneurysm or dissection. 2. Stable mild hepatosplenomegaly. 3. Anasarca/3rd spacing. 4. Fluid-filled nondilated small bowel may reflect a nonspecific enteritis. No ileus or bowel obstruction. 5. Stable 3.2 cm simple appearing left adnexal cyst. 6. Additional chronic and incidental findings.
--- NOTE | 2023-01-22 00:14 | CT_ITS ---
PROCEDURE INFORMATION: Exam: CTA Chest With Contrast Exam date and time: 01/22/2023 1:02 AM Age: 47 years old Clinical indication: Pain; Chest pressure; Additional info: Chest pain HX factor v and embolus TECHNIQUE: Imaging protocol: Computed tomographic angiography of the chest with contrast. 3D rendering (Not supervised by radiologist): MIP and/or 3D reconstructed images were created by the technologist. Total images: 666 Radiation optimization: All CT scans at this facility use at least one of these dose optimization techniques: automated exposure control; mA and/or kV adjustment per patient size (includes targeted exams where dose is matched to clinical indication); or iterative reconstruction. Contrast material: ISOVUE; Contrast volume: 100 ml; Contrast route: INTRAVENOUS (IV); REPORTING DATA: Count of CT and Cardiac NM exams in prior 12 months: This patient has received 4 known CTs and 0 known cardiac nuclear medicine studies in the 12 months prior to the current study. COMPARISON: CT ANGIO CHEST PE PROTOCOL 07/01/2021 2:07 PM FINDINGS: Pulmonary arteries: Adequate contrast opacification of the pulmonary arteries. Main pulmonary artery is normal in caliber. No acute pulmonary emboli. Great vessels off aortic arch: Great vessels enhance appropriately. Aorta: No thoracic aortic aneurysm or dissection. No significant atherosclerotic irregularity. Veins: Contrast reflux into the IVC and hepatic veins. Lungs: The trachea and main bronchi are widely patent. Lungs are clear and well expanded. No concerning infiltrate or airspace consolidation. No pulmonary mass. No concerning lung nodules. Calcified left upper lobe granuloma. Pleural spaces: Unremarkable. No pneumothorax. No pleural effusion. Heart: Normal heart size. No pericardial effusion. Small fluid in the superior pericardial recess is considered physiologic. Coronary arteries: Severe coronary artery calcification along the LAD with appearance of prior stenting. Mediastinal space: No mediastinal mass or fluid collection. Lymph nodes: No mediastinal or hilar lymphadenopathy. Diaphragm: Tiny hiatal hernia. Bones/joints: No acute osseous abnormality. Mild degenerative changes thoracic spine. No acute osseous abnormality or concerning bone lesions. Soft tissues: Mild body wall edema/anasarca. Other findings: Mild limitations imposed by respiratory motion. IMPRESSION: 1. No acute intrathoracic process. Specifically, no acute pulmonary emboli. 2. No aortic aneurysm or dissection. 3. Clear lungs. 4. Body wall edema/anasarca.
[2023-01-22 00:23] LABS: Chloride 105 mmol/L (98-107); Sodium 140 mmol/L (136-145)
[2023-01-22 00:26] LABS: Blood Urea Nitrogen 23 mg/dl (7-17); Carbon Dioxide 30 mmol/L (22.0-30.0); Creatinine Clearance Estimated 117 mL/min (50-200); Estimated Glomerular Filt Rate 107 ml/min (>60); GFR (African American) 129 ML/MIN (>60)
[2023-01-22 00:27] LABS: Calcium 8.5 mg/dl (8.4-10.2); Glucose 99 mg/dl (74-100)
[2023-01-22 00:38] LABS: Basophils # 0.1 K/mm3 (0-0.2); Basophils % 0.9 % (0.1-2.0); Eosinophils # 0.1 K/mm3 (0.0-0.4); Eosinophils % 1.7 % (0.1-12.0); Hematocrit 43.4 % (37.0-47.0); Hemoglobin 14.3 g/dL (12.2-16.2); Lymphocytes # 1.7 K/mm3 (0.7-4.5); Lymphocytes % 34.9 % (10-50); Mean Corpuscular Hemoglobin 30.2 pg (27.0-31.2); Mean Corpuscular Volume 91.5 fl (81-99); Mean Platelet Volume 8.4 fl (7.4-10.4); Monocytes # 0.3 K/mm3 (0.1-1.0); Monocytes % 6.9 % (1.7-9.3); Neutrophils # 2.7 K/mm3 (1.8-7.8); Neutrophils % 55.6 % (37.0-80.0); Platelet Count 191 K/mm3 (142-424); Red Blood Count 4.74 M/mm3 (4.20-5.40); Red Cell Distribution Width 12.8 % (11.5-17.5); White Blood Count 4.9 K/mm3 (4.8-10.8)
[2023-01-22 00:40] LABS: Troponin I < 0.01 ng/ml (0.00-0.034)
--- NOTE | 2023-01-22 02:40 | HMH.EDGENADL ---
Discharge Plan Disposition Patient Disposition: Home, Self-Care Condition: Good Chief Complaint: PAIN Prescriptions Prescriptions: No Action multivitamin tablet 2 tab PO DAILY albuterol sulfate 90 mcg/actuation HFA aerosol inhaler 2 inh IH Q6H PRN (Reason: shortness of breath or wheezing) 90 Days Qty: 8.5 3RF nitroglycerin 400 mcg/spray spray,non-aerosol 1 spray TL Q5M PRN (Reason: Chest Pain) Rx Instructions: do not exceed 3 doses per episode pantoprazole 40 mg tablet,delayed release (DR/EC) 40 mg PO HS Qty: 30 5RF hydroxyzine pamoate 25 mg capsule 25 mg PO BID Label Comments: TAKE 1 CAPSULE BY MOUTH UP TO TWICE DAILY NEEDED FOR ANXIETY furosemide 20 mg tablet 20 mg PO DAILY Qty: 90 3RF ticagrelor 90 mg tablet 90 mg PO BID Qty: 60 5RF trazodone 100 mg tablet See Rx Instructions .ROUTE .COMPLEX Label Comments: TAKE 1 TO 2 TABLETS BY MOUTH AT BEDTIME Rx Instructions: TAKE 1 TO 2 TABLETS BY MOUTH AT BEDTIME lorazepam [Ativan] 0.5 mg Tablet 0.5 mg PO TID PRN (Reason: Anxiety) Ozempic 0.25 mg or 0.5 mg(2 mg/1.5 mL) pen injector 0.5 mg SQ WEEKLY Rx Instructions: for 4 doses Referrals Follow up/Referrals: Walter Anaya MD [Primary Care Provider] - See instructions Activity Restrictions/Add. Instructions Additional Instructions/Restrictions: Recommend Tylenol and ibuprofen for pain follow-up with your primary care physician and return to the ER for any new or worsening symptoms Clinical Impressions Clinical Impression: Atypical chest pain, Constipation Instructions Patient Instructions: DI for Atypical Chest Pain Discharge ED Provider: Frank Severino Adult [facility] General Chief complaint: PAIN Stated complaint: Chest Pain Time Seen by Provider: 01/22/23 00:05 Mode of Arrival: Family Vehicle Source of Information: Patient and Spouse Limitations: No Limitations Description of Symptoms (Recalled from ER Triage Doc. by RN): Pt c/o epigastric area that radiates around her RUQ ABD. There is s very tender nodule at this area and she thinks my loop recorder has moved I don't know . Skin is intact. No redness or swelling noted. States she was laying down when this began at 2130 tonight. She reports mild nausea. Denies any fever, chills, SOA, or cardiac chest pain. Related Data Home Medications Medication Instructions Recorded Confirmed multivitamin 2 tab PO DAILY Supplement 10/21/18 01/16/23 nitroglycerin 400 mcg/spray 1 spray translingual Q5M PRN Chest 07/08/21 01/16/23 translingual Pain trazodone 100 mg tablet See Rx Instructions .Route 07/03/22 01/16/23 .COMPLEX sleep hydroxyzine pamoate 25 mg capsule 25 mg PO BID asrthma 12/20/22 01/16/23 lorazepam 0.5 mg tablet (Ativan) 0.5 mg PO TID PRN Anxiety 01/03/23 01/16/23 semaglutide 0.25 mg or 0.5 mg (2 0.5 mg SQ WEEKLY Diabetes 01/03/23 01/16/23 mg/1.5 mL) subcutaneous pen injector (Ozempic) Previous Rx's Medication Instructions Recorded albuterol sulfate 90 mcg/actuation 2 inh inhalation Q6H PRN shortness 02/15/22 aerosol inhaler of breath or wheezing 90 days #8.5 grams pantoprazole 40 mg tablet,delayed 40 mg PO HS acid reflux #30 tabs 07/26/22 release furosemide 20 mg tablet 20 mg PO DAILY Fluid #90 tabs 12/20/22 ticagrelor 90 mg tablet 90 mg PO BID Blood thinner #60 tabs 12/20/22 Allergies Allergy/AdvReac Type Severity Reaction Status Date / Time duloxetine [From Cymbalta] Allergy Severe liver Verified 01/16/23 09:06 swelling hydromorphone [From Dilaudid] Allergy Severe rash, Verified 01/16/23 09:06 itching ibuprofen Allergy Severe swelling Verified 01/16/23 09:06 lisinopril [LISINOPRIL] Allergy Severe chokes Verified 01/16/23 09:06 venom-honey bee Allergy Severe Anaphylaxis Verified 01/16/23 09:06 venom-wasp Allergy Severe Anaphylaxis Verified 01/16/23 09:06 COVID-19 (SARS-CoV-2) Allergy Verified 01/16/23 09:06
[2023-01-22 03:29] LABS: Troponin I < 0.01 ng/ml (0.00-0.034)
[2023-01-22 04:18] LABS: Lipase 66 U/L (23-300)
== END 2023-01-22 04:47 | disposition home or self-care (01) ==
PROVIDERS: Emergency Provider Student in an Organized Health Care Education/Training Program; PCP Family Medicine
DX: R07.9 Chest pain, unspecified (principal); R10.13 Epigastric pain; K59.00 Constipation, unspecified; F17.210 Nicotine dependence, cigarettes, uncomplicated
CPT/HCPCS: 71046; 71275; 74177; 80048; 83690; 84484; 85025; 93005; 96374; 99285; J2405; Q9967

== ENCOUNTER → 2023-01-29 09:59 | Outpatient (CLI) | payer BC, MEDICARE, MEDICAID, SELFPAY | PROVIDERS: PCP Family Medicine; Visit Provider Nurse Practitioner Family | DX: G47.30 Sleep apnea, unspecified (principal); G93.40 Encephalopathy, unspecified; R41.3 Other amnesia; R51.9 Headache, unspecified; F39 Unspecified mood [affective] disorder | CPT/HCPCS: G0399 ==

== ENCOUNTER → 2023-01-30 08:58 | Outpatient (CLI) | payer BC, MEDICARE, MEDICAID, SELFPAY ==
--- NOTE | 2023-01-30 08:58 | MR_ITS ---
FINAL REPORT TECHNIQUE: Three-dimensional [id number] pulse sequence with contrast was used. CLINICAL HISTORY: eval for CVT. dizziness and lightheadedness. FINDINGS: MRV HEAD FINDINGS: Superior sagittal, transverse, and sigmoid sinuses are patent. Straight sinus is unremarkable. Jugular bulbs are intact. IMPRESSION: Unremarkable MRV of the brain. Reviewed, Interpreted and Dictated by Marco A Liz MD Transcribed by Guadalupe Case Authenticated and [facility]
== END ==
PROVIDERS: PCP Family Medicine; Visit Provider Nurse Practitioner Family
DX: R42 Dizziness and giddiness (principal); R51.9 Headache, unspecified; G89.29 Other chronic pain; G93.40 Encephalopathy, unspecified; Z86.718 Personal history of other venous thrombosis and embolism
CPT/HCPCS: 70546; A9576

== ENCOUNTER → 2023-02-16 14:01 | Outpatient (CLI) | payer BC, MEDICARE, MEDICAID, SELFPAY ==
[2023-02-16 15:22] LABS: Basophils % 0.9 % (0.1-2.0); Eosinophils # 0.1 K/mm3 (0.0-0.4); Eosinophils % 1.5 % (0.1-12.0); Hematocrit 42.3 % (37.0-47.0); Hemoglobin 13.8 g/dL (12.2-16.2); Lymphocytes # 1.4 K/mm3 (0.7-4.5); Lymphocytes % 30.9 % (10-50); Mean Corpuscular HGB Conc 32.7 g/dL (31.8-35.4); Mean Corpuscular Hemoglobin 29.9 pg (27.0-31.2); Mean Corpuscular Volume 91.6 fl (81-99); Mean Platelet Volume 6.9 fl (7.4-10.4); Monocytes # 0.4 K/mm3 (0.1-1.0); Neutrophils # 2.7 K/mm3 (1.8-7.8); Neutrophils % 58.7 % (37.0-80.0); Platelet Count 178 K/mm3 (142-424); Red Blood Count 4.62 M/mm3 (4.20-5.40); Red Cell Distribution Width 13.2 % (11.5-17.5); White Blood Count 4.6 K/mm3 (4.8-10.8)
[2023-02-16 15:46] LABS: Iron 76 ug/dL (37-170)
[2023-02-16 15:55] LABS: Total Iron Binding Capacity 377 ug/dL (265-497)
[2023-02-16 16:22] LABS: Ferritin 20.4 ng/ml (6.24-137)
== END ==
PROVIDERS: PCP Family Medicine; Visit Provider Internal Medicine Medical Oncology
DX: E83.110 Hereditary hemochromatosis (principal); D68.51 Activated protein C resistance
CPT/HCPCS: 36415; 82728; 83540; 83550; 85025; 85613

== ENCOUNTER → 2023-03-01 07:31 | Outpatient (CLI) | payer BC, MEDICARE, MEDICAID, SELFPAY ==
--- NOTE | 2023-03-01 07:32 | MM_ITS ---
PROCEDURE INFORMATION: Exam: Bilateral Screening 3D Mammography Exam date and time: 03/01/2023 7:27 AM Age: 47 years old Clinical indication: Screening examination TECHNIQUE: Imaging protocol: Bilateral Screening tomosynthesis and 2D mammography including computer-aided detection (CAD) when performed. COMPARISON: [facility] DIGITAL MAMM-SCREEN BILATERAL 02/05/2013 1:31 PM FINDINGS: MAMMOGRAPHY: Breast composition: The breasts are heterogeneously dense, which may obscure small masses. Mass: None. Architectural distortion: None. Calcifications: No suspicious calcifications. Asymmetric density: None. Skin thickening: None. Axillary adenopathy: None. IMPRESSION: No mammographic evidence of malignancy. Annual screening is recommended unless otherwise clinically indicated. ASSESSMENT: BI-RADS Category 1: Negative
--- NOTE | 2023-03-01 07:32 | US_ITS ---
PROCEDURE: US TRANSVAGINAL, transabdominal approach for better visualization. CLINICAL INDICATION: left lower quadrant pain COMPARISON: No exams were available for comparison FINDINGS: UTERUS: The uterus is surgically absent. The vaginal cuff appears normal. There is bowel at the vaginal cuff. LEFT OVARY: [id number] with a volume of 14.6ml.The left ovary was visualized transabdominally. There is a follicle within the left ovary that measures 3.5 cm x 2.2 cm x 2.9 cm. RIGHT OVARY: 4cmx [id number] with a volume of 11.4ml. There is a 2.5 cm x 2.0 cm in x 2.3 cm hemorrhagic cyst that has a lacy appearance. Both ovaries are seen and appear normal. Doppler flow to both ovaries are seen. There is no fluid in the cul-de-sac. IMPRESSION: 1. The uterus is surgically absent. 2. Both ovaries are seen and appear normal. 3. There is a small follicle on the left ovary. There appears to be a resolving 2.5 centimeter hemorrhagic cyst on the right ovary. 4. There is no fluid in the cul-de-sac. Dictated by: Jens Smith MD 03/02/2023 09:01 Jens Smith MD in OV 03/02/2023 09:01
== END ==
PROVIDERS: PCP Family Medicine; Visit Provider Obstetrics & Gynecology
DX: R10.32 Left lower quadrant pain (principal); Z12.31 Encounter for screening mammogram for malignant neoplasm of breast
CPT/HCPCS: 76830; 77063; 77067

== ENCOUNTER 2023-04-15 12:29 | Emergency (ER) | payer BC, MEDICARE, MEDICAID, SELFPAY ==
--- NOTE | 2023-04-15 12:34 | XR_ITS ---
PROCEDURE INFORMATION: Exam: XR Left Wrist Exam date and time: 04/15/2023 12:29 PM Age: 48 years old Clinical indication: Pain; Wrist; Left; Additional info: Pain and swelling TECHNIQUE: Imaging protocol: Radiologic exam of the left wrist. Views: 3 or more views. COMPARISON: No relevant prior studies available. FINDINGS: Bones/joints: No fractures, dislocations, or bone lesions. No significant joint space narrowing, widening, or periarticular erosions. Soft tissues: No soft tissue gas, radiopaque foreign bodies, or masses. IMPRESSION: No acute abnormalities in the left wrist. If occult fracture is clinically suspected, splinting and short-term wrist x-ray surveillance or MRI of the left wrist would be suggested.
[2023-04-15 12:45] VITALS: BP 123/81; PULSE 75; RESP 20; TEMP 36.7; O2SAT 100; BMI 26.3
--- NOTE | 2023-04-15 12:56 | EXP.UTC ---
Discharge Plan Disposition Patient Disposition: Home, Self-Care Condition: Good Prescriptions Prescriptions: No Action multivitamin tablet 2 tab PO DAILY albuterol sulfate 90 mcg/actuation HFA aerosol inhaler 2 inh IH Q6H PRN (Reason: shortness of breath or wheezing) 90 Days Qty: 8.5 3RF nitrofurantoin monohyd/m-cryst [Macrobid] 100 mg capsule 100 mg PO BID 7 Days Qty: 14 0RF Rx Instructions: must administer with a meal/food nitroglycerin 400 mcg/spray spray,non-aerosol 1 spray TL Q5M PRN (Reason: Chest Pain) Rx Instructions: do not exceed 3 doses per episode pantoprazole 40 mg tablet,delayed release (DR/EC) 40 mg PO HS Qty: 30 5RF hydroxyzine pamoate 25 mg capsule 25 mg PO BID Patient Comments: TAKE 1 CAPSULE BY MOUTH UP TO TWICE DAILY NEEDED FOR ANXIETY ticagrelor 90 mg tablet 90 mg PO BID Qty: 60 5RF Ozempic 0.25 mg or 0.5 mg(2 mg/1.5 mL) pen injector 0.5 mg SQ WEEKLY 30 Days Qty: 2 1RF Rx Instructions: for 4 doses furosemide 20 mg tablet 20 mg PO DAILY Qty: 90 3RF rosuvastatin [Crestor] 20 mg tablet 20 mg PO DAILY Qty: 30 2RF peg 3350-electrolytes [GaviLyte-G] 236-22.74-6.74 -5.86 gram recon soln 240 ml PO Q10M Qty: 4000 0RF Rx Instructions: until fecal effluent is clear follow mailed instructions trazodone 100 mg tablet See Rx Instructions .ROUTE .COMPLEX Patient Comments: TAKE 1 TO 2 TABLETS BY MOUTH AT BEDTIME Rx Instructions: TAKE 1 TO 2 TABLETS BY MOUTH AT BEDTIME lorazepam [Ativan] 0.5 mg Tablet 0.5 mg PO TID PRN (Reason: Anxiety) Referrals Follow up/Referrals: Andrez Velazquez DO [Staff Physician] - See instructions (call office for appointment) Walter Anaya MD [Primary Care Provider] - See instructions Activity Restrictions/Add. Instructions Additional Instructions/Restrictions: *RICE, Rest the extremity, Ice 15-20 minutes 3-4 times daily, Compress- wear the cesia wrap as discussed as much as possible to help reduce swelling and pain, Elevate the extremity when at rest *Velcro Wrist splint is for support and help control swelling, use it except in the shower. Be sure that is not to tight but not to loose either *Elevate when resting? *Ibuprofen 600-800mg every 6-8 hours as needed for pain an inflammation. If need something more can take Tylenol in between doses of Ibuprofen to help Immediately follow up with your family doctor for new or worsening of symptoms, or no noticeable improvement over the next 3-5 days Clinical Impressions Clinical Impression: Left wrist pain Stand Alone Forms Stand Alone Forms: Work/School Release Instructions Patient Instructions: DI for Wrist Pain, How To Perform RICE (Rest, Ice, Compress, Elevate) Discharge ED Provider: Lynnette Frederick [facility] General Stated complaint: LT wrist pain no known accident Mode of Arrival: Ambulatory Source of Information: Patient Limitations: No Limitations Time Seen by Provider: 04/15/23 12:57 Description of Symptoms (Recalled from Triage Doc. by RN): PATIENT C/O LEFT WRIST PAIN AND SWELLING X 2 WEEKS. 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
[2023-04-15 13:49] VITALS: BP 123/81; PULSE 75; RESP 20; TEMP 36.7; O2SAT 100
== END 2023-04-15 13:52 | disposition home or self-care (01) ==
PROVIDERS: Emergency Provider Nurse Practitioner; PCP Family Medicine
DX: M25.532 Pain in left wrist (principal); F17.210 Nicotine dependence, cigarettes, uncomplicated; I25.10 Atherosclerotic heart disease of native coronary artery without angina pectoris; I11.9 Hypertensive heart disease without heart failure; E11.9 Type 2 diabetes mellitus without complications; K21.9 Gastro-esophageal reflux disease without esophagitis; F33.9 Major depressive disorder, recurrent, unspecified; Z79.85 Long-term (current) use of injectable non-insulin antidiabetic drugs
CPT/HCPCS: 73110; 99204; 99212; G0463

== ENCOUNTER 2023-07-12 23:55 | Emergency (ER) | payer BC, MEDICARE, MEDICAID, SELFPAY ==
--- NOTE | 2023-07-12 23:54 | ECG_ITS ---
APPROVED REPORT Exam: Resting ECG HR:89 bpm ECG Measurements Heart Rate 89 AXES [place] 162 P 70 QRSd 90 QRS -23 QT 366 T 76 QTc 412 Conclusion SINUS RHYTHM BORDERLINE LEFT AXIS DEVIATION [QRS AXIS < -20] LOW QRS VOLTAGE IN PRECORDIAL LEADS [QRS DEFLECTION < 1.0 mV IN CHEST LEADS] PATTERN CONSISTENT WITH PULMONARY DISEASE ABNORMAL ECG UNCONFIRMED REPORT Electronically signed by : Akira Bryant MD 07/13/2023 14:25:44
[2023-07-12 23:56] VITALS: BP 121/78; PULSE 85; RESP 16; TEMP 37.1; O2SAT 99; BMI 24.3
--- NOTE | 2023-07-12 23:59 | PC.NURSE ---
in room talking with patient at this time.
--- NOTE | 2023-07-13 | CT_ITS ---
PROCEDURE INFORMATION: Exam: CTA Chest With Contrast Exam date and time: 07/13/2023 12:29 AM Age: 48 years old Clinical indication: Pain; Radiating; Additional info: Chest pain rad to back, numb/ting L hand TECHNIQUE: Imaging protocol: Computed tomographic angiography of the chest with contrast. Exam focused on the arteries. 3D rendering (Not supervised by radiologist): MIP and/or 3D reconstructed images were created by the technologist. Radiation optimization: All CT scans at this facility use at least one of these dose optimization techniques: automated exposure control; mA and/or kV adjustment per patient size (includes targeted exams where dose is matched to clinical indication); or iterative reconstruction. Contrast material: ISOVUE; Contrast volume: 70 ml; Contrast route: INTRAVENOUS (IV); REPORTING DATA: Count of CT and Cardiac NM exams in prior 12 months: This patient has received 4 known CTs and 0 known cardiac nuclear medicine studies in the 12 months prior to the current study. COMPARISON: CT ANGIO CHEST PE PROTOCOL 01/22/2023 1:02 AM FINDINGS: Pulmonary arteries: Normal. No pulmonary emboli. Aorta: Unremarkable. No aortic aneurysm. No aortic dissection. Lungs: Scattered areas of bronchial wall thickening which are likely chronic inflammatory. A few areas of subpleural reticulation are noted, nonspecific. Small pulmonary nodules are seen measuring up to 4 mm in the right middle lobe 53 series 7), new from prior study. For patients at low risk (minimal or absent history of smoking and of other known risk factors), no routine follow-up is indicated. For patients at high risk (history of smoking or of other known risk factors), consider optional CT Chest at 12 months. (Reference: Jared). Pleural spaces: Unremarkable. No pneumothorax. No pleural effusion. Heart: Unremarkable. No cardiomegaly. No pericardial effusion. Coronary arteries: Coronary stent in place. There is mild coronary atherosclerotic disease/calcification although evaluation is limited secondary to the non gated nature of the study. Lymph nodes: There are calcified mediastinal lymph nodes likely reflecting prior granulomatous disease. Gallbladder and bile ducts: The patient is status post cholecystectomy. Stomach and bowel: The patient is status post sleeve gastrectomy. Bones/joints: Unremarkable. No acute fracture. Soft tissues: Unremarkable. IMPRESSION: 1. No evidence for clinically relevant pulmonary arterial filling defect, dense parenchymal consolidation, pleural effusion, or pneumothorax. No acute intrathoracic anomaly. 2. Small pulmonary nodules are seen measuring up to 4 mm in the right middle lobe 53 series 7), new from prior study. For patients at low risk (minimal or absent history of smoking and of other known risk factors), no routine follow-up is indicated. For patients at high risk (history of smoking or of other known risk factors), consider optional CT Chest at 12 months. (Reference: Jared). REFERENCES: Jared Figueredo, et al. Guidelines for Management of Incidental Pulmonary Nodules Detected on CT Images: From the Fleischner Society 2017. Radiology. 2017;284(1):228-243.
[2023-07-13 00:04] LABS: Basophils # 0.1 K/mm3 (0-0.2); Eosinophils % 0.6 % (0.1-12.0); Hematocrit 39.7 % (37.0-47.0); Hemoglobin 14.1 g/dL (12.2-16.2); Lymphocytes # 1.7 K/mm3 (0.7-4.5); Mean Corpuscular HGB Conc 35.5 g/dL (31.8-35.4); Mean Corpuscular Hemoglobin 32.5 pg (27.0-31.2); Mean Corpuscular Volume 91.7 fl (81-99); Mean Platelet Volume 8.4 fl (7.4-10.4); Monocytes # 0.3 K/mm3 (0.1-1.0); Monocytes % 5.1 % (1.7-9.3); Neutrophils # 2.9 K/mm3 (1.8-7.8); Neutrophils % 58.2 % (37.0-80.0); Platelet Count 174 K/mm3 (142-424); Red Blood Count 4.33 M/mm3 (4.20-5.40); Red Cell Distribution Width 13.2 % (11.5-17.5)
--- NOTE | 2023-07-13 00:04 | HMH.EDGENADL ---
Discharge Plan Disposition Patient Disposition: Home, Self-Care Condition: Good Prescriptions Prescriptions: No Action multivitamin tablet 2 tab PO DAILY albuterol sulfate 90 mcg/actuation HFA aerosol inhaler 2 inh IH Q6H PRN (Reason: shortness of breath or wheezing) 90 Days Qty: 8.5 3RF nitroglycerin 400 mcg/spray spray,non-aerosol 1 spray TL Q5M PRN (Reason: Chest Pain) Rx Instructions: do not exceed 3 doses per episode hydroxyzine pamoate 25 mg capsule 25 mg PO BID Patient Comments: TAKE 1 CAPSULE BY MOUTH UP TO TWICE DAILY NEEDED FOR ANXIETY furosemide 20 mg tablet 20 mg PO DAILY Qty: 90 3RF Brilinta 90 mg tablet See Rx Instructions .ROUTE .COMPLEX Qty: 180 1RF Dose Instruction: TAKE 1 TABLET BY MOUTH TWICE DAILY FOR BLOOD THINNER Rx Instructions: TAKE 1 TABLET BY MOUTH TWICE DAILY FOR BLOOD THINNER rosuvastatin 20 mg tablet See Rx Instructions .ROUTE .COMPLEX Qty: 90 1RF Dose Instruction: Take 1 tablet by mouth once daily Rx Instructions: Take 1 tablet by mouth once daily Ozempic 0.25 mg or 0.5 mg (2 mg/3 mL) pen injector 0.5 mg SQ WEEKLY 30 Days Qty: 3.68 0RF trazodone 100 mg tablet See Rx Instructions .ROUTE .COMPLEX Patient Comments: TAKE 1 TO 2 TABLETS BY MOUTH AT BEDTIME Rx Instructions: TAKE 1 TO 2 TABLETS BY MOUTH AT BEDTIME lorazepam [Ativan] 0.5 mg Tablet 0.5 mg PO TID PRN (Reason: Anxiety) Referrals Follow up/Referrals: Provider,Referral, MD [Primary Care Provider] - See instructions Activity Restrictions/Add. Instructions Additional Instructions/Restrictions: You were evaluated in the emergency department today. Please follow-up closely with your primary care provider and with your associate program manager. Return to the emergency department for new or worsening symptoms. Clinical Impressions Clinical Impression: Chest pain, Anxiety Instructions Patient Instructions: DI for Atypical Chest Pain, DI for Anxiety -- Adult Discharge ED Provider: Bonita Rodriguez General Adult HPI General Chief complaint: Chest Pain Stated complaint: chest pain Time Seen by Provider: 07/12/23 23:56 Mode of Arrival: Ambulatory Limitations: No Limitations Description of Symptoms (Recalled from ER Triage Doc. by RN): Pt states chest pain started at 3-4 am early this morning. Pt describes pain as a tight/squeezing pain. Pt reports radiation of pain into upper back. Pt states she came to ER tonight because pain would not go away, but is not worsening. Pt also reports dizziness, and numbess in first 3 fingers on left hand. Pt reports hx of afib, CAD, 3 stents, loop recorder, myocarditis, and pericarditis. Pt states she takes Brilinta, Rosuvastatin, Lasix, trazadone, and ozempic. Pt sees Dr. Zhong for cardiology. History of Present Illness HPI narrative: This patient is a 48-year-old female presenting to the emergency department for evaluation with concern for chest pain radiating to her back that started around 21 hours ago. She states that it is a tight/squeezing pain in her substernal chest that radiates to her upper back between her shoulder blades. She states she also feels numbness and tingling in the first 3 fingers on her left hand. She states that it comes and goes, but nothing seems to bring it on or make it better. She denies experiencing anything like this in the past. She initially thought it was an anxiety attack. She does note a lot of recent stressors, including the loss of a close friend and a cousin. She notes a history of A-fib, CAD status post stenting, loop recorder in place, myocarditis, and pericarditis. Related Data Home Medications Medication Instructions Recorded Confirmed multivitamin 2 tab PO DAILY Supplement 10/21/18 07/13/23 nitroglycerin 400 mcg/spray 1 spray translingual Q5M PRN Chest 07/08/21 07/13/23 translingual Pain trazodone 100 mg tablet See Rx Instructions .Route
[2023-07-13 00:14] LABS: Alanine Aminotransferase 29 U/L (12-78); Albumin Level 4.3 g/dl (3.5-5.0); Albumin/Globulin Ratio 1.7 (1.1-1.8); Alkaline Phosphatase 44 U/L (38-126); Anion Gap 13.8 mEq/L (5-15); Aspartate Amino Transferase 31 U/L (14-36); Bilirubin,Total 0.5 mg/dl (0.2-1.3); Blood Urea Nitrogen 24 mg/dl (7-17); Calcium 9.4 mg/dl (8.4-10.2); Carbon Dioxide 26 mmol/L (22.0-30.0); Chloride 103 mmol/L (98-107); Creatinine Clearance Estimated 99 mL/min (50-200); Estimated Glomerular Filt Rate 89 ml/min (>60); GFR (African American) 108 ML/MIN (>60); Globulin 2.6 g/dL (1.3-3.2); Glucose 157 mg/dl (74-100); Potassium 3.8 mmoL/L (3.5-5.1); Sodium 139 mmol/L (136-145); Total Protein,Serum 6.9 g/dl (6.3-8.2)
--- NOTE | 2023-07-13 00:24 | PC.NURSE ---
patient gone to CT at this time.
--- NOTE | 2023-07-13 00:32 | PC.NURSE ---
patient back in room at this time.
[2023-07-13 00:39] LABS: Troponin I < 0.01 ng/ml (0.00-0.034)
--- NOTE | 2023-07-13 00:56 | PC.NURSE ---
rounded on patient, no concerns at this time.
[2023-07-13 01:00] VITALS: BP 107/76; PULSE 78; RESP 17; O2SAT 97
[2023-07-13 01:30] VITALS: BP 130/84; PULSE 74; RESP 20; O2SAT 97
--- NOTE | 2023-07-13 01:55 | PC.NURSE ---
2nd troponin sent at this time.
[2023-07-13 02:00] VITALS: BP 109/85; PULSE 74; RESP 19; O2SAT 97
[2023-07-13 02:28] LABS: Troponin I < 0.01 ng/ml (0.00-0.034)
[2023-07-13 02:38] VITALS: BP 114/79; PULSE 79; RESP 16; TEMP 36.7; O2SAT 97
== END 2023-07-13 02:39 | disposition home or self-care (01) ==
PROVIDERS: Emergency Provider Emergency Medicine
DX: R07.89 Other chest pain (principal); I25.10 Atherosclerotic heart disease of native coronary artery without angina pectoris; I11.9 Hypertensive heart disease without heart failure; E78.5 Hyperlipidemia, unspecified; E11.9 Type 2 diabetes mellitus without complications; F32.A Depression, unspecified; K21.9 Gastro-esophageal reflux disease without esophagitis; F17.210 Nicotine dependence, cigarettes, uncomplicated; Z79.85 Long-term (current) use of injectable non-insulin antidiabetic drugs; Z86.73 Personal history of transient ischemic attack (TIA), and cerebral infarction without residual deficits; Z95.818 Presence of other cardiac implants and grafts; F41.1 Generalized anxiety disorder
CPT/HCPCS: 71275; 80053; 84484; 85025; 93005; 99284; Q9967

== ENCOUNTER 2024-01-02 14:01 | Outpatient (CLI) | payer BC, SELFPAY ==
[2024-01-02 14:18] LABS: Basophils # 0.1 K/mm3 (0-0.2); Basophils % 0.8 % (0.1-2.0); Eosinophils # 0.1 K/mm3 (0.0-0.4); Eosinophils % 1.9 % (0.1-12.0); Hematocrit 45.5 % (37.0-47.0); Hemoglobin 14.5 g/dL (12.2-16.2); Lymphocytes # 1.1 K/mm3 (0.7-4.5); Lymphocytes % 16.6 % (10-50); Mean Corpuscular HGB Conc 31.9 g/dL (31.8-35.4); Mean Corpuscular Hemoglobin 30.3 pg (27.0-31.2); Mean Corpuscular Volume 94.9 fl (81-99); Mean Platelet Volume 7.8 fl (7.4-10.4); Monocytes # 0.4 K/mm3 (0.1-1.0); Monocytes % 6.5 % (1.7-9.3); Neutrophils # 4.9 K/mm3 (1.8-7.8); Neutrophils % 74.1 % (37.0-80.0); Platelet Count 171 K/mm3 (142-424); Red Blood Count 4.79 M/mm3 (4.20-5.40); Red Cell Distribution Width 13.2 % (11.5-17.5); White Blood Count 6.7 K/mm3 (4.8-10.8)
[2024-01-02 14:39] LABS: Chloride 107 mmol/L (98-107); Potassium 4.2 mmoL/L (3.5-5.1); Sodium 139 mmol/L (136-145)
[2024-01-02 14:41] LABS: Blood Urea Nitrogen 18 mg/dl (7-17); Estimated Glomerular Filt Rate 106 ml/min (>60); GFR (African American) 129 ML/MIN (>60)
[2024-01-02 14:42] LABS: Alanine Aminotransferase 27 U/L (12-78); Albumin Level 4.1 g/dl (3.5-5.0); Albumin/Globulin Ratio 1.8 (1.1-1.8); Alkaline Phosphatase 46 U/L (38-126); Anion Gap 4.2 mEq/L (5-15); Aspartate Amino Transferase 29 U/L (14-36); Bilirubin,Total 0.8 mg/dl (0.2-1.3); Carbon Dioxide 32 mmol/L (22.0-30.0); Globulin 2.3 g/dL (1.3-3.2); Total Protein,Serum 6.4 g/dl (6.3-8.2)
[2024-01-02 14:43] LABS: Calcium 9.3 mg/dl (8.4-10.2); Glucose 98 mg/dl (74-100)
== END 2024-01-02 23:59 | disposition home or self-care (01) ==
PROVIDERS: PCP Family Medicine; Visit Provider Obstetrics & Gynecology
DX: N95.1 Menopausal and female climacteric states (principal)
CPT/HCPCS: 36415; 80053; 85025

== ENCOUNTER 2024-01-05 23:23 | Emergency (ER) | payer BC, SELFPAY ==
--- NOTE | 2024-01-05 23:24 | ED_ITS ---
Discharge Plan Disposition Patient Disposition: Home, Self-Care Prescriptions Prescriptions: New ondansetron HCl 4 mg tablet 4 mg PO Q8H PRN (Reason: nausea and vomiting) 5 Days Qty: 30 0RF No Action multivitamin tablet 2 tab PO DAILY albuterol sulfate 90 mcg/actuation HFA aerosol inhaler 2 inh IH Q6H PRN (Reason: shortness of breath or wheezing) 90 Days Qty: 8.5 3RF nitroglycerin 400 mcg/spray spray,non-aerosol 1 spray TL Q5M PRN (Reason: Chest Pain) Rx Instructions: do not exceed 3 doses per episode hydroxyzine pamoate 25 mg capsule 25 mg PO BID Patient Comments: TAKE 1 CAPSULE BY MOUTH UP TO TWICE DAILY NEEDED FOR ANXIETY Veozah 45 mg tablet 45 mg PO DAILY Qty: 30 10RF furosemide 20 mg tablet 20 mg PO DAILY Qty: 90 3RF Brilinta 90 mg tablet See Rx Instructions .ROUTE .COMPLEX Qty: 180 1RF Dose Instruction: TAKE 1 TABLET BY MOUTH TWICE DAILY FOR BLOOD THINNER Rx Instructions: TAKE 1 TABLET BY MOUTH TWICE DAILY FOR BLOOD THINNER trazodone 100 mg tablet See Rx Instructions .ROUTE .COMPLEX Patient Comments: TAKE 1 TO 2 TABLETS BY MOUTH AT BEDTIME Rx Instructions: TAKE 1 TO 2 TABLETS BY MOUTH AT BEDTIME lorazepam [Ativan] 0.5 mg Tablet 0.5 mg PO TID PRN (Reason: Anxiety) Referrals Follow up/Referrals: Provider,Referral, MD [Primary Care Provider] - See instructions Activity Restrictions/Add. Instructions Additional Instructions/Restrictions: Please follow-up with your primary care provider. Please return to the emergency department if you develop any new or worsening symptoms or become concerned for your health. Recommend taking [id number] cough and cold medication for symptomatic control. Take Zofran as needed for nausea and vomiting. Clinical Impressions Clinical Impression: URI, acute, Epigastric abdominal pain Discharge ED Provider: Luciano Daniel General Adult HPI General Chief complaint: Weakness Stated complaint: chest pain Time Seen by Provider: 01/05/24 23:24 History of Present Illness HPI narrative: 48-year-old female with history of factor V Leiden, hypertension, coronary artery disease, presents with multiple complaints. She reports that she has had a cold with associated nasal congestion, drainage, for the last couple of days. She presents to the ED because she has had intermittent bouts of epigastric pain. She reports it lasted approximately 3 to 4 minutes. It takes her breath away when it happens. Last time it happened was about an hour prior to arrival. Started happening earlier this morning. She reports that she has history of gastric sleeve, history of cholecystectomy, no history of pancreatitis. She has been having normal bowel movements. She has been nauseous but not vomiting. Nothing like this has happened before. Related Data Home Medications Medication Instructions Recorded Confirmed multivitamin 2 tab PO DAILY Supplement 10/21/18 01/02/24 nitroglycerin 400 mcg/spray 1 spray translingual Q5M PRN Chest 07/08/21 01/02/24 translingual Pain trazodone 100 mg tablet See Rx Instructions .Route 07/03/22 01/02/24 .COMPLEX sleep hydroxyzine pamoate 25 mg capsule 25 mg PO BID asrthma 12/20/22 01/02/24 lorazepam 0.5 mg tablet (Ativan) 0.5 mg PO TID PRN Anxiety 01/03/23 01/02/24 Previous Rx's Medication Instructions Recorded albuterol sulfate 90 mcg/actuation 2 inh inhalation Q6H PRN shortness 02/15/22 aerosol inhaler of breath or wheezing 90 days #8.5 grams furosemide 20 mg tablet 20 mg PO DAILY Fluid #90 tabs 03/09/23 ticagrelor 90 mg tablet (Brilinta) See Rx Instructions .Route 05/29/23 .COMPLEX #180 tabs fezolinetant 45 mg tablet (Veozah) 45 mg PO DAILY #30 tabs 01/02/24 ondansetron HCl 4 mg tablet 4 mg PO Q8H PRN nausea and 01/06/24 vomiting 5 days #30 tabs Allergies Allergy/AdvReac Type Severity Reaction Status Date / Time duloxetine [From Cymbalta] Allergy Severe liver Verified 01/02/24 13:29 swelling hydromorphone [From Dilaudid] Allergy Severe rash, Verified 01/02/24 13:29 itching ibuprofen Allergy Severe swelling Verified 01/02/24 13:29 lisinopril [LISINOPRIL] Allergy Severe chokes Verified 01/02/24 13:29 venom-honey bee Allergy Severe Anaphylaxis Verified 01/02/24 13:29 venom-wasp Allergy Severe Anaphylaxis Verified 01/02/24 13:29 COVID-19 (SARS-CoV-2) Allergy Verified 01/02/24 13:29 vaccine, mauro promethazine [From PHENERGAN] AdvReac Severe hallucinati Verified 01/02/24 13:29 ons sertraline [From Zoloft] AdvReac Severe suicidal Verified 01/02/24 13:29 paroxetine [From PAXIL] AdvReac Intermediate Palpitation Verified 01/02/24 13:29 s tetanus and diphtheria AdvReac Intermediate vomitting Verified 01/02/24 13:29 toxoids [TETANUS & DIPHTHERIA TOXOIDS] isosorbide AdvReac BP drops, Verified 01/02/24 13:29 headache PFSH PFSH Disclaimer: The information contained in this section may have been updated after the patient was seen, as this information can be updated by other users. 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 radial artery thrombus HLD (hyperlipidemia) Tobacco use Coronary artery disease Pericarditis Adverse reaction to COVID-19 vaccine Suicidal ideation Antidepressant discontinuation syndrome (~07/04/22) Lumbar radiculopathy CVA (cerebral vascular accident) Type 2 diabetes mellitus History of paroxysmal supraventricular tachycardia Hereditary hemochromatosis SVT (supraventricular tachycardia) Diabetes Surgical History History of loop recorder H/O gastric sleeve H/O: hysterectomy Hx laparoscopic cholecystectomy History of coronary artery stent placement Previous section Family History Other Asthma Cancer Coronary artery disease Diabetes FHx: mental illness Heart attack Hyperlipidemia Hypertension Kidney disease Social History Smoking Status: Current every day smoker tobacco type: cigarettes packs per day: 1 second hand exposure: No alcohol intake: never substance use type: denies use current occupational status: employed Travel in the last 8 weeks: None household members: spouse and children housing: house marital status: education level: high school current occupational exposures/hazards: No caffeine: Yes ROS Obtained: Yes All systems reviewed & no additional complaints except as documented Physical Exam General General appearance: alert and anxious Head Head exam: atraumatic and normocephalic Eye Eye exam: Present normal appearance, PERRL and EOMI ENT ENT exam: Present normal oropharynx and normal external ear exam Neck Neck exam: Present normal inspection and full ROM Chest Chest inspection: Present normal inspection and symmetric chest wall rise; Absent tenderness Respiratory Respiratory exam: Present normal lung sounds bilaterally; Absent respiratory distress Cardiovascular Cardiovascular exam: Present regular rate and normal rhythm Abdominal Exam Abdominal exam: Present soft and tenderness (Mild, epigastric); Absent distention or guarding Extremities Exam Extremities exam: Present normal inspection; Absent edema or joint swelling Back Exam Back exam: Present normal inspection; Absent tenderness Neurological Exam Neurological exam: Present alert and oriented X3; Absent motor sensory deficit Psychiatric Psychiatric exam: Present normal affect and normal mood Skin Skin exam: Present warm, dry and normal color Lymphatic Lymphatic Findings: no adenopathy Medical Decision Making Medical Records Medical records reviewed: Yes I reviewed the patient's medical records. Jelani Inquiry Pt receiving controlled substance: No Jelani was queried for this patient: No Vital Signs: 01/05/24 23:25 01/06/24 01:04 Temperature 98.5 F 98.5 F Temperature Source Oral Pulse Rate 65 Pulse Rate [Left] 61 Respiratory Rate 16 18 Blood Pressure 138/72 Blood Pressure [Right Arm] 142/82 H Blood Pressure Mean [Right Arm] 102 Blood Pressure Source [Right Arm] Automatic Cuff Blood Pressure Position [Right Arm] Sitting 02 Sat by Pulse Oximetry 100 Lab Data Lab results reviewed: Yes I reviewed the patient's lab results. Lab Results 01/05/24 23:35: WBC 5.9, RBC 4.52, Hgb 13.8, Hct 42.6, MCV 94.1, MCH 30.4, MCHC 32.3, RDW 13.0, Plt Count 186, MPV 8.0, Neut % (Auto) 71.6, Lymph % (Auto) 17.1, [place] % (Auto) 7.5, Eos % (Auto) 2.6, Baso % (Auto) 1.1, Neut # (Auto) 4.2, Lymph # (Auto) 1.0, [place] # (Auto) 0.4, Eos # (Auto) 0.2, Baso # (Auto) 0.1, D-Dimer 0.35, Sodium 141, Potassium 4.1, Chloride 108 H, Carbon Dioxide 29, Anion Gap 8.1, BUN 24 H, Creatinine 0.70, Estimated Creat Clear 106, Estimated GFR 89, Est GFR ( Amer) 108, Glucose 113 H, Calcium 9.4, Total Bilirubin 0.6, AST 29, ALT 24, Alkaline Phosphatase 51, Troponin I < 0.01, Total Protein 6.7, Albumin 4.0, Globulin 2.7, Albumin/Globulin Ratio 1.5, Lipase 87, Serum HCG, Qual Negative 01/05/24 23:35 01/05/24 23:35 Orders (Tests/Meds): ED MEDICATIONS Discontinued Medications Generic Name Dose Route Start Last Admin Trade Name Freq PRN Reason Stop Dose Admin Acetaminophen 1,000 mg 01/05/24 23:33 01/05/24 23:46 Acetaminophen 500mg Tab PO 01/05/24 23:34 1,000 mg ONCE ONE Administration Belladonna Alkaloids 60 ml 01/05/24 23:33 01/05/24 23:47 Belladonna Alkaloids 60 Ml Ml PO 01/05/24 23:34 60 ml ONCE ONE Administration Ketorolac Tromethamine 30 mg 01/05/24 23:33 01/05/24 23:46 Ketorolac 30mg/Ml Vial IV 01/05/24 23:34 30 mg ONCE ONE Administration Ondansetron HCl 4 mg 01/05/24 23:33 01/05/24 23:46 Ondansetron 4mg/2ml Vial IV 01/05/24 23:34 4 mg ONCE ONE Administration ORDERS Category Date Time Status CBC w/Auto Diff [Complete Blood Count Auto Diff] Stat Lab 01/05/24 23:35 Completed CMP [Comprehensive Metabolic Panel] Stat Lab 01/05/24 23:35 Completed D-Dimer Stat Lab 01/05/24 23:35 Completed HCG Qualitative, Serum Stat Lab 01/05/24 23:35 Completed Lipase Stat Lab 01/05/24 23:35 Completed Troponin I Q3H Lab 01/05/24 23:35 Completed ECG Data Tracing #1: I reviewed this ECG and interpreted as documented below: ECG initial impression date: 01/05/24 ECG initial impression time: 23:23 ECG normal with no acute: arrhythmias, ischemia, conduction abnormalities, chamber hypertrophy Normal Sinus Rhythm: Yes HEART Score History (anamnesis): Slightly suspicious ECG: Normal Age: 45-65 years Risk factors: Atherosclerosis history Troponin: </= normal limit HEART Score: 3 Medical Decision Narrative: 48-year-old female with history as reported above presents with URI and short bouts of epigastric pain for the last day. History was obtained interactive discussion with patient. On arrival, patient is [afebrile, hemodynamically stable, satting appropriately, alert, oriented x4, GCS 15], moving all extremities spontaneously. Full physical exam performed and significant for no significant physical exam abnormalities, nasal congestion noted. Differential includes but is not limited to gastroenteritis, GERD, esophageal spasm, pancreatitis, stomach ulcer, ACS, PE. Patient was given Zofran, Toradol, GI cocktail, Tylenol for symptomatic management and correction of underlying abnormalities. Workup initiated including CBC CMP troponin D-dimer qualitative beta hCG, lipase. On re-evaluation, patient [remains afebrile, HD stable.] Reports symptomatic resolution. Laboratory workup independently interpreted by me and significant for no leukocytosis, D-dimer negative, minimally elevated BUN, negative troponin negative lipase, negative test. Chest x-ray was considered, but deemed unnecessary due to clear lungs bilaterally, aspirin was considered, but deemed unnecessary given no significant concern for ACS based on history. Given patient history, exam and workup, patient's presentation most likely represents URI and epigastric discomfort. Procedures Risk/Benefits of Procedure(s) Were Explained: Yes Critical Care Critical Care Time Critical Care Time: No
[2024-01-05 23:25] VITALS: BP 142/82; PULSE 61; RESP 16; TEMP 36.9; O2SAT 100; BMI 26.9
--- NOTE | 2024-01-05 23:33 | ECG_ITS ---
APPROVED REPORT Exam: Resting ECG HR:65 bpm ECG Measurements Heart Rate 65 AXES OR 154 P 50 QRSd 101 QRS -5 QT 398 T 58 QTc 410 Conclusion SINUS RHYTHM LOW QRS VOLTAGE IN PRECORDIAL LEADS [QRS DEFLECTION < 1.0 mV IN CHEST LEADS] BORDERLINE ECG Electronically signed by : ALEE ROBBINS, 01/07/2024 00:00:33
[2024-01-05] MEDS: ACETAMINOPHEN 500MG TAB 1000 MG PO (23:46)
[2024-01-05] MEDS: KETOROLAC 30MG/ML VIAL 30 MG IV (23:46)
[2024-01-05] MEDS: ONDANSETRON 4MG/2ML VIAL 4 MG IV (23:46)
[2024-01-05] MEDS: BELLADONNA ALKALOIDS 60 ML ML PO (23:47)
[2024-01-05 23:52] LABS: Basophils # 0.1 K/mm3 (0-0.2); Basophils % 1.1 % (0.1-2.0); Eosinophils # 0.2 K/mm3 (0.0-0.4); Eosinophils % 2.6 % (0.1-12.0); Hematocrit 42.6 % (37.0-47.0); Hemoglobin 13.8 g/dL (12.2-16.2); Lymphocytes % 17.1 % (10-50); Mean Corpuscular HGB Conc 32.3 g/dL (31.8-35.4); Mean Corpuscular Hemoglobin 30.4 pg (27.0-31.2); Mean Corpuscular Volume 94.1 fl (81-99); Monocytes # 0.4 K/mm3 (0.1-1.0); Monocytes % 7.5 % (1.7-9.3); Neutrophils # 4.2 K/mm3 (1.8-7.8); Neutrophils % 71.6 % (37.0-80.0); Platelet Count 186 K/mm3 (142-424); Red Blood Count 4.52 M/mm3 (4.20-5.40); White Blood Count 5.9 K/mm3 (4.8-10.8)
[2024-01-05 23:58] LABS: Alanine Aminotransferase 24 U/L (12-78); Albumin/Globulin Ratio 1.5 (1.1-1.8); Alkaline Phosphatase 51 U/L (38-126); Anion Gap 8.1 mEq/L (5-15); Aspartate Amino Transferase 29 U/L (14-36); Bilirubin,Total 0.6 mg/dl (0.2-1.3); Blood Urea Nitrogen 24 mg/dl (7-17); Calcium 9.4 mg/dl (8.4-10.2); Carbon Dioxide 29 mmol/L (22.0-30.0); Chloride 108 mmol/L (98-107); Creatinine Clearance Estimated 106 mL/min (50-200); Estimated Glomerular Filt Rate 89 ml/min (>60); GFR (African American) 108 ML/MIN (>60); Globulin 2.7 g/dL (1.3-3.2); Glucose 113 mg/dl (74-100); Lipase 87 U/L (23-300); Potassium 4.1 mmoL/L (3.5-5.1); Sodium 141 mmol/L (136-145); Total Protein,Serum 6.7 g/dl (6.3-8.2)
[2024-01-06 00:06] LABS: D-Dimer 0.35 ug/mL (0.0-0.5)
[2024-01-06 00:07] LABS: HCG Qualitative, Serum Negative (Negative)
[2024-01-06 00:11] LABS: Troponin I < 0.01 ng/ml (0.00-0.034)
[2024-01-06 01:04] VITALS: BP 138/72; PULSE 65; RESP 18; TEMP 36.9
== END 2024-01-06 00:26 | disposition home or self-care (01) ==
PROVIDERS: Emergency Provider Emergency Medicine
DX: R10.13 Epigastric pain (principal); R11.0 Nausea; J06.9 Acute upper respiratory infection, unspecified; R09.81 Nasal congestion; R09.82 Postnasal drip; D68.51 Activated protein C resistance; I11.9 Hypertensive heart disease without heart failure; I25.119 Atherosclerotic heart disease of native coronary artery with unspecified angina pectoris; E78.5 Hyperlipidemia, unspecified; E11.9 Type 2 diabetes mellitus without complications; Z95.818 Presence of other cardiac implants and grafts
CPT/HCPCS: 80053; 83690; 84484; 84703; 85025; 85378; 93005; 96374; 96375; 99284; J2405

== ENCOUNTER 2024-04-27 19:10 | Emergency (ER) | payer BC, SELFPAY ==
[2024-04-27 19:30] VITALS: BP 110/79; PULSE 74; RESP 20; TEMP 36.8; O2SAT 99; BMI 29.0
[2024-04-27 19:50] LABS: Apearance,Urine Cloudy (Clear); Bilirubin,Urine 1+ (Negative); Blood, Urine Negative (Negative); Color,Urine Dark Yellow (Yellow); Glucose,Urine (UA) Negative (Negative); Ketones,Urine Negative (Negative); PH,Urine 5.5 (5.0-8.5); Protein,Urine Negative (Negative); Specific Gravity, Urine >= 1.030 (1.005-1.030); UTC Leukocyte Esterase,Urine Negative (Negative); UTC Nitrate,Urine Negative (Negative); Urobilinogen,Urine 0.2 EU/dl (0.2)
--- NOTE | 2024-04-27 20:10 | EXP.UTC ---
Discharge Plan Disposition Patient Disposition: Home, Self-Care Condition: Good Prescriptions Prescriptions: No Action furosemide 20 mg tablet 20 mg PO DAILY Qty: 90 3RF trazodone 100 mg tablet 100 mg PO DAILY Patient Comments: TAKE 1 TO 2 TABLETS BY MOUTH AT BEDTIME Rx Instructions: TAKE 1 TO 2 TABLETS BY MOUTH AT BEDTIME lorazepam [Ativan] 0.5 mg Tablet 0.5 mg PO TID PRN (Reason: Anxiety) Brilinta 90 mg tablet 90 mg PO DAILY Rx Instructions: TAKE 1 TABLET BY MOUTH TWICE DAILY FOR BLOOD THINNER Referrals Follow up/Referrals: Walter Anaya MD [Primary Care Provider] - See instructions Activity Restrictions/Add. Instructions Additional Instructions/Restrictions: Make sure to drink plenty of fluids Follow up with your Family Doctor if symptoms continue Return if needed Straight to ER if any life threatening symptoms Clinical Impressions Clinical Impression: UTI symptoms Instructions Patient Instructions: DI for Dysuria -- Adult, DI for Low Back Pain Print Language Print Language: Ukrainian Discharge ED Provider: Lynnette Frederick [facility] General Stated complaint: poss UTI painful urination Mode of Arrival: Ambulatory Source of Information: Patient Limitations: No Limitations Time Seen by Provider: 04/27/24 20:10 Description of Symptoms (Recalled from Triage Doc. by RN): PATIENT C/O RIGHT SIDE PAIN AND PAIN WITH URINATION THAT STARTED SUNDAY AND LOWER BACK PAIN THAT STARTED TODAY HEENT Symptoms (Recalled from RN notes): No Resp Symptoms (Recalled from RN notes): No Skin Symptoms (Recalled from RN notes): No MS Symptoms (Recalled from RN notes): No Functional Status (Recalled from RN notes): WNL History of Present Illness Provider Complaint: Patient states she has been having some burning with urination and feeling of urgency and frequency with low back ache worse on right on and off Denies radiation of pain and denies hx of kidney stones States felt like she may have a UTI Related Data Home Medications ?Medication ?Instructions ?Recorded ?Confirmed trazodone 100 mg tablet 100 mg PO DAILY sleep 07/03/22 04/27/24 lorazepam 0.5 mg tablet (Ativan) 0.5 mg PO TID PRN Anxiety 01/03/23 04/27/24 ticagrelor 90 mg tablet (Brilinta) 90 mg PO DAILY 04/27/24 04/27/24 Previous Rx's ?Medication ?Instructions ?Recorded furosemide 20 mg tablet 20 mg PO DAILY Fluid #90 tabs 03/09/23 Allergies Allergy/AdvReac Type Severity Reaction Status Date / Time duloxetine [From Cymbalta] Allergy Severe liver Verified 01/02/24 13:29 swelling hydromorphone [From Dilaudid] Allergy Severe rash, Verified 01/02/24 13:29 itching ibuprofen Allergy Severe swelling Verified 01/02/24 13:29 lisinopril [LISINOPRIL] Allergy Severe chokes Verified 01/02/24 13:29 venom-honey bee Allergy Severe Anaphylaxis Verified 01/02/24 13:29 venom-wasp Allergy Severe Anaphylaxis Verified 01/02/24 13:29 COVID-19 (SARS-CoV-2) Allergy Verified 01/02/24 13:29 vaccine, mauro promethazine [From PHENERGAN] AdvReac Severe hallucinati Verified 01/02/24 13:29 ons sertraline [From Zoloft] AdvReac Severe suicidal Verified 01/02/24 13:29 paroxetine [From PAXIL] AdvReac Intermediate Palpitation Verified 01/02/24 13:29 s tetanus and diphtheria AdvReac Intermediate vomitting Verified 01/02/24 13:29 toxoids [TETANUS & DIPHTHERIA TOXOIDS] isosorbide AdvReac BP drops, Verified 01/02/24 13:29 headache Worker's Comp Is this a Worker's Comp case?: No [facility] Disclaimer: The information contained in this section may have been updated after the patient was seen, as this information can be updated by other users. Medical History (Updated 04/27/24 @ 20:15 by Lynnette Frederick APRN) Symptoms, such as flushing, sleeplessness, headache, lack of concentration, associated with the menopause Adnexal tenderness, left Status post placement of implantable loop recorder History of eclampsia Unstable angina Hx of nephrolithotomy with removal of calculi Depression Fibromyalgia GERD (gastroesophageal reflux disease) Hypertension Coronary artery disease Tobacco abuse disorder History of asthma [id number] syndrome manifesting as chronic shortness of breath Right radial artery thrombus HLD (hyperlipidemia) Tobacco use Coronary artery disease Pericarditis Adverse reaction to COVID-19 vaccine Suicidal ideation Antidepressant discontinuation syndrome (~07/04/22) Lumbar radiculopathy CVA (cerebral vascular accident) Type 2 diabetes mellitus History of paroxysmal supraventricular tachycardia Hereditary hemochromatosis SVT (supraventricular tachycardia) Diabetes Surgical History History of loop recorder H/O gastric sleeve H/O: hysterectomy Hx laparoscopic cholecystectomy History of coronary artery stent placement Previous section Family History Other Asthma Cancer Coronary artery disease Diabetes FHx: mental illness Heart attack Hyperlipidemia Hypertension Kidney disease Social History Smoking Status: Current every day smoker tobacco type: cigarettes packs per day: 1 second hand exposure: No alcohol intake: never substance use type: denies use current occupational status: employed Travel in the last 8 weeks: None household members: spouse and children housing: house marital status: education level: high school current occupational exposures/hazards: No caffeine: Yes ROS Obtained: Yes All systems reviewed & no additional complaints except as documented and Yes Systems reviewed as appropriate & no additional complaints except as documented Constitutional Constitutional: Reports system reviewed and no additional complaints, except as documented, Reports as per HPI, Denies body ache, Denies chills and Denies fever(s) ENT Ears, Nose, Mouth, and Throat: Reports system reviewed and no additional complaints, except as documented and Reports as per HPI Cardiovascular Cardiovascular: Reports system reviewed and no additional complaints, except as documented and Reports as per HPI Respiratory Respiratory: Reports system reviewed and no additional complaints, except as documented and Reports as per HPI Gastrointestinal Gastrointestingal: Reports system reviewed and no additional complaints, except as documented and as per HPI Genitourinary Female Genitourinary: Reports system reviewed and no additional complaints, except as documented, Reports as per HPI, Reports dysuria, Reports flank pain, Reports urinary frequency and Reports urinary urgency Musculoskeletal Musculoskeletal: Reports system reviewed and no additional complaints, except as documented, Reports as per HPI and Reports back pain Integumentary/Breasts Skin/Breast: Reports system reviewed and no additional complaints, except as documented and Reports as per HPI Physical Exam General General appearance: alert and in no apparent distress ENT ENT exam: Present mucous membranes moist Respiratory Respiratory exam: Present normal lung sounds bilaterally; Absent respiratory distress or wheezes Cardiovascular Cardiovascular exam: Present regular rate, normal rhythm and normal heart sounds Abdominal Exam Abdominal exam: Present soft and normal bowel sounds; Absent distention or tenderness Back Exam Back exam: Present normal inspection and full ROM; Absent tenderness, muscle spasm or vertebral tenderness Back 1 view image: 1. reports achy like pain on and off Neurological Exam Neurological exam: Present alert, oriented X3 and normal gait Medical Decision Making Jelani Inquiry Pt receiving controlled substance: No Jelani was queried for this patient: No Vital Signs: 04/27/24 19:30 Temperature 98.2 F Temperature Source Oral Pulse Rate [Left Brachial] 74 Respiratory Rate 20 Blood Pressure [Left Arm] 110/79 Blood Pressure Mean [Left Arm] 89 Blood Pressure Source [Left Arm] Automatic Cuff Blood Pressure Position [Left Arm] Sitting 02 Sat by Pulse Oximetry 99 Oxygen Delivery Method Room Air Lab Data Lab results reviewed: Yes I reviewed the patient's lab results. Lab Results 04/27/24 19:49: Urine Color Dark yellow, Urine Appearance Cloudy, Urine pH 5.5, Ur Specific [place] >= 1.030, Urine Protein Negative, Urine Glucose (UA) Negative, Urine Ketones Negative, Urine Blood Negative, Urine Nitrate Negative, Urine Bilirubin 1+ A, Urine Urobilinogen 0.2, Ur Leukocyte Esterase Negative
[2024-04-27 20:15] VITALS: BP 110/79; PULSE 74; RESP 20; TEMP 36.8; O2SAT 99
== END 2024-04-27 20:17 | disposition home or self-care (01) ==
PROVIDERS: Emergency Provider Nurse Practitioner; PCP Family Medicine
DX: N39.0 Urinary tract infection, site not specified (principal); B96.89 Other specified bacterial agents as the cause of diseases classified elsewhere; M54.59 Other low back pain; R30.0 Dysuria; R35.0 Frequency of micturition; R39.15 Urgency of urination
CPT/HCPCS: 81003; 87086; 99212; 99213; G0463

== ENCOUNTER 2024-05-05 18:24 | Observation (INO) | payer BC, SELFPAY ==
[2024-05-05 18:26] VITALS: BP 149/87; PULSE 67; RESP 18; TEMP 36.4; O2SAT 100; BMI 28.3
[2024-05-05 18:30] VITALS: BP 149/87; PULSE 68; O2SAT 100
--- NOTE | 2024-05-05 18:31 | HMH.EDCP ---
Discharge Plan Disposition Patient Disposition: Admitted Condition: Fair Clinical Impressions Clinical Impression: Dizziness Discharge ED Provider: Bonita Rodriguez HPI <ZACKARY Hooper - Last Filed: 05/05/24 23:11> General Chief Complaint: Chest Pain Stated Complaint: dizziness mental fog fatigued Time Seen by Provider: 05/05/24 18:31 History of Present Illness HPI narrative: Patient presents for evaluation of dizziness. Patient began feeling abruptly dizzy on Sunday that has been progressive constant. She denies headache chest pain fever chills hemoptysis hematochezia melena diarrhea but does endorse nausea and some vomiting when she is particularly dizzy. She works at [employer] and has continued to work and attempted to work today but she was incapacitated so much but dizziness that she had to leave. She denies headache and patient's Timbo Coma Score is 15 at the time my exam Related Data Home Medications ?Medication ?Instructions ?Recorded ?Confirmed trazodone 100 mg tablet 100 mg PO DAILY sleep 07/03/22 05/05/24 lorazepam 0.5 mg tablet (Ativan) 0.5 mg PO TID PRN Anxiety 01/03/23 05/05/24 ticagrelor 90 mg tablet (Brilinta) 90 mg PO DAILY 04/27/24 05/05/24 Previous Rx's ?Medication ?Instructions ?Recorded furosemide 20 mg tablet 20 mg PO DAILY Fluid #90 tabs 03/09/23 Allergies Allergy/AdvReac Type Severity Reaction Status Date / Time duloxetine [From Cymbalta] Allergy Severe liver Verified 01/02/24 13:29 swelling hydromorphone [From Dilaudid] Allergy Severe rash, Verified 01/02/24 13:29 itching ibuprofen Allergy Severe swelling Verified 01/02/24 13:29 lisinopril [LISINOPRIL] Allergy Severe chokes Verified 01/02/24 13:29 venom-honey bee Allergy Severe Anaphylaxis Verified 01/02/24 13:29 venom-wasp Allergy Severe Anaphylaxis Verified 01/02/24 13:29 COVID-19 (SARS-CoV-2) Allergy Verified 01/02/24 13:29 vaccine, mauro promethazine [From PHENERGAN] AdvReac Severe hallucinati Verified 01/02/24 13:29 ons sertraline [From Zoloft] AdvReac Severe suicidal Verified 01/02/24 13:29 paroxetine [From PAXIL] AdvReac Intermediate Palpitation Verified 01/02/24 13:29 s tetanus and diphtheria AdvReac Intermediate vomitting Verified 01/02/24 13:29 toxoids [TETANUS & DIPHTHERIA TOXOIDS] isosorbide AdvReac BP drops, Verified 01/02/24 13:29 headache PFSH <ZACKARY Hooper - Last Filed: 05/05/24 23:11> PFS Disclaimer: The information contained in this section may have been updated after the patient was seen, as this information can be updated by other users. Medical History (Updated 05/05/24 @ 21:46 by Felisha Michelle RN) Symptoms, such as flushing, sleeplessness, headache, lack of concentration, associated with the menopause Adnexal tenderness, left Status post placement of implantable loop recorder History of eclampsia Unstable angina Hx of nephrolithotomy with removal of calculi Depression Fibromyalgia GERD (gastroesophageal reflux disease) Hypertension Coronary artery disease Tobacco abuse disorder History of asthma [id number] syndrome manifesting as chronic shortness of breath Right radial artery thrombus HLD (hyperlipidemia) Tobacco use Coronary artery disease Pericarditis Adverse reaction to COVID-19 vaccine Suicidal ideation Antidepressant discontinuation syndrome (~07/04/22) Lumbar radiculopathy CVA (cerebral vascular accident) Type 2 diabetes mellitus History of paroxysmal supraventricular tachycardia Hereditary hemochromatosis SVT (supraventricular tachycardia) Diabetes Surgical History History of loop recorder H/O gastric sleeve H/O: hysterectomy Hx laparoscopic cholecystectomy History of coronary artery stent placement Previous section Family History Other Asthma Cancer Coronary artery disease Diabetes FHx: mental i
--- NOTE | 2024-05-05 18:46 | ECG_ITS ---
APPROVED REPORT Exam: Resting ECG HR:60 bpm ECG Measurements Heart Rate 60 AXES MN 162 P 17 QRSd 101 QRS -16 QT 436 T 15 QTc 436 Conclusion SINUS RHYTHM LOW QRS VOLTAGE IN PRECORDIAL LEADS [QRS DEFLECTION < 1.0 mV IN CHEST LEADS] BORDERLINE ECG Electronically signed by : MARIALUISA TIDWELL, 05/06/2024 00:31:57
--- NOTE | 2024-05-05 18:56 | CT_ITS ---
PROCEDURE INFORMATION: Exam: CTA Neck With Contrast Exam date and time: 05/05/2024 8:14 PM Age: 49 years old Clinical indication: Dizziness and giddiness TECHNIQUE: Imaging protocol: Computed tomographic angiography of the neck with contrast. Exam focused on the cervical segments of the vasculature. 3D rendering (Not supervised by radiologist): MIP and/or 3D reconstructed images were created by the technologist. Radiation optimization: All CT scans at this facility use at least one of these dose optimization techniques: automated exposure control; mA and/or kV adjustment per patient size (includes targeted exams where dose is matched to clinical indication); or iterative reconstruction. Contrast material: ISOVUE 370; Contrast volume: 80 ml; Contrast route: INTRAVENOUS (IV); COMPARISON: CT ANGIO HEAD 05/05/2024 8:14 PM FINDINGS: Right common carotid artery: No stenosis. No dissection or occlusion. Right internal carotid artery: No stenosis of the extracranial segment. No dissection or occlusion. Right external carotid artery: No occlusion or stenosis of the origin. Left common carotid artery: No stenosis. No dissection or occlusion. Left internal carotid artery: No stenosis of the extracranial segment. No dissection or occlusion. Left external carotid artery: No occlusion or stenosis of the origin. Right vertebral artery: No stenosis. No dissection or occlusion. Left vertebral artery: No stenosis. No dissection or occlusion. Pharynx: Normal fossa of Rosenmuller. Normal tonsillar pillars. Larynx: Normal epiglottis. Symmetric vocal folds. Thyroid: Homogeneous thyroid. Soft tissues: Normal. No significant soft tissue swelling. Bones/joints: No acute fracture. Cervical spinal canal is widely patent. No significant neural foraminal stenosis. Lungs: Lung apices are notable for mild bronchial wall thickening. Clear lung apices. IMPRESSION: No evidence of hemodynamically significant stenosis of the carotid or vertebral arteries in the neck. REFERENCES: NASCET CRITERIA. The degree of stenosis in the cervical segment of the internal carotid artery is based on NASCET criteria. Normal is no stenosis. Mild is less than 50% stenosis. Moderate is 50-69% stenosis. Severe is 70% to 99% stenosis. Total occlusion is no detectable patent lumen.
--- NOTE | 2024-05-05 18:56 | CT_ITS ---
PROCEDURE INFORMATION: Exam: CTA Head With Contrast, Arteriography Exam date and time: 05/05/2024 8:14 PM Age: 49 years old Clinical indication: Dizziness and giddiness TECHNIQUE: Imaging protocol: Computed tomographic angiography of the head with contrast. Exam focused on the arteries. 3D rendering (Not supervised by radiologist): MIP and/or 3D reconstructed images were created by the technologist. Radiation optimization: All CT scans at this facility use at least one of these dose optimization techniques: automated exposure control; mA and/or kV adjustment per patient size (includes targeted exams where dose is matched to clinical indication); or iterative reconstruction. Contrast material: ISOVUE 370; Contrast volume: 80 ml; Contrast route: INTRAVENOUS (IV); COMPARISON: CT HEAD/BRAIN WO CON 05/05/2024 8:11 PM FINDINGS: ANTERIOR CIRCULATION: Right internal carotid artery: Intracranial segment is patent with no significant stenosis. No aneurysm. Right middle cerebral artery: No occlusion or significant stenosis. No aneurysm. Right anterior cerebral artery: No occlusion or significant stenosis. No aneurysm. Left internal carotid artery: Intracranial segment is patent with no significant stenosis. No aneurysm. Left middle cerebral artery: No occlusion or significant stenosis. No aneurysm. Left anterior cerebral artery: No occlusion or significant stenosis. No aneurysm. POSTERIOR CIRCULATION: Right vertebral artery: No occlusion or significant stenosis. No aneurysm. Left vertebral artery: No occlusion or significant stenosis. No aneurysm. Basilar artery: No occlusion or significant stenosis. No aneurysm. Right posterior cerebral artery: No occlusion or significant stenosis. No aneurysm. Left posterior cerebral artery: No occlusion or significant stenosis. No aneurysm. Brain: No definite mass, mass effect, or midline shift. Cerebral ventricles: No ventriculomegaly. Bones/joints: Unremarkable. No acute fracture. Soft tissues: Unremarkable. IMPRESSION: No findings of acute large vessel occlusion. No vascular malformation, aneurysm, or significant intracranial atherosclerosis.
--- NOTE | 2024-05-05 18:58 | CT_ITS ---
PROCEDURE INFORMATION: Exam: CT Head Without Contrast Exam date and time: 05/05/2024 8:11 PM Age: 49 years old Clinical indication: Dizziness TECHNIQUE: Imaging protocol: Computed tomography of the head without contrast. Radiation optimization: All CT scans at this facility use at least one of these dose optimization techniques: automated exposure control; mA and/or kV adjustment per patient size (includes targeted exams where dose is matched to clinical indication); or iterative reconstruction. COMPARISON: MR VENOGRAPHY HEAD WO/W CON 01/30/2023 9:20 AM FINDINGS: Brain: No hemorrhage. Unremarkable white matter. No mass effect. Preserved ordonez-white interfaces. Cerebral ventricles: No ventriculomegaly. Paranasal sinuses: Visualized sinuses are unremarkable. No fluid levels. Mastoid air cells: Visualized mastoid air cells are well aerated. Normal symmetric internal auditory canals. Bones: Unremarkable. No acute fracture. Soft tissues: Unremarkable. IMPRESSION: No evidence of acute intracranial hemorrhage, mass effect, or edema.
[2024-05-05 19:00] VITALS: BP 126/78; PULSE 60; O2SAT 100
[2024-05-05 19:09] LABS: Basophils # 0.1 K/mm3 (0-0.2); Basophils % 0.8 % (0.1-2.0); Eosinophils # 0.1 K/mm3 (0.0-0.4); Eosinophils % 1.2 % (0.1-12.0); Hematocrit 41.8 % (37.0-47.0); Hemoglobin 13.1 g/dL (12.2-16.2); Lymphocytes # 1.2 K/mm3 (0.7-4.5); Lymphocytes % 21.1 % (10-50); Mean Corpuscular HGB Conc 31.3 g/dL (31.8-35.4); Mean Corpuscular Hemoglobin 29.6 pg (27.0-31.2); Mean Corpuscular Volume 94.6 fl (81-99); Monocytes # 0.3 K/mm3 (0.1-1.0); Monocytes % 5.5 % (1.7-9.3); Neutrophils # 4.1 K/mm3 (1.8-7.8); Neutrophils % 71.5 % (37.0-80.0); Platelet Count 182 K/mm3 (142-424); Red Blood Count 4.42 M/mm3 (4.20-5.40); Red Cell Distribution Width 13.5 % (11.5-17.5); White Blood Count 5.7 K/mm3 (4.8-10.8)
[2024-05-05 19:14] LABS: Alanine Aminotransferase 17 U/L (12-78); Albumin Level 3.6 g/dl (3.5-5.0); Albumin/Globulin Ratio 1.2 (1.1-1.8); Alkaline Phosphatase 39 U/L (38-126); Anion Gap 5.1 mEq/L (5-15); Aspartate Amino Transferase 29 U/L (14-36); Bilirubin,Total 0.6 mg/dl (0.2-1.3); Blood Urea Nitrogen 18 mg/dl (7-17); Calcium 8.6 mg/dl (8.4-10.2); Carbon Dioxide 28 mmol/L (22.0-30.0); Chloride 107 mmol/L (98-107); Creatinine Clearance Estimated 159 mL/min (50-200); Estimated Glomerular Filt Rate 131 ml/min (>60); GFR (African American) 158 ML/MIN (>60); Globulin 2.9 g/dL (1.3-3.2); Glucose 133 mg/dl (74-100); Magnesium 1.7 mg/dl (1.6-2.3); Potassium 4.1 mmoL/L (3.5-5.1); Sodium 136 mmol/L (136-145); Total Protein,Serum 6.5 g/dl (6.3-8.2)
[2024-05-05 19:19] LABS: C-Reactive Protein 0.4 mg/L (0-4)
[2024-05-05 19:30] LABS: Troponin I < 0.01 ng/ml (0.00-0.034)
[2024-05-05 19:34] LABS: Free Thyroxine Index 2.7 ug/dL (5.93-13.13); T4 (Thyroxine) 8.1 ug/dl (5.53-11.0); Triiodothryronine (T3) Uptake 33 % (23.5-40.5)
[2024-05-05 19:47] LABS: Thyroid Stimulating Hormone 0.64 uIU/mL (0.465-4.68)
[2024-05-05 20:43] LABS: Microscopic, Urine URINE MICROSCOPIC (MICROSCOPIC)
[2024-05-05 20:47] LABS: Appearance,Urine CLEAR (Clear); Bilirubin,Urine Negative (Negative); Blood, Urine Negative (Negative); Color,Urine YELLOW (Yellow); Glucose,Urine (UA) Negative (Negative); Ketones,Urine Negative (Negative); Leukocyte Esterase,Urine Negative (Negative); Nitrate,Urine Negative (Negative); PH,Urine 7.5 (5.0-8.5); Protein,Urine Negative (Negative); Specific Gravity, Urine 1.015 (1.005-1.030)
[2024-05-05 21:00] LABS: Amphetamine/Metha Screen,Urine Negative ng/ml (<1000)
[2024-05-05 21:02] LABS: Phencyclidine Screen,Urine Negative ng/ml (<25)
[2024-05-05 21:03] LABS: Barbiturates Screen,Urine Negative ng/ml (<200); RBC,Urine Occasional #/hpf (0-3)
[2024-05-05 21:04] LABS: Amorphous Sediment,Urine 3+ /lpf; Bacteria,Urine 1+ /lpf; Benzodiazepines Screen,Urine Negative ng/ml (<200)
[2024-05-05 21:05] LABS: Cannabinoid Screen,Urine Negative ng/ml (<50); Cocaine Screen,Urine Negative ng/ml (<300)
[2024-05-05 21:06] LABS: Methadone Screen,Urine Negative ng/ml (<300)
[2024-05-05 21:07] LABS: Opiate Screen,Urine Negative ng/ml (<300)
--- NOTE | 2024-05-05 21:22 | PC.NURSE ---
SPEAKING WITH COTY FOR PCP FOR THIS PATIENT. CRUZ IS AWARE.
[2024-05-05 21:44] VITALS: BP 123/83; PULSE 82; RESP 18; TEMP 37.1; O2SAT 98
[2024-05-05 22:00] VITALS: BP 131/75; PULSE 69; RESP 18; TEMP 36.7; O2SAT 100; BMI 29.3
--- NOTE | 2024-05-05 22:02 | PC.NURSE ---
patient arrived to floor via wheelchair @21:58
[2024-05-05 22:46] LABS: Troponin I < 0.01 ng/ml (0.00-0.034)
[2024-05-05 23:00] VITALS: PULSE 81
[2024-05-06] VITALS: BP 110/65; PULSE 76; PULSE 81; PULSE 84; RESP 16; TEMP 36.5; O2SAT 96
[2024-05-06 01:52] LABS: Erythrocyte Sedimentation Rate 8 mm/hr (0-20)
[2024-05-06 02:04] LABS: Troponin I < 0.01 ng/ml (0.00-0.034)
[2024-05-06 04:00] VITALS: BP 106/62; PULSE 70; RESP 18; TEMP 36.7; O2SAT 95; BMI 29.0
--- NOTE | 2024-05-06 04:48 | PC.NURSE ---
pt admitted with dizziness. pt reports dizziness has improved while lying down but once she moves dizziness resumes. pt ambulated to br with 2 staff assist. nsr on monitor.
[2024-05-06 07:27] VITALS: BP 107/57; PULSE 66; RESP 18; TEMP 36.8; O2SAT 96
--- NOTE | 2024-05-06 07:59 | EXP.HP ---
History of Present Illness *Admission Date: 05/05/24 *Reason for visit:: Vertigo *History of present illness: Ms. Franco is a 49-year-old female with a history of anoxic brain injury with severe toxemia, type 2 diabetes mellitus now diet controlled after bariatric surgery, fibromyalgia, kidney stones, SVT followed by Dr. Zhong, weight loss with weight gain now.; Also anxiety, depression PTSD, hereditary hemochromatosis, cardiac stents, and stroke who presented to [facility] emergency room for evaluation after experiencing vertigo and dizziness for 3 to 4 days. The dizziness actually started on 05/02/2024 and worsened over the weekend. She describes the room spinning and ongoing dizziness. She was unable to get out of bed. She also experienced nausea with these episodes of the room spinning but did not vomit. She denies respiratory symptoms. She does describe some palpitations. She was notified by cardiology that her loop recorder indicated a bradycardia on 05/03/2024 and was scheduled for appointment with cardiology today. She did try to go to work last night but was unable to function due to the dizziness and actually had her bring her home from work at [employer]. With evaluation lab work data showed a BUN of 18 and creatinine of 0.5. TSH was normal with a low free T4. She received acetaminophen, diazepam 5 mg IV, meclizine 25 mg one-time, Solu-Medrol 125 mg and Zofran 8 mg; she was started on normal saline IV. CTA of the head revealed no acute findings no vascular malformation. CTA of the neck revealed no evidence of hemodynamically significant stenosis of the carotids or vertebral arteries in the neck. Head CT showed no evidence of acute intracranial hemorrhage, mass effect, or edema. He did receive a crystalloid bolus as well. Patient was observed in the ER and with repeat evaluation she was unable to stand due to dizziness. She was admitted for further evaluation and treatment. This morning patient continues to be dizzy. She really does not remember much after receiving the IV Valium and slept after this. Upon awakening she was dizzy. She was able to eat a few bites for breakfast. She was assisted to the bathroom with her dizziness. [facility] Disclaimer: The information contained in this section may have been updated after the patient was seen, as this information can be updated by other users. Medical History (Updated 05/06/24 @ 08:23 by Ashley Lopez APRN) Symptoms, such as flushing, sleeplessness, headache, lack of concentration, associated with the menopause Adnexal tenderness, left Status post placement of implantable loop recorder History of eclampsia Unstable angina Hx of nephrolithotomy with removal of calculi Depression Fibromyalgia GERD (gastroesophageal reflux disease) Hypertension Coronary artery disease Tobacco abuse disorder History of asthma [id number] syndrome manifesting as chronic shortness of breath Right radial artery thrombus HLD (hyperlipidemia) Tobacco use Coronary artery disease Pericarditis Adverse reaction to COVID-19 vaccine Suicidal ideation Antidepressant discontinuation syndrome (~07/04/22) Lumbar radiculopathy CVA (cerebral vascular accident) Type 2 diabetes mellitus History of paroxysmal supraventricular tachycardia Hereditary hemochromatosis SVT (supraventricular tachycardia) Diabetes Surgical History History of loop recorder H/O gastric sleeve H/O: hysterectomy Hx laparoscopic cholecystectomy History of coronary artery stent placement Previous section Family History Other Asthma Cancer Coronary artery disease Diabetes FHx: mental illness Heart attack Hyperlipidemia Hypertension Kidney disease Social History (Updated 05/06/24 @ 08:09 by Ashley Lopez APRN) Smoking Status: Current every day smoker tobacco type: cigarettes packs pe
[2024-05-06 08:00] VITALS: PULSE 80
--- NOTE | 2024-05-06 10:32 | HMH.PTEV ---
Physical Therapy Evaluation Rehab PT IP Evaluation Start: 05/06/24 08:48 Freq: ONCE Status: Active Protocol: Document 05/06/24 10:21 PHORANDELL (Rec: 05/06/24 10:31 PHORNE [id number]) Subjective/History History History 49 yowf adm to [facility] with vertigo/dizziness x ~ 3 days. She reports symptom duration of anywhere between 15-30 mins with many varied head positions and movements. She has PMH of anoxic brain injury with severe toxemia, type 2 diabetes mellitus now diet controlled after bariatric surgery, fibromyalgia, kidney stones, SVT followed by Dr. Zhong. She reports prior symptoms of dizziness related to cardiac issue, but those were completely different symptoms. Subjective Subjective Currently she reports significant dizziness with any head movements. [place]-Hallpike testing revealed L side positive upbeating and left torsional nystagmus lasting ~ 30 sec. Pt then treated with L side CAR FERRY CAPTAIN technique for assumed PSC canalithiasis on the L side x 2 with 4-5 min break between treatments. New diagnosis of cancer in past 12 No months? Rehab PT IP Eval Objective Appearance Patient Behavior Appropriate Patient Orientation Person,Place,Time Difficulty following instructions none Speech Pattern Clear Balance Ability to Arise Able, uses arms to help Sitting Balance Steady, safe Transfers Bed Transfer Ability Independent Rehab PT IP prob,goals,plan Problems Date of Evaluation: 05/06/24 Discharge Plan PT Discharge Plan Pt with significant improvement in vertigo symptoms after CAR FERRY CAPTAIN treatment for BPPV performed. She is appropriate to return home once medically stable for d/c. Eval Complexity Eval Charge Codes 69729 - High Complexity PHYSICIAN CERTIFICATION: I certify the specif
[2024-05-06 12:00] VITALS: BP 106/65; PULSE 54; PULSE 90; RESP 18; TEMP 36.5; O2SAT 98
--- NOTE | 2024-05-06 14:23 | EXP.DC.SUM ---
General Admission date:: 05/05/24 Discharge date: 05/06/24 HPI HPI HPI: Ms. Franco is a 49-year-old female with a history of anoxic brain injury with severe toxemia, type 2 diabetes mellitus now diet controlled after bariatric surgery, fibromyalgia, kidney stones, SVT followed by Dr. Zhong, weight loss with weight gain now.; Also anxiety, depression PTSD, hereditary hemochromatosis, cardiac stents, and stroke who presented to [facility] emergency room for evaluation after experiencing vertigo and dizziness for 3 to 4 days. The dizziness actually started on 05/02/2024 and worsened over the weekend. She describes the room spinning and ongoing dizziness. She was unable to get out of bed. She also experienced nausea with these episodes of the room spinning but did not vomit. She denies respiratory symptoms. She does describe some palpitations. She was notified by cardiology that her loop recorder indicated a bradycardia on 05/03/2024 and was scheduled for appointment with cardiology today. She did try to go to work last night but was unable to function due to the dizziness and actually had her bring her home from work at [facility] [employer]. With evaluation lab work data showed a BUN of 18 and creatinine of 0.5. TSH was normal with a low free T4. She received acetaminophen, diazepam 5 mg IV, meclizine 25 mg one-time, Solu-Medrol 125 mg and Zofran 8 mg; she was started on normal saline IV. CTA of the head revealed no acute findings no vascular malformation. CTA of the neck revealed no evidence of hemodynamically significant stenosis of the carotids or vertebral arteries in the neck. Head CT showed no evidence of acute intracranial hemorrhage, mass effect, or edema. He did receive a crystalloid bolus as well. Patient was observed in the ER and with repeat evaluation she was unable to stand due to dizziness. She was admitted for further evaluation and treatment. This morning patient continues to be dizzy. She really does not remember much after receiving the IV Valium and slept after this. Upon awakening she was dizzy. She was able to eat a few bites for breakfast. She was assisted to the bathroom with her dizziness. Hospital Course Hospital Course Hospital Course: Patient received diazepam 5 mg IV in the ER along with IV fluids, Zofran, meclizine, and Solu-Medrol. After receiving the Valium IV patient did not recall much of anything after admission until when up this morning to go to the bathroom. She remained dizzy and required 2 man assist for this activity. She was able to eat a little bit of breakfast but remained dizzy and with movement of the head she experience vertigo. This was associated with nausea. She was seen by physical therapy who performed the Maximiliano maneuver and treatment after which patient felt much better. At this point she was felt to be stable to go home and to follow-up in the office. Prescription was given for meclizine. Follow-up in the office of [facility] on 05/15/2024. She was also to follow-up with cardiology for her arrhythmias on 05/20/2024. Exam Data for Last 24 hours Vital signs and Labs for Last 24 Hours: Temp Pulse Resp BP Pulse Ox O2 Del Method 97.7 F 54 L 18 106/65 L 98 Room Air 05/06/24 12:00 05/06/24 12:00 05/06/24 12:00 05/06/24 12:00 05/06/24 12:00 05/06/24 13:00 Laboratory Results - last 24 hr 05/05/24 18:33: WBC 5.7, RBC 4.42, Hgb 13.1, Hct 41.8, MCV 94.6, MCH 29.6, MCHC 31.3 L, RDW 13.5, Plt Count 182, MPV 8.0, Neut % (Auto) 71.5, Lymph % (Auto) 21.1, [place] % (Auto) 5.5, Eos % (Auto) 1.2, Baso % (Auto) 0.8, Neut # (Auto) 4.1, Lymph # (Auto) 1.2, [place] # (Auto) 0.3, Eos # (Auto) 0.1, Baso # (Auto) 0.1, ESR Cancelled, Sodium 136, Potassium 4.1, Chloride 107, Carbon Dioxide 28, Anion Gap 5.1, BUN 18 H, Creatinine 0.50 L, Estimated Creat Clear 159, Estimated GFR 131, Est GFR ( Amer) 158, Glucose 133 H, Calcium 8.6, Magnesium 1.7, Total Bilirubin 0.6, AST
--- NOTE | 2024-05-08 13:44 | CARE MANAGER ---
Contacted patient related to hospital discharge. She states she is feeling better. She hasn't picked up medication yet, but hasn't needed it. She is aware of follow up appointments and denies any questions. MARGI Trivedi
== END 2024-05-06 14:10 | disposition home or self-care (01) ==
LOC: ER 19:05 → 2ND 21:46
PROVIDERS: Physician Assistant; Admitting Provider Family Medicine; Emergency Provider Emergency Medicine; PCP Family Medicine; Visit Provider Family Medicine
DX: H81.10 Benign paroxysmal vertigo, unspecified ear (principal); R00.1 Bradycardia, unspecified; I25.10 Atherosclerotic heart disease of native coronary artery without angina pectoris; E11.9 Type 2 diabetes mellitus without complications; F32.9 Major depressive disorder, single episode, unspecified; K21.9 Gastro-esophageal reflux disease without esophagitis; M79.7 Fibromyalgia; I10 Essential (primary) hypertension; Z95.5 Presence of coronary angioplasty implant and graft; E83.110 Hereditary hemochromatosis; G93.40 Encephalopathy, unspecified; Z09 Encounter for follow-up examination after completed treatment for conditions other than malignant neoplasm; Z86.69 Personal history of other diseases of the nervous system and sense organs; F17.210 Nicotine dependence, cigarettes, uncomplicated; E78.5 Hyperlipidemia, unspecified
CPT/HCPCS: 36415; 70450; 70496; 70498; 80050; 80053; 80307; 81001; 83735; 84436; 84443; 84479; 84484; 85025; 85651; 86140; 93005; 97163; 99285; G0378; J0131; J2405; J2919; J3360; J7120; Q9967

== ENCOUNTER 2024-05-16 14:30 | Outpatient (CLI) | payer BC, SELFPAY ==
[2024-05-16 15:12] LABS: Basophils # 0.1 K/mm3 (0-0.2); Basophils % 2.2 % (0.1-2.0); Eosinophils # 0.1 K/mm3 (0.0-0.4); Hematocrit 48.6 % (37.0-47.0); Hemoglobin 15.1 g/dL (12.2-16.2); Lymphocytes # 1.4 K/mm3 (0.7-4.5); Lymphocytes % 32.9 % (10-50); Mean Corpuscular HGB Conc 31.2 g/dL (31.8-35.4); Mean Corpuscular Volume 92.9 fl (81-99); Mean Platelet Volume 7.9 fl (7.4-10.4); Monocytes # 0.3 K/mm3 (0.1-1.0); Monocytes % 6.8 % (1.7-9.3); Neutrophils # 2.3 K/mm3 (1.8-7.8); Neutrophils % 55.2 % (37.0-80.0); Platelet Count 233 K/mm3 (142-424); Red Blood Count 5.23 M/mm3 (4.20-5.40); Red Cell Distribution Width 13.6 % (11.5-17.5); White Blood Count 4.2 K/mm3 (4.8-10.8)
[2024-05-16 15:19] LABS: Alanine Aminotransferase 23 U/L (12-78); Albumin Level 4.4 g/dl (3.5-5.0); Albumin/Globulin Ratio 1.4 (1.1-1.8); Alkaline Phosphatase 48 U/L (38-126); Anion Gap 9.1 mEq/L (5-15); Aspartate Amino Transferase 31 U/L (14-36); Bilirubin,Total 0.8 mg/dl (0.2-1.3); Blood Urea Nitrogen 17 mg/dl (7-17); Calcium 9.6 mg/dl (8.4-10.2); Carbon Dioxide 29 mmol/L (22.0-30.0); Chloride 105 mmol/L (98-107); Cholesterol 247 mg/dl (140-200); Estimated Glomerular Filt Rate 106 ml/min (>60); GFR (African American) 128 ML/MIN (>60); Globulin 3.2 g/dL (1.3-3.2); Glucose 101 mg/dl (74-100); HDL Cholesterol 83 mg/dl (40-60); Potassium 4.1 mmoL/L (3.5-5.1); Sodium 139 mmol/L (136-145); Total Protein,Serum 7.6 g/dl (6.3-8.2); Triglycerides 79 mg/dl (30-150); VLDL Cholesterol 16 mg/dL (0-40)
[2024-05-16 15:36] LABS: Hemoglobin A1C 5.6 % (4.0-6.0)
[2024-05-16 15:49] LABS: Thyroid Stimulating Hormone 1.16 uIU/mL (0.465-4.68)
[2024-05-16 16:08] LABS: Vitamin B12 493 pg/mL (239-931)
[2024-05-16 16:19] LABS: 25-OH Vitamin D, Total 23.2 ng/mL (30-100); Free T4 (Free Thyroxine) 1.23 ng/dl (0.78-2.19)
[2024-05-16 17:25] LABS: Iron 144 ug/dL (37-170)
[2024-05-16 17:35] LABS: Total Iron Binding Capacity 425 ug/dL (265-497)
[2024-05-16 17:36] LABS: Direct LDL Cholesterol 128.73 mg/dL (100-129)
[2024-05-16 18:01] LABS: Ferritin 14.5 ng/ml (6.24-137)
== END 2024-05-16 23:59 | disposition home or self-care (01) ==
LOC: LAB 14:31
PROVIDERS: PCP Family Medicine; Visit Provider Physician Assistant
DX: E53.8 Deficiency of other specified B group vitamins (principal); E11.9 Type 2 diabetes mellitus without complications; E55.9 Vitamin D deficiency, unspecified; H81.10 Benign paroxysmal vertigo, unspecified ear; I10 Essential (primary) hypertension; E78.00 Pure hypercholesterolemia, unspecified
CPT/HCPCS: 80050; 80053; 80061; 82306; 82607; 82728; 83036; 83540; 83550; 84439; 84443; 85025

== ENCOUNTER 2024-08-13 15:34 | Emergency (ER) | payer BC, SELFPAY ==
[2024-08-13] VITALS (7 sets, daily range): BP systolic 107–126; BP diastolic 72–84; PULSE 56–68; RESP 13; TEMP 36.7; O2SAT 98–100; BMI 24.1
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
--- NOTE | 2024-08-13 15:48 | CT_ITS ---
PROCEDURE INFORMATION: Exam: CT Abdomen And Pelvis With Contrast Exam date and time: 08/13/2024 4:19 PM Age: 49 years old Clinical indication: Abdominal pain; Flank; Right; Additional info: Right flank and rlq pain TECHNIQUE: Imaging protocol: Computed tomography of the abdomen and pelvis with contrast. Radiation optimization: All CT scans at this facility use at least one of these dose optimization techniques: automated exposure control; mA and/or kV adjustment per patient size (includes targeted exams where dose is matched to clinical indication); or iterative reconstruction. Contrast material: ISOVUE; Contrast volume: 75 ml; Contrast route: IV; COMPARISON: CT ABDOMEN PELVIS W CON 01/22/2023 1:02 AM FINDINGS: Lungs: Lung bases are clear. Liver: Fatty liver changes with associated hepatomegaly measuring 20.5 cm. Liver otherwise unremarkable. Gallbladder and biliary ducts: Status post cholecystectomy. No evident bile duct dilatation allowing for prior cholecystectomy. Pancreas: Normal. No ductal dilation. Spleen: A round homogeneously enhancing 5 mm lesion in the superolateral spleen on image 10 of series 2 and image 50 of series 601. Spleen otherwise unremarkable. Adrenal glands: Normal. No mass. Kidneys and ureters: Normal. No hydronephrosis. Stomach and bowel: Gastric sleeve procedure. Appendix: Appendix is normal. No evidence of appendicitis. Intraperitoneal space: Stable 3 cm simple cyst in the left iliac fossa centered on axial image 80 of series 2 dating back to 02/28/2022. This might reflect a duplication cyst versus a adnexal cyst. Vasculature: Unremarkable. No abdominal aortic aneurysm. Lymph nodes: Unremarkable. No enlarged lymph nodes. Urinary bladder: Unremarkable as visualized. Reproductive: Hysterectomy. Bones/joints: Unremarkable. No acute fracture. Soft tissues: Unremarkable. IMPRESSION: 1. No acute abnormalities of the abdomen and pelvis. 2. A 5 mm enhancing lesions superolateral spleen. This is not clearly seen on prior contrast CTs of 01/22/2023 of 11/29/2022. This could be due to contrast timing differences. A developing lesion cannot be entirely excluded. Recommend evaluation with non-emergent MRI. 3. Additional nonemergent findings as above.
[2024-08-13] MEDS: ONDANSETRON 4MG/2ML VIAL 4 MG IV (16:04)
[2024-08-13] MEDS: ACETAMINOPHEN 1,000MG/100ML VIAL 1000 MG IV (16:04)
[2024-08-13] MEDS: DEXAMETHASONE 4MG/ML 5ML MDV 10 MG IV (16:04)
[2024-08-13] MEDS: 0.9 % SODIUM CHLORIDE 1000ML 1,000 ML 999 ML IV (16:04)
[2024-08-13] MEDS: METHOCARBAMOL 500MG TABLET 500 MG PO (16:04)
[2024-08-13 16:06] LABS: Albumin Level 4.6 g/dl (3.5-5.0); Chloride 105 mmol/L (98-107); Potassium 4.1 mmoL/L (3.5-5.1); Sodium 141 mmol/L (136-145)
[2024-08-13 16:09] LABS: Alanine Aminotransferase 15 U/L (12-78); Albumin/Globulin Ratio 1.8 (1.1-1.8); Alkaline Phosphatase 35 U/L (38-126); Anion Gap 10.1 mEq/L (5-15); Aspartate Amino Transferase 23 U/L (14-36); Bilirubin,Total 0.7 mg/dl (0.2-1.3); Blood Urea Nitrogen 16 mg/dl (7-17); Carbon Dioxide 30 mmol/L (22.0-30.0); Creatinine Clearance Estimated 87 mL/min (50-200); Estimated Glomerular Filt Rate 76 ml/min (>60); GFR (African American) 92 ML/MIN (>60); Globulin 2.6 g/dL (1.3-3.2); Total Protein,Serum 7.2 g/dl (6.3-8.2)
[2024-08-13 16:10] LABS: Basophils # 0.1 K/mm3 (0-0.2); Calcium 9.2 mg/dl (8.4-10.2); Eosinophils # 0.1 K/mm3 (0.0-0.4); Eosinophils % 1.8 % (0.1-12.0); Glucose 107 mg/dl (74-100); Hematocrit 43.4 % (37.0-47.0); Hemoglobin 14.5 g/dL (12.2-16.2); Lymphocytes # 1.1 K/mm3 (0.7-4.5); Lymphocytes % 37.6 % (10-50); Mean Corpuscular HGB Conc 33.5 g/dL (31.8-35.4); Mean Corpuscular Hemoglobin 28.7 pg (27.0-31.2); Mean Corpuscular Volume 85.8 fl (81-99); Mean Platelet Volume 7.7 fl (7.4-10.4); Monocytes # 0.2 K/mm3 (0.1-1.0); Monocytes % 6.7 % (1.7-9.3); Neutrophils # 1.6 K/mm3 (1.8-7.8); Neutrophils % 51.9 % (37.0-80.0); Platelet Count 186 K/mm3 (142-424); Red Blood Count 5.05 M/mm3 (4.20-5.40); Red Cell Distribution Width 13.1 % (11.5-17.5)
[2024-08-13 16:18] LABS: Microscopic, Urine URINE MICROSCOPIC (MICROSCOPIC)
[2024-08-13 16:25] LABS: Appearance,Urine CLEAR (Clear); Bilirubin,Urine Negative (Negative); Blood, Urine Negative (Negative); Color,Urine YELLOW (Yellow); Glucose,Urine (UA) Negative (Negative); Ketones,Urine Negative (Negative); Leukocyte Esterase,Urine Negative (Negative); Nitrate,Urine Negative (Negative); Protein,Urine Negative (Negative); Specific Gravity, Urine 1.025 (1.005-1.030)
[2024-08-13] MEDS: IOPAMIDOL-370 (76%);100ML BOTTLE 75 ML IV (16:29)
[2024-08-13] MEDS: SODIUM CHLORIDE 0.9% 10ML SYR (RAD ONLY) 10 ML IV (16:29)
--- NOTE | 2024-08-13 16:29 | PC.NURSE ---
pt back from ct scan
[2024-08-13 16:46] LABS: Squamous Epithelial Cell,Urine 20-50 #/hpf (0-5)
[2024-08-13 16:47] LABS: Bacteria,Urine 3+ /lpf; Mucus,Urine 4+ /lpf
[2024-08-13 16:54] LABS: Lipase 63 U/L (23-300)
[2024-08-13 18:33] LABS: HIV (1&2) Antibody Rapid NONREACTIVE (NONREACTIVE)
[2024-08-14 06:26] LABS: HCV Ab Non Reactive (Non Reactive)
== END 2024-08-13 18:11 | disposition home or self-care (01) ==
PROVIDERS: Physician Assistant; Emergency Provider Emergency Medicine; PCP Family Medicine
DX: M54.41 Lumbago with sciatica, right side (principal); R10.31 Right lower quadrant pain
CPT/HCPCS: 74177; 80053; 81001; 83690; 85025; 86803; 87086; 87389; 96361; 96374; 96375; 99285; J0131; J1100; J2405; J7030; Q9967

== ENCOUNTER 2024-08-17 15:23 | Emergency (ER) | payer BC, SELFPAY ==
[2024-08-17 15:35] VITALS: BP 174/103; PULSE 61; RESP 20; TEMP 36.6; O2SAT 97; BMI 29.2
[2024-08-17 15:41] LABS: Apearance,Urine Cloudy (Clear); Bilirubin,Urine Negative (Negative); Blood, Urine 2+ (Negative); Color,Urine Dark Yellow (Yellow); Glucose,Urine (UA) Negative (Negative); Ketones,Urine TRACE (Negative); Protein,Urine 1+ (Negative); UTC Leukocyte Esterase,Urine 2+ (Negative); UTC Nitrate,Urine Positive (Negative); Urobilinogen,Urine 0.2 EU/dl (0.2)
[2024-08-17 15:46] VITALS: BP 159/82
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
[2024-08-17] MEDS: cefTRIAXone 1GM VIAL 1 GM IM (16:06)
[2024-08-17] MEDS: LIDOCAINE 1% 5ML PF VIAL IM (16:06)
[2024-08-17 16:09] VITALS: BP 159/82; PULSE 61; RESP 20; TEMP 36.6; O2SAT 97
--- NOTE | 2024-08-20 13:32 | PC.NURSE ---
REVIEWED URINE CULTURE WITH Gómez RODRIGUEZ APRN. NO CHANGES NEEDED AT THIS TIME
== END 2024-08-17 16:16 | disposition home or self-care (01) ==
PROVIDERS: Emergency Provider Nurse Practitioner; PCP Family Medicine
DX: N39.0 Urinary tract infection, site not specified (principal)
CPT/HCPCS: 81003; 87086; 87088; 87186; 96372; 99213; G0381; J0696

== ENCOUNTER 2024-11-03 20:28 | Inpatient (IN) | payer BC, SELFPAY ==
[2024-11-03] VITALS (8 sets, daily range): BP systolic 122–139; BP diastolic 65–92; PULSE 60–78; RESP 11–20; TEMP 36.6–36.8; O2SAT 100; BMI 30.1; BMI 29.8
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
--- NOTE | 2024-11-03 21:07 | CT_ITS ---
PROCEDURE INFORMATION: Exam: CTA Neck With Contrast Exam date and time: 11/03/2024 9:21 PM Age: 49 years old Clinical indication: Stroke-like symptoms; Other: Possible stroke, L GRAHAM, lue lle tingling TECHNIQUE: Imaging protocol: Computed tomographic angiography of the neck with contrast. Exam focused on the cervical segments of the vasculature. 3D rendering (Not supervised by radiologist): MIP and/or 3D reconstructed images were created by the technologist. Radiation optimization: All CT scans at this facility use at least one of these dose optimization techniques: automated exposure control; mA and/or kV adjustment per patient size (includes targeted exams where dose is matched to clinical indication); or iterative reconstruction. Contrast material: ISO 370; Contrast volume: 80 ml; Contrast route: INTRAVENOUS (IV); COMPARISON: CT ANGIO NECK 05/05/2024 8:14 PM FINDINGS: Right common carotid artery: No stenosis. No dissection or occlusion. Right internal carotid artery: No stenosis of the extracranial segment. No dissection or occlusion. Right external carotid artery: No occlusion or stenosis of the origin. Left common carotid artery: No stenosis. No dissection or occlusion. Left internal carotid artery: No stenosis of the extracranial segment. No dissection or occlusion. Left external carotid artery: No occlusion or stenosis of the origin. Right vertebral artery: No stenosis. No dissection or occlusion. Left vertebral artery: No stenosis. No dissection or occlusion. Soft tissues: Normal. No significant soft tissue swelling. Bones/joints: No acute fracture. IMPRESSION: No stenosis or occlusion. REFERENCES: NASCET CRITERIA. The degree of stenosis in the cervical segment of the internal carotid artery is based on NASCET criteria. Normal is no stenosis. Mild is less than 50% stenosis. Moderate is 50-69% stenosis. Severe is 70% to 99% stenosis. Total occlusion is no detectable patent lumen.
--- NOTE | 2024-11-03 21:07 | CT_ITS ---
PROCEDURE INFORMATION: Exam: CT Head Without Contrast Exam date and time: 11/03/2024 9:19 PM Age: 49 years old Clinical indication: Stroke-like symptoms; Other: Possible stroke, L GRAHAM, lue lle tingling TECHNIQUE: Imaging protocol: Computed tomography of the head without contrast. Radiation optimization: All CT scans at this facility use at least one of these dose optimization techniques: automated exposure control; mA and/or kV adjustment per patient size (includes targeted exams where dose is matched to clinical indication); or iterative reconstruction. Other technique: STROKE PROTOCOL was implemented. COMPARISON: CT ANGIO HEAD 05/05/2024 8:14 PM FINDINGS: Brain: Normal. No hemorrhage. Unremarkable white matter. No mass effect. Cerebral ventricles: No ventriculomegaly. Paranasal sinuses: Visualized sinuses are unremarkable. No fluid levels. Mastoid air cells: Visualized mastoid air cells are well aerated. Bones: Unremarkable. No acute fracture. Soft tissues: Unremarkable. IMPRESSION: No acute intracranial abnormality. ASSESSMENT: ASPECTS ([place] Stroke Program Early CT Score) is 10.
--- NOTE | 2024-11-03 21:07 | CT_ITS ---
PROCEDURE INFORMATION: Exam: CTA Head With Contrast, Arteriography Exam date and time: 11/03/2024 9:21 PM Age: 49 years old Clinical indication: Stroke-like symptoms; Other: Possible stroke, L GRAHAM, lue lle tingling TECHNIQUE: Imaging protocol: Computed tomographic angiography of the head with contrast. Exam focused on the arteries. 3D rendering (Not supervised by radiologist): MIP and/or 3D reconstructed images were created by the technologist. Radiation optimization: All CT scans at this facility use at least one of these dose optimization techniques: automated exposure control; mA and/or kV adjustment per patient size (includes targeted exams where dose is matched to clinical indication); or iterative reconstruction. Contrast material: ISO 370; Contrast volume: 80 ml; Contrast route: INTRAVENOUS (IV); COMPARISON: CT ANGIO HEAD 11/03/2024 9:21 PM FINDINGS: ANTERIOR CIRCULATION: Right internal carotid artery: Intracranial segment is patent with no significant stenosis. No aneurysm. Right middle cerebral artery: No occlusion or significant stenosis. No aneurysm. Right anterior cerebral artery: No occlusion or significant stenosis. No aneurysm. Left internal carotid artery: Intracranial segment is patent with no significant stenosis. No aneurysm. Left middle cerebral artery: No occlusion or significant stenosis. No aneurysm. Left anterior cerebral artery: No occlusion or significant stenosis. No aneurysm. POSTERIOR CIRCULATION: Right vertebral artery: No occlusion or significant stenosis. No aneurysm. Left vertebral artery: No occlusion or significant stenosis. No aneurysm. Basilar artery: No occlusion or significant stenosis. No aneurysm. Right posterior cerebral artery: No occlusion or significant stenosis. No aneurysm. Left posterior cerebral artery: No occlusion or significant stenosis. No aneurysm. Brain: No definite mass, mass effect, or midline shift. Cerebral ventricles: No ventriculomegaly. Bones/joints: Unremarkable. No acute fracture. Soft tissues: Unremarkable. IMPRESSION: No large vessel stenosis or occlusion.
[2024-11-03] MEDS: 0.9 % SODIUM CHLORIDE 50 ML VIAL IV (21:19)
[2024-11-03] MEDS: SODIUM CHLORIDE 0.9% 10ML SYR (RAD ONLY) 10 ML IV (21:20)
[2024-11-03] MEDS: IOPAMIDOL-370 (76%);100ML BOTTLE 80 ML IV (21:20)
[2024-11-03 21:34] LABS: Basophils % 0.8 % (0.1-2.0); Eosinophils % 0.8 % (0.1-12.0); Hematocrit 42.2 % (37.0-47.0); Hemoglobin 13.5 g/dL (12.2-16.2); Lymphocytes # 1.4 K/mm3 (0.7-4.5); Lymphocytes % 28.9 % (10-50); Mean Corpuscular Hemoglobin 27.4 pg (27.0-31.2); Mean Corpuscular Volume 85.8 fl (81-99); Mean Platelet Volume 9.6 fl (7.4-10.4); Monocytes # 0.4 K/mm3 (0.1-1.0); Monocytes % 7.6 % (1.7-9.3); Neutrophils # 3.1 K/mm3 (1.8-7.8); Neutrophils % 61.7 % (37.0-80.0); Platelet Count 175 K/mm3 (142-424); Red Blood Count 4.92 M/mm3 (4.20-5.40); Red Cell Distribution Width 13.3 % (11.5-17.5)
[2024-11-03 21:38] LABS: Albumin Level 4.4 g/dl (3.5-5.0); Chloride 105 mmol/L (98-107); Potassium 4.3 mmoL/L (3.5-5.1); Sodium 140 mmol/L (136-145)
[2024-11-03] MEDS: ACETAMINOPHEN 1,000MG/100ML VIAL 1000 MG IV (21:39)
[2024-11-03 21:40] LABS: Alanine Aminotransferase 23 U/L (12-78); Aspartate Amino Transferase 34 U/L (14-36); Blood Urea Nitrogen 18 mg/dl (7-17); Creatinine Clearance Estimated 137 mL/min (50-200); Estimated Glomerular Filt Rate 106 ml/min (>60); GFR (African American) 128 ML/MIN (>60)
[2024-11-03 21:41] LABS: Albumin/Globulin Ratio 1.8 (1.1-1.8); Alkaline Phosphatase 45 U/L (38-126); Anion Gap 11.3 mEq/L (5-15); Bilirubin,Total 0.5 mg/dl (0.2-1.3); Calcium 9.1 mg/dl (8.4-10.2); Carbon Dioxide 28 mmol/L (22.0-30.0); Cholesterol 178 mg/dl (140-200); Globulin 2.5 g/dL (1.3-3.2); Glucose 86 mg/dl (74-100); HDL Cholesterol 59 mg/dl (40-60); Total Protein,Serum 6.9 g/dl (6.3-8.2); Triglycerides 93 mg/dl (30-150); VLDL Cholesterol 19 mg/dL (0-40)
--- NOTE | 2024-11-03 21:42 | ECG_ITS ---
APPROVED REPORT Exam: Resting ECG HR:62 bpm ECG Measurements Heart Rate 62 AXES NJ 158 P -1 QRSd 92 QRS -45 QT 424 T 29 QTc 429 Conclusion SINUS RHYTHM PATTERN CONSISTENT WITH PULMONARY DISEASE LEFT ANTERIOR FASCICULAR BLOCK [QRS AXIS <= -45, QR IN I, RS IN II] ABNORMAL ECG Electronically signed by : KRISTINA GIL, 11/07/2024 06:09:00
[2024-11-03 21:52] LABS: Direct LDL Cholesterol 80.51 mg/dL (100-129)
[2024-11-03 21:54] LABS: Ethyl Alcohol < 10 mg/dl (0-10)
[2024-11-03 21:55] LABS: Troponin I < 0.01 ng/ml (0.00-0.034)
--- NOTE | 2024-11-03 22:02 | PC.NURSE ---
Spoke with [facility] for a stroke navigator. speaking with them at this time.
[2024-11-03 22:13] LABS: Activated Partial Thrombo Time 24.3 seconds (22.5-28.5); INR 0.85 (0.9-1.1); Prothrombin Time 9.5 seconds (9.2-12.1)
[2024-11-03] MEDS: ASPIRIN 81MG CHEWABLE TABLET 324 MG PO (22:17)
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
--- NOTE | 2024-11-03 23:56 | PC.NURSE ---
Patient arrived to floor via wheelchair from ED at 23:14.
[2024-11-04 01:19] LABS: Troponin I < 0.01 ng/ml (0.00-0.034)
[2024-11-04 03:35] VITALS: BP 130/64; PULSE 62; RESP 18; TEMP 36.8; O2SAT 97; BMI 29.7
[2024-11-04 05:11] LABS: Troponin I < 0.01 ng/ml (0.00-0.034)
[2024-11-04] MEDS: KETOROLAC 30MG/ML VIAL 15 MG IV (06:26)
[2024-11-04 06:33] LABS: Basophils # 0.1 K/mm3 (0-0.2); Basophils % 1.1 % (0.1-2.0); Eosinophils # 0.1 K/mm3 (0.0-0.4); Hematocrit 38.9 % (37.0-47.0); Hemoglobin 12.6 g/dL (12.2-16.2); Lymphocytes # 1.6 K/mm3 (0.7-4.5); Lymphocytes % 34.6 % (10-50); Mean Corpuscular HGB Conc 32.4 g/dL (31.8-35.4); Mean Corpuscular Hemoglobin 27.9 pg (27.0-31.2); Mean Corpuscular Volume 86.3 fl (81-99); Mean Platelet Volume 10.5 fl (7.4-10.4); Monocytes # 0.4 K/mm3 (0.1-1.0); Monocytes % 7.9 % (1.7-9.3); Neutrophils # 2.5 K/mm3 (1.8-7.8); Platelet Count 152 K/mm3 (142-424); Red Blood Count 4.51 M/mm3 (4.20-5.40); Red Cell Distribution Width 13.4 % (11.5-17.5); White Blood Count 4.6 K/mm3 (4.8-10.8)
--- NOTE | 2024-11-04 06:37 | PC.NURSE ---
patient stated that she would like to be seen by the physicians in Dr. Bustamante office because they know me , notified boarding house cook, notified hospitalist, spoke with Dr. Amezquita regarding this. he stated that at this time we would leave her under the hospitalist.
[2024-11-04 06:59] LABS: Microscopic, Urine URINE MICROSCOPIC (MICROSCOPIC)
[2024-11-04 07:30] LABS: Appearance,Urine CLEAR (Clear); Bilirubin,Urine Negative (Negative); Blood, Urine Negative (Negative); Color,Urine YELLOW (Yellow); Glucose,Urine (UA) Negative (Negative); Ketones,Urine 1+ (Negative); Leukocyte Esterase,Urine Negative (Negative); Nitrate,Urine Negative (Negative); PH,Urine 6.5 (5.0-8.5); Protein,Urine Negative (Negative); Specific Gravity, Urine 1.015 (1.005-1.030); Urobilinogen,Urine 0.2 EU/dl (0.2)
[2024-11-04 07:42] LABS: Albumin Level 3.7 g/dl (3.5-5.0); Chloride 108 mmol/L (98-107)
[2024-11-04 07:43] LABS: Potassium 4.3 mmoL/L (3.5-5.1); Sodium 138 mmol/L (136-145)
[2024-11-04 07:45] LABS: Alanine Aminotransferase 20 U/L (12-78); Aspartate Amino Transferase 52 U/L (14-36); Blood Urea Nitrogen 23 mg/dl (7-17); Creatinine Clearance Estimated 135 mL/min (50-200); Estimated Glomerular Filt Rate 106 ml/min (>60); GFR (African American) 128 ML/MIN (>60)
[2024-11-04 07:46] LABS: Albumin/Globulin Ratio 1.5 (1.1-1.8); Alkaline Phosphatase 58 U/L (38-126); Anion Gap 11.3 mEq/L (5-15); Bilirubin,Total 0.6 mg/dl (0.2-1.3); Calcium 8.8 mg/dl (8.4-10.2); Carbon Dioxide 23 mmol/L (22.0-30.0); Globulin 2.4 g/dL (1.3-3.2); Glucose 74 mg/dl (74-100); Magnesium 1.9 mg/dl (1.6-2.3); Total Protein,Serum 6.1 g/dl (6.3-8.2)
[2024-11-04 07:49] LABS: Squamous Epithelial Cell,Urine Occasional #/hpf (0-5)
[2024-11-04 08:00] VITALS: BP 120/59; PULSE 64; RESP 17; TEMP 36.6; O2SAT 99
--- NOTE | 2024-11-04 08:19 | MR_ITS ---
FINAL REPORT TECHNIQUE: Multiplanar MR without contrast CLINICAL HISTORY: Numbess left hand, face with headache COMPARISON: 12/25/2022 FINDINGS: MRI BRAIN WITHOUT CONTRAST: Diffusion sequences show no signal abnormality to indicate acute infarct. No mass, hemorrhage or edema is seen. Ventricles are normal. Major vascular flow voids are intact. IMPRESSION: Unremarkable MR of the brain without contrast Reviewed, Interpreted and Dictated by Marco A Liz MD Transcribed by Faiza Johnson Authenticated and . [facility]
--- NOTE | 2024-11-04 08:47 | P.PN_ITS ---
Subjective *Date: 11/04/24 *Time: 08:55 Interval history: Patient continues to have a headache. She states the Tylenol helped a little. Weakness on the left side has improved but is still present as well as the paresthesias in the left side of her face. The pain starts in the left side of the head down to the neck and into the shoulder with the paresthesias from the left arm down to the left leg. Movement and ambulation makes the head ache worse. Her vision is normal today although was blurred yesterday. She also has some nausea with a headache. Medical Exam Vital signs and Labs for Last 24 Hours: Vital Signs Temp Pulse Pulse Resp BP BP Pulse Ox 11/04/24 06:40 11/04/24 05:00 11/04/24 03:35 98.2 F 62 18 130/64 97 11/04/24 03:00 11/04/24 01:00 11/03/24 23:38 60 16 122/65 100 11/03/24 23:01 16 122/65 11/03/24 23:00 11/03/24 22:55 97.9 F 69 20 137/73 11/03/24 22:43 11/03/24 22:30 13 137/73 11/03/24 22:00 64 11 L 139/77 100 11/03/24 21:30 63 14 137/70 100 11/03/24 21:28 66 137/74 100 11/03/24 20:29 98.2 F 78 18 125/92 H 100 O2 Del Method 11/04/24 06:40 Room Air 11/04/24 05:00 Room Air 11/04/24 03:35 Room Air 11/04/24 03:00 Room Air 11/04/24 01:00 Room Air 11/03/24 23:38 Room Air 11/03/24 23:01 Room Air 11/03/24 23:00 Room Air 11/03/24 22:55 Room Air 11/03/24 22:43 Room Air 11/03/24 22:30 11/03/24 22:00 Room Air 11/03/24 21:30 Room Air 11/03/24 21:28 Room Air 11/03/24 20:29 Room Air Intake and Output 11/03/24 11/04/24 11/04/24 19:59 03:59 11:59 Output Total 0 / 0 0 / 0 Balance 0 / 0 0 / 0 Output: Output, Urine Amount 0 / 0 0 / 0 Other: Weight 168 lb Patient Weight 11/04/24 11:59 Weight 168 lb Laboratory Results - last 24 hr 11/03/24 03:41: Urine Color Yellow, Urine Appearance Clear, Urine pH 6.5, Ur Specific [place] 1.015, Urine Protein Negative, Urine Glucose (UA) Negative, Urine Ketones 1+, Urine Blood Negative, Urine Nitrate Negative, Urine Bilirubin Negative, Urine Urobilinogen 0.2, Ur Leukocyte Esterase Negative, Urine RBC 5- 10, Urine WBC 5-10, Ur Squamous Epith Cells Occasional, Urine Bacteria None 11/03/24 21:11: WBC 5.0, RBC 4.92, Hgb 13.5, Hct 42.2, MCV 85.8, MCH 27.4, MCHC 32.0, RDW 13.3, Plt Count 175, MPV 9.6, Neut % (Auto) 61.7, Lymph % (Auto) 28.9, [place] % (Auto) 7.6, Eos % (Auto) 0.8, Baso % (Auto) 0.8, Neut # (Auto) 3.1, Lymph # (Auto) 1.4, [place] # (Auto) 0.4, Eos # (Auto) 0.0, Baso # (Auto) 0.0, PT 9.5, INR 0.85 L, APTT 24.3, Sodium 140, Potassium 4.3, Chloride 105, Carbon Dioxide 28, Anion Gap 11.3, BUN 18 H, Creatinine 0.60, Estimated Creat Clear 137, Estimated GFR 106, Est GFR ( Amer) 128, Glucose 86, Calcium 9.1, Total Bilirubin 0.5, AST 34, ALT 23, Alkaline Phosphatase 45, Troponin I < 0.01, Total Protein 6.9, Albumin 4.4, Globulin 2.5, Albumin/Globulin Ratio 1.8, Triglycerides 93, Cholesterol 178, LDL Cholesterol Direct 80.51 L, VLDL Cholesterol 19, HDL Cholesterol 59, Cholesterol/HDL Ratio 3.0, Plasma/Serum Alcohol < 10 11/04/24 00:31: Troponin I < 0.01 11/04/24 04:29: Troponin I < 0.01 11/04/24 05:30: WBC 4.6 L, RBC 4.51, Hgb 12.6, Hct 38.9, MCV 86.3, MCH 27.9, MCHC 32.4, RDW 13.4, Plt Count 152, MPV 10.5 H, Neut % (Auto) 54.0, Lymph % (Auto) 34.6, [place] % (Auto) 7.9, Eos % (Auto) 2.0, Baso % (Auto) 1.1, Neut # (Auto) 2.5, Lymph # (Auto) 1.6, [place] # (Auto) 0.4, Eos # (Auto) 0.1, Baso # (Auto) 0.1, Sodium 138, Potassium 4.3, Chloride 108 H, Carbon Dioxide 23, Anion Gap 11.3, BUN 23 H D, Creatinine 0.60, Estimated Creat Clear 135, Estimated GFR 106, Est GFR ( Amer) 128, Glucose 74, Calcium 8.8, Magnesium 1.9, Total Bilirubin 0.6, AST 52 H D, ALT 20, Alkaline Phosphatase 58, Total Protein 6.1 L, Albumin 3.7 D, Globulin 2.4, Albumin/Globulin Ratio 1.5 I & O for Labs for Last 24 Hours: Intake & Output 11/01/24 11/02/24 11/03/24 11/04/24 11:59 11:59 11:59 11:59 Output Total 0 / 0 Balance 0 / 0 Weight 168 lb Constitutional: Present no acute distress Comment:: Indicates headache Eyes: Present change in vision (Improved today) and other (Pupils equal and reactive to light and accommodation) Neck: Present full ROM; Absent tenderness Respiratory: Present CTA bilaterally (Anteriorly and posteriorly) Cardiac: Present Reg Rate and Rhythm GI: Present soft and normal bowel sounds; Absent distention or tenderness Extremities: Absent tenderness, edema or calf tenderness Comment:: Decrease in strength of the left arm and leg. Neuro: Present Cranial Nerve 2-12 Intact, alert, awake, oriented x 3 and moves all extremities Assessment and Plan *Assessment and plan (1) CVA (cerebral vascular accident): Status: Acute Qualifiers: CVA mechanism: unspecified Qualified Code(s): I63.9 - Cerebral infarction, unspecified Category: Medical Code(s): I63.9 - Cerebral infarction, unspecified (2) Tingling of left upper extremity and left side of face: Status: Acute Category: Medical Code(s): R20.2 - Paresthesia of skin (3) Headache: Status: Acute Qualifiers: Headache chronicity pattern: unspecified pattern Headache type: unspecified Intractability: intractable Qualified Code(s): R51.9 - Headache, unspecified Category: Medical Code(s): R51.9 - Headache, unspecified (4) Blurry vision: Status: Acute Category: Medical Code(s): H53.8 - Other visual disturbances (5) Factor V Leiden mutation: Status: Acute Category: Medical Code(s): D68.51 - Activated protein C resistance (6) CAD (coronary atherosclerotic disease): Status: Acute Qualifiers: Coronary Disease-Associated Artery/Lesion type: [place] artery [place] vs. transplanted heart: [place] heart Associated angina: without angina Qualified Code(s): I25.10 - Atherosclerotic heart disease of [place] coronary artery without angina pectoris Category: Medical Code(s): I25.10 - Atherosclerotic heart disease of [place] coronary artery without angina pectoris (7) HLD (hyperlipidemia): Status: Acute Qualifiers: Hyperlipidemia type: mixed hyperlipidemia Qualified Code(s): E78.2 - Mixed hyperlipidemia Category: Medical Code(s): E78.5 - Hyperlipidemia, unspecified Plan MRI this a.m. Continue with pain management. Dr. Holman entry - Saw patient, agree with above note.
[2024-11-04] MEDS: diazePAM 5MG TABLET 5 MG PO (08:54)
--- NOTE | 2024-11-04 09:00 | HMH.PHAINT1 ---
Pharmacy Intervention Comments: HOME MEDICATION LIST VERIFIED USING LIST FROM OUTPATIENT PHARMACY AND PT INTERVIEW
[2024-11-04 11:55] VITALS: BP 112/69; PULSE 58; RESP 15; TEMP 36.5; O2SAT 99
--- NOTE | 2024-11-04 13:50 | P.CONPHA_ITS ---
Pharmacy Intervention Comments: 11/04/24--CALLED MD OFFICE ABOUT SCRIPT FOR ASPIRIN 325 MG DAILY NOT GOING TO PHARMACY. LET NURSING AND PATIENT KNOW WELL. WAITING LOTTERY CLERK BACK FROM MD OFFICE.
--- NOTE | 2024-11-06 08:26 | P.DS_ITS ---
General Admission date:: 11/03/24 Discharge date: 11/04/24 HPI HPI HPI: Patient has a very interesting history of having a significant head injury several years ago. 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 Patient was a smoker but has stopped a year ago and is now vaping.. Noting that the patient did have cardiac stents placed in the LAD.. Also has been followed with a cardiac loop recorder.. I have spoken with the ER physician about his plan for the patient as CT scans have been negative for any acute stroke findings.. The patient is outside the window for thrombolytics. Patient has received aspirin in the ER. She also has received the IV Tylenol for a headache. Her main problem at this time is a headache slightly blurred vision onto the left posterior aspect of the scalp running down into the neck. ER physician was able to obtain admission to [facility]. But there are no beds available at this time. My evaluation of the patient finds that all scans showed no acute findings. Lab work is basically normal. Physical exam still shows that she has a headache with slightly blurred vision that headache greater on the left posterior aspect and continues with tingling down the entire left side of her body.. Patient is able to move all of her extremities and answers questions appropriately. With this patient's past cardiac history old records were reviewed. Finding no other arterial blockages in the neck or the brain. Only the fact that she had significant blockages cardiac that has been repaired a couple years ago with stents. Review of old records has shown that she has had urinary tract infections twice since April of this year. Also a period of time came into the ER because of severe dizziness was actually admitted for short period of time the dez was performed after she was admitted to the floor and her dizziness improved immensely and was discharged Patient denies any recent infection or fever for the past 3 weeks. 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 Hospital Course Hospital Course Hospital Course: The ER physician tried to find transport to [facility] for potential CVA, but no beds were available. The patient was accepted by [facility] but was admitted to [facility] while awaiting a bed. By 11/04/2024, she continued to have a headache. The weakness on the left side did improve, but was still present as well as the paresthesias in the left side of her face. The pain in her head did started on the left side and radiated down to her neck and into the shoulder. Any movement or ambulation made her headaches worse. Her vision had normalized. A bed was still not available at [facility], therefore an MRI was ordered at [facility]. The MRI was normal and she was stable to be discharged home with follow-up in the office. Exam Data for Last 24 hours Vital signs and Labs for Last 24 Hours: Temp Pulse Resp BP Pulse Ox O2 Del Method 97.7 F 58 L 15 112/69 99 Room Air 11/04/24 11:55 11/04/24 11:55 11/04/24 11:55 11/04/24 11:55 11/04/24 11:55 11/04/24 12:40 I & O for Last 24 hours: Intake & Output 11/03/24 11/04/24 11/05/24 11/06/24 11:59 11:59 11:59 11:59 Intake Total 500 / 500 Output Total 0 / 0 Balance 500 / 500 Weight 168 lb Constitutional Comments: Constitutional Constitutional: mild distress and obese Comments: Still has headache but is able to answer questions appropriately *Routine HEENT Exam Head: Present normocephalic and atraumatic Eye: Present EOMI, PERRL and normal accommodation ENT: Present mucous membranes moist Comments: Patient states her vision is still slightly blurry. *Routine Neck Exam Neck: Present supple and full ROM Comments: Carotids are equal bilaterally with no bruits Routine Chest/Breast/Axilla Exam Comments: Patient denies any injury or chest wall pain able to take deep breath without difficulty *Routine Respiratory Exam Respiratory: Present CTA bilaterally, normal respiratory effort, able to speak in complete sentences and symmetric chest movement *Routine Cardiovascular Exam Cardiovascular: Present RRR, Normal S1 and Normal S2 Comments: Cardiovascular exam finding no abnormal events. Skin is pink warm and dry brisk capillary refill does have on bright red fingernail icelandic *Routine Abdominal Exam Abdominal: Present soft and normoactive bowel sounds Comments: Patient does not have any nausea at this time there was no tenderness the abdomen is not bloated normal bowel sounds *Routine Rectal Exam Rectal:: deferred *Routine Genitalia Exam Genitalia:: deferred *Routine Extremities Exam Comments: Examination of the legs show no signs of injury also the arms the same. There is no swelling no edema at this time. She is able to make a fist move her ankles and toes without any difficulty. Finding no sign of any joint injury or deformity or limitation Routine Back/Spine/Pelvis Exam Back/Spine: Present full ROM and CVA tenderness Comments: The exam showed no signs of back pain. The patient is able to move without any difficulty appears to have good strength in her back *Routine Skin Exam Skin: Present intact Comments: Skin is pink warm and dry no signs of bruising no petechiae. *Routine Neurological Exam Neurological: Present alert, oriented X3, CN II-XII intact, normal reflexes, pronator drift, hearing grossly intact and normal speech Comments: Patient notes that during the exam that she is able to feel me touching both sides but the left leg and arm on touching feels tingly. She does have good equal bilateral strength. Some drift both limbs. But does not let them touch the bed. Tongue is midline she states she still has taste. Patient states her vision is still little blurry but there was no neurological deficits in checking range of motion of the eyes able to open both eyelids without difficulty able to smile bilaterally. No significant pain on palpating the scalp. She states the headache is in the left posterior area and runs down into her neck Routine Psychiatric Exam Psychiatric: Present normal affect, normal thought process, cooperative, good insight and good judgment Comments: Noting that patient has a long history of PTSD also past brain trauma. But is appropriate and gives a normal history. Stating that she does take trazodone every night and even with a headache she is usually is able to sleep well DS: Diagnosis Discharge Diagnosis (1) CVA (cerebral vascular accident): Status: Acute Code(s): I63.9 - Cerebral infarction, unspecified Qualifiers: CVA mechanism: unspecified Qualified Code(s): I63.9 - Cerebral infarction, unspecified (2) Tingling of left upper extremity and left side of face: Status: Acute Code(s): R20.2 - Paresthesia of skin (3) Headache: Status: Acute Code(s): R51.9 - Headache, unspecified Qualifiers: Headache type: unspecified Headache chronicity pattern: unspecified pattern Intractability: intractable Qualified Code(s): R51.9 - Headache, unspecified (4) Blurry vision: Status: Acute Code(s): H53.8 - Other visual disturbances (5) Factor V Leiden mutation: Status: Acute Code(s): D68.51 - Activated protein C resistance (6) CAD (coronary atherosclerotic disease): Status: Acute Code(s): I25.10 - Atherosclerotic heart disease of [place] coronary artery without angina pectoris Qualifiers: Coronary Disease-Associated Artery/Lesion type: [place] artery [place] vs. transplanted heart: [place] heart Associated angina: without angina Qualified Code(s): I25.10 - Atherosclerotic heart disease of [place] coronary artery without angina pectoris (7) HLD (hyperlipidemia): Status: Acute Code(s): E78.5 - Hyperlipidemia, unspecified Qualifiers: Hyperlipidemia type: mixed hyperlipidemia Qualified Code(s): E78.2 - [place] x[place] hyperlipidemia Meds Home Medications and Allergies Home Medications ?Medication ?Instructions ?Recorded ?Confirmed ?Type furosemide 20 mg tablet 20 mg PO DAILY 08/17/24 11/04/24 History trazodone 100 mg tablet 100 mg PO DAILY 08/17/24 11/04/24 History aspirin 325 mg tablet 325 mg PO DAILY #1 tab 11/04/24 Rx New Prescriptions to Start Prescriptions: aspirin [place],Amadou Allergies Allergy/AdvReac Type Severity Reaction Status Date / Time duloxetine (From Cymbalta) Allergy Severe liver Verified 06/24/24 14:40 swelling hydromorphone (From Dilaudid) Allergy Severe rash, Verified 06/24/24 14:40 itching ibuprofen Allergy Severe swelling Verified 06/24/24 14:40 lisinopril (LISINOPRIL) Allergy Severe chokes Verified 06/24/24 14:40 venom-honey bee Allergy Severe Anaphylaxis Verified 06/24/24 14:40 venom-wasp Allergy Severe Anaphylaxis Verified 06/24/24 14:40 COVID-19 (SARS-CoV-2) Allergy Verified 06/24/24 14:40 vaccine, mauro promethazine (From PHENERGAN) AdvReac Severe hallucinati Verified 06/24/24 14:40 ons sertraline (From Zoloft) AdvReac Severe suicidal Verified 06/24/24 14:40 paroxetine (From PAXIL) AdvReac Intermediate Palpitation Verified 06/24/24 14:40 s tetanus and diphtheria AdvReac Intermediate vomitting Verified 06/24/24 14:40 toxoids (TETANUS & DIPHTHERIA TOXOIDS) isosorbide AdvReac BP drops, Verified 06/24/24 14:40 headache Discharge Plan Disposition Patient Disposition: Home, Self-Care Condition: Fair Discharge Order Discharge Orders: Discharge Order (Routine); Ordered 11/04/24 Ordered By: Amadou Holman Follow up Plan Follow up with: Amadou Holman MD [Staff Physician] - 11/10/24 10:00 am Prescriptions/Medication Reconciliation: New aspirin 325 mg tablet 325 mg PO DAILY Qty: 1 0RF Continued trazodone 100 mg tablet 100 mg PO DAILY furosemide 20 mg tablet 20 mg PO DAILY Patient Comments: TAKE 1 TABLET BY MOUTH ONCE DAILY FOR FLUID Problem Reconciliation Problems Reviewed?: Yes Patient Discharge Instructions ACTIVITY: Continue current activity DIET: continue same diet Stand Alone Forms: [facility] Work Release Patient Instructions: DI for Muscle Weakness Print Language: Nepali Providers Primary Care Provider: Walter Anaya Admit Provider: Amadou Holman Attending Provider: Amadou Holman
--- NOTE | 2024-11-06 10:46 | SW/DCPLANNER ---
Phoned patient x2. No answer each time. Left message with my name and a call back number. Naren Garland
== END 2024-11-04 14:15 | disposition home or self-care (01) | DRG 57 ==
LOC: ER 22:28 → 2ND 22:41
PROVIDERS: Nurse Practitioner Family; Admitting Provider Family Medicine; Emergency Provider Emergency Medicine; PCP Family Medicine; Visit Provider Family Medicine
DX: G81.94 Hemiplegia, unspecified affecting left nondominant side (principal); D68.51 Activated protein C resistance; R20.2 Paresthesia of skin; R51.9 Headache, unspecified; H53.8 Other visual disturbances; Z87.820 Personal history of traumatic brain injury; M79.7 Fibromyalgia; E83.110 Hereditary hemochromatosis; E78.5 Hyperlipidemia, unspecified; I25.10 Atherosclerotic heart disease of native coronary artery without angina pectoris; F17.290 Nicotine dependence, other tobacco product, uncomplicated; Z95.5 Presence of coronary angioplasty implant and graft; Z81.8 Family history of other mental and behavioral disorders; Z80.9 Family history of malignant neoplasm, unspecified; Z82.49 Family history of ischemic heart disease and other diseases of the circulatory system; Z83.438 Family history of other disorder of lipoprotein metabolism and other lipidemia; Z83.3 Family history of diabetes mellitus; Z79.02 Long term (current) use of antithrombotics/antiplatelets; Z79.899 Other long term (current) drug therapy; Z88.7 Allergy status to serum and vaccine; Z88.5 Allergy status to narcotic agent; Z88.8 Allergy status to other drugs, medicaments and biological substances; E66.9 Obesity, unspecified; Z68.29 Body mass index [BMI] 29.0-29.9, adult
CPT/HCPCS: 70450; 70496; 70498; 70551; 80053; 80061; 80320; 81001; 83735; 84484; 85025; 85610; 85730; 93005; 99291; J0131; J1885; Q9967

== ENCOUNTER 2025-03-01 17:50 | Emergency (ER) | payer BC, SELFPAY ==
--- OUTSIDE RECORDS SUMMARY | 2024-05-15 10:00 | XMS_ITS ---
Author Organization [facility] Address [address] [facility] [address] [place] [id number] Care Team Providers Care Pricer Bagger Name Role Phone Taylor Anaya Primary Care Provider Shayla Gant Unavailable [phone] Allergies Allergen (clinical drug ingredient) Drug/Non Drug Allergy documented on EMR Reaction Allergy Type Onset Date Status duloxetine Cymbalta swelling of the liver Drug Allergy Active ibuprofen Ibuprofen swelling Drug Allergy Active lisinopril Lisinopril closes off airway Drug Allergy Active paroxetine Paxil heart rate slows down, causing chest pain Drug Allergy Active promethazine Phenergan hallucinations Drug Allergy Active sertraline Zoloft becomes homicidal Drug Allergy Active COVID-19 (mRNA) Vaccine cardiomyopathy Drug Allergy Active hydromorphone HYDROmorphone hives and rash, high fever Drug Allergy Active Tetanus Toxoids swelling and sic k to stomach Drug Allergy Active Results Component Value Reference Range Notes Urinalysis - Inhouse Reviewed date:05/16/2024 09:26:23 AM Interpretation: Performing Lab: Notes/Report: Color/Clarity yellow/clear Leuk Neg Nitrite Neg Urobili 16 Protein Neg pH 6.5 Blood Neg Sp. Gr. 1.025 Ketone Neg Bili Neg Gluc Neg H-TSH Reviewed date:05/20/2024 09:05:40 PM Interpretation:Normal Performing Lab: Notes/Report: TSH 1.16 0.465-4.68 uIU/mL H-CBC Reviewed date:05/20/2024 09:05:40 PM Interpretation:wbc 4.2, hct 48.6, mchc 31.2 Performing Lab: Notes/Report: WBC 4.2 4.8-10.8 K/mm3 RBC 5.23 4.20-5.40 M/mm3 HGB 15.1 12.2-16.2 g/dL HCT 48.6 37.0-47.0 % MCV 92.9 81-99 fl MCH 29.0 27.0-31.2 pg MCHC 31.2 31.8-35.4 g/dL RDW 13.6 11.5-17.5 % PLT 233 142-424 K/mm3 MPV 7.9 7.4-10.4 fl NE% 55.2 37.0-80.0 % LY% 32.9 10-50 % MO% 6.8 1.7-9.3 % EO% 3.0 0.1-12.0 % BA% 2.2 0.1-2.0 % NE# 2.3 1.8-7.8 K/mm3 LY# 1.4 0.7-4.5 K/mm3 MO# 0.3 0.1-1.0 K/mm3 EO# 0.1 0.0-0.4 K/mm3 BA# 0.1 0-0.2 K/mm3 H-VITAMIN D Reviewed date:05/20/2024 09:05:40 PM Interpretation:23.2 Performing Lab: Notes/Report: TVITD 23.2 30-100 ng/mL Deficient <20 ng/mL Insufficient 20-30 ng/mL Sufficient 30-100 ng/mL Potential Toxicity >100 ng/mL H-Lipid Panel Reviewed date:05/20/2024 09:05:40 PM Interpretation:chol 247, hdl 83 Performing Lab: Notes/Report: Patient Fasting? Y TRIG 79 30-150 mg/dl CHOL 247 140-200 mg/dl DLDL 128.73 100-129 mg/dL VLDL 16 0-40 mg/dL HDL 83 40-60 mg/dl CHLHDL 3.0 1-3.5 H-CMP Reviewed date:05/20/2024 09:05:40 PM Interpretation:gluc 101 Performing Lab: Notes/Report: NA 139 136-145 mmol/L K 4.1 3.5-5.1 mmoL/L CL 105 98-107 mmol/L CO2 29 22.0-30.0 mmol/L GAP 9.1 5-15 mEq/L BUN 17 7-17 mg/dl CREATT 0.60 0.52-1.04 mg/dl GFRAA 128 >60 ML/MIN EGFR 106 >60 ml/min GLU 101 74-100 mg/dl CA 9.6 8.4-10.2 mg/dl BILIT 0.8 0.2-1.3 mg/dl AST 31 14-36 U/L ALT 23 12-78 U/L TP 7.6 6.3-8.2 g/dl ALB 4.4 3.5-5.0 g/dl GLOB 3.2 1.3-3.2 g/dL AGRATIO 1.4 1.1-1.8 ALP 48 38-126 U/L H-Glycohemoglobin A1C Reviewed date:05/20/2024 09:05:40 PM Interpretation:5.6 Performing Lab: Notes/Report: HGBA1C 5.6 4.0-6.0 % < 6% Non-Diabetic Level < 7% Controlled Diabetic Level > 8% Poorly Controlled Diabetic Level H-VITAMIN B12 Reviewed date:05/20/2024 09:05:40 PM Interpretation:493 Performing Lab: Notes/Report: VITB12 493 239-931 pg/mL H-T4 free Reviewed date:05/20/2024 09:05:40 PM Interpretation:Normal Performing Lab: Notes/Report: T4F 1.23 0.78-2.19 ng/dl H-Ferritin Reviewed date:05/20/2024 09:05:40 PM Interpretation:14.5 Performing Lab: Notes/Report: KAY 14.5 6.24-137 ng/ml Delta: 20.4 o n 02/16/23-1407 H-Iron Reviewed date:05/19/2024 09:45:58 AM Interpretation: Performing Lab: Notes/Report: REASON FOR VISIT fu from [facility] admission Medications Medication SIG (Take, Route, Frequency, Duration) Notes Start Date End Date Status Furosemide 20 mg TAKE ONE TABLET BY M OUTH EVERY DAY NEEDED FOR swelling for 90 Active tiZANidine HCl 2 MG 1 or 2 tab(s) orally every 8 hours as needed for 30 day(s) 02/01/2023 Active Pantoprazole Sodium 40 MG 1 tab(s) orall y Two times a day 11/17/2021 Active ProAir Digihaler 108 (90 Base) MCG/ACT 1-2 puff(s) inhaled every 6 hours, prn 10/05/2021 Active EpiPen 2-Allan 0.3 MG/0.3ML as directed in tramuscularly once Active Ticagrelor 90 MG 1 tab(s) orally 2 ti mes a day Active traZODone HCl 100 MG 1 tab(s) orally qhs Active Flintstones Multivitamin - 1 tab(s) chewed bid Active Meclizine HCl 25 MG 1 tablet as needed O rally every 12 hrs Active Problems Problem Type SNOMED Code ICD Code Onset Dates Problem Status W/U Status Risk Notes Problem 35364473 Vitamin D deficiency (E55.9) Active confirmed Vital Signs Blood pressure systolic 110 mm Hg 05/15/20 24 Blood pressure diastolic 70 mm Hg 024 Heart Rate 68 /min 05/15/2024 Height 64.50 in 05/15/2024 Weight 168.2 lbs 05/15/2024 BMI 28.42 kg/m2 05/15/2024 Encounters Encounter Location Date Provider Diagnosis [facility] [address] [facility] [address], [place] [id number] 05/15/2024 Shayla Gant Type 2 diabetes sarita itus without complication, unspecified whether termite exterminator insulin use E11.9 ; Benign paroxysmal positional vertigo, unspecified laterality H81.10 ; History of paroxysmal supraventricular tachycardia Z86.79 ; Gastroesophageal reflux disease without esophagitis K21.9 ; Atherosclerosis of [place] coronary artery without angina pectoris, unspecified whether klam[place] or transplanted heart I25.10 ; Vitamin B12 deficiency E53.8 ; Essential (primary) hypertension I10 ; Hereditary hemochromatosis E83.110 ; Pure hypercholesterolemia, unspecified E78.00 ; Vitamin D deficiency E55.9 and Dysuria R30.0 Assessments Encounter Date Diagnosis (ICD Code) Assessment Notes Treatment Notes Treatment Clinical Notes Section Notes 05/15/2024 Type 2 diabetes mellitus without complication, unspecified whether retirement insulin use (ICD-10 - E11.9) 05/15/2024 Benign paroxysmal positional vertigo, unspecified laterality (ICD-10 - H81.10) Resolved. 05/15/2024 History of paroxysmal supraventricular tachycardia (ICD-10 - Z86.79) 05/15/2024 Gastroesophageal reflux disease without esophagitis (ICD-10 - K21.9) 05/15/2024 Atherosclerosis of klamath coronary artery without angina pectoris, unspecified whether klamath or transplanted heart (ICD-10 - I25.10) 05/15/2024 Vitamin B12 deficiency (ICD-10 - E53.8) 05/15/2024 Essential (primary) hypertension (ICD-10 - I10) 05/15/2024 Hereditary hemochromatosis (ICD-10 - E83.110) 05/15/2024 Pure hypercholesterolemia , unspecified (ICD-10 - E78.00) 05/15/2024 Vitamin D deficiency (ICD-10 - E55.9) 05/15/2024 Dysuria (ICD-10 - R30.0) Plan Of Treatment Treatment Notes Assessment Notes Benign paroxysmal positional vertigo, un specified laterality Resolved. Next Appt Details Follow Up: via phone to repo rt test results, Reason: Provider Name:Amadou Krueger , 08/12/2025 02:00:00 PM, [address], [address] , [place], [place], [id number], Progress Notes * AMBIKA DUNCANB:1975 ( 49 yo F)Acc No.[id number]:05/15/2024 Progress Notes Patient: LIBAN RAI Provider: ZACKARY Dickson :1975 A ge:49 Y S ex:Female Date:05/15/2024 Address:[address] [place] [id number] Pcp:Taylor Anaya Subjective: * Chief Complaints: * 1 . fu from [facility] admission. * HPI: N eurology: The pt is here today for a check up from [facility] ER due to Vertigo. Pt states she is doing better. Pt states she is also c/o of burning with urination. 49 year old female presents with c/o Dizziness. * ROS: D ERMATOLOGY: no R hilario. n o H taiwo. G ASTROENTEROLOGY: no N ausea. n o V omiting. n o D iarrhea.? U ROLOGY: no D ifficulty urinating. n o B lood in urine. * Medical History: D isabled due to ?anoxic brain injury with severe toxemia, Type 2 DM - diet controlled after bariatric surgery, Fibromyalgia, Kidney stones, supraventricular tachycardia and arrythmia/-Dr Zhong / resolved after weight loss, MRSA, Anxiety, Depression, PTSD, Severe Toxemia-1994, Elevated ferriten levels, Asthma, Bee sting allergy, Hereditary hemochromatosis, Cardiac stents placed, Stroke. * Surgical History: C -Section X 3 , Lap Brooke 1995, Kidney Stone Removal 2004, Partial Hysterectomy for Fibroid Tumor -Dr Tovar 2012, Gastric Sleeve/ Dr. Pascal 10/07/2018, LHC with LAD stent/ Trevin 07/2021, Repeat C with LAD stent/ Trevin 08/2021. * Hospitalization/Major Diagno stic Procedure: S yncope and Collapse- [facility] 03/12-, Headache, Dizziness- [facility] ER 03/15/2019, Back Pain- [facility] ER 11/14/2019, Suicidal/Homicidal Thoughts- [facility] ER 02/17/2021. * Family History: F ather: 53 yrs, end stage cardiomyopathy, DM. M other: alive 70 yrs, diagnosed with Diabetes, Hypertension. 1 brother(s) , 1 sister(s) . 1 son(s) , 2 daughter(s) . . family HX of HAE. * Social History: C URRENT TOBACCO USE: No . C affeine: no. Home smoke detector use: yes. Alcohol: No. * Medications: T aking Meclizine HCl 25 MG Tablet 1 tablet as needed Orally every 12 hrs , Taking Flintstones Multivitamin - Tablet Chewable 1 tab(s) chewed bid , Taking traZODone HCl 100 MG Tablet 1 tab(s) orally qhs , Taking Ticagrelor 90 MG Tablet 1 tab(s) orally 2 times a day , Taking EpiPen 2-Allan 0.3 MG/0.3ML Solution Auto-injector as directed intramuscularly once , Taking ProAir Digihaler 108 (90 Base) MCG/ACT Aerosol Powder Breath Activated 1-2 puff(s) inhaled every 6 hours, prn , Taking Pantoprazole Sodium 40 MG Tablet Delayed Release 1 tab(s) orally Two times a day , Taking tiZANidine HCl 2 MG Tablet 1 or 2 tab(s) orally every 8 hours as needed , Taking Furosemide 20 mg Tablet TAKE ONE TABLET BY MOUTH EVERY DAY NEEDED FOR swelling , Medication List reviewed and reconciled with the patient * Allergies: P axil: heart rate slows down, causing chest pain, Lisinopril: closes off airway, Zoloft: becomes homicidal , Ibuprofen: swelling, Tetanus Toxoids: swelling and sick to stomach, HYDROmorphone: hives and rash, high fever, Phenergan: hallucinations, Cymbalta: swelling of the liver, COVID-19 (mRNA) Vaccine: cardiomyopathy. Objective: * Vitals: W t:168.2, Temp:98.1, BP:110/70, HR:68, Nurse:FAHAD, Ht: 64.50, BMI:28.42. * Examination: G eneral Examination: General Appearance: N AD. HEENT: sclera and conjunctiva clear, PERRLA, TM's normal, translucent, EOM's with normal ROM. Oral cavity: n o lesions, mucosa moist and WNL, no erythema. Neck: s upple, no lymphadenopathy. Chest: n ormal shape and expansion. Heart: R SR. Lungs: c lear to auscultation. Abdomen: bowel sounds present, soft and nontender, no organomegaly or masses, no guarding or rigidity. Neurologic Exam: alert and oriented, normal cranial nerves II-XII sensory & motor WNL, no cerebellar signs, Rhomberg neg. Skin: n ormal, no rash. Peripheral pulses: n ormal (2+) bilaterally. Extremities: n o leg edema. Assessment: * Assessment: 1. B enign paroxysmal positional vertigo, unspecified laterality - H81.10 (Primary) ?2. T ype 2 diabetes mellitus without complication, unspecified whether retirement insulin use - E11.9 3 . H istory of paroxysmal supraventricular tachycardia - Z86.79 4 . G astroesophageal reflux disease without esophagitis - K21.9 5 .?Atherosclerosis of klam[place] coronary artery without angina pectoris, unspecified whether klam[place] or transplanted heart - I25.10 6 . V itamin B12 deficiency - E53.8 ?7. E ssential (primary) hypertension - I10 8 . H ereditary hemochromatosis - E83.110 9 . P ure hypercholesterolemia, unspecified - E78.00 10. V itamin D deficiency - E55.9 1 1. D ysuria - R30.0 Plan: * Treatment: Value Reference Range W BC 4.2 L 4.8-10.8 - K/mm3 * R BC 5.23 4.20-5.40 - M/mm3 * H GB 15.1 12.2-16.2 - g/dL * H CT 48.6 H 37.0-47.0 - % * M CV 92.9 81-99 - fl * M CH 29.0 27.0-31.2 - pg * M CHC 31.2 L 31.8-35.4 - g/dL * R DW 13.6 11.5-17.5 - % * P LT 233 142-424 - K/mm3 * M PV 7.9 7.4-10.4 - fl * N E% 55.2 37.0-80.0 - % * L Y% 32.9 10-50 - % * M O% 6.8 1.7-9.3 - % * E O% 3.0 0.1-12.0 - % * B A% 2.2 H 0.1-2.0 - % * N E# 2.3 1.8-7.8 - K/mm3 * L Y# 1.4 0.7-4.5 - K/mm3 * M O# 0.3 0.1-1.0 - K/mm3 * E O# 0.1 0.0-0.4 - K/mm3 * B A# 0.1 0-0.2 - K/mm3 * Shayla Gant 05/20/2024 9: 05:32 PM > see TE Notes: Resolved.??2.?Type 2 diabetes mellitus without complication, unspecified whether retirement insulin use?LAB: H-CMP (Collection Date & Time - 05/16/2024 02:36 PM)?gluc 101* Value Reference Range N A 139 136-145 - mmol/L * K 4.1 3.5-5.1 - mmoL/L * C L 105 98-107 - mmol/L * C O2 29 22.0-30.0 - mmol/L * G AP 9.1 5-15 - mEq/L * B UN 17 7-17 - mg/dl * C REATT 0.60 0.52-1.04 - mg/dl * G FRAA 128 >60 - ML/MIN * E GFR 106 >60 - ml/min * G JESSY 101 H 74-100 - mg/dl * C A 9.6 8.4-10.2 - mg/dl * B ILIT 0.8 0.2-1.3 - mg/dl * A ST 31 14-36 - U/L * A LT 23 12-78 - U/L * T P 7.6 6.3-8.2 - g/dl * A LB 4.4 3.5-5.0 - g/dl * G LOB 3.2 1.3-3.2 - g/dL * A GRATIO 1.4 1.1-1.8 - * A LP 48 38-126 - U/L * Shayla Gant 05/20/2024 9: 05:32 PM > see TE ?LAB: H-Glycohemoglobin A1C (Collection Date & Time - 05/16/2024 02:36 PM)? 5.6* Value Reference Range H GBA1C 5.6 4.0-6.0 - % * Shayla Gant 05/20/2024 9: 05:32 PM > see TE 3.?Vitamin B12 deficiency?LAB: H-VITAMIN B12 (Collection Date & Time - 05/16/2024 02:36 PM)?493* Value Reference Range V ITB12 493 239-931 - pg/mL * Shayla Gant 05/20/2024 9: 05:32 PM > see TE 4.?Essential (primary) hypertension?LAB: H-TSH (Collection Date & Time - 05/16/2024 02:36 PM)?Normal* Value Reference Range T SH 1.16 0.465-4.68 - uIU/mL * Shayla Gant 05/20/2024 9: 05:32 PM > see TE ?LAB: H-T4 free (Collection Date & Time - 05/16/2024 02:36 PM)?Normal* Value Reference Range T 4F 1.23 0.78-2.19 - ng/dl * Shayla Gant 05/20/2024 9: 05:32 PM > see TE 5.?Hereditary hemochromatosis?LAB: H-Ferritin (Collection Date & Time - 05/16/2024 02:36 PM)?14.5* Value Reference Range F ER 14.5 D 6.24-137 - ng/ml * Shayla Gant 05/20/2024 9: 05:32 PM > see TE ?LAB: H-Iron (Collection Date & Time - 05/19/2024)* see duplicate order 6.?Pure hypercholesterolemia, unspecified?LAB: H-Lipid Panel (Collection Date & Time - 05/16/2024 02:36 PM)?chol 247, hdl 83* Value Reference Range T RIG 79 30-150 - mg/dl * C HOL 247 H 140-200 - mg/dl * D LDL 128.73 100-129 - mg/dL * V LDL 16 0-40 - mg/dL * H DL 83 H 40-60 - mg/dl * C HLHDL 3.0 1-3.5 - * Shayla Gant 05/20/2024 9: 05:32 PM > see TE 7.?Vitamin D deficiency?LAB: H-VITAMIN D (Collection Date & Time - 05/16/2024 02:36 PM)?23.2* Value Reference Range T VITD 23.2 L 30-100 - ng/mL * Shayla Gant 05/20/2024 9: 05:32 PM > see TE 8.?Dysuria?LAB: Urinalysis - Inhouse (Collection Date & Time - 05/15/2024)* Value Reference Range C olor/Clarity yellow/clear * L euk Neg * N itrite Neg * U robili 16 * P rotein Neg * p H 6.5 * B lood Neg * S p. Gr. 1.025 * K etone Neg * B destin Neg * G brenda Neg * Ghada Carlos 05/15/2024 5:0 1:36 PM > , Provider reviewed results while patient in office.Shayla Gant 05/16/2024 9:26:20 AM > * Procedure Codes: 8 1002 Urinalysis, no micro * Follow Up: v ia phone to report test results * Billing Information: * Visit Code: 62175 Office Visit, Est Pt., Level 4. * Procedure Codes: 08670 Urinalysis, no micro. * Electronic signature of ZACKARY Engel on 03/01/2025 at 06:09 PM EDT Sign off status: Pending * Provider: ZACKARY Dickson Date: 0 05/15/2024 Generated for Printi ng/Faxing/eTransmitting on: 0 03/01/2025 06:09 PM EDT History and Physical Notes * HPI (History of Present Illness) Category Sub-Category Detail Notes Category Not es Neurology Dizziness Examination Category Sub-Category Detail Notes Category Not es General Examination HEENT: sclera and c onjunctiva clear, PERRLA, TM's normal, translucent, EOM's with normal ROM Heart: RSR Lungs: clear to auscultatio n Abdomen: bowel sounds present , soft and nontender, no organomegaly or masses, no guarding or rigidity Extremities: no leg edema General Appearance: NAD Skin: normal, no rash Neurologic Exam: alert and oriented, normal cranial nerves II-XII sensory & motor WNL, no cerebellar signs, Rhomberg neg Neck: supple, no lymphaden opathy Oral cavity: no lesions, mucosa m oist and WNL, no erythema Peripheral pulses: normal (2+) bilatera lly Chest: normal shape and exp ansion
--- OUTSIDE RECORDS SUMMARY | 2024-11-10 06:00 | XMS_ITS ---
Author Organization [facility] Address [address] [facility] [address] [phone] Care Team Providers Care Grounds Keeper Name Role Phone Taylor Anaya Primary Care Provider [phone] Amadou Holman Unavailable [phone] Allergies Allergen (clinical drug ingredient) Drug/Non Drug [...] factor V Leiden mutation (D68.51) Referral [facility] Referring Provider First Name Amadou Referring Provider [...] HCl 100 MG 1 tab(s) orally qhs for 90 days Active EpiPen 2-Allan 0.3 MG/0.3ML as directed in tramuscularly once Active Aspirin 325 MG 1 tablet Orally Once a day for 30 day(s) Active Flintstones Multivitamin - 1 tab(s) chewed bid Active ProAir Digihaler 108 (90 Base) MCG/ACT 1-2 puff(s) inhaled every 6 hours, prn 10/05/2021 Active Furosemide 20 mg TAKE ONE TABLET BY M OUTH EVERY DAY NEEDED FOR swelling for 90 Active Problems Problem Type SNOMED Code ICD Code Onset Dates Problem Status W/U Status Risk Notes Problem 04003757 Migraine without status migrainosus, not intractable, unspecified migraine type (G43.909) Active confirmed Problem 121296729 Heterozygous factor V Leiden mutation (D68.51) Active confirmed Vital Signs Blood pressure systolic 130 mm Hg 11/10/19 25 Blood pressure diastolic 72 mm Hg 025 Heart Rate 67 /min 11/10/2024 Height 64.50 in 11/10/2024 Weight 171 lbs 11/10/2024 BMI 28.90 kg/m2 11/10/2024 Encounters Encounter Location Date Provider Diagnosis [facility] [address] [facility] [place] [address] [phone] 11/10/2024 Amadou Holman Left-sided weakness R53.1 ; Migraine without status [...] HCl 100 MG 1 tab(s) orally qhs for 90 days Treatment Notes Assessment Notes Left-sided weakness Improved Migraine without status migr ainosus, not intractable, unspecified migraine type Improved Referrals Referral Date Details 11/10/2024 11/10/2024, Michel Curtis Next Appt Details Follow Up: 3 Months, Reason: Provider Name:Amadou Krueger ry, 08/12/2025 02:00:00 PM, [address], [address], [place], [place], [id number], Progress Notes * AMBIKA DUNCANB:1975 ( 49 yo F)Acc No.[id number]:11/10/2024 Patient: LIBAN RAI Provider: Miguel Ángel Holman M.D. :1975 A ge:49 Y S ex:Female Date:11/10/2024 Address:[address] [place] [id number] Pcp:Taylor Anaya Subjective: * Chief Complaints: * 1 . f/u [facility] D/C. * HPI: H PI: 49 year old female presents with c/o Here for follow up on:?11/03/2024 [facility] hospitalization. Pt states that she was admitted [...] Diagno stic Procedure: S yncope and Collapse- [facility] 03/12-, Headache, Dizziness- [facility] ER 03/15/2019, Back Pain- [facility] ER 11/14/2019, Suicidal/Homicidal Thoughts- [facility] ER 02/17/2021. * Family History: F ather: [...] G eneral Examination: General Appearance: N AD. Heart: R SR. Lungs: c lear to auscultation. Neurologic Exam: Intact, gait normal, normal sensation and strength. Peripheral pulses: n ormal (2+) bilaterally. Extremities: n o leg edema. Assessment: * Assessment: 1. L eft-sided weakness [...] HG * Follow Up: 3 Months * Billing Information: * Visit Code: 73641 Office Visit, Est Pt., Level 4. * Procedure Codes: 3075F SYST BP GE 130 - 139MM HG. 3078F DIAST BP < 80 MM HG. * Electronic signature of Fabiola Holman MD on 03/01/2025 at 06:09 PM EDT Sign off status: Pending * Provider: Miguel Ángel Holman M.D. Date: 0 11/10/2024 Generated for Kerrie winchester/Marta/Brandenitting on: 0 03/01/2025 06:09 PM EDT History and Physical Notes * HPI (History of Present Illness) Category Sub-Category Detail Notes Category Not es HPI Here for follow up on: 5 [facility] hospitalization. Pt states that she was admitted [...]
--- OUTSIDE RECORDS SUMMARY | 2025-02-09 09:30 | XMS_ITS ---
Author Organization [facility] Address [address] [facility] [address] [id number] Care Team Providers Care Information Security Associate Name Role Phone Taylor Anaya Primary Care Provider [phone] Amadou Holman Unavailable [phone] Allergies Allergen (clinical drug ingredient) Drug/Non Drug [...] Active Results Component Value Reference Range Notes Glucose (In-House) Reviewed date:02/11/2025 12:21:20 PM Interpretation:107 Performing Lab: Notes/Report: 107 blood glucose 107 74 - 106 mg/dL Glycohemoglobin A1c (in hous e) Reviewed date:02/11/2025 12:21:20 PM Interpretation:5.3% Performing Lab: Notes/Report: 5.3% glycohemoglobin 5.3% 5 - 6.5 % P-Comprehensive Metabolic Pa simin (CMP) Reviewed date:02/11/2025 12:21:20 PM Interpretation: Normal Performing Lab: Notes/Report: Test performed by [facility], [address] , [address], [place] [address] Luis Camacho MD, Pot Firer CLIA: [id number] Sodium 144 135-145 mmol/L Potassium 4.2 3.5-5.3 mmol/L Chloride 109 97-108 mmol/L CO2 28 22-32 mmol/L Glucose 83 65-99 mg/dL BUN 14 6-20 mg/dL Creatinine 0.76 0.50-1.00 mg/dL Calcium 9.1 8.6-10.4 mg/dL eGFR by Creatinine 95 >59 mL/min/1.73m2 Protein 6.3 6.0-8.3 g/dL Albumin 4.3 3.5-5.3 g/dL Alkaline Phosphatase 47 35-121 IU/L ALT (SGPT) 10 <5-47 IU/L AST (SGOT) 14 <5-40 IU/L Bilirubin, Total 0.5 <0.2-1.2 mg/dL A/G Ratio 2.1 1.1-2.5 P-Lipid Panel Reviewed date:02/11/2025 12:21:20 PM Interpretation: Normal Performing Lab: Notes/Report: Test performed by [facility] [address] [place] [address] , [address], [place] [address] Luis Camacho MD, Pot Firer CLIA: [id number] Cholesterol 177 <200 mg/dL Triglycerides 84 <150 mg/dL HDL Cholesterol 60 >39 mg/dL Cholesterol / HDL Ratio 2.95 0.00-4.44 Ratio Non-HDL Cholesterol 117 <130 mg/dL LDL Cholesterol (Calculation) 100 <130 mg/dL LDL Cholesterol Levels* Less than 100 mg/dL Optimal 100 to 129 mg/dL Near Optimal/ Above Optimal 130 to 159 mg/dL Borderline High 160 to 189 mg/dL High 190 mg/dL and above Very High * Categories as recommended by the 2004 ATPIII guidelines LDL/HDL Ratio 1.7 <3.3 Ratio LDL Cholesterol Patient History Test Date: 02/09/2025 LDL Results: 100 Units: mg/dL % Change: - P-TSH reflex to FT4 Reviewed date:02/11/2025 12:21:20 PM Interpretation: Normal Performing Lab: Notes/Report: Test performed by [facility] [address] , [place] [address] Luis Camacho MD, Pot Firer CLIA: [id number] TSH reflex to FT4 1.16 0.43-5.25 mU/L P-Microalbumin/Creatinine, R andom Urine Sample Reviewed date:02/11/2025 12:21:20 PM Interpretation: Normal Performing Lab: Notes/Report: Test performed by [facility] [address] , [place] [address] Luis Camacho MD, Pot Firer CLIA: [id number] Albumin/Creatinine Ratio, Urine 9 0-30 ug/m g Microalbumin, Urine, Random 2.5 Creatinine, Urine 292.3 P-Vitamin D 25-Hydroxy Reviewed date:02/11/2025 12:21:20 PM Interpretation:28.3 Performing Lab: Notes/Report: Test performed by [facility] [address] , [place] [address] Luis Camacho MD, Pot Firer CLIA: [id number] Vitamin D 25-Hydroxy 28.3 30.0-100.0 ng/mL Interpretation of Vitamin D 25 OH: < 20 ng/mL - Deficiency 20 - 29 ng/mL - Insufficiency 30 - 100 ng/mL - Sufficiency > 100 ng/mL - Super-therapeutic- toxicity may occur above this level. Clinical correlation required. REASON FOR VISIT 3 month ckup Medications Medication SIG (Take, Route, Frequency, Duration) Notes Start Date End Date Status EpiPen 2-Allan 0.3 MG/0.3ML as directed in tramuscularly once Active ProAir Digihaler 108 (90 Base) MCG/ACT 1-2 puff(s) inhaled every 6 hours, prn 10/05/2021 Active Furosemide 20 mg TAKE ONE TABLET BY M OUTH EVERY DAY NEEDED FOR swelling for 90 Active traZODone HCl 100 MG 1 tab(s) orally qhs Active Zepbound 5 MG/0.5ML 0.5 mL Subcutaneous Active Aspirin 325 MG 1 tablet Orally Once a day for 30 day(s) Active Flintstones Multivitamin - 1 tab(s) chewed bid Active Vital Signs Blood pressure systolic 112 mm Hg 02/10/20 25 Blood pressure diastolic 70 mm Hg 025 Heart Rate 71 /min 02/09/2025 Height 64.50 in 02/09/2025 Weight 160.4 lbs 02/09/2025 BMI 27.1 kg/m2 02/09/2025 Encounters Encounter Location Date Provider [facility] [address] [id number] 02/09/2025 Amadou Holman Type 2 diabetes sarita itus without complication, without long-term current use of insulin E11.9 ; Vitamin D deficiency E55.9 ; Hereditary hemochromatosis E83.110 ; Primary insomnia F51.01 ; Pure hypercholesterolemia, unspecified E78.00 ; Essential (primary) hypertension I10 and BMI 27.0-27.9,adult Z68.27 Assessments Encounter Date Diagnosis (ICD Code) Assessment Notes Treatment Notes Treatment Clinical Notes Section Notes 02/09/2025 Type 2 diabetes mellitus without complication, without long-term current use of insulin (ICD-10 - E11.9) 02/09/2025 Vitamin D deficiency (ICD-10 - E55.9) 02/09/2025 Hereditary hemochromatosis (ICD-10 - E83.110) 02/09/2025 Primary insomnia (ICD-10 - F51.01) 02/09/2025 Pure hypercholesterolemia , unspecified (ICD-10 - E78.00) 02/09/2025 Essential (primary) hypertension (ICD-10 - I10) 02/09/2025 BMI 27.0-27.9,adult (ICD-10 - Z68.27) Plan Of Treatment Medication Medication Name Sig Start Date Stop Date Notes traZODone HCl 100 MG 1 tab(s) orally qhs Next Appt Details Follow Up: 6 Months, Reason: Provider Name:Amadou Krueger ry, 08/12/2025 02:00:00 PM, [address], [address], [place], [place], [id number], Progress Notes * GET DUNCANADOB:1975 ( 49 yo F)Acc No.[id number]:02/09/2025 Progress Notes Patient: LIBAN RAI Provider: Miguel Ángel Holman M.D. :1975 A ge:49 Y S ex:Female Date:02/09/2025 Address:[address] [place] [address] [id number] Pcp:Taylor Anaya Subjective: * Chief Complaints: * 1 . 3 month ckup. * HPI: H PI: 49 year old female presents with c/o Patient is here today for?Pt is here today for a 3 month check up. * ROS: D ERMATOLOGY: no R hilario. [...] Diagno stic Procedure: S yncope and Collapse- [facility] 03/12-, Headache, Dizziness- [facility] 03/15/2019, Back Pain- [facility] 11/14/2019, Suicidal/Homicidal Thoughts- [facility] 02/17/2021. * Family History: F ather: 53 yrs, end stage cardiomyopathy, DM. M other: alive 71 yrs, diagnosed with Diabetes, Hypertension. 1 brother(s) , 1 sister(s) . 1 son(s) , 2 daughter(s) . . family HX of HAE. * Social History: C URRENT TOBACCO USE: No . C affeine: no. Home smoke detector use: yes. Alcohol: No. * Medications: T aking Zepbound 5 MG/0.5ML Solution Auto-injector 0.5 mL Subcutaneous , Taking Aspirin 325 MG Tablet Delayed Release 1 tablet Orally Once a day , Taking Flintstones Multivitamin - Tablet Chewable 1 tab(s) chewed bid , Taking EpiPen 2-Allan 0.3 MG/0.3ML Solution Auto-injector as directed intramuscularly once , Taking ProAir Digihaler 108 (90 Base) MCG/ACT Aerosol Powder Breath Activated 1-2 puff(s) inhaled every 6 hours, prn , Taking Furosemide 20 mg Tablet TAKE ONE TABLET BY MOUTH EVERY DAY NEEDED FOR swelling , Taking traZODone HCl 100 MG Tablet 1 tab(s) orally qhs , Medication List reviewed and reconciled with the patient * Allergies: P axil: heart rate slows down, causing chest pain, Lisinopril: closes off airway, Zoloft: becomes homicidal , Ibuprofen: swelling, Tetanus Toxoids: swelling and sick to stomach, HYDROmorphone: hives and rash, high fever, Phenergan: hallucinations, Cymbalta: swelling of the liver, COVID-19 (mRNA) Vaccine: cardiomyopathy. Objective: * Vitals: W t: 160.4, Temp: 97.9, BP: 112/70, HR: 71, Nurse: marilee, Ht: 64.50, BMI:27.1. * Examination: G eneral Examination: General Appearance: N AD. Heart: R SR. Lungs: c lear to auscultation. Neurologic Exam: Intact, gait normal, normal sensation and strength. Peripheral pulses: n ormal (2+) bilaterally. Extremities: n o leg edema. Assessment: * Assessment: 1. T ype 2 diabetes mellitus without complication, without long-term current use of insulin - E11.9 (Primary) 2 . V itamin D deficiency - E55.9 3 . H ereditary hemochromatosis - E83.110 4 . P rimary insomnia - F51.01 5 . P ure hypercholesterolemia, unspecified - E78.00 6 . E ssential (primary) hypertension - I10 7 . B VT 27.0-27.9,adult - Z68.27 Plan: * Treatment: Value Reference Range A /G Ratio 2.1 1.1-2.5 - * A lbumin 4.3 3.5-5.3 - g/dL * A lkaline Phosphatase 47 35-121 - IU/L * A LT (SGPT) 10 <5-47 - IU/L * A ST (SGOT) 14 <5-40 - IU/L * B ilirubin, Total 0.5 <0.2-1.2 - mg/dL * B UN 14 6-20 - mg/dL * C alcium 9.1 8.6-10.4 - mg/dL * C hloride 109 H 97-108 - mmol/L * C O2 28 22-32 - mmol/L * C reatinine 0.76 0.50-1.00 - mg/dL * G lucose 83 65-99 - mg/dL * P otassium 4.2 3.5-5.3 - mmol/L * S odium 144 135-145 - mmol/L * P rotein 6.3 6.0-8.3 - g/dL * e GFR by Creatinine 95 >59 - mL/min/1.73m2 * Elise Payan 02/11/2025 12:2 1:15 PM > See phone encounter ?LAB: P-Lipid Panel (Collection Date & Time - 02/09/2025 01:06 PM)?Normal* Value Reference Range C holesterol / HDL Ratio 2.95 0.00-4.44 - Ratio * C holesterol 177 <200 - mg/dL * H DL Cholesterol 60 >39 - mg/dL * L DL Cholesterol (Calculation) 100 <130 - mg/d L * L DL/HDL Ratio 1.7 <3.3 - Ratio * N on-HDL Cholesterol 117 <130 - mg/dL * T riglycerides 84 <150 - mg/dL * Elise Payan 02/11/2025 12:2 1:15 PM > See phone encounter ?LAB: P-TSH reflex to FT4 (Collection Date & Time - 02/09/2025 01:06 PM)? Normal* Value Reference Range T SH reflex to FT4 1.16 0.43-5.25 - mU/L * Elise Payan 02/11/2025 12:2 1:15 PM > See phone encounter ?LAB: P-Microalbumin/Creatinine, Random Urine Sample (Collection Date & Time - 02/09/2025 01:06 PM)?Normal* Value Reference Range A lbumin/Creatinine Ratio, Urine 9 0-30 - ug /mg * C reatinine, Urine 292.3 - mg/dL * M icroalbumin, Urine, Random 2.5 - mg/dL * Elise Payan 02/11/2025 12:2 1:15 PM > See phone encounter ?LAB: Glucose (In-House) (Collection Date & Time - 02/09/2025)?107* Value Reference Range b lood glucose 107 74 - 106 mg/dL * Natalie Xiao 02/09/2025 02:4 6:25 PM > Elise Payan 02/11/2025 12:21:15 PM > See phone encounter ?LAB: Glycohemoglobin A1c (in house) (Collection Date & Time - 02/09/2025)? 5.3%* Value Reference Range g lycohemoglobin 5.3% 5 - 6.5 % * Natalie Xiao 02/09/2025 02:4 6:53 PM > Elise Payan 02/11/2025 12:21:15 PM > See phone encounter 2.?Vitamin D deficiency?LAB: P-Vitamin D 25-Hydroxy (Collection Date & Time - 02/09/2025 01:06 PM)? 28.3* Value Reference Range V itamin D 25-Hydroxy 28.3 L 30.0-100.0 - ng/mL * Elise Payan 02/11/2025 12:2 1:15 PM > See phone encounter 3.?Hereditary hemochromatosis?LAB: P-Comprehensive Metabolic Panel (CMP) (Collection Date & Time - 02/09/2025 01:06 PM)?Normal* Value Reference Range A /G Ratio 2.1 1.1-2.5 - * A lbumin 4.3 3.5-5.3 - g/dL * A lkaline Phosphatase 47 35-121 - IU/L * A LT (SGPT) 10 <5-47 - IU/L * A ST (SGOT) 14 <5-40 - IU/L * B ilirubin, Total 0.5 <0.2-1.2 - mg/dL * B UN 14 6-20 - mg/dL * C alcium 9.1 8.6-10.4 - mg/dL * C hloride 109 H 97-108 - mmol/L * C O2 28 22-32 - mmol/L * C reatinine 0.76 0.50-1.00 - mg/dL * G lucose 83 65-99 - mg/dL * P otassium 4.2 3.5-5.3 - mmol/L * S odium 144 135-145 - mmol/L * P rotein 6.3 6.0-8.3 - g/dL * e GFR by Creatinine 95 >59 - mL/min/1.73m2 * Schuyler Elise 02/11/2025 12:2 1:15 PM > See phone encounter 4.?Primary insomnia? Continue traZODone HCl Tablet, 100 MG, 1 tab(s), orally, qhs.?? * Procedure Codes: G 2211 Complex e/[place], [address] GLUCOSE TEST, 69625 GLYCATED HEMOGLOBIN TEST, Modifiers: QW , 3044F HG A1C LEVEL LT 7.0%, G8420 BMI<30 AND >=22 CALC & DOCU, G2123 MOST RECENT SYSTOLIC BP < 140MM HG, G8754 MOST RECENT DIASTOLIC BP < 90MM HG * Follow Up: 6 Months * Billing Information: * Visit Code: 52793 Office Visit, Est Pt., Level 4. * Procedure Codes: G2211 Complex e/[place]. [address] GLUCOSE TEST. 10214 GLYCATED HEMOGLOBIN TEST. Modifiers: QW 3044F HG A1C LEVEL LT 7.0%. G8420 BMI<30 AND >=22 CALC & DOCU. G8752 MOST RECENT SYSTOLIC BP < 140MM HG. G8754 MOST RECENT DIASTOLIC BP < 90MM HG. * Electronic signature of Fabiola Holman MD on 03/01/2025 at 06:09 PM EDT Sign off status: Pending * Provider: Miguel Ángel Holman M.D. Date: 0 02/09/2025 Generated for Kerrie winchester/Marta/Brandenitting on: 0 03/01/2025 06:09 PM EDT History and Physical Notes * HPI (History of Present Illness) Category Sub-Category Detail Notes Category Not es HPI Patient is here today for Pt is here today for a 3 month check up Examination Category Sub-Category Detail Notes Category Not es General Examination Heart: RSR Lungs: clear to auscultatio n Extremities: no leg edema General Appearance: NAD Neurologic Exam: Intact, gait normal, normal sensation and strength Peripheral pulses: normal (2+) bilatera lly
--- OUTSIDE RECORDS SUMMARY | 2025-02-10 18:00 | XMS_ITS | Encounter Summary ---
Author Organization [facility] Address [address] [place] [address] Phone [email or web address] Care Team Providers Care Web Development Consultant Name Role Phone Unavailable Primary Care Provider Unavailabl e Reason for Visit * Reason Comments Health Center Offerings Encounter Details Date Type Department Care Team (Latest Contact Info) Description 02/10/2025 6:00 PM EDT Clinical Support KENYETTA [address] [place] [address] Eden Scott PA [address] [place] [address] Shortness of breath (Primary Dx); History of asthma Social History Tobacco Use Types Packs/Day Years Used Date Smoking Tobacco: Every Day E-Cigarettes Smokeless Tobacco: Never Depression Answer Date Recorded PHQ Total Score 0 08/15/2024 Stress Answer Date Recorded Stress in your Life Not on file 07/28/2024 Dealing with Stress 3 07/28/2024 Comments Unknown Sex and Gender Information Value Date Recorded Sex Assigned at Not on file 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 Duty status: RTW Regular Duty 2. Masks given to wear while particulates are high. TM to keep Albuterol inhaler available. 3. Referrals: None 4. Follow up: as needed and . 5. Call [facility] @ [phone] for any questions/concerns/appointments. 6. Projected return to full rotation: today documented in this encounter Progress Notes * ZACKARY Hammond - 02/10/2025 6:00 PM EDT Fanny Franco is a 49 y.o. female who presents for first occ for respiratory distress/particulate exposure. 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 Onset: acute Symptoms: chest tightness, difficulty breathing, headache, shakiness Transported TM back to [facility] 1999 via ez go without stretcher. Triage notes: on EMS arrival TM is seated in break area, alert and oriented and in no apparent distress. TM reports that her asthma is bad today because of the particulates in the air from Sunday's thermal event . TM states soon after working she noted onset of headache, and then chest tightness and inability to get a deep breath. 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 At time of symptom onset she walked off line and utilized prescribed inhaler. She reports improvement of breathing with inhaler. TM states that with higher humidity her asthma is worse so the recent rain is also a factor in her symptoms. Agreeable to transport to [facility] 2000 for monitoring. On arrival to clinic TM states she is breathing fine but has a headache which is normal for her with her asthma/use of inhaler. Also reports shakiness from use of inhaler. Denies LH/D, chest pain, palpitations. Clinic Triage Nurse: ELKE KISER Date: 02/10/2025 This was an emergency call with a disruption in patient care and scheduled clinic appointments. History Reviewed: Tobacco Allergies Meds Problems Med Hx Surg Hx See CC above TM is here for Emergency Evaluation and 1st occ after tones dropped for SOA. DOI 02/10/25. TM works in [employer] x 1+ years. TM states history of asthma and definitely work related due to increased air particulates related to Thermal Event last weekend. Symptoms began after going to [employer]; she states she was fine prior to coming into work and while in the break room. TM states there are more fans and the area is smoky as the particulates are getting stirred up while trying to clearthe area out. She notes triggers for asthma include aerosols, fragrant drops, increased dew point. TM states she used her albuterol inhaler, now a bit shaky and has a GRAHAM. TM declines Albuterol neb naz atment b/c it makes her shake more and now that she is away from the particulates and has used her inhaler, her breathing is better. She did have some tightness in her chest earlier, but no chests pain. No swelling of the throat or tongue. Ox sat is 100% RA. TM states she needs to have a mask to wear and that should resolve her issues. Previous asthma related hospital visits x 2; last was 5 yearsago. Hx of vape use. Review of Systems Respiratory: Positive for chest tightness, shortness of breath and wheezing. Cardiovascular: Negative for chest pain. Neurological: Negative for dizziness and light-headedness. Objective Vitals: 02/10/25 1802 BP: 123/83 Pulse: 77 Resp: 20 SpO2: 100% There were no vitals filed for this visit. Physical Exam Vitals and nursing note reviewed. Constitutional: General: She is not in acute distress. Appearance: Normal appearance. She is well-developed. She is not ill-appearing. HENT: Nose: Nose normal. Comments: Nares: clear Mouth/Throat: Mouth: Mucous membranes are moist. Pharynx: Oropharynx is clear. No oropharyngeal exudate or posterior oropharyngeal erythema. Comments: No edema Eyes: Extraocular Movements: Extraocular movements intact. Pupils: Pupils are equal, round, and reactive to light. Cardiovascular: Rate and Rhythm: Normal rate and regular rhythm. Pulses: Normal pulses. Heart sounds: Normal heart sounds. Pulmonary: Effort: Pulmonary effort is normal. No respiratory distress. Breath sounds: Normal breath sounds. No stridor. No wheezing or rhonchi. Abdominal: General: Bowel sounds are normal. Palpations: Abdomen is soft. Tenderness: There is no abdominal tenderness. Neurological: General: No focal deficit present. Mental Status: She is alert. Cranial Nerves: No cranial nerve deficit. Sensory: No sensory deficit. Motor: No abnormal muscle tone. Psychiatric: Mood and Affect: Mood normal. Thought Content: Thought content normal. Assessment: ICD-10-CM ICD-9-CM 1. Shortness of breath R06.02 786.05 2. History of asthma Z87.09 V12.69 No orders of the defined types were placed in this encounter. Patient Instructions 1. Duty status: RTW Regular Duty 2. Masks given to wear while particulates are high. TM to keep Albuterol inhaler available. 3. Referrals: None 4. Follow up: as needed and . 5. Call [facility] @ [phone] for any questions/concerns/appointments. 6. Projected return to full rotation: today documented in this encounter Plan of Treatment Not on file documented as of this encounter Visit Diagnoses Diagnosis Shortness of breath- Primary History of asthma Personal history of other diseases of respiratory system documented in this encounter
[2025-03-01 17:54] VITALS: BP 108/74; PULSE 62; RESP 16; TEMP 36.7; O2SAT 100; BMI 27.4
[2025-03-01 18:09] LABS: POC Glucose,Bedside 83 (70-110)
--- OUTSIDE RECORDS SUMMARY | 2025-03-01 18:09 | XMS_ITS | Clinical Summary ---
Author Organization [facility] Address [address] [place] [address] Phone [email or web address] Care Team Providers Care Reo Asset Manager Name Role Phone Walter Anaya MD Primary Care Provider Allergies Active Allergy Reactions Criticality Noted Date Comments Bee Venom Anaphylaxis High 08/23/2023 Covid-19 Ad26 Vaccine(Yves) 08/23/2023 Myocarditis pericarditis Duloxetine High 06/24/2024 Other Reaction(s): liver swelling Hydromorphone Rash Low 10/17/2018 Ibuprofen Swelling High 11/15/2017 Lisinopril Cough,Shortness of breath High 03/23/2014 cough Paroxetine Palpitations High 06/24/2024 Sertraline Anaphylaxis High 03/23/2014 Anger issues. Tetanus-Diphtheria Toxoids Td GI intolerance High 06/24/2024 goose egg on arm Wasp Venom Anaphylaxis High 06/24/2024 Medications furosemide (LASIX) 20 MG tablet 06/04/2023 Active Brilinta 90 MG tablet TAKE 1 TABLET BY MOUTH TWICE DAILY FOR BLOOD THINNER 06/04/2023 Active traZODone (DESYREL) 100 MG tablet Take 100-200 mg by mouth every night. 06/04/2023 Active lidocaine (LIDODERM) 5 % patch 1 patch. 08/12/2024 Active methocarbamol (ROBAXIN) 750 MG tablet TAKE 1 TABLET BY MOUTH EVERY 6 HOURS NEEDED FOR MUSCLE SPASM 08/13/2024 Active predniSONE (DELTASONE) 50 MG tablet 50 mg. 08/12/2024 Active Active Problems Problem Noted Date Diagnosed Date Controlled type 2 diabetes m ellitus without complication, without long-term current use of insulin 11/23/2016 Overview (08/23/2023): Lab Results Component Value Date HGBA1C 7.4 (H) 07/11/2018 HGBA1C 8.0 (H) 03/25/2018 HGBA1C 10.8 (H) 11/20/2017 Now s/p sleeve gastrectomy. Managing blood sugar by diet Continue same and continue to monitor closely. Last Assessment & Plan: Blood sugars are doing better. Lowest is 54 and highest is 220. In general is less than 200 Taking victoza, invokana, humalog 20 units plus SSI up to 3 times daily with meals, and Toujeo 86 units daily. Continue same and follow up in 2 months. Encounters Date Type Department Care Team Description 02/10/2025 6:00 PM EDT Clinical Support KARENASHLEY [address] [address] Eden Scott PA Shortness of breath (Primary Dx); History of asthma from Last 3 Months Social History Tobacco Use Types Packs/Day Years Used Date Smoking Tobacco: Every Day E-Cigarettes Smokeless Tobacco: Never Tobacco Cessation:Ready to Q uit: Not Asked; Counseling Given: Not Answered Depression Answer Date Recorded PHQ Total Score 0 08/15/2024 Stress Answer Date Recorded Stress in your Life Not on file 07/28/2024 Dealing with Stress 3 07/28/2024 Comments Unknown Sex and Gender Information Value Date Recorded Sex Assigned at Not on file 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 Gender Identity Not on file Sexual Orientation Not on file Last Filed Vital Signs Vital Sign Reading Time Taken Comments Blood Pressure 116/80 02/12/2025 8:08 PM EDT Pulse 91 02/12/2025 8:08 PM EDT Temperature 36.4 C (97.6 F) 08/29/2024 10:37 PM EST Respiratory Rate 16 02/12/2025 8:08 PM EDT Oxygen Saturation 97% 02/12/2025 8:08 PM EDT Inhaled Oxygen Concentration - - Weight 78 kg (172 lb) 08/15/2024 5:43 PM EST Height 162.6 cm (5' 4 ) 08/15/2024 5:43 PM EST Body Mass Index 29.52 08/15/2024 5:43 PM EST Plan of Treatment Health Maintenance Due Date Last Done Comments Dental Cleaning/Exam 1974 HIV Screening 1974 Hepatitis C Screening 1974 Diabetic Comprehensive Foot Exam 1984 Diabetic Retinal Eye Exam 1984 Hemoglobin A1C Testing 1984 Cervical Cancer Screening 1990 Hep B Infection Screening - Triple Screen 1992 Hepatitis B Immunization (1 of 3 - 19+ 3-dose series) 1993 Breast Cancer Screening 2004 Colorectal Cancer Screening 2004 Pneumococcal: Ped (0 to 5 Yrs) and At-Risk Member (6 to 64 Yrs) (2 of 2 - PCV) 12/03/2014 12/03/2013 Diabetic Kidney Health Eval (eGFR & Alb/CR ratio urine) 09/23/2021 09/23/2020 Zoster Immunization (1 of 2) 2024 Covid-19 Immunization (3 - season) 2024 06/15/2021, 05/17/2021 Annual Preventive Exam 08/23/2024 08/23/2023 Influenza Immunization (Season Ended) 2025 07/01/2020, 07/05/2019, 05/27/2018, Additional history exists Tetanus Diphtheria and Pertussis Immunization (2 - Td or Tdap) 11/01/2028 11/01/2018 HIB Immunization Aged Out No longer e ligible based on patient's age to complete this topic HPV Immunization Aged Out No longer e ligible based on patient's age to complete this topic Hepatitis A Immunization Aged Out No longer eligible based on patient's age to complete this topic Polio Immunization Aged Out No longer eligible based on patient's age to complete this topic Insurance GENERIC COMMERCIAL Care Teams Reo Asset Manager Relationship Specialty Start Date End Date Walter Anaya MD [address] [place] [address] PCP - General 02/12/25
--- OUTSIDE RECORDS SUMMARY | 2025-03-01 18:09 | XMS_ITS | Referral Summary ---
Author Organization [facility] Address [address] [place] [address] Care Team Providers Care Hair Baler Name Role Phone Walter Anaya MD Primary Care Provider +1- [phone] Allergies Active Allergy Reactions Criticality Noted Date Comments Hydromorphone (Bulk) Rash Low 10/17/2018 Hymenoptera Allergenic Extract Anaphylaxis High 01/19/2012 Ibuprofen Swelling High 11/15/2017 Lisinopril Shortness Of Breath High 03/23/2014 cough Paroxetine Hcl 11/21/2022 Promethazine 11/21/2022 Sertraline 03/23/2014 Anger issues. Tetanus Vaccines And Toxoid 11/21/2022 Social History Tobacco Use Types Packs/Day Years Used Date Smoking Tobacco: Never Assessed Interpersonal Safety Answer Date Record ed Family or friends hurt you Not on file 10/12 Family or friends insult you Not on file Family or friends threaten you Not on file 0 10/12/2023 Family or friends scream or curse at you Not on file 10/12/2023 Housing Stability Answer Date Recorded Living situation today Not on file Living situation problems Not on file 2023 Food Insecurity Answer Date Recorded Food run out past 12 months Not on file 09/24 Food did not last past 12 months Not on file 10/12/2023 Employment Answer Date Recorded Help finding and keeping a job Not on file 0 10/12/2023 Family and Community Support Answer Berto e Recorded Help with Day to Day Activities Not on file 10/12/2023 Feeling Lonely or Isolated Not on file 10/12 Educational Attainment Answer Date Rolando rded Speak language other than Indian at home Not on file 10/12/2023 Want help with school or training Not on file 10/12/2023 Depression Answer Date Recorded PHQ-2 Risk Not on file 10/12/2023 Disabilities Answer Date Recorded Difficulty concentrating Not on file 024 Difficulty doing errands alone Not on file 0 10/12/2023 Substance Use Answer Date Recorded Used prescription meds for non-medical reasons N ot on file 10/12/2023 Used illegal drugs past 12 months Not on file 10/12/2023 Comments Unknown Sex and Gender Information Value Date Recorded Sex Assigned at Not on file Legal Sex Female 1:41 PM CDT Gender Identity Not on file Sexual Orientation Not on file Last Filed Vital Signs Vital Sign Reading Time Taken Comments Blood Pressure 129/83 11/21/2022 6:20 PM EST Pulse 62 11/21/2022 6:20 PM EST Temperature 36.8 C (98.3 F) 11/21/2022 2:48 PM EST Respiratory Rate 16 11/21/2022 2:48 PM EST Oxygen Saturation 99% 11/21/2022 6:20 PM EST Inhaled Oxygen Concentration - - Weight 64.4 kg (142 lb) 11/21/2022 2:48 PM EST Height 160 cm (5' 3 ) 11/21/2022 2:48 PM EST Body Mass Index 25.15 11/21/2022 2:48 PM EST Plan of Treatment Not on file Medical Devices Implanted Type Area Weigher Production Device Identifier Shelf Expiration Date Model / Serial / Lot Loop Recorder-2021 Implanted:09/24 (Quantity not on file) LOOP RECORDER [employer] [id number] / [id number] / Insurance MEDICAID [place] BLUE CROSS/BLUE SHIELD MEDICARE PART A B Care Teams Hair Baler Relationship Specialty Start Date End Date Walter Anaya MD [address] [place] [address] PCP - General Family Medicine 11/21/22
--- OUTSIDE RECORDS SUMMARY | 2025-03-01 18:09 | XMS_ITS | Encounter Summary ---
Author Organization [employer] [facility] Address [address] [place] [address] Care Team Providers Care Rivet Tester Name Role Phone Walter Anaya MD Primary Care Provider [phone]- [phone] Encounter Details Date Type Department Care Team (Late st Contact Info) Description 03/20/2022 Transcribed Document [facility] [place] [address] ProviderJason MD [address] [place], [place] [address] Social History Tobacco Use Types Packs/Day Years Used Date Smoking Tobacco: Never Assessed Comments Unknown Sex and Gender Information Value Date Recorded Sex Assigned at Not on file Legal Sex Female 1:41 PM CDT Gender Identity Not on file Sexual Orientation Not on file documented as of this encounter Miscellaneous Notes * Cerner Conversion Note - Jason Major MD - 03/20/2022 8:37 PM CDT DATE OF SERVICE: 03/17/2022 EXERCISE MYOVIEW PERFUSION STUDY REFERRING PHYSICIAN: Dr. Walter Anaya. RESTING ELECTROCARDIOGRAM: Normal sinus rhythm, low voltages, nonspecific ST-T wave changes. EXERCISE STRESS: The patient exercised for 9 minutes and 15 seconds by Jonathan protocol and achieved peak heart rate response of 130 beats per minute (78% MPHR) and blood pressure response to 130/66 mmHg. There is no chest discomfort. No arrhythmia. The stress electrocardiogram is nondiagnostic secondary to inadequate heart rate response. 10.8 mCi of Myoview was administered prior to rest scan and 32.6 mCi prior to the post stress scan. MYOVIEW PERFUSION DATA: Reversible defect: None. Fixed defect: There is small area of fixed defect involving the apex. Left ventricular function: Gated management of left ventricular systolic function post-stress was 64%. No regional wall motion abnormality. IMPRESSION: Nondiagnostic exercise Myoview perfusion study due to inadequate heart rate response of 130 beats per minute (78% MPHR) despite good exercise capacity at 10 METs. Fixed apical defect could represent normal apical thinning. No evidence of ischemia at submaximal stress level. Normal left ventricular systolic function post stress. /[id number] Stanley Kenyon MD SSL/AQ / SSL / MODL /[id number] CC: MD Walter Chang MD Electronically signed by [facility], [facility] Conversion Bag Sealer Cerner at 01/08/2023 1:03 PM CDT documented in this encounter Plan of Treatment Not on file documented as of this encounter Visit Diagnoses Not on filedocumented in this encounter Care Teams Rivet Tester Relationship Specialty Start Date End Date Walter Anaya MD [address] [place] [address] PCP - General Family Medicine 11/21/22 documented as of this encounter
--- OUTSIDE RECORDS SUMMARY | 2025-03-01 18:09 | XMS_ITS | Clinical Summary ---
Author Organization [facility] Address [address] [place] [address] Care Team Providers Care Willow Machine Operator Name Role Phone Walter Anaya MD Primary Care Provider +1- [phone] Allergies Active Allergy Reactions Criticality Noted Date [...] Date Rolando rded Speak language other than Thai at home Not on file 10/12/2023 Want [...] 11/21/2022 2:48 PM EST Plan of Treatment Health Maintenance Due Date Last Done Comments CT Colonography 1974 Colonoscopy 1974 Colorectal Cancer Screening 1974 FOBT/FIT 1974 Fit-DNA (Cologuard) 1974 Sigmoidoscopy 1974 Depression Screening (12+) 1986 Tobacco Cessation Counseling and Screening (12+) 1986 HIV Screening 1989 Hepatitis C Screening 1992 Pap Smear 1995 Breast Cancer Screening 2014 Lipid Panel 2019 Pneumococcal 50+ years (2 of 2 - PCV) 03/26/202408/2014 Shingles Vaccine (Zoster) (1 of 2) 2024 COVID-19 VACCINE ( - season) 05/25/20241, 05/17/2021 Influenza Vaccine (Season Ended) 2025 06/15/20 16 DTAP/TDAP/TD VACCINES (2 - Td or Tdap) 11/01/2028 Medical Devices Implanted Type Area Recruitment Director Device Identifier Shelf Expiration Date Model / Serial / Lot Loop Recorder-2021 Implanted:09/24 (Quantity not on file) LOOP RECORDER [employer] [id number] / [id number] / Insurance MEDICAID B BLUE CROSS/BLUE SHIELD MEDICARE PART A B Care Teams Willow Machine Operator Relationship Specialty Start Date End Date Walter Anaya MD [address] [place] [address] PCP - General Family Medicine 11/21/22
--- OUTSIDE RECORDS SUMMARY | 2025-03-01 18:09 | XMS_ITS | Patient Health Record ---
[facility] Address [address] [facility] [address] [place] [id number] Care Team Providers Care Follow Up Clerk Name Role Phone Taylor Anaya Primary Care Provider [phone] Amadou Holman Unavailable [phone] Shayla Gant Unavailable [phone] Allergies Allergen (clinical drug ingredient) Drug/Non Drug [...] Active Results Component Value Reference Range Notes Glycohemoglobin A1c (in hous e) Reviewed date:02/11/2025 12:21:20 PM Interpretation:5.3% Performing Lab: Notes/Report: 5.3% glycohemoglobin 5.3% 5 - 6.5 % Glucose (In-House) Reviewed date:02/11/2025 12:21:20 PM Interpretation:107 Performing Lab: Notes/Report: 107 blood glucose 107 74 - 106 mg/dL P-Comprehensive Metabolic Pa simin (CMP) Reviewed date:02/11/2025 12:21:20 PM Interpretation: Normal Performing Lab: Notes/Report: Test performed by [facility] [address] [place] [address] , [address], [place] [address] Luis Camacho MD, [employer]olith[employer]pper CLIA: [id number] Sodium 144 135-145 mmol/L Potassium 4.2 3.5-5.3 [...] Normal Performing Lab: Notes/Report: Test performed by [facility] [address] [place] [address] , [address], [place] [address] Luis Camacho MD, [employer]olith[employer]pper CLIA: [id number] Cholesterol 177 <200 mg/dL Triglycerides 84 <150 [...] Normal Performing Lab: Notes/Report: Test performed by [facility] [address] , [place] [address] Luis Camacho MD, Photolithographic Stripper CLIA: [id number] TSH reflex to FT4 1.16 0.43-5.25 mU/L P-Microalbumin/Creatinine, R andom Urine Sample Reviewed date:02/11/2025 12:21:20 PM Interpretation: Normal Performing Lab: Notes/Report: Test performed by [facility] [address] , [place] [address] Luis Camacho MD, Photolithographic [employer]pper CLIA: [id number] Albumin/Creatinine Ratio, Urine 9 0-30 ug/mg Microalbumin, Urine, Random 2.5 Creatinine, Urine 292.3 P-Vitamin D 25-Hydroxy Reviewed date:02/11/2025 12:21:20 PM Interpretation:28.3 Performing Lab: Notes/Report: Test performed by [facility] [address] [place] [address] , [place] [address] Luis Camacho MD, Photolithographic [employer]pper CLIA: [id number] Vitamin D 25-Hydroxy 28.3 30.0-100.0 ng/mL Interpretation of Vitamin D 25 OH: < 20 ng/mL - Deficiency 20 - 29 ng/mL - Insufficiency 30 - 100 ng/mL - Sufficiency > 100 ng/mL - Super-therapeutic- toxicity may occur above this level. Clinical correlation required. H-Iron, TIBC, Iron Saturatio n Reviewed date:05/20/2024 09:05:40 PM Interpretation:Normal Performing Lab: Notes/Report: FE 144 37-170 ug/dL DTIBC 425 265-497 ug/dL IRONSAT 33.20593 15-55 % Urinalysis - Inhouse Reviewed date:05/16/2024 09:26:23 AM [...] PM Interpretation:493 Performing Lab: Notes/Report: VITB12 493 482-530 pg/mL H-T4 free Reviewed date:05/20/2024 09:05:40 PM Interpretation:Normal Performing Lab: Notes/Report: T4F 1.23 0.78-2.19 ng/dl H-Ferritin Reviewed date:05/20/2024 09:05:40 PM Interpretation:14.5 Performing Lab: Notes/Report: KAY 14.5 6.24-137 ng/ml Delta: 20.4 o n 02/16/23-1407 H-Iron Reviewed date:05/19/2024 09:45:58 AM Interpretation: Performing Lab: Notes/Report: Reason For Referral Diagnosis 1 Hereditary hemochrom atosis (E83.110) Diagnosis 2 Heterozygous factor V Leiden mutation (D68.51) Referral Organization [facility] Referring Provider First Name Amadou Referring Provider Last Name River Referring Provider Speciality Family [facility] ctice Referred Provider Michel Curtis Referred Provider Specialty Hematology/O ncology General Notes Mary Xavier 11/10/19 11:46:46 AM > faxed to Dr. Curtis's office, Mary Xavier 11/14/2024 10:04:10 AM > spoke with Dewey and confirmed referral was received Referral Priority Routine Medications Medication SIG (Take, Route, Frequency, Duration) Notes Start Date End Date Status Aspirin 325 MG 1 tablet Orally Once a day for 30 day(s) Active Diflucan 150 MG 1 tablet Orally once for 10 days 02/12/2025 Active Flintstones Multivitamin - 1 tab(s) chewed bid Active EpiPen 2-Allan 0.3 MG/0.3ML as directed in tramuscularly once Active ProAir Digihaler 108 (90 Base) MCG/ACT 1-2 puff(s) inhaled every 6 hours, prn 10/05/2021 Active Furosemide 20 mg TAKE ONE TABLET BY M OUTH EVERY DAY NEEDED FOR swelling for 90 Active traZODone HCl 100 MG 1 tab(s) orally qhs Active Zepbound 5 MG/0.5ML 0.5 mL Subcutaneous Active Immunizations Vaccine Route Administration Date Status Comme nts COVID 19 Moderna Unknown 05/17/2021 Administered COVID 19 Moderna Unknown 06/15/2021 Administered Fluzone PF Quad (6-35 months) Unknown 05/27/2018 Admini stered Fluzone PF Quad (6-35 months) Unknown 07/05/2019 Admini stered Fluzone PF Quad (6-35 months) Unknown 07/01/2020 Admini stered Fluzone Quad (6months&older) Unknown 06/15/2016 Adminis tered PNEUMOVAX 23 VACCINE Unknown 12/03/2013 Administered Tetanus Tdap-Adacel (over 7yrs) Unknown 11/01/2018 Admi nistered Problems Problem Type SNOMED Code ICD Code Onset Dates Problem Status W/U Status Risk Notes Problem Gastroesophageal reflux disease (966436169) GERD (gastroesophageal reflux disease) (K21.9) Active confirmed Problem 46647754 Essential (primary) hypertension (I10) Active confirmed Problem Coronary arteriosclerosis (35502359) ASCVD (arteriosclerotic cardiovascular disease) (I25.10) Active confirmed Problem 41226645 Vitamin D deficiency (E55.9) Active confirmed Problem Constipation (90131180) Constipation (K59.00) Active confirmed Problem 51624010236697846 Paresthesia of right arm (R20.2) Active confirmed Problem 03077956938994079 Paresthesia of left arm (R20.2) Active confirmed Problem 01617970 Hereditary hemochromatosis (E83.110) Active confirmed Problem 5762193 Primary insomnia (F51.01) Active confirmed Problem 5378576 Unstable angina (I20.0) Active confirmed Problem 2857426038 Chronic fatigue, unspecified (R53.82) Active confirmed Problem Seasonal allergic rhinitis (123033870) Seasonal allergic reaction (J30.2) Active confirmed Problem 351149064 Gastroesophageal reflux disease without esophagitis (K21.9) Active confirmed Problem 673545040 Chronic GERD (K21.9) Active confirmed Problem 22407471 Migraine without status migrainosus, not intractable, unspecified migraine type (G43.909) Active confirmed Problem 872089405 Mild intermitten t asthma without complication (J45.20) Active confirmed Problem 9426906 Migraine with au ra and without status migrainosus, not intractable (G43.109) Active confirmed Problem 181057772 Altered mental status, unspecified altered mental status type (R41.82) Active confirmed Problem 779916106 BMI 34.0-34.9,adult (Z68.34) Active confirmed Problem 106920568 Dyslipidemia (E78.5) Active confirmed Problem 86179941 Severe episode o f recurrent major depressive disorder, without psychotic features (F33.2) Active confirmed Problem 504637293 Stented coronary artery (Z95.5) Active confirmed Problem 168827925 Type 2 diabetes mellitus without complication, without long-term current use of insulin (E11.9) Active confirmed Problem 881045118 Intractable migraine without aura and without status migrainosus (G43.019) Active confirmed Problem 05459804 Coronary artery disease involving alturas heart without angina pectoris, unspecified vessel or lesion type (I25.10) Active confirmed Problem 176135351 Atherosclerosis of alturas coronary artery without angina pectoris, unspecified whether alturas or transplanted heart (I25.10) Active confirmed Problem 002906498 Pure hypercholesterolem ia, unspecified (E78.00) Active confirmed Problem 140989947 History of coronary artery stent placement (Z95.5) Active confirmed Problem Pain in female genitalia on intercourse (35094664) Dyspareunia in female (N94.10) Active confirmed Problem Factor V Leiden mutation (967230354) Factor V Leiden mutation (D68.51) Active confirmed Problem Renal calculus (65888183) Renal calculus (N20.0) Active confirmed non-obs tructin g Problem 267435082 Type 2 diabetes mellitus without complication, unspecified whether custodial insulin use (E11.9) Active confirmed Problem 831106667 Bee sting allerg y (Z91.030) Active confirmed Problem Skin sensation disturbance (09473683) Intermittent paresthesia of left hand and foot (R20.2) Active confirmed Problem 0847384083 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) Active confirmed Problem 050372814 Heterozygous factor V Leiden mutation (D68.51) Active confirmed Vital Signs Heart Rate 71 /min 02/09/2025 Blood pressure diastolic 70 mm Hg 02/09/2025 Height 64.50 in 02/09/2025 Blood pressure systolic 112 mm Hg 02/09/2025 Weight 160.4 lbs 02/09/2025 BMI 27.1 kg/m2 02/09/2025 Encounters Encounter Location Date Provider Diagnosis [facility] [address] [facility] [address] [place], [place] [id number] 05/15/2024 Shayla Gant Type 2 diabetes sarita itus without complication, unspecified whether custodial insulin use E11.9 ; Benign paroxysmal positional vertigo, unspecified laterality H81.10 ; History of paroxysmal supraventricular tachycardia Z86.79 ; Gastroesophageal reflux disease without esophagitis K21.9 ; Atherosclerosis of alturas coronary artery without angina pectoris, unspecified whether alturas or transplanted heart I25.10 ; Vitamin B12 deficiency E53.8 ; Essential (primary) hypertension I10 ; Hereditary hemochromatosis E83.110 ; Pure hypercholesterolemia, unspecified E78.00 ; Vitamin D deficiency E55.9 and Dysuria R30.0 Formerly [facility] [address] [facility] [address] [place], [place] [id number] 11/10/2024 Amadou Atkinson Left-sided weakness R53.1 ; Migraine without status migrainosus, not intractable, unspecified migraine type G43.909 ; Primary insomnia F51.01 ; Hereditary hemochromatosis E83.110 and Heterozygous factor V Leiden mutation D68.51 Formerly [facility] [address] [facility] [address], [place] [id number] 02/09/2025 Amadouherberth Holman Type 2 diabetes sarita itus without complication, without long-term current use of insulin E11.9 ; Vitamin D deficiency E55.9 ; Hereditary hemochromatosis E83.110 ; Primary insomnia F51.01 ; Pure hypercholesterolemia, unspecified E78.00 ; Essential (primary) hypertension I10 and BMI 27.0-27.9,adult Z68.27 [facility]ly [facility] [address] [facility] [address], [place] [id number] 05/20/2024 Shayla Gant [facility] [address] [facility] [address] [place] [id number] 02/11/2025 Amadouherberth AsherAtkinson [facility]ly [facility] [address] [facility] [address] [place], [place] [id number] 02/11/2025 Amadouherberth Holman Assessments Encounter Date Diagnosis (ICD Code) Assessment Notes Treatment Notes Treatment Clinical Notes Section Notes 05/15/2024 Benign paroxysmal positional vertigo, unspecified laterality (ICD-10 - H81.10) Resolved. 05/15/2024 Type 2 diabetes mellitus without complication, unspecified whether custodial insulin use (ICD-10 - E11.9) 11/10/2024 Migraine without status migrainosus, not intractable, unspecified migraine type (ICD-10 - G43.909) Improved 11/10/2024 Left-sided weakness (ICD-10 - R53.1) Improved 02/09/2025 Vitamin D deficiency (ICD-10 - E55.9) 02/09/2025 Type 2 diabetes mellitus without complication, without long-term current use of insulin (ICD-10 - E11.9) 11/10/2024 Primary insomnia (ICD-10 - F51.01) 02/09/2025 Hereditary hemochromatosis (ICD-10 - E83.110) 05/15/2024 History of paroxysmal supraventricular tachycardia (ICD-10 - Z86.79) 05/15/2024 Gastroesophageal reflux disease without esophagitis (ICD-10 - K21.9) 11/10/2024 Hereditary hemochromatosis (ICD-10 - E83.110) 02/09/2025 Primary insomnia (ICD-10 - F51.01) 02/09/2025 Pure hypercholesterolemia , unspecified (ICD-10 - E78.00) 11/10/2024 Heterozygous factor V Leiden mutation (ICD-10 - D68.51) 05/15/2024 Atherosclerosis of alturas coronary artery without angina pectoris, unspecified whether alturas or transplanted heart (ICD-10 - I25.10) 05/15/2024 Vitamin B12 deficiency (ICD-10 - E53.8) 02/09/2025 Essential (primary) hypertension (ICD-10 - I10) 05/15/2024 Essential (primary) hypertension (ICD-10 - I10) 02/09/2025 BMI 27.0-27.9,adult (ICD-10 - Z68.27) 05/15/2024 Hereditary hemochromatosis (ICD-10 - E83.110) 05/15/2024 Pure hypercholesterolemia , unspecified (ICD-10 - E78.00) 05/15/2024 Vitamin D deficiency (ICD-10 - E55.9) 05/15/2024 Dysuria (ICD-10 - R30.0) Plan Of Treatment Pending Test Test Name Order Date Stool Guaiac(Occult Blood) 11/18/2021 Mammogram 04/27/2022 Next Appt Details Provider Name:Amadou kirk, 08/12/2025 02:00:00 PM, [address], [address], [place], [id number], Insurance Providers Payer Name Payer Address Payer Phone Subscriber Number Group Number Insured Name Patient Relationship to Insured Coverage Start Date Coverage End Date [employer] [address] [place] [address] [id number] LIBAN DUNCAN Self - patient is the insured MEDICARE PART B [address] [address] [place] [id number] LIBAN DUNCAN Self - patient is the insured MEDICAID [employer] [address] [place] [id number] DAKOTA LIBAN Self - patient is the insured Medications Administered Medication Instructions Date of Administration Dosage Notes Dexamethasone 11/19/2019 1 mL rocephin one gram IM 06/02/2019 1 g Medical (General) History Medical History History ICD Code Disabled due to ?anoxic brain injury wit h severe toxemia Type 2 DM - diet controlled after bariat derek surgery Coronary Artery Disease Fibromyalgia kidney stones supraventricular tachycardia and arrythmia/-Dr Zhong / resolved after weight loss MRSA Anxiety Depression PTSD Severe Toxemia-1994 elevated ferriten levels Asthma Bee sting allergy Hereditary hemochromatosis Cardiac stents placed Surgical History Surgery Date(Month/Year) X 3 Lap Brooke 1996 Kidney Stone Removal 2004 Partial Hysterectomy for Fibroid Tumor - Dr Tovar 2012 Gastric Sleeve/ Dr. Pascal 10/07/2018 [facility] with LAD stent/ [place] 07/2021 Repeat [facility] with LAD stent/ Trevin 08/25 021 Hospitalization History Reason Date(Month/Year) Suicidal/Homicidal Thoughts- [facility] 01/23 Back Pain- [facility] 11/14/2019 Headache, Dizziness- [facility] 03/15/2019 Syncope and Collapse- [facility] 03/12-
--- OUTSIDE RECORDS SUMMARY | 2025-03-01 18:10 | XMS_ITS | Clinical Summary ---
Author Organization [facility] Address [address] [place] [address] Phone Care Team Providers Care Manager Internet Name Role Phone Tunde Myers MD Unavailable [phone] Michel Chacon MD Unavailable [phone] Allergies Active Allergy Reactions Criticality Noted Date Comments Hymenoptera Allergenic Extract Anaphylaxis High 04/03/2012 Hydromorphone (Bulk) Rash Low 10/17/2018 Ibuprofen Swelling Low 11/15/2017 Lisinopril Cough 03/23/2014 cough Paroxetine Hcl Promethazine Tetanus Vaccines And Toxoid Sertraline 03/23/2014 Anger issues. Medications aspirin 325 mgIndications:C hest pain radiating to arm,Diabetes mellitus (HCC) Take 325 mg by mouth daily. Active EPINEPHrine (EPIPEN) 0.3 mg/0.3 mL Inj Auto-InjectorIn dications:Mild persistent asthma with status asthmaticus Inject 0.3 mL into the muscle as needed for Anaphylaxis. 1 Each 1 8 Active Additional Information Patient not taking.Reported on 09/30/2018 insulin glargine U-300 conc (TOUJEO SOLOSTAR U-300 INSULIN) 300 unit/mL (1.5 mL) SubQ Insulin Pen Subcutaneous (Inject under the skin) 30 Units daily. 5 Syringe 6 9 Active Additional Information Patient not taking.Reported on 09/23/2020 venlafaxine (EFFEXOR-XR) 150 mg Oral Capsule, Sust. Release 24 hrIndications:A nxiety and depression TAKE 1 CAPSULE BY MOUTH ONCE DAILY IN THE MORNING 0 Active traZODone (DESYREL) 100 mg Oral TabletIndicatio ns:Anxiety and depression TAKE 1 TO 2 TABLETS BY MOUTH AT BEDTIME 0 Active busPIRone (BUSPAR) 15 mg Oral TabletIndicatio ns:Anxiety and depression 0 Active LORazepam (ATIVAN) 0.5 mg Oral TabletIndicatio ns:Anxiety and depression Take 0.5 mg by mouth every 6 hours as needed for Anxiety. Active venlafaxine (EFFEXOR-XR) 150 mg Oral Capsule, Sust. Release 24 hr Take 150 mg by mouth daily. Active losartan (COZAAR) 25 mg Oral TabletIndicatio ns:Microalbumin uria Take 1 Tab by mouth daily. 30 Tab 2 0 Active Active Problems Problem Noted Date Diagnosed Date Anxiety and depression 09/23/2020 Overview (09/23/2020): Under care of psych GABE Rodriguez Meds prescribed and managed by psych Obesity, Class I, BMI 30-34.9 09/23/2020 History of gastric surgery 09/23/2020 Microalbuminuria 09/23/2020 Pelvic mass 01/19/2018 TYRONE on CPAP 11/23/2016 Overview (11/23/2016): Trying to get used to CPAP Controlled type 2 diabetes m rosa m without complication, without long-term current use of insulin 11/23/2016 Overview (09/23/2020): Lab Results Component Value Date HGBA1C 7.4 (H) 07/11/2018 HGBA1C 8.0 (H) 03/25/2018 HGBA1C 10.8 (H) 11/20/2017 Now s/p sleeve gastrectomy. Managing blood sugar by diet Continue same and continue to monitor closely. Assessment & Plan (01/21/2018 1:34 PM EDT): Blood sugars are doing better. Lowest is 54 and highest is 220. In general is less than 200 Taking victoza, invokana, humalog 20 units plus SSI up to 3 times daily with meals, and Toujeo 86 units daily. Continue same and follow up in 2 months. Assessment & Plan (12/19/2017 1:53 PM EDT): Improved. Dicussed regimen to adjust sugars. Assessment & Plan (12/06/2017 6:52 AM EDT): Essentially recommended compliance with current plan. Offered referral to endocrine. Fibromyalgia 11/23/2016 Overview (11/07/2017): Desires to stop lyrica. Will switch to cymbalta. O/w stable 11/23/16 Has appt scheduled with RA. On celexa. Nsaids cause swelling. Does not sleep well. Will try atarax to help with sleep. Has diffuse muscle pain. Mild persistent allergic asthma without complica tion 07/29/2015 Overview (10/17/2018): Not currently on meds. Hx of essential hypertension 04/05/2015 Overview (09/23/2020): BP Readings from Last 3 Encounters: 09/23/20 134/88 10/17/18 130/68 09/30/18 132/70 Stable and normal off meds. Assessment & Plan (12/20/2017 10:43 PM EDT): Improved, continue the same Assessment & Plan (12/06/2017 6:53 AM EDT): Continue same meds for now and monitor, close follow up. Low vitamin B12 level 04/05/2015 Overview (09/23/2020): Off supplement Vitamin D deficiency 04/05/2015 Overview (09/23/2020): Off vit D HSV-2 (herpes simplex virus 2) infection 012 Assessment & Plan (03/25/2018 10:27 AM EDT): Prn treatment Kidney stone 01/23/2011 Resolved Problems Problem Noted Date Diagnosed Date Resolved Date Obesity, Class III, BMI 40-4 9.9 (morbid obesity) 01/21/2018 09/23/2020 Overview (10/17/2018): Wt Readings from Last 3 Encounters: 10/17/18 255 lb 9.6 oz (115.9 kg) 09/30/18 271 lb (122.9 kg) 07/11/18 276 lb (125.2 kg) Now s/p robotic assisted sleeve gastrectomy per DR. Zac Pascal on 10/05/18. Calorie restrict attempt 9201-0281 calories per day. Decrease starches like bread pasta and potatoes and simple sugars. Daily exercise. Assessment & Plan (01/21/2018 1:34 PM EDT): Discussed diet and exercise. Alcohol screening 06/15/2016 09/23/2020 Overview (11/07/2017): Do you drink? yes Drinks per day? A few times per year Most drinks at one sitting? One drink CAGE Ever thought about cutting back? no Ever get annoyed about others asking about your drinking? no Ever feel guilty about your drinking? no Ever need an eye payment processor in the morning? no Screening for depression 06/15/2016 Overview (11/07/2017): In the past two weeks, how often have you felt down, depressed, or hopeless? None Have you felt little interest or pleasure in doing things? no Chronic fatigue 03/29/2016 06/15/2016 Low serum vitamin D 04/05/2015 07/29/20 15 LLQ abdominal pain 04/05/2015 5 Diarrhea 04/05/2015 07/29/2015 Overview (04/05/2015): check stool studies. start imodium metamucil MRSA infection 12/26/2011 07/29/2015 Insect bite 12/26/2011 07/29/2015 Immunizations Immunization Administration Dates Next Due Influenza Intradermal 05/21/2013 Influenza Vaccine Quadrivalent 06/15/2016 Influenza Vaccine Quadrivalent PF 07/05/2019 Influenza Vaccine, Unspecified Formulation 05/27 Pneumococcal Polysaccharide 23 Valent 12/03/2013 Tdap 11/01/2018 Surgical History Surgery Date Site/Laterality Comments SECTION 1994, 2005, 2006 OTHER SURGICAL HISTORY 09/24/1995 - 09/23/1996 gallbladder OTHER SURGICAL HISTORY kidney stone surgery TUBAL LIGATION 09/24/2006 - 09/23/2007 PARTIAL HYSTERECTOMY 06/24/2013 - 07/24/2013 STOMACH SURGERY 10/07/2018 Gastric Sleve Medical History Medical History Date Comments Anxiety Depression Diabetes mellitus (HCC) Kidney stone HTN (hypertension) 09/11/2012 Asthma Family History Medical History Relation Name Comments Heart Disease Brother Diabetes Father Heart Disease Father Learning Disabilities Father Mental Illness Father Cancer Maternal Aunt ovarian Diabetes Mother High Blood Pressure Mother Cancer Other Breast 1st cous in Cancer Paternal Grandmother liver Relation Name Status Comments Brother Alive Father Maternal Aunt Alive Mother Alive Other Paternal Grandmother Social History Tobacco Use Types Packs/Day Years Used Date Smoking Tobacco: Former Cigarettes Q uit: 05/18/2012 Smokeless Tobacco: Never Tobacco Cessation:Counseling Given: Yes Alcohol Use Standard Drinks/Week Comments No 0 (1 standard drink = 0.6 oz pur e alcohol) 0 PHQ-2 Answer Date Recorded PHQ-2 Score 0 02/13/2019 Sexually Active Control Partners Comments Yes Male Comments No Sex and Gender Information Value Date Recorded Sex Assigned at Not on file Legal Sex Female 12:44 PM EDT Gender Identity Not on file Sexual Orientation Not on file Obstetrics History Para Term AB IAB SAB Ectopic Multiple Livin g Live Births 4 3 Date Outcome GA Total Labor Labor/2nd/3rd Weight Sex Type Anes PTL Ellen A1 A5 Name Clin Para Para Para Comments 3 c-sections FMP at age 10 LMP 2012 Abnormal pap in 1994 [facility] Normal paps since Last Filed Vital Signs Vital Sign Reading Time Taken Comments Blood Pressure 134/88 09/23/2020 10:46 AM EST Pulse 88 09/23/2020 10:46 AM EST Temperature 36.4 C (97.5 F) 09/23/2020 10:46 AM EST Respiratory Rate 18 09/23/2020 10:46 AM EST Oxygen Saturation 99% 09/23/2020 10:46 AM EST Inhaled Oxygen Concentration - - Weight 77.6 kg (171 lb) 09/23/2020 10:46 AM EST Height 160 cm (5' 3 ) 09/23/2020 10:46 AM EST Body Mass Index 30.29 09/23/2020 10:46 AM EST Plan of Treatment Health Maintenance Due Date Last Done Comments Annual Wellness Exam 1977 Hepatitis B Vaccine (1 of 3 - 19+ 3-dose series) 1993 HPV/Pap Cotest 2004 Breast Cancer Screening 2014 Pneumococcal Vaccine 50+ (2 of 2 - PCV) 12/03/2014 12/03/2013 Cervical Cancer Screening 07/09/2016 Pap Smear 07/09/2016 07/09/2013 (Prev iously completed) Cologuard 2019 Colon Cancer Screening 2019 Colonoscopy 2019 FIT 2019 Sigmoidoscopy 2019 Virtual Colonography 2019 Hemoglobin A1c 03/23/2021 09/23/2020, 06/24, 03/25/2018, Additional history exists Diabetic Eye Exam 09/23/2021 09/23/2020, 03/21/2018 Lipids 09/23/2021 09/23/2020, 06/24, 11/20/2017, Additional history exists Microalbuminuria 09/23/2021 09/23/2020, , 03/29/2016, Additional history exists Zoster (1 of 2) 2024 COVID-19 Vaccine (1 - 2023-2 5 season) 2024 Influenza Vaccine (Season Ended) 2025 07/05/2019, 05/27/2018, 11/07/2017 (Declined), Additional history exists DTaP/TDaP/Td (2 - Td or Tdap) 11/01/2028 11/01/2018 Meningococcal B Vaccine Aged Out No l onger eligible based on patient's age to complete this topic Goals Goal Patient Goal Type Associated Problems Recent Progress Patient-Stated? Author Blood Pressure < 140/90 Blood Pressure 134/88(2019 10:46 AM EST) No Sonia Ca LPN BMI (Calculated) < 30 General 30.4(09/23/20 20 10:46 AM EST) No Sonia aC LPN Eat better, exercise, reach an ideal body weight General No Patt Arthur Stay Tobacco Free Lifestyle No Patt Arthur HEMOGLOBIN A1C < 7.0 Result Component 5.7( 0 11:19 AM EST) Georgie Valdivia RN Procedures Procedure Name Priority Date/Time Associated Diagnosis Comments LIPID SCREEN Routine 09/23/2020 11:19 AM EST Essential hypertension HEMOGLOBIN A1C Routine 09/23/2020 11:19 AM EST Controlled type 2 diabetes mellitus without complication, without long-term current use of insulin (HCC) POCT URINE MICROALBUMIN Routine 09/23/2020 11:00 AM EST Controlled type 2 diabetes mellitus without complication, without long-term current use of insulin (HCC) HM DIABETES EYE EXAM Routine 03/21/2018 Poorly controlled type 2 diabetes mellitus (HCC) from Last 3 Months or Most Recently Relevant to Health Maintenance Results * (ABNORMAL) HEMOGLOBIN A1C (09/23/2020 11:19 AM EST) Hgb A1C 5.7(H) 4.2 - 5.6 % 09/23/2020 4:16 PM EST [facility] Est. Avg Glucose 117 mg/dL 09/23/2020 4:16 PM EST [facility] Blood Venipuncture / Unknown 09/23/2020 11:19 AM EST 09/23/2020 11:19 AM EST Narrative [facility] - 09/23/2020 4:16 PM EST REFERENCE RANGE: Normal: 4.0-5.6% Pre-diabetes: 5.7-6.4% Provisional diagnosis of diabetes: >6.4% Hgb F>10% and anything which shortens red cell survival, such as hemolytic anemia, or unstable hemoglobin variants such as HbSS, HbSC, or HbCC, will lower the HbA1c value associated with a given level of glycemic control. us Liz Cruz WIRE WEAVING LOOM SETTER CHEMISTRY ORDERABLES Final Result [facility] [address] [facility] , [address] [place] [id number] * LIPID SCREEN (09/23/2020 11:19 AM EST) Cholesterol 184 <200 mg/dL 09/23/2020 4:37 PM EST [facility] Comment: < 200 Desirable 200 - 239 Borderline High >= 240 High Triglyceride 82 <150 mg/dL 09/23/2020 4:37 PM EST [facility] Comment: < 150 Normal 150 - 199 Borderline High 200 - 499 High >= 500 Very High HDL 75 >=40 mg/dL 09/23/2020 4:37 PM EST [facility] Comment: > 60 Optimal 40 - 60 Acceptable < 40 Low LDL Calculated 93 <100 mg/dL 09/23/2020 4:37 PM EST [facility] Comment: < 100 Optimal 100 - 129 Near or above optimal 130 - 159 Borderline High 160 - 189 High >= 190 Very High Non-HDL-C Calculated 109 <=129 mg/dL 09/23/2020 4:37 PM EST [facility] Comment: <130 Desirable 130-159 Above Desirable 160-189 Borderline High 190-219 High >= 220 Very High Fasting Specimen? Unknown None 020 4:37 PM EST [facility] Blood VENOUS BLOOD / Unknown Venipuncture / Unknown 09/23/2020 11:19 AM EST 09/23/2020 11:19 AM EST Liz Cruz WIRE WEAVING LOOM SETTER CHEMISTRY ORDERABLES Final Result Performing Organization Address City/State/[facility] Co de Phone Number [facility] [address] [facility] , [place] [address] * (ABNORMAL) POCT URINE MICROALBUMIN TELCOR (09/23/2020 11:00 AM EST) Microalb, Ur 80 mg/L 09/23/2020 11:02 AM EST [facility] Creatinine Urine 300 mg/dL 09/23/2020 11:02 AM EST [facility] [place] Microalb/Software Engineer Developer. Ratio 30 - 300(A) <30 mg/g 09/23/2020 11:02 AM EST [facility] [place] Urine STRUCTURE OF URINARY TRACT PROPER / Unknown 09/23/2020 11:00 AM EST 09/23/2020 11:02 AM EST Liz Cruz WIRE WEAVING LOOM SETTER POINT OF CARE TEST ORDERABL ES Final Result [facility] [place] [address] [place] [address] * DIABETES EYE EXAM (03/21/2018) Left Diabetic Retinopathy Present Present/Not Present SEP OFFICE Right Diabetic Retinopathy Present Present/Not Present SEP OFFICE Historical Provider HEALTH MAINTENANCE Final Res ult SEP OFFICE from Last 3 Months or Most Recently Relevant to Health Maintenance Insurance [facility] [place] [address] [employer] [place] [address] Care Teams Manager Internet Relationship Specialty Start Date End Date Tunde Myers MD [address] [place] [address] [place] [address] Consulting Physician Obstetrics & Gynecology-Gynecologic Oncology 11/15/17 Michel Chacon MD [address] [place] [address] [place] [address] Referring Physician Family Medicine 11/08/17
--- NOTE | 2025-03-01 18:18 | ECG_ITS ---
APPROVED REPORT Exam: Resting ECG HR:67 bpm ECG Measurements Heart Rate 67 AXES MT 170 P 33 QRSd 91 QRS -25 QT 395 T 57 QTc 411 Conclusion SINUS RHYTHM BORDERLINE LEFT AXIS DEVIATION [QRS AXIS < -20] LOW QRS VOLTAGE [QRS DEFLECTION < 0.5/1.0 mV IN LIMB/CHEST LEADS] ABNORMAL ECG UNCONFIRMED REPORT Electronically signed by : SONIA BARRAZA, 03/02/2025 06:41:21
--- NOTE | 2025-03-01 18:20 | ED_ITS ---
<Statement entered by Buddy Low MD - 03/02/25 00:15> I was consulted by the BALBINA, and we discussed the complexity of the problems being addressed. I approved the treatment and management plan for this patient's care in the emergency department, thus performing a substantive portion of the medical decision making. Buddy Low MD Discharge Plan Disposition Patient Disposition: Home, Self-Care Prescriptions Prescriptions: New doxycycline monohydrate 100 mg capsule 100 mg PO BID 10 Days Qty: 20 0RF No Action Zepbound 5 mg/0.5 mL pen injector 5 mg SQ WEEKLY 30 Days Qty: 2.5 0RF aspirin 325 mg tablet 325 mg PO DAILY Qty: 1 0RF trazodone 100 mg tablet 100 mg PO DAILY furosemide 20 mg tablet 20 mg PO DAILY Patient Comments: TAKE 1 TABLET BY MOUTH ONCE DAILY FOR FLUID Referrals Follow up/Referrals: Walter Anaya MD [Primary Care Provider, Medical] - See instructions Activity Restrictions/Add. Instructions Additional Instructions/Restrictions: Today you were evaluated in the emergency department after tick bite. Please continue to take acetaminophen [id number] as directed. Please follow-up with your primary care provider in 48 hours. Return to the ED for any worsening of your condition. Clinical Impressions Clinical Impression: Tick bite Qualifiers: Encounter type: initial encounter Site of tick bite: abdominal wall Qualified Code(s): S30.861A - Insect bite (nonvenomous) of abdominal wall, initial encounter Headache Qualifiers: Headache type: unspecified Headache chronicity pattern: unspecified pattern Intractability: intractable Qualified Code(s): R51.9 - Headache, unspecified Instructions Patient Instructions: DI for Headache Print Language Print Language: Barbadian Discharge ED Provider: Buddy Low General Adult HPI <Shanon Meng APRN - Last Filed: 03/01/25 20:49> General Chief complaint: Weakness Stated complaint: headache,weakness,shaky , fever Time Seen by Provider: 03/01/25 18:07 Mode of Arrival: Ambulatory Source of Information: Patient Description of Symptoms (Recalled from ER Triage Doc. by RN): PT presents to the Ed for evaluation of tick bite on 02/23/2025. PT pulled tick from left side of abd. PT claims it was a [place] tick. PT has tick in her possession. PT states the bite itches. PT claims she had a low grade fever on 100.0-100.9. PT claims she has a headache, weakness, vomiting x2 02/28/2025 and x1 03/01/2025, nausea. Tylenol at 1630. FSBS 83. History of Present Illness HPI narrative: patient is a 49-year-old female PMHx CAD, HLD, obesity who presents to the ED stating that she removed a tick off her left side of her abdomen that she believes has been attached for 2 days. Patient states it was a [place] tick. Patient states that the tick was removed approximately 5 days ago. Related Data Home Medications ?Medication ?Instructions ?Recorded ?Confirmed furosemide 20 mg tablet 20 mg PO DAILY 08/17/2405/18 trazodone 100 mg tablet 100 mg PO DAILY 08/17/2405/18 Previous Rx's ?Medication ?Instructions ?Recorded aspirin 325 mg tablet 325 mg PO DAILY #1 tab 11/04 Zepbound 5 mg/0.5 mL subcutaneous 5 mg (0.5 mL) SQ WEE KLY 30 days 02/02/25 pen injector (tirzepatide (weight #2.5 mL loss)) doxycycline monohydrate 100 mg 100 mg PO BID 10 days # 20 caps 03/01/25 capsule Allergies Allergy/AdvReac Type Severity Reaction Status Date / Time duloxetine (From Cymbalta) Allergy Severe liver Verified 02/02/25 14:43 swelling hydromorphone (From Dilaudid) Allergy Severe rash, Verified 02/02/25 14:43 itching ibuprofen Allergy Severe swelling Verified 02/02/25 14:43 lisinopril (LISINOPRIL) Allergy Severe chokes Verified 02/02/25 14:43 venom-honey bee Allergy Severe Anaphylaxis Verified 02/02/25 14:43 venom-wasp Allergy Severe Anaphylaxis Verified 02/02/25 14:43 COVID-19 (SARS-CoV-2) Allergy Verified 02/02/25 14:43 vaccine, mauro promethazine (From PHENERGAN) AdvReac Severe hallucinati Verified 02/02/25 14:43 ons sertraline (From Zoloft) AdvReac Severe suicidal Verified 02/02/25 14:43 paroxetine (From PAXIL) AdvReac Intermediate Palpitation Verified 02/02/25 14:43 s tetanus and diphtheria AdvReac Intermediate vomitting Verified 02/02/25 14:43 toxoids (TETANUS & DIPHTHERIA TOXOIDS) isosorbide AdvReac BP drops, Verified 02/02/25 14:43 headache PFSH <Shanon Meng APRN - Last Filed: 03/01/25 20:49> PFS Disclaimer: The information contained in this section may have been updated after the patient was seen, as this information can be updated by other users. Medical History (Updated 03/01/25 @ 19:01 by Shanon Meng APRN) Obesity Factor V Leiden mutation UTI symptoms Epigastric abdominal pain URI, acute Anxiety Chest pain Left wrist pain Atypical chest pain Risk for sexually transmitted disease Mood disorder Encephalopathy History of multiple miscarriages History of recurrent deep vein thrombosis History of anoxic brain injury History of seizures Chronic headaches Hypotension Vomiting Constipation Enterocolitis Hematoma Post-op pain HTN (hypertension) Symptoms, such as flushing, sleeplessness, headache, lack of concentration, associated with the menopause Adnexal tenderness, left Status post placement of implantable loop recorder History of eclampsia Unstable angina Hx of nephrolithotomy with removal of calculi Depression Fibromyalgia GERD (gastroesophageal reflux disease) Hypertension Coronary artery disease Tobacco abuse disorder History of asthma 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 radial artery thrombus HLD (hyperlipidemia) Tobacco use Coronary artery disease Pericarditis Adverse reaction to COVID-19 vaccine Suicidal ideation Antidepressant discontinuation syndrome (~07/04/22) Lumbar radiculopathy CVA (cerebral vascular accident) Type 2 diabetes mellitus History of paroxysmal supraventricular tachycardia Hereditary hemochromatosis SVT (supraventricular tachycardia) Diabetes Surgical History History of loop recorder H/O gastric sleeve H/O: hysterectomy Hx laparoscopic cholecystectomy History of coronary artery stent placement Previous section Family History Other Asthma Cancer Coronary artery disease Diabetes FHx: mental illness Heart attack Hyperlipidemia Hypertension Kidney disease Social History Smoking Status: Current every day smoker tobacco type: cigarettes packs per day: 1 second hand exposure: No alcohol intake: never substance use type: denies use current occupational status: employed Travel in the last 8 weeks?: None household members: spouse and children housing: house marital status: education level: high school current occupational exposures/hazards: No caffeine: Yes Have you lived/traveled outside US in past 30 days?: No Contact w/someone who lives/traveled outside US past 30 days?: No Exposure to someone with infectious disease in past 14 days?: No Do you have a fever (greater than 100.4 F or 38 C)?: No Have you tested positive for COVID-19?: No Exposed to someone with COVID-19 in past 14 days?: No Do you have a sore throat?: No Do you have a cough?: No Do you have any weakness?: No Do you have any diarrhea?: No Are you experiencing any unusual bleeding?: No Do you have any muscle aches/pain?: No Do you have any abdominal pain?: No Are you experiencing loss of taste or smell?: No Other Medical History Have you received the Flu Vaccine for this season: No Have you received the Pneumonia Vaccine: No <Shanon Meng APRN - Last Filed: 03/01/25 20:49> ROS Obtained: Yes Systems reviewed as appropriate & no additional complaints except as documented Physical Exam <Shanon Meng APRN - Last Filed: 03/01/25 20:49> General General appearance: alert and in no apparent distress Head Head exam: atraumatic and normocephalic Eye Eye exam: Present normal appearance and PERRL ENT ENT exam: Present normal exam Neck Neck exam: Present normal inspection Chest Chest inspection: Present normal inspection and symmetric chest wall rise; Absent tenderness Respiratory Respiratory exam: Present normal lung sounds bilaterally Cardiovascular Cardiovascular exam: Present regular rate Abdominal Exam Abdominal exam: Present soft and normal bowel sounds; Absent tenderness Extremities Exam Extremities exam: Present normal inspection and full ROM Back Exam Back exam: Present normal inspection and full ROM Neurological Exam Neurological exam: Present alert and oriented X3 Psychiatric Psychiatric exam: Present normal affect and normal mood Skin Skin exam: Present warm and other (Small pinpoint area of erythema on her left abdomen) Medical Decision Making <Shanon Meng APRN - Last Filed: 03/01/25 20:49> Medical Records Screening: Per USPSTF and CDC recommendations, given the prevalence of disease in our region, it is our hospital?s policy to screen for HIV and viral Hepatitis for all patients aged 18 and over and those with ongoing risk factors. Jelani Inquiry Pt receiving controlled substance: No Vital Signs: 03/01/25 17:54 03/01/25 18:30 03/01/25 18:59 Temperature 98.1 F Temperature Source Tympanic Pulse Rate 69 64 Pulse Rate [Right] 62 Respiratory Rate 16 15 18 Blood Pressure 121/62 Blood Pressure [Right Arm] 108/74 L Blood Pressure Mean [Right Arm] 85 Blood Pressure Source Blood Pressure Position 02 Sat by Pulse Oximetry 100 98 99 Oxygen Delivery Method Room Air 03/01/25 19:30 Temperature 98.1 F Temperature Source Oral Pulse Rate 64 Pulse Rate [Right] Respiratory Rate 16 Blood Pressure 115/65 Blood Pressure [Right Arm] Blood Pressure Mean [Right Arm] Blood Pressure Source Automatic Cuff Blood Pressure Position Supine 02 Sat by Pulse Oximetry Oxygen Delivery Method Room Air Lab Data Lab Results 03/01/25 18:02: POC Glucose 83 Orders (Tests/Meds): ED MEDICATIONS Discontinued Medications Generic Name Dose Route Start Last Admin Trade Name Amy PRN Reason Stop Dose Admin Diphenhydramine HCl 25 mg 03/01/25 19:01 03/01/25 19:14 Diphenhydramine 50mg/Ml Vial IV 03/01/25 19:02 25 mg ONCE ONE Administration Doxycycline Hyclate 100 mg 03/01/25 19:01 03/01/25 19:14 Doxycycline Hycl 100 Mg Tablet PO 03/01/25 19:02 100 mg ONCE ONE Administration Sodium Chloride 500 mls @ 999 mls/hr 03/01/25 18:18 03/01/25 18:24 Sod Chlor 0.9% 1000ml Bag IV 03/01/25 18:48 999 mls/hr .Q31M ONE Administration Ondansetron HCl 4 mg 03/01/25 18:18 03/01/25 18:24 Ondansetron 4mg/2ml Vial IV 03/01/25 18:19 4 mg ONCE ONE Administration ORDERS Category Date Time Status POC Glucose,Bedside Routine Lab 03/01/25 18:02 Completed Medical Decision Narrative: In summary, patient is a 49-year-old female PMHx CAD, HLD, obesity who presents to the ED stating that she removed a tick off left side of her abdomen that she believes has been attached for 2 days. Patient states it was a [place] tick. Patient states that the tick was removed approximately 5 days ago. Today, she has developed a headache, nausea and vomiting and overall fatigue. She has taken Tylenol prior to arrival which she states has mildly helped with her symptoms. Denies visual disturbances, posterior neck pain, joint pain, chest pain, shortness of breath, abdominal pain, dysuria. Differential diagnosis include electrolyte imbalance, gastroenteritis, colitis, viral syndrome, tickborne illness, among others. Upon initial exam, patient is alert and oriented, she is hemodynamically stable. Her physical exam is remarkable for a small pinpoint red dot on the left side of her abdomen. PERRLA. Abdomen is soft and nontender. Discussed with patient we will administer IV fluids, nausea medication and symptomatic treatment of her headache. Upon reassessment, patient states that her symptoms have improved. Her pharmacy is currently closed, we administered 1 dose of doxycycline in the ED. I discussed with patient she will need to complete the course of doxycycline, follow-up with her PCP within 48 hours. We discussed strict return precautions to the ED and patient verbalized understanding. <Buddy Low MD - Last Filed: 03/01/25 18:48> Vital Signs: 03/01/25 17:54 03/01/25 18:30 03/01/25 18:59 Temperature 98.1 F Temperature Source Tympanic Pulse Rate 69 64 Pulse Rate [Right] 62 Respiratory Rate 16 15 18 Blood Pressure 121/62 Blood Pressure [Right Arm] 108/74 L Blood Pressure Mean [Right Arm] 85 Blood Pressure Source Blood Pressure Position 02 Sat by Pulse Oximetry 100 98 99 Oxygen Delivery Method Room Air 03/01/25 19:30 Temperature 98.1 F Temperature Source Oral Pulse Rate 64 Pulse Rate [Right] Respiratory Rate 16 Blood Pressure 115/65 Blood Pressure [Right Arm] Blood Pressure Mean [Right Arm] Blood Pressure Source Automatic Cuff Blood Pressure Position Supine 02 Sat by Pulse Oximetry Oxygen Delivery Method Room Air Lab Data Lab Results 03/01/25 18:02: POC Glucose 83 Orders (Tests/Meds): ED MEDICATIONS Discontinued Medications Generic Name Dose Route Start Last Admin Trade Name Freq PRN Reason Stop Dose Admin Diphenhydramine HCl 25 mg 03/01/25 19:01 03/01/25 19:14 Diphenhydramine 50mg/Ml Vial IV 03/01/25 19:02 25 mg ONCE ONE Administration Doxycycline Hyclate 100 mg 03/01/25 19:01 03/01/25 19:14 Doxycycline Hycl 100 Mg Tablet PO 03/01/25 19:02 100 mg ONCE ONE Administration Sodium Chloride 500 mls @ 999 mls/hr 03/01/25 18:18 03/01/25 18:24 Sod Chlor 0.9% 1000ml Bag IV 03/01/25 18:48 999 mls/hr .Q31M ONE Administration Ondansetron HCl 4 mg 03/01/25 18:18 03/01/25 18:24 Ondansetron 4mg/2ml Vial IV 03/01/25 18:19 4 mg ONCE ONE Administration ORDERS Category Date Time Status POC Glucose,Bedside Routine Lab 03/01/25 18:02 Completed ECG Data Tracing #1: Independently interpreted by me rate of 67, rhythm is regular, no ST elevation in anatomical contiguous leads, no prolonged GA interval 170 ms. QTc 411. Critical Care <Shanon Meng APRN - Last Filed: 03/01/25 20:49> Critical Care Time Critical Care Time: No
[2025-03-01] MEDS: ONDANSETRON 4MG/2ML VIAL 4 MG IV (18:24)
[2025-03-01] MEDS: 0.9 % SODIUM CHLORIDE 1000ML 500 ML 999 ML IV (18:24)
[2025-03-01 18:30] VITALS: PULSE 69; RESP 15; O2SAT 98
[2025-03-01 18:59] VITALS: BP 121/62; PULSE 64; RESP 18; O2SAT 99
[2025-03-01] MEDS: DOXYCYCLINE HYCL 100 MG TABLET PO (19:14)
[2025-03-01] MEDS: diphenhydrAMINE 50MG/ML VIAL 25 MG IV (19:14)
[2025-03-01 19:30] VITALS: BP 115/65; PULSE 64; RESP 16; TEMP 36.7; O2SAT 99
== END 2025-03-01 19:40 | disposition home or self-care (01) ==
PROVIDERS: Emergency Provider Emergency Medicine; PCP Family Medicine
DX: S30.861A Insect bite (nonvenomous) of abdominal wall, initial encounter (principal); R51.9 Headache, unspecified; I10 Essential (primary) hypertension; F17.210 Nicotine dependence, cigarettes, uncomplicated
CPT/HCPCS: 82962; 93005; 96361; 96374; 96375; 99284; J1200; J2405; J7030

== ENCOUNTER 2025-05-17 18:55 | Emergency (ER) | payer BC, SELFPAY ==
--- OUTSIDE RECORDS SUMMARY | 2024-05-15 10:00 | XMS_ITS ---
Author Organization [facility] Address [address] [facility] [address] [place] [id number] Care Team Providers Care Road Traffic Controller Name Role Phone Taylor Anaya Primary Care Provider Shayla Gant Unavailable [phone] Allergies Allergen (clinical drug ingredient) Drug/Non Drug [...] Lab: Notes/Report: REASON FOR VISIT fu from [facility] admission Medications Medication SIG (Take, Route, Frequency, Duration) Notes Start Date End Date Status Furosemide 20 mg TAKE ONE TABLET BY M OUTH EVERY DAY NEEDED FOR swelling; Duration: 90 Active tiZANidine HCl 2 MG 1 or 2 tab(s) orally every 8 hours as needed; Duration: 30 day(s) 02/01/2023 Active Pantoprazole Sodium 40 [...] Problem Status W/U Status Risk Notes Problem Vitamin D deficiency (69299524) Vitamin D deficiency (E55.9) Active confirmed Vital Signs Weight 168.2 lbs 05/15/2024 Blood pressure systolic 110 mm Hg 05/15/20 24 Blood pressure diastolic 70 mm Hg 024 Heart Rate 68 /min 05/15/2024 Height 64.50 in 05/15/2024 BMI 28.42 kg/m2 05/15/2024 Encounters Encounter Location Date Provider Diagnosis [facility] [address] [facility] [address] [place], [place] [id number] 05/15/2024 Shayla Gant Type 2 diabetes sarita itus without complication, 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 E11.9 ; Benign paroxysmal positional vertigo, unspecified laterality H81.10 ; History of paroxysmal supraventricular tachycardia Z86.79 ; Gastroesophageal reflux disease without esophagitis K21.9 ; Atherosclerosis of prairie band coronary artery without angina pectoris, unspecified whether prairie band or transplanted heart I25.10 ; Vitamin B12 deficiency E53.8 ; Essential (primary) hypertension I10 ; Hereditary hemochromatosis E83.110 ; Pure hypercholesterolemia, unspecified E78.00 ; Vitamin D deficiency E55.9 and Dysuria R30.0 Assessments Encounter Date Diagnosis (ICD Code) Assessment Notes Treatment Notes Treatment Clinical Notes Section Notes 05/15/2024 Type 2 diabetes mellitus without complication, unspecified whether fci insulin use (ICD-10 - E11.9) 05/15/2024 Benign paroxysmal positional vertigo, unspecified laterality (ICD-10 - H81.10) Resolved. 05/15/2024 History of paroxysmal supraventricular tachycardia (ICD-10 - Z86.79) 05/15/2024 Gastroesophageal reflux disease without esophagitis (ICD-10 - K21.9) 05/15/2024 Atherosclerosis of prairie band coronary artery without angina pectoris, unspecified whether prairie band or transplanted heart (ICD-10 - I25.10) 05/15/2024 [...] Krueger , 08/12/2025 02:00:00 PM, [address] [facility] [address] [facility], [address], [place], [place], [id number], Progress Notes * DAKOTA AMBIKAB:1975 ( 50 yo F)Acc No.[id number]:05/15/2024 Progress Notes Patient: LIBAN RAI Provider: ZACKARY Dickson :1975 A ge:49 Y S ex:Female Date:05/15/2024 Address:[address] [place], [place] [id number] Pcp:Taylor Anaya Subjective: * Chief Complaints: * 1 . fu from [facility] admission. * HPI: N eurology: The pt is here today for a check up from [facility] ER due to Vertigo. Pt states she [...] LHC with LAD stent/ Trevin 07/2021, Repeat LHC with LAD stent/ Trevin 08/2021. * Hospitalization/Major Diagno stic Procedure: S yncope and Collapse- [facility] 03/12-, Headache, Dizziness- [facility] ER 03/15/2019, Back Pain- [facility] ER 11/14/2019, Suicidal/Homicidal Thoughts- [facility] ER 02/17/2021. * Family History: F ather: [...] G eneral Examination: General Appearance: N AD. H EENT: sclera and conjunctiva clear, PERRLA, TM's normal, translucent, EOM's with normal ROM. O ral cavity: n o lesions, mucosa moist and WNL, no erythema. N alberto: s upple, no lymphadenopathy. C hest: normal shape and expansion. H eart: R SR. L ungs: c lear to auscultation. A bdomen: bowel sounds present, soft and nontender, no organomegaly or masses, no guarding or rigidity. N eurologic Exam: alert and oriented, normal cranial nerves II-XII sensory & motor WNL, no cerebellar signs, Rhomberg neg. S kin: n ormal, no rash. P eripheral pulses: n ormal (2+) bilaterally. E xtremities: n o leg edema. Assessment: * Assessment: 1. B enign paroxysmal positional vertigo, unspecified laterality - H81.10 (Primary) ?2. 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 H istory of paroxysmal supraventricular tachycardia - Z86.79 4 . G astroesophageal reflux disease without esophagitis - K21.9 5 .?Atherosclerosis of prairie band coronary artery without angina pectoris, unspecified whether prairie band or transplanted heart - I25.10 6 . [...] 2 diabetes mellitus without complication, unspecified whether fci insulin use?LAB: H-CMP (Collection Date & Time [...] T 4F 1.23 0.78-2.19 - ng/dl * StalinDaniemoar Ordonez 05/20/2024 9: 05:32 PM > see TE 5.?Hereditary hemochromatosis?LAB: H-Ferritin (Collection Date & Time - 05/16/2024 02:36 PM)?14.5* Value Reference Range F ER 14.5 D 6.24-137 - ng/ml * StalinShayla Ordonez 05/20/2024 9: 05:32 PM > see TE [...] * G brenda Neg * Ghada Carlos Arnoldo 05/15/2024 5:0 1:36 PM > , Provider reviewed results while patient in office.Shayla Gant 05/16/2024 9:26:20 AM > * Procedure Codes: 8 1002 Urinalysis, no micro * Follow Up: v ia phone to report test results * Images: Billing Information: * Visit Code: 22196 Office Visit, Est Pt., Level 4. * Procedure Codes: 87703 Urinalysis, no micro. * Electronic signature of ZACKARY Engel on 05/17/2025 at 07:08 PM EDT Sign off status: Pending * Provider: ZACKARY Dickson Date: 0 05/15/2024 Generated for Ledai ng/Fayulisag/eTransmitting on: 0 05/17/2025 07:08 PM EDT History and Physical Notes * [...]
--- OUTSIDE RECORDS SUMMARY | 2024-11-10 06:00 | XMS_ITS ---
Author Organization [facility] Address [address] [facility] [address] [place] [phone] Care Team Providers Care Microarray Specialist Name Role Phone Taylor Anaya Primary Care Provider Amadou Holman Unavailable [phone] Allergies Allergen (clinical drug ingredient) Drug/Non Drug [...] factor V Leiden mutation (D68.51) [facility] Referring Provider First Name Amadou Referring [...] Status W/U Status Risk Notes Problem Migraine (51302397) Migraine without status migrainosus, not intractable, unspecified migraine type (G43.909) Active confirmed Problem Heterozygous Factor V Leiden mutation (929119223) Heterozygous factor V Leiden mutation (D68.51) Active confirmed Vital Signs Weight 171 lbs 11/10/2024 Blood pressure systolic 130 mm Hg 11/10/19 25 Blood pressure diastolic 72 mm Hg 025 Heart Rate 67 /min 11/10/2024 Height 64.50 in 11/10/2024 BMI 28.90 kg/m2 11/10/2024 Encounters Encounter Location Date Provider Diagnosis [facility] [address] [phone] 11/10/2024 Amadou [place] Left-sided weakness R53.1 ; Migraine without status [...] [address], [address], [place], [place], [phone], Progress Notes * AMBIKA DUNCANB:1975 ( 50 yo F)Acc No.[id number]:11/10/2024 Patient: LIBAN RAI Provider: Miguel Ángel Holman M.D. :1975 A ge:49 Y S ex:Female Date:11/10/2024 Address:[address] [place], [place] [address], [id number] Pcp:Taylor Anaya Subjective: * Chief Complaints: * 1 . f/u [facility] D/C. * HPI: H PI: 49 year old female presents with c/o Here for follow up on:?11/03/2024 [facility] hospitalization. Pt states that she was admitted [...] Diagno stic Procedure: S yncope and Collapse- [facility] 03/12-, Headache, Dizziness- [facility] ER 03/15/2019, Back Pain- [facility] ER 11/14/2019, Suicidal/Homicidal Thoughts- [facility] ER 02/17/2021. * Family History: F ather: [...] * Images: Billing Information: * Visit Code: 80155 Office Visit, Est Pt., Level 4. * Procedure Codes: 3075F SYST BP GE 130 - 139MM HG. 3078F DIAST BP < 80 MM HG. * Electronic signature of Fabiola Holman MD on 05/17/2025 at 07:09 PM EDT Sign off status: Pending * Provider: Miguel Ángel Holman M.D. Date: 0 11/10/2024 Generated for Kerrie winchester/Marta/Brandenitting on: 0 05/17/2025 07:09 PM EDT History and Physical Notes * HPI (History of Present Illness) Category Sub-Category Detail Notes Category Not es HPI Here for follow up on: 5 [facility] hospitalization. Pt states that she was admitted [...]
--- OUTSIDE RECORDS SUMMARY | 2025-02-09 09:30 | XMS_ITS ---
[facility] Address [address] [facility] [address] [phone] Care Team Providers Care Senior Compliance Analyst Name Role Phone Taylor Anaya Primary Care Provider Amadou Holman Unavailable [phone] Allergies Allergen (clinical drug ingredient) Drug/Non Drug [...] Normal Performing Lab: Notes/Report: Test performed by [facility], [address] , [address], [place] [address] Luis Camacho MD, Digital Forensic Examiner CLIA: [id number] Sodium 144 135-145 mmol/L Potassium 4.2 3.5-5.3 [...] Normal Performing Lab: Notes/Report: Test performed by [facility] [address] [place] [address] , [address], [place] [address] Luis Camacho MD, Digital Forensic Examiner CLIA: [id number] Cholesterol 177 <200 mg/dL Triglycerides 84 <150 [...] Normal Performing Lab: Notes/Report: Test performed by [facility] [address] , [place] [address] Luis Camacho MD, Digital Forensic Examiner CLIA: [id number] TSH reflex to FT4 1.16 0.43-5.25 mU/L P-Microalbumin/Creatinine, R andom Urine Sample Reviewed date:02/11/2025 12:21:20 PM Interpretation: Normal Performing Lab: Notes/Report: Test performed by [facility] [address] , [place] [address] Luis Camacho MD, Digital Forensic Examiner CLIA: [id number] Albumin/Creatinine Ratio, Urine 9 0-30 ug/m g Microalbumin, Urine, Random 2.5 Creatinine, Urine 292.3 P-Vitamin D 25-Hydroxy Reviewed date:02/11/2025 12:21:20 PM Interpretation:28.3 Performing Lab: Notes/Report: Test performed by [facility] [address] , [place] [address] Luis Camacho MD, Digital Forensic Examiner CLIA: [id number] Vitamin D 25-Hydroxy 28.3 30.0-100.0 ng/mL Interpretation [...] 02/09/2025 Encounters Encounter Location Date Provider Diagnosis [facility] 12[address] [facility] [address] [phone] 02/09/2025 Amadou Holman Type 2 diabetes sarita [...] [address], [address], [place], [place], [phone], Progress Notes * DAKOTA KIRSTENRONYMAKEDAB:1975 ( 50 yo F)Acc No.[id number]:02/09/2025 Progress Notes Patient: LIBAN RAI Provider: Miguel Ángel Holman M.D. :1975 A ge:49 Y S ex:Female Date:02/09/2025 Address:[address] [place] [address], [id number] Pcp:Taylor Anaya Subjective: * Chief Complaints: * [...] Procedure: S yncope and Collapse- [facility] 03/12-, Headache, Dizziness- [facility] 03/15/2019, Back Pain- [facility] 11/14/2019, Suicidal/Homicidal Thoughts- [facility] 02/17/2021. * Family History: F [...] (primary) hypertension - I10 7 . B OK 27.0-27.9,adult - Z68.27 Plan: * Treatment: Value [...] G 2211 Complex e/[place], [address] GLUCOSE TEST, 22735 GLYCATED HEMOGLOBIN TEST, Modifiers: QW , 3044F HG A1C LEVEL LT 7.0%, G8420 BMI<30 AND >=22 CALC & DOCU, G8752 MOST RECENT SYSTOLIC BP < 140MM HG, G8754 MOST RECENT DIASTOLIC BP < 90MM HG * Follow Up: 6 Months * Images: Billing Information: * Visit Code: 76798 Office Visit, Est Pt., Level 4. * Procedure Codes: G2211 Complex e/[place]. [address] GLUCOSE TEST. 00195 GLYCATED HEMOGLOBIN TEST. Modifiers: QW 3044F HG A1C LEVEL LT 7.0%. G8420 BMI<30 AND >=22 CALC & DOCU. G8752 MOST RECENT SYSTOLIC BP < 140MM HG. G8754 MOST RECENT DIASTOLIC BP < 90MM HG. * Electronic signature of Fabiola Holman MD on 05/17/2025 at 07:08 PM EDT Sign off status: Pending * Provider: Miguel Ángel Holman M.D. Date: 0 02/09/2025 Generated for Kerrie winchester/Marta/Brandenitting on: 0 05/17/2025 07:08 PM EDT History [...]
[2025-05-17 18:55] VITALS: BP 100/68; PULSE 99; RESP 18; O2SAT 100; BMI 25.7
--- NOTE | 2025-05-17 18:58 | ECG_ITS ---
APPROVED REPORT Exam: Resting ECG HR:97 bpm ECG Measurements Heart Rate 97 AXES SD 169 P 63 QRSd 80 QRS -50 QT 348 T 61 QTc 402 Conclusion SINUS RHYTHM LOW QRS VOLTAGE IN PRECORDIAL LEADS [QRS DEFLECTION < 1.0 mV IN CHEST LEADS] PATTERN CONSISTENT WITH PULMONARY DISEASE LEFT ANTERIOR FASCICULAR BLOCK [QRS AXIS <= -45, QR IN I, RS IN II] ABNORMAL ECG UNCONFIRMED REPORT Electronically signed by : Tunde Meneses, 05/17/2025 23:10:15
--- OUTSIDE RECORDS SUMMARY | 2025-05-17 19:08 | XMS_ITS | Clinical Summary ---
Author Organization [employer] ([place], [place], [place], [place]) Address [address] [place] [address] Care Team Providers Care Technology Internship Name Role Phone Walter Anaya MD Primary Care Provider [phone]- [phone] Allergies Active Allergy Reactions Criticality Noted Date Comments Hydromorphone (Bulk) Rash Low 10/17/2018 Hymenoptera Allergenic Extract Anaphylaxis High 01/19/2012 Ibuprofen Swelling High 11/15/2017 Lisinopril Shortness Of Breath High 03/23/2014 cough Paroxetine Hcl 11/21/2022 Promethazine 11/21/2022 Sertraline 03/23/2014 Anger issues. Tetanus Vaccines And Toxoid 11/21/2022 Social History Tobacco Use Types Packs/Day Years Used Date Smoking Tobacco: Never Assessed Food Insecurity Answer Date Recorded Food run [...] Date Rolando rded Speak language other than Khmer at home Not on file 10/12/2023 Want help with school or training Not on file 10/12/2023 Substance Use Answer Date Recorded Used [...] (Zoster) (1 of 2) 2024 COVID-19 VACCINE (3 - season) 2024, 05/17/2021 Influenza Vaccine (#1) 2025 06/15/2016 DTAP/TDAP/TD VACCINES (2 - Td or Tdap) 11/01/2028 Medical Devices Implanted Type Area Account Processor Device Identifier Shelf Expiration Date Model / Serial / Lot Loop Recorder-2021 Implanted:09/24 (Quantity not on file) LOOP RECORDER [employer] [id number] / [id number] / Insurance MEDICAID [place] BLUE CROSS/BLUE SHIELD MEDICARE PART A B Care Teams Technology Internship Relationship Specialty Start Date End Date Walter Anaya MD [address] [place] [id number] PCP - General Family Medicine 11/21/22
--- OUTSIDE RECORDS SUMMARY | 2025-05-17 19:08 | XMS_ITS | Encounter Summary ---
Author Organization [employer] ([place], [place], [place], [place]) Address [address] [place] [address] Care Team Providers Care Home Restoration Service Supervisor Name Role Phone Walter Anaya MD Primary Care Provider [phone]- [phone] Encounter Details Date Type Department Care Team (Late st Contact Info) Description 03/20/2022 Transcribed Document [facility] Family Medicine [address] [place] [address] ProviderJason MD [address] [place] [address] Social History Tobacco Use Types Packs/Day Years [...] Date Rolando rded Speak language other than Turkmen at home Not on file 10/12/2023 Want [...] on file Sexual Orientation Not on file COVID-19 Exposure Response Date Recorded In the last 10 days, have yo u been in contact with someone who was confirmed or suspected to have Coronavirus/COVID-19? No / Unsure 11/21/2022 2:55 PM EST documented as of this encounter Miscellaneous Notes * Cerner Conversion Note - Historical Provider, - 03/20/2022 8:37 PM CDT DATE OF [...] Normal left ventricular systolic function post stress. /[id number] Stanley Kenyon MD SSL/AQ / SSL / MODL /[id number] CC: MD Walter Chang MD Electronically signed by Kathy Freeman [facility] Conversion Design Engineering Technician Swati at 01/08/2023 1:03 PM CDT documented in this encounter Plan of Treatment Not on file documented as of this encounter Visit Diagnoses Not on filedocumented in this encounter Care Teams Home Restoration Service Supervisor Relationship Specialty Start Date End Date Walter Anaya MD [address] [place] [phone] PCP - General Family Medicine 11/21/22 documented as of this encounter
--- OUTSIDE RECORDS SUMMARY | 2025-05-17 19:08 | XMS_ITS | Referral Summary ---
Author Organization [employer] ([place], [place], [place], [place]) Address [address] [place] [address] Care Team Providers Care Apparel Merchandiser Name Role Phone Walter Anaya MD Primary Care Provider [phone]- [phone] Allergies Active Allergy Reactions Criticality Noted Date [...] Date Rolando rded Speak language other than Sinhala at home Not on file 10/12/2023 Want [...] on file Medical Devices Implanted Type Area Flexo Press Operator Device Identifier Shelf Expiration Date Model / Serial / Lot Loop Recorder-2021 Implanted:09/24 (Quantity not on file) LOOP RECORDER [employer] [id number] / [id number] / Insurance MEDICAID B BLUE CROSS/BLUE SHIELD MEDICARE PART A B Care Teams Apparel Merchandiser Relationship Specialty Start Date End Date Walter Anaya MD [address] [place] [phone] PCP - General Family Medicine 11/21/22
--- OUTSIDE RECORDS SUMMARY | 2025-05-17 19:09 | XMS_ITS | Patient Health Record ---
Author Organization [facility] Address [address] [facility] [address] [place] [id number] Care Team Providers Care Stripping Machine Operator Name Role Phone Taylor Anaya Primary Care Provider Amadou Holman Unavailable [phone] Shayla Gant Unavailable [phone] Allergies Allergen (clinical drug ingredient) Drug/Non Drug [...] Normal Performing Lab: Notes/Report: Test performed by [facility] [address] [place] [address] , [address], [place] [address] Luis Camacho MD, Bindery Operator CLIA: [id number] Sodium 144 135-145 mmol/L Potassium 4.2 3.5-5.3 [...] Normal Performing Lab: Notes/Report: Test performed by [employer] [facility] [address] [place] [address] , [address], [place] [address] Luis Camacho MD, Bindery Operator CLIA: [id number] Cholesterol 177 <200 mg/dL Triglycerides 84 <150 [...] Normal Performing Lab: Notes/Report: Test performed by [facility] [address] , [place] [address] Luis Camacho MD, Bindery Operator CLIA: [id number] TSH reflex to FT4 1.16 0.43-5.25 mU/L P-Microalbumin/Creatinine, R andom Urine Sample Reviewed date:02/11/2025 12:21:20 PM Interpretation: Normal Performing Lab: Notes/Report: Test performed by [facility] [address] , [place] [address] Luis Camacho MD, Bindery Operator CLIA: [id number] Albumin/Creatinine Ratio, Urine 9 0-30 ug/m g Microalbumin, Urine, Random 2.5 Creatinine, Urine 292.3 P-Vitamin D 25-Hydroxy Reviewed date:02/11/2025 12:21:20 PM Interpretation:28.3 Performing Lab: Notes/Report: Test performed by [facility] [address] , [place] [address] Luis Camacho MD, Bindery Operator CLIA: [id number] Vitamin D 25-Hydroxy 28.3 30.0-100.0 ng/mL Interpretation of Vitamin D 25 OH: < 20 ng/mL - Deficiency 20 - 29 ng/mL - Insufficiency 30 - 100 ng/mL - Sufficiency > 100 ng/mL - Super-therapeutic- toxicity may occur above this level. Clinical correlation required. Reason For Referral Diagnosis 1 Hereditary hemochrom atosis (E83.110) Diagnosis 2 Heterozygous factor V Leiden mutation (D68.51) Referral Organization [facility] Referring Provider First Name Amadou Referring Provider Last Name River Referring Provider Speciality Family [facility] ctice Referred Provider Michel Curtis Referred Provider [...] Once a day; Duration: 30 day(s) Active Diflucan 150 MG 1 tablet Orally once ; Duration: 10 days 02/12/2025 Active Flintstones Multivitamin - 1 tab(s) chewed bid Active EpiPen 2-Allan 0.3 MG/0.3ML as directed in tramuscularly once Active ProAir Digihaler 108 (90 Base) MCG/ACT 1-2 puff(s) inhaled every 6 hours, prn 10/05/2021 Active Furosemide 20 mg TAKE ONE TABLET BY M OUTH EVERY DAY NEEDED FOR swelling; Duration: 90 Active traZODone HCl 100 MG 1 tablet at bedtime orally Once a day; Duration: 90 days Active Zepbound 5 MG/0.5ML 0.5 mL Subcutaneous Active Immunizations Vaccine Route Administration Date Status Comme nts COVID 19 Moderna Unknown 06/15/2021 Administered Fluzone PF Quad (6-35 months) Unknown 07/01/2020 Admini stered Fluzone PF Quad (6-35 months) Unknown 07/05/2019 Admini stered Fluzone PF Quad (6-35 months) Unknown 05/27/2018 Admini stered Fluzone Quad (6months&older) Unknown 06/15/2016 Adminis tered PNEUMOVAX 23 VACCINE Unknown 12/03/2013 Administered Tetanus Tdap-Adacel (over 7yrs) Unknown 11/01/2018 Admi nistered COVID 19 Moderna Unknown 05/17/2021 Administered Problems Problem Type SNOMED Code ICD Code Onset Dates Problem Status W/U Status Risk Notes Problem Gastroesophageal reflux disease (365378538) GERD (gastroesophageal reflux disease) (K21.9) Active confirmed Problem Essential hypertensi on (82812151) Essential (primary) hypertension (I10) Active confirmed Problem Coronary arteriosclerosis (75162635) ASCVD (arteriosclerotic cardiovascular disease) (I25.10) Active confirmed Problem Vitamin D deficiency (56450252) Vitamin D deficiency (E55.9) Active confirmed Problem Constipation (75533572) Constipation (K59.00) Active confirmed Problem Skin sensation disturbance (33427426) Paresthesia of right arm (R20.2) Active confirmed Problem Skin sensation disturbance (53717029) Paresthesia of left arm (R20.2) Active confirmed Problem Hereditary hemochromatosis (48134054) Hereditary hemochromatosis (E83.110) Active confirmed Problem Primary insomnia (3536999) Primary insomnia (F51.01) Active confirmed Problem Unstable angina (7254479) Unstable angina (I20.0) Active confirmed Problem Chronic fatigue syndrome (disorder) (35288404) Chronic fatigue, unspecified (R53.82) Active confirmed Problem Seasonal allergic rhinitis (565449694) Seasonal allergic reaction (J30.2) Active confirmed Problem Gastroesophageal reflux disease without esophagitis (755961104) Gastroesophageal reflux disease without esophagitis (K21.9) Active confirmed Problem Gastroesophageal reflux disease (disorder) (325021826) Chronic GERD (K21.9) Active confirmed Problem Migraine (04288600) Migraine wit hout status migrainosus, not intractable, unspecified migraine type (G43.909) Active confirmed Problem Mild intermittent asthma (383952006) Mild intermittent asthma without complication (J45.20) Active confirmed Problem Migraine with aura (8384634) Migraine with aura and without status migrainosus, not intractable (G43.109) Active confirmed Problem Altered mental statu s (273891195) Altered mental status, unspecified altered mental status type (R41.82) Active confirmed Problem Body mass index 30.0 0 to 34.99 (685316031452023) BMI 34.0-34.9,adult (Z68.34) Active confirmed Problem Dyslipidemia (849591455) Dyslipidemia (E78.5) Active confirmed Problem Severe recurrent bria or depression without psychotic features (28238093) Severe episode of recurrent major depressive disorder, without psychotic features (F33.2) Active confirmed Problem Stented coronary artery (959899973) Stented coronary artery (Z95.5) Active confirmed Problem Type II diabetes mellitus without complication (620710464) Type 2 diabetes mellitus without complication, without long-term current use of insulin (E11.9) Active confirmed Problem Refractory migraine without aura (196278502) Intractable migraine without aura and without status migrainosus (G43.019) Active confirmed Problem Atherosclerotic hear t disease of [place] coronary artery without angina pectoris (658922097604247) Coronary artery disease involving [place] heart without angina pectoris, unspecified vessel or lesion type (I25.10) Active confirmed Problem Atherosclerotic hear t disease of [place] coronary artery without angina pectoris (014223483678442) Atherosclerosis of [place] coronary artery without angina pectoris, unspecified whether [place] or transplanted heart (I25.10) Active confirmed Problem Pure hypercholesterolemia (349243403) Pure hypercholesterolem ia, unspecified (E78.00) Active confirmed Problem History of placement of stent for coronary artery disease (situation) (973737565) History of coronary artery stent placement (Z95.5) Active confirmed Problem Pain in female genitalia on intercourse (92407899) Dyspareunia in female (N94.10) Active confirmed Problem Factor V Leiden mutation (864884890) Factor V Leiden mutation (D68.51) Active confirmed Problem Renal calculus (55914707) Renal calculus (N20.0) Active confirmed non-ob struct ing Problem Type II diabetes mellitus without complication (821435923) Type 2 diabetes mellitus without complication, unspecified whether assisted insulin use (E11.9) Active confirmed Problem Allergic reaction to bee sting (970356659) Bee sting allergy (Z91.030) Active confirmed Problem Skin sensation disturbance (40702562) Intermittent paresthesia of left hand and foot (R20.2) Active confirmed Problem 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) Active confirmed Problem Heterozygous Factor V Leiden mutation (775576105) Heterozygous factor V Leiden mutation (D68.51) Active confirmed Vital Signs Heart Rate 71 /min 02/09/2025 Blood pressure diastolic 70 mm Hg 02/09/2025 Height 64.50 in 02/09/2025 Blood pressure systolic 112 mm Hg 02/09/2025 Weight 160.4 lbs 02/09/2025 BMI 27.1 kg/m2 02/09/2025 Encounters Encounter Location Date Provider Diagnosis Ricardo [address] [facility] [address] [place] [id number] 11/10/2024 Amadou Holman Left-sided weakness R53.1 ; Migraine without status migrainosus, not intractable, unspecified migraine type G43.909 ; Primary insomnia F51.01 ; Hereditary hemochromatosis E83.110 and Heterozygous factor V Leiden mutation D68.51 [facility] [address] [place] [id number] 02/09/2025 Amadouherberth Holman Type 2 diabetes sarita itus without complication, without long-term current use of insulin E11.9 ; Vitamin D deficiency E55.9 ; Hereditary hemochromatosis E83.110 ; Primary insomnia F51.01 ; Pure hypercholesterolemia, unspecified E78.00 ; Essential (primary) hypertension I10 and BMI 27.0-27.9,adult Z68.27 [facility] [address] [place] [id number] 05/20/2024 Shayla Gant [facility] [address] [place] [id number] 02/11/2025 Amadouherberth Holman [facility] [address] [place] [id number] 02/11/2025 Amadou Holman Assessments Encounter Date Diagnosis (ICD Code) Assessment Notes Treatment Notes Treatment Clinical Notes Section Notes 11/10/2024 Migraine without status migrainosus, not intractable, unspecified migraine type (ICD-10 - G43.909) Improved 11/10/2024 Left-sided weakness (ICD-10 - R53.1) Improved 02/09/2025 Vitamin D deficiency (ICD-10 - E55.9) 02/09/2025 Type 2 diabetes mellitus without complication, without long-term current use of insulin (ICD-10 - E11.9) 02/09/2025 Hereditary hemochromatosis (ICD-10 - E83.110) 11/10/2024 Primary insomnia (ICD-10 - F51.01) 11/10/2024 Hereditary hemochromatosis (ICD-10 - E83.110) 02/09/2025 Primary insomnia (ICD-10 - F51.01) 02/09/2025 Pure hypercholesterolemia , unspecified (ICD-10 - E78.00) 11/10/2024 Heterozygous factor V Leiden mutation (ICD-10 - D68.51) 02/09/2025 Essential (primary) hypertension (ICD-10 - I10) 02/09/2025 BMI 27.0-27.9,adult (ICD-10 - Z68.27) Plan Of Treatment Pending Test Test Name Order Date Stool Guaiac(Occult Blood) 11/18/2021 Next Appt Details Provider Name:Amadou Krueger ry, 08/12/2025 02:00:00 PM, [address], [address], [place], [place], [id number], Insurance Providers Payer Name Payer Address Payer Phone Subscriber Number Group Number Insured Name Patient Relationship to Insured Coverage Start Date Coverage End Date [employer] [address] [place] [address] [id number] 2es LIBAN DUNCAN Self - patient is the insured MEDICARE PART B [address] [address] [place] [address] [id number] LIBAN DUCNAN Self - patient is the insured MEDICAID [employer] [address] [place] [id number] LIBAN DUNCAN Self - patient is the insured Medications [...] History Surgery Date(Month/Year) X 3 Lap Brooke 1995 Kidney Stone Removal 2004 Partial Hysterectomy for Fibroid Tumor - Dr Tovar 2012 Gastric Sleeve/ Dr. Pascal 10/07/2018 LHC with LAD stent/ [facility] 07/2021 Repeat LHC with LAD stent/ Trevin 08/25 021 Hospitalization History Reason Date(Month/Year) Suicidal/Homicidal Thoughts- [facility] ER /03/2021 Back Pain- [facility] 11/14/2019 Headache, Dizziness- [facility] 03/15/2019 Syncope and Collapse- [facility] 03/12-
--- OUTSIDE RECORDS SUMMARY | 2025-05-17 19:09 | XMS_ITS | Clinical Summary ---
Author Organization [facility] Address [address] [place] [address] Phone Care Team Providers Care Inspection Clerk Name Role Phone Tunde Myers MD Unavailable [phone] Michel Chacon MD Unavailable [phone] Allergies Active Allergy Reactions Criticality Noted Date Comments Hymenoptera Allergenic Extract Anaphylaxis High /03/2012 Hydromorphone (Bulk) Rash Low 10/17/2018 Ibuprofen Swelling [...] Zac Pascal on 10/05/18. Calorie restrict attempt 9724-7072 calories per day. Decrease starches like bread [...] your drinking? no Ever need an eye manager property in the morning? no Screening for depression [...] Pap Smear 07/09/2016 07/09/2013 (Prev iously completed) Kidney Health: uACR 11/07/2018 11/07/2017, 03/29/2016, 04/16/2015, Additional history exists Cologuard 2019 Colon Cancer Screening 2019 Colonoscopy 2019 FIT 2019 Sigmoidoscopy 2019 Virtual Colonography 2019 Hemoglobin A1c 03/23/2021 09/23/2020, 06/24, 03/25/2018, Additional history exists Diabetic Eye Exam 09/23/2021 09/23/2020, 03/21/2018 Kidney Health: eGFR 09/23/2021 09/23/2020, 07/11/2018, 03/25/2018, Additional history exists Lipids 09/23/2021 09/23/2020, 06/24, 11/20/2017, Additional history exists Zoster (1 of 2) 2024 COVID-19 Vaccine ( season) 2024 Influenza Vaccine (#1) 2025 9, 05/27/2018, 11/07/2017 (Declined), Additional history exists DTaP/TDaP/Td [...] 30.4(09/23/20 20 10:46 AM EST) No Sonia Ca LPN Eat better, exercise, reach an ideal body weight General No Patt Arthur Stay Tobacco Free Lifestyle No Patt Arthur HEMOGLOBIN A1C < 7.0 Result Component 5.7( 0 11:19 AM EST) No Georgie Olivares RN Procedures Procedure Name Priority Date/Time Associated Diagnosis Comments COMPREHENSIVE METABOLIC PANEL Routine 09/23/2020 11:19 AM EST Controlled type 2 diabetes mellitus without complication, without long-term current use of insulin (HCC) LIPID SCREEN Routine 09/23/2020 11:19 AM EST Essential hypertension HEMOGLOBIN A1C Routine 09/23/2020 11:19 AM EST Controlled type 2 diabetes mellitus without complication, without long-term current use of insulin (HCC) HM DIABETES EYE EXAM Routine 03/21/2018 Poorly controlled type 2 diabetes mellitus (HCC) MICROALBUMIN/CREATINI NE RATIO URINE Routine 11/07/2017 2:05 PM EST Poorly controlled type 2 diabetes mellitus (HCC) from Last 3 Months or Most Recently Relevant to Health Maintenance Results * (ABNORMAL) HEMOGLOBIN A1C (09/23/2020 11:19 AM EST) Hgb A1C 5.7(H) 4.2 - 5.6 % 09/23/2020 4:16 PM EST [employer] [employer] Est. Avg Glucose 117 mg/dL 09/23/2020 4:16 PM EST [employer] Blood Venipuncture / Unknown 09/23/2020 11:19 AM EST 09/23/2020 11:19 AM EST Narrative [employer] - 09/23/2020 4:16 PM EST REFERENCE RANGE: Normal: 4.0-5.6% Pre-diabetes: 5.7-6.4% Provisional diagnosis of diabetes: >6.4% Hgb F>10% and anything which shortens red cell survival, such as hemolytic anemia, or unstable hemoglobin variants such as HbSS, HbSC, or HbCC, will lower the HbA1c value associated with a given level of glycemic control. Liz Cruz APRN CHEMISTRY ORDERABLES Final Result Performing Organization Address City/[facility] Co de Phone Number [facility] [employer] [facility] , [place] [address] * LIPID SCREEN (09/23/2020 11:19 AM EST) Cholesterol 184 <200 mg/dL 09/23/2020 4:37 PM EST [employer] Comment: < 200 Desirable 200 - 239 Borderline High >= 240 High Triglyceride 82 <150 mg/dL 09/23/2020 4:37 PM EST [employer] Comment: < 150 Normal 150 - 199 Borderline High 200 - 499 High >= 500 Very High HDL 75 >=40 mg/dL 09/23/2020 4:37 PM EST [employer] Comment: > 60 Optimal 40 - 60 Acceptable < 40 Low LDL Calculated 93 <100 mg/dL 09/23/2020 4:37 PM EST [employer] Comment: < 100 Optimal 100 - 129 Near or above optimal 130 - 159 Borderline High 160 - 189 High >= 190 Very High Non-HDL-C Calculated 109 <=129 mg/dL 09/23/2020 4:37 PM EST [employer] Comment: <130 Desirable 130-159 Above Desirable 160-189 Borderline High 190-219 High >= 220 Very High Fasting Specimen? Unknown None 020 4:37 PM EST [employer] Blood VENOUS BLOOD / Unknown Venipuncture / Unknown 09/23/2020 11:19 AM EST 09/23/2020 11:19 AM EST Liz Cruz APRN CHEMISTRY ORDERABLES Final Result Performing Organization Address [facility]/ZIP Co de Phone Number [facility] [employer] [facility] , [place] [address] * (ABNORMAL) COMPREHENSIVE METABOLIC PANEL (09/23/2020 11:19 AM EST) Sodium 141 136 - 145 mmol/L 09/23/2020 4:45 PM EST [facility] Potassium 4.0 3.5 - 5.0 mmol/L 09/23/2020 4:45 PM EST [facility] Chloride 105 98 - 107 mmol/L 09/23/2020 4:45 PM EST [facility] Total CO2 29 22 - 29 mmol/L 09/23/2020 4:45 PM EST [facility] Anion Gap 7 7 - 16 mmol/L 09/23/2020 4:45 PM EST [facility] Calcium 9.3 8.6 - 10.4 mg/dL 09/23/2020 4:45 PM EST [facility] Glucose Lvl 108(H) 74 - 100 mg/dL 09/23/2020 4:45 PM EST [facility] BUN 14 6 - 20 mg/dL 09/23/2020 4:45 PM EST [facility] Creatinine 0.64 0.51 - 1.30 mg/dL 09/23/2020 4:45 PM EST [facility] Albumin 4.6 3.5 - 5.2 gm/dL 09/23/2020 4:45 PM EST [facility] Total Protein 6.9 6.4 - 8.3 gm/dL 09/23/2020 4:45 PM EST [facility] Bili Total 0.4 0.1 - 1.3 mg/dL 09/23/2020 4:45 PM EST [facility] ALT 20 <=41 U/L 09/23/2020 4:45 PM EST [facility] AST 14 <=40 U/L 09/23/2020 4:45 PM EST [facility] Alk Phos 39 36 - 123 U/L 09/23/2020 4:45 PM EST [facility] GFR Afr Am 124 >=60 mL/min/1.7 3 m2 09/23/2020 4:45 PM EST [facility] GFR Non Afr Am 107 >=60 mL/min/1.7 3 m2 09/23/2020 4:45 PM EST [facility] Comment: This estimated GFR was calculated using CKD-EPI equation which is modified based on ethnicity for Non Americans and Americans. Both results are reported since it is not always possible to determine the patient's ethnicity. This equation should only be used for individuals 18 and older. It has not been validated for use with the elderly (>70 years), women, or in some racial or ethnic subgroups, such as Hispanics. The equation will be less accurate in people with differences in nutritional status or muscle mass. Blood Venipuncture / Unknown 09/23/2020 11:19 AM EST 09/23/2020 11:19 AM EST us Liz Cruz BEAUTY PARLOR CLEANER CHEMISTRY ORDERABLES Final Result Performing Organization Address City/[facility]/ZIP Co de Phone Number [facility] [facility] [address] [facility], [place] [address] [facility] [address] [place] [address] * DIABETES EYE EXAM (03/21/2018) Left Diabetic Retinopathy Present Present/Not Present SEP OFFICE Right Diabetic Retinopathy Present Present/Not Present SEP OFFICE us Historical Provider HEALTH MAINTENANCE Final Res ult Performing Organization Address [facility] Co de Phone Number SEP OFFICE * (ABNORMAL) MICROALBUMIN/CREATININE RATIO URINE (11/07/2017 2:05 PM EST) Urine Microalb 130.0 mg/L 11/07/2017 9:00 PM EST [facility] Urine Creatinine 151.1 mg/dL 11/07/2017 9:00 PM EST [facility] Ur Microalb/Creat 86(H) 0 - 30 mg/gm 11/07/2017 9:00 PM EST [facility] Urine STRUCTURE OF URINARY TRACT PROPER / Unknown 11/07/2017 2:05 PM EST 11/07/2017 2:05 PM EST us Michel Chacon MD URINE ORDERABLES Final Resu lt Performing Organization Address City/[facility] Co de Phone Number [facility] [address] [place] [address] from Last 3 Months or Most Recently Relevant to Health Maintenance Insurance [place] PPO [place]ICARE [place] PART A AND B MEDICARE [place] PART A AND B Care Teams Inspection Clerk Relationship Specialty Start Date End Date Tunde Myers MD [address] [place] [address] [place] [address] Consulting Physician Obstetrics & Gynecology-Gynecologic Oncology 11/15/17 Michel Chacon MD [address] [place] [address] [place] [address] Referring Physician Family Medicine 11/08/17
--- OUTSIDE RECORDS SUMMARY | 2025-05-17 19:09 | XMS_ITS | Clinical Summary ---
Author Organization [facility] Address [address] [place] [id number] Phone [email or web address] Care Team Providers Care Clinical Counselor Name Role Phone Walter Anaya MD Primary [...] same and follow up in 2 months. 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 Gender Identity Not on file Sexual Orientation [...] Date Last Done Comments CT Colonography 1974 Cervical Cancer Screening Combo 1974 Colonoscopy 1974 Colorectal Cancer Screening Combo 1974 DNA Cologuard 1974 Dental Cleaning/Exam 1974 FIT or FOBT Test 1974 HIV Screening 1974 HPV / Cotest 1974 Hepatitis C Screening 1974 Pap Testing 1974 Sigmoidoscopy 1974 Diabetic Comprehensive Foot Exam 1984 Diabetic Retinal Eye Exam 1984 Hemoglobin A1C Testing 1984 Hep B Infection Screening - Triple Screen 1992 Hepatitis B Immunization (1 of 3 - 19+ 3-dose series) 1993 Breast Cancer Screening 2004 Pneumococcal: Ped (0 to 5 Yrs) and At-Risk Member (6 to 64 Yrs) (2 of 2 - PCV) 12/03/2014 12/03/2013 Diabetic Kidney Health Eval (eGFR & Alb/CR ratio urine) 09/23/2021 09/23/2020, 11/07/2017 Zoster Immunization (1 of 2) 2024 Covid-19 Immunization ( season) 2024 06/15/2021, 05/17/2021 Annual Preventive Exam 08/23/2024 08/23/2023 Influenza Immunization (#1) 05/25/202504/2020, 07/05/2019, 05/27/2018, Additional history exists Tetanus Diphtheria [...] this topic Insurance [employer] Care Teams Clinical Counselor Relationship Specialty Start Date End Date Walter Anaya MD [address] [place] [id number] PCP - General 02/12/25
--- NOTE | 2025-05-17 19:17 | XR_ITS ---
PROCEDURE INFORMATION: Exam: XR Chest Exam date and time: 05/17/2025 7:21 PM Age: 50 years old Clinical indication: Pain; Additional info: Chest pain TECHNIQUE: Imaging protocol: Radiologic exam of the chest. Views: 1 view. COMPARISON: CT ANGIO CHEST PE PROTOCOL 07/13/2023 12:29 AM FINDINGS: Tubes, catheters and devices: Subcutaneous loop recorder remains in place in the left chest. Lungs: Unremarkable. No consolidation. Pleural spaces: Unremarkable. No pleural effusion. No pneumothorax. Heart/Mediastinum: Unremarkable. No cardiomegaly. Bones/joints: Unremarkable. IMPRESSION: No acute disease
--- NOTE | 2025-05-17 19:21 | CT_ITS ---
PROCEDURE INFORMATION: Exam: CTA Chest With Contrast Exam date and time: 05/17/2025 8:00 PM Age: 50 years old Clinical indication: Sternal or substernal pain and left-sided TECHNIQUE: Imaging protocol: Computed tomographic angiography of the chest with contrast. Exam focused on the arteries. 3D rendering (Not supervised by radiologist): MIP and/or 3D reconstructed images were created by the technologist. Radiation optimization: All CT scans at this facility use at least one of these dose optimization techniques: automated exposure control; mA and/or kV adjustment per patient size (includes targeted exams where dose is matched to clinical indication); or iterative reconstruction. Contrast material: ISOUVE 370; Contrast volume: 80 ml; Contrast route: INTRAVENOUS (IV); COMPARISON: CT ANGIO CHEST PE PROTOCOL 07/13/2023 12:29 AM FINDINGS: Tubes, catheters and devices: Subcutaneous loop recorder noted in the left chest. Pulmonary arteries: Normal. No pulmonary emboli. Aorta: Stable dilation of the ascending thoracic aorta measuring 3.7 cm in greatest diameter. No evidence of aortic dissection. Lungs: Unremarkable. No consolidation. No masses. Pleural spaces: Unremarkable. No pneumothorax. No pleural effusion. Heart: Unremarkable. No cardiomegaly. No pericardial effusion. Lymph nodes: Unremarkable. No enlarged lymph nodes. Bones/joints: Mild degenerative changes throughout the lower thoracic spine. Mild scoliosis of the upper thoracic spine. No vertebral body compression. No acute fracture. Soft tissues: Unremarkable. IMPRESSION: No acute abnormality. Stable chronic findings as noted.
--- NOTE | 2025-05-17 19:24 | ED_ITS ---
<Statement entered by Sunshine Meneses MD - 05/17/25 22:55> I was consulted by the BALBINA, and we discussed the complexity of the problems being addressed. I approved the treatment and management plan for this patient's care in the emergency department, thus performing a substantive portion of the medical decision making. Sunshine Meneses MD, ELKIN, FACEP Discharge Plan Disposition Patient Disposition: Home, Self-Care Prescriptions Prescriptions: No Action nitroglycerin 400 mcg/spray aerosol,spray 0.4 mg translingual Q3-5M PRN (Reason: chest pain) Qty: 4.1 0RF Rx Instructions: do not exceed 3 doses per episode amlodipine 5 mg tablet 5 mg PO DAILY Qty: 30 2RF pantoprazole 40 mg tablet,delayed release (DR/EC) 40 mg PO DAILY Qty: 30 2RF nitroglycerin 0.4 mg tablet, sublingual 0.4 mg sublingual Q5M Qty: 30 1RF Rx Instructions: do not exceed 3 doses per episode Zepbound 7.5 mg/0.5 mL pen injector See Rx Instructions .ROUTE .COMPLEX Qty: 4 0RF Dose Instruction: INJECT 1 PEN-INJECTOR SUBCUTANEOUSLY ONCE A WEEK Rx Instructions: INJECT 1 PEN-INJECTOR SUBCUTANEOUSLY ONCE A WEEK aspirin 325 mg tablet 325 mg PO DAILY Qty: 1 0RF trazodone 100 mg tablet 100 mg PO DAILY furosemide 20 mg tablet 20 mg PO DAILY Patient Comments: TAKE 1 TABLET BY MOUTH ONCE DAILY FOR FLUID Referrals Follow up/Referrals: Walter Anaya MD [Primary Care Provider, Medical] - See instructions Activity Restrictions/Add. Instructions Additional Instructions/Restrictions: Follow with Tyler Aguayo as we discussed. If any other problems or concerns please return to the ED Clinical Impressions Clinical Impression: Chest pain Instructions Patient Instructions: DI for Chest Pain Print Language Print Language: Macedonian Discharge ED Provider: Sunshine Meneses HPI General Chief Complaint: Chest Pain Stated Complaint: CHEST PAIN Time Seen by Provider: 05/17/25 19:14 Mode of Arrival: Ambulatory Source of Information: Patient Description of Symptoms (Recalled from ER Triage Doc. by RN): PT REPORTS MIDSTERNAL CHEST PAIN THAT HAS BEEN INTERMITTENT TODAY. PAIN RADIATES TO BACK AND PT REPORTS TINGLING OF HER LEFT HAND. PAIN MINIMALLY RELIEVED BT 2 SPRAYS OF NITRO AT HOME. REPORTS NAUSEA History of Present Illness HPI narrative: 50-year-old female presents to the ED today for porting chest pain that has been going on and off all day today. She says it even started yesterday but today it went through to her back causing nausea. She did take nitro and it got better but it came back. She says when the pain is going on it is hard to breathe and cause her nausea. She does have CAD and has had 3 stents 1 in and another in 2021. She does have an appointment with Tyler Aguayo tomorrow. She is on Zepbound. She is supposed to schedule a heart cath in May and she has been putting this off because she has to work. Related Data Home Medications ?Medication ?Instructions ?Recorded ?Confirmed furosemide 20 mg tablet 20 mg PO DAILY 08/17/2403/25 trazodone 100 mg tablet 100 mg PO DAILY 08/17/24 Previous Rx's ?Medication ?Instructions ?Recorded aspirin 325 mg tablet 325 mg PO DAILY #1 tab 11/04 amlodipine 5 mg tablet 5 mg PO DAILY #30 tabs 04/20 nitroglycerin 0.4 mg sublingual 0.4 mg sublingual Q5M #30 tabs 04/20/25 tablet nitroglycerin 400 mcg/spray 0.4 mg translingual Q3-5M PRN 04/20/25 translingual aerosol chest pain #4.1 grams pantoprazole 40 mg tablet,delayed 40 mg PO DAILY #30 t abs 04/20/25 release tirzepatide (weight loss) 7.5 See Rx Instructions .Rou te 05/13/25 mg/0.5 mL subcutaneous pen .COMPLEX #4 mL injector (Zepbound) Allergies Allergy/AdvReac Type Severity Reaction Status Date / Time duloxetine (From Cymbalta) Allergy Severe liver Verified 04/20/25 14:28 swelling hydromorphone (From Dilaudid) Allergy Severe rash, Verified 04/20/25 14:28 itching ibuprofen Allergy Severe swelling Verified 04/20/25 14:28 lisinopril (LISINOPRIL) Allergy Severe chokes Verified 04/20/25 14:28 venom-honey bee Allergy Severe Anaphylaxis Verified 04/20/25 14:28 venom-wasp Allergy Severe Anaphylaxis Verified 04/20/25 14:28 COVID-19 (SARS-CoV-2) Allergy Verified 04/20/25 14:28 vaccine, mauro promethazine (From PHENERGAN) AdvReac Severe hallucinati Verified 04/20/25 14:28 ons sertraline (From Zoloft) AdvReac Severe suicidal Verified 04/20/25 14:28 paroxetine (From PAXIL) AdvReac Intermediate Palpitation Verified 04/20/25 14:28 s tetanus and diphtheria AdvReac Intermediate vomitting Verified 04/20/25 14:28 toxoids (TETANUS & DIPHTHERIA TOXOIDS) isosorbide AdvReac BP drops, Verified 04/20/25 14:28 headache PFSH PFS Disclaimer: The information contained in this section may have been updated after the patient was seen, as this information can be updated by other users. Medical History Obesity Factor V Leiden mutation UTI symptoms Epigastric abdominal pain URI, acute Anxiety Chest pain Left wrist pain Atypical chest pain Risk for sexually transmitted disease Mood disorder Encephalopathy History of multiple miscarriages History of recurrent deep vein thrombosis History of anoxic brain injury In the setting of eclampsia, 1994 History of seizures In the setting of eclampsia. Denies known seizures since 1994. Daily to weekly staring spells . Chronic headaches Hypotension Vomiting Single event. Believe it was r/t viral illness. RESOLVED Constipation Believe most of issue is attributable to dehydration. Fiber and activity may also play a part. Diet and hydration needs discussed at length. Enterocolitis noted on CT scan during ER visit. Believe this is resolved. 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 shortness of breath Right radial artery thrombus HLD (hyperlipidemia) Tobacco use Coronary artery disease JUL 2021-Severe eccentric plaque in the proximal LAD followed by a suspicious hazy moderate stenosis both reduced with drug-eluting stents placed in a contiguous manner reducing the stenosis to 0% Regional wall motion abnormality with ejection fraction of 50% Mildly elevated LVEDP Pericarditis Adverse reaction to COVID-19 vaccine Suicidal ideation Antidepressant discontinuation syndrome (~07/04/22) Lumbar radiculopathy CVA (cerebral vascular accident) Type 2 diabetes mellitus History of paroxysmal supraventricular tachycardia Hereditary hemochromatosis Previously evaluated by hematology in [facility]. SVT (supraventricular tachycardia) Diabetes Surgical History History of loop recorder H/O gastric sleeve H/O: hysterectomy partial Hx laparoscopic cholecystectomy History of coronary artery stent placement Previous section Family History Other Asthma Cancer Coronary artery disease Diabetes FHx: mental illness Heart attack Hyperlipidemia Hypertension Kidney disease Social History Smoking Status: Current every day smoker tobacco type: cigarettes packs per day: 1 second hand exposure: No alcohol intake: never substance use type: denies use current occupational status: employed Travel in the last 8 weeks?: None household members: spouse and children housing: house marital status: education level: high school current occupational exposures/hazards: No caffeine: Yes Have you lived/traveled outside [place] in past 30 days?: No Contact w/someone who lives/traveled outside [place] past 30 days?: No Exposure to someone with infectious disease in past 14 days?: No Do you have a fever (greater than 100.4 F or 38 C)?: No Have you tested positive for COVID-19?: No Exposed to someone with COVID-19 in past 14 days?: No Do you have a sore throat?: No Do you have a cough?: No Do you have any weakness?: No Do you have any diarrhea?: No Are you experiencing any unusual bleeding?: No Do you have any muscle aches/pain?: No Do you have any abdominal pain?: No Are you experiencing loss of taste or smell?: No Other Medical History Have you received the Flu Vaccine for this season: No Have you received the Pneumonia Vaccine: No ROS Obtained: Yes Systems reviewed as appropriate & no additional complaints except as documented Constitutional Constitutional: Reports as per HPI Physical Exam General General appearance: alert Head Head exam: normocephalic Eye Eye exam: Present PERRL ENT ENT exam: Present normal exam and mucous membranes moist Neck Neck exam: Present trachea midline Chest Chest inspection: Present symmetric chest wall rise Respiratory Respiratory exam: Present normal lung sounds bilaterally Cardiovascular Cardiovascular exam: Present regular rate, normal rhythm, normal heart sounds, +S1 and +S2 Abdominal Exam Abdominal exam: Present soft and normal bowel sounds Extremities Exam Extremities exam: Present normal inspection, full ROM and normal capillary refill Back Exam Back exam: Present full ROM Neurological Exam Neurological exam: Present alert, oriented X3 and normal gait Psychiatric Psychiatric exam: Present normal affect and normal mood Skin Skin exam: Present warm and dry HEART Score HEART Score HEART Score assessment performed?: Yes History (anamnesis): Slightly suspicious ECG: Non-specific disturbance Age: 45-65 years Risk factors: 1-2 risk factors Troponin: </= normal limit HEART Score: 3 Critical Care Critical Care Time Critical Care Time: No Medical Decision Making Jelani Inquiry Pt receiving controlled substance: No Jelani was queried for this patient: No Vital Signs Vital Signs: 05/17/25 18:55 05/17/25 20:44 05/17/25 20:46 Temperature 98.2 F Temperature Source Oral Pulse Rate 77 77 Pulse Rate [Radial] 99 H Respiratory Rate 18 18 Blood Pressure 107/72 L Blood Pressure [Left Arm] 100/68 L Blood Pressure Mean [Left Arm] 78 Blood Pressure Source Automatic Cuff Blood Pressure Source [Left Arm] Automatic Cuff Blood Pressure Position Sitting Blood Pressure Position [Left Arm] Sitting 02 Sat by Pulse Oximetry 100 100 Oxygen Delivery Method Room Air Room Air 05/17/25 22:10 Temperature 98.5 F Temperature Source Pulse Rate 78 Pulse Rate [Radial] Respiratory Rate 18 Blood Pressure 110/72 Blood Pressure [Left Arm] Blood Pressure Mean [Left Arm] Blood Pressure Source Blood Pressure Source [Left Arm] Blood Pressure Position Blood Pressure Position [Left Arm] 02 Sat by Pulse Oximetry Oxygen Delivery Method Lab Data Labs: Lab Results 05/17/25 19:05: WBC 5.3, RBC 4.61, Hgb 13.8, Hct 41.3, MCV 89.6, MCH 29.9, MCHC 33.4, RDW 12.7, Plt Count 232, MPV 9.6, Neut % (Auto) 67.2, Lymph % (Auto) 23.5, Piatt % (Auto) 7.4, Eos % (Auto) 0.9, Baso % (Auto) 0.8, Neut # (Auto) 3.6, Lymph # (Auto) 1.2, Piatt # (Auto) 0.4, Eos # (Auto) 0.1, Baso # (Auto) 0.0, Sodium 143, Potassium 4.2, Chloride 105, Carbon Dioxide 29, Anion Gap 13.2, BUN 19 H, Creatinine 0.60, Estimated Creat Clear 115, Estimated GFR 105, Est GFR ( Amer) 128, Glucose 112 H, Calcium 9.4, Magnesium 1.8, Total Bilirubin 0.4, AST 25, ALT 17, Alkaline Phosphatase 41, Troponin I < 0.01, Total Protein 7.0, Albumin 4.5, Globulin 2.5, Albumin/Globulin Ratio 1.8, Lipase 92 05/17/25 21:13: Troponin I < 0.01 05/17/25 19:05 05/17/25 19:05 Response Orders (Tests/Meds): ED MEDICATIONS Discontinued Medications Generic Name Dose Route Start Last Admin Trade Name Freq PRN Reason Stop Dose Admin Iopamidol 80 ml 05/17/25 20:00 05/17/25 20:00 Iopamidol-370 (76%);100ml Bottle IV 05/17/25 20:01 80 ml ONCE ONE Administration Sodium Chloride 40 ml 05/17/25 20:00 05/17/25 20:00 0.9 % Sodium Chloride 50 Ml Vial IV 05/17/25 20:01 40 ml ONCE ONE Administration Sodium Chloride 10 ml 05/17/25 20:00 05/17/25 20:00 Sodium Chloride 0.9% 10ml Syr (Rad Only) IV 06/16/25 19:59 10 ml NEEDED PRN Administration Maintain IV Site ORDERS Category Date Time Status CTA Chest [CT angio chest - dissection] Stat Cat Scan 05/17/25 19:21 Completed XR chest portable Stat Exams 05/17/25 19:17 Completed Complete Blood Count Auto Diff Stat Lab 05/17/25 19:05 Completed Comprehensive Metabolic Panel Stat Lab 05/17/25 19:05 Completed Lipase Stat Lab 05/17/25 19:05 Completed Magnesium Stat Lab 05/17/25 19:05 Completed Troponin I Q3H Lab 05/17/25 21:13 Completed Troponin I Stat Lab 05/17/25 19:05 Completed MDM Narrative Medical Decision Narrative: patient is a 50-year-old female presenting to the emergency department for evaluation of chest pain that has been causing shortness of breath. Patient is hemodynamically stable and nontoxic-appearing upon arrival, afebrile. Differential diagnosis includes ACS, CAD, viral illness, among others. Workup will be conducted with hematologic labs, specific imaging. Patient has had normal troponins, otherwise normal labs. Patient will see Tyler tomorrow in clinic. Patient has scheduled follow-up patient is safe for discharge home.
[2025-05-17 19:25] LABS: Hematocrit 41.3 % (37.0-47.0); Hemoglobin 13.8 g/dL (12.2-16.2); Immature Granulocytes % 0.2 %; Mean Corpuscular HGB Conc 33.4 g/dL (31.8-35.4); Mean Corpuscular Hemoglobin 29.9 pg (27.0-31.2); Mean Corpuscular Volume 89.6 fl (81-99); Nucleated Red Blood Cells % 0 %; Platelet Count 232 K/mm3 (142-424); Red Blood Count 4.61 M/mm3 (4.20-5.40); Red Cell Distribution Width-SD 41.9 fL; White Blood Count 5.3 K/mm3 (4.8-10.8)
[2025-05-17 19:37] LABS: Lipase 92 U/L (23-300)
[2025-05-17 19:38] LABS: Alanine Aminotransferase 17 U/L (12-78); Albumin Level 4.5 g/dl (3.5-5.0); Albumin/Globulin Ratio 1.8 (1.1-1.8); Alkaline Phosphatase 41 U/L (38-126); Anion Gap 13.2 mEq/L (5-15); Aspartate Amino Transferase 25 U/L (14-36); Bilirubin,Total 0.4 mg/dl (0.2-1.3); Blood Urea Nitrogen 19 mg/dl (7-17); Calcium 9.4 mg/dl (8.4-10.2); Carbon Dioxide 29 mmol/L (22.0-30.0); Chloride 105 mmol/L (98-107); Creatinine Clearance Estimated 115 mL/min (50-200); Creatinine,Serum 0.60 mg/dl (0.52-1.04); Estimated Glomerular Filt Rate 105 ml/min (>60); GFR (African American) 128 ML/MIN (>60); Globulin 2.5 g/dL (1.3-3.2); Glucose 112 mg/dl (74-100); Potassium 4.2 mmoL/L (3.5-5.1); Sodium 143 mmol/L (136-145); Total Protein,Serum 7.0 g/dl (6.3-8.2)
[2025-05-17 19:39] LABS: Magnesium 1.8 mg/dl (1.6-2.3)
[2025-05-17 19:50] LABS: Troponin I < 0.01 ng/ml (0.00-0.034)
[2025-05-17] MEDS: 0.9 % SODIUM CHLORIDE 50 ML VIAL 40 ML IV (20:00)
[2025-05-17] MEDS: SODIUM CHLORIDE 0.9% 10ML SYR (RAD ONLY) 10 ML IV (20:00)
[2025-05-17] MEDS: IOPAMIDOL-370 (76%);100ML BOTTLE 80 ML IV (20:00)
[2025-05-17 20:44] VITALS: BP 107/72; PULSE 77; RESP 18; TEMP 36.8; O2SAT 100
[2025-05-17 20:46] VITALS: PULSE 77
[2025-05-17 21:49] LABS: Troponin I < 0.01 ng/ml (0.00-0.034)
[2025-05-17 22:10] VITALS: BP 110/72; PULSE 78; RESP 18; TEMP 36.9; O2SAT 98
== END 2025-05-17 22:11 | disposition home or self-care (01) ==
PROVIDERS: Nurse Practitioner; Emergency Provider Student in an Organized Health Care Education/Training Program; PCP Family Medicine
DX: R07.9 Chest pain, unspecified (principal); R06.02 Shortness of breath; F17.210 Nicotine dependence, cigarettes, uncomplicated; R11.0 Nausea; Z86.79 Personal history of other diseases of the circulatory system; Z95.5 Presence of coronary angioplasty implant and graft
CPT/HCPCS: 71045; 71275; 80053; 83690; 83735; 84484; 85025; 93005; 99284; 99285; Q9967

== ENCOUNTER 2025-05-18 15:43 | Observation (INO) | payer BC, SELFPAY ==
[2025-05-18 16:00] VITALS: PULSE 70
[2025-05-18 16:02] VITALS: BP 124/78; PULSE 82; RESP 18; TEMP 36.4; O2SAT 98; BMI 26.5
--- NOTE | 2025-05-18 17:27 | EXP.HP ---
History of Present Illness *Admission Date: 05/18/25 *Reason for visit:: Chest pain. Admitted for cardiac cath. *History of present illness: Ms. Franco is a 50-year-old female with a history of anoxic brain injury, type 2 diabetes mellitus, coronary artery disease, fibromyalgia, kidney stones, SVT, anxiety and depression, PTSD, asthma, hereditary hemochromatosis and stent placement who was admitted from the cardiac office after being seen by ZACKARY Hameed. Patient describes having chest discomfort which is Sometimes severe and always with a pressure like feeling during the past 5 to 6 weeks. With the severe chest discomfort she experiences dizziness. She has had some swelling in feet., Last night she did suffer with severe chest pain which she described as midsternal radiating through to her back and down her arms associated with shortness of breath and diaphoresis and nausea. She did take 2 nitro sprays but the chest pain would return. Thus she presented to the ER for evaluation. With evaluation in the emergency room troponin I was normal. She also had an EKG and then was discharged home. She planned to going to work this p.m. but did see Tyler in the cardiac clinic today and was admitted from there for ongoing evaluation and to schedule for cardiac cath tomorrow a.m. At time of this exam patient does have pressure-like discomfort in her anterior chest. She denies shortness of breath.Laboratory data completed last night in the ER reveals a normal CBC. Blood chemistries with a normal electrolytes and a BUN of 19 and creatinine of 0.6. Troponin I was 0.[address] [facility] Disclaimer: The information contained in this section may have been updated after the patient was seen, as this information can be updated by other users. Medical History (Updated 05/18/25 @ 19:20 by Amadou Holman MD) Unstable angina Typical angina Obesity Factor V Leiden mutation UTI symptoms Epigastric abdominal pain URI, acute Anxiety Chest pain Left wrist pain Atypical chest pain Risk for sexually transmitted disease Mood disorder Encephalopathy History of multiple miscarriages History of recurrent deep vein thrombosis History of anoxic brain injury History of seizures Chronic headaches Hypotension Vomiting Constipation Enterocolitis Hematoma Post-op pain HTN (hypertension) Symptoms, such as flushing, sleeplessness, headache, lack of concentration, associated with the menopause Adnexal tenderness, left Status post placement of implantable loop recorder History of eclampsia Hx of nephrolithotomy with removal of calculi Depression Fibromyalgia GERD (gastroesophageal reflux disease) Hypertension Coronary artery disease Tobacco abuse disorder History of asthma [id number] syndrome manifesting as chronic shortness of breath Right radial artery thrombus HLD (hyperlipidemia) Tobacco use Coronary artery disease Pericarditis Adverse reaction to COVID-19 vaccine Suicidal ideation Antidepressant discontinuation syndrome (~07/04/22) Lumbar radiculopathy CVA (cerebral vascular accident) Type 2 diabetes mellitus History of paroxysmal supraventricular tachycardia Hereditary hemochromatosis SVT (supraventricular tachycardia) Diabetes Surgical History History of loop recorder H/O gastric sleeve H/O: hysterectomy Hx laparoscopic cholecystectomy History of coronary artery stent placement Previous section Family History Other Asthma Cancer Coronary artery disease Diabetes FHx: mental illness Heart attack Hyperlipidemia Hypertension Kidney disease Social History (Updated 05/18/25 @ 17:34 by Ashley Lopez APRN) Smoking Status: Current every day smoker tobacco type: cigarettes packs per day: 1 second hand exposure: No Tobacco counseling given: provider counseling alcohol intake: never substance use type: denies use current occupational status: employed Travel in the last 8 weeks?: None household members: spouse and children housing: house marital status: education level: high school current occupational exposures/hazards: No caffeine: Yes Have you lived/traveled outside [place] in past 30 days?: No Contact w/someone who lives/traveled outside [place] past 30 days?: No Exposure to someone with infectious disease in past 14 days?: No Do you have a fever (greater than 100.4 F or 38 C)?: No Have you tested positive for COVID-19?: No Exposed to someone with COVID-19 in past 14 days?: No Do you have a sore throat?: No Do you have a cough?: No Do you have any weakness?: No Do you have any diarrhea?: No Are you experiencing any unusual bleeding?: No Do you have any muscle aches/pain?: No Do you have any abdominal pain?: No Are you experiencing loss of taste or smell?: No Other Medical History Have you received the Flu Vaccine for this season: No Have you received the Pneumonia Vaccine: Yes Review of Systems Constitutional Constitutional: Denies fever(s), Denies frequent falls, Denies headache(s) and Reports weight loss (Intentional) Comments: Patient has recently lost about 30 pounds while being on Zepbound. She currently is vaping and not smoking Eyes Eyes: Denies change in vision ENT Ears, Nose, Mouth, and Throat: Denies otalgia, Denies headache(s), Denies post nasal drip, Denies sore throat and Reports vertigo *Cardiovascular Cardiovascular: Reports chest pain, Reports chest pain at rest, Reports diaphoresis (With a chest pain last night), Reports dyspnea (With the chest pain), Denies edema, Denies irregular heart rhythm, Reports leg edema and Denies syncope *Respiratory Respiratory: Denies cough and Reports dyspnea (With the chest pain) *Gastrointestinal Gastrointestinal: Denies constipation, Denies dyspepsia, Reports loose stools (Yesterday), Reports nausea (With the severe chest pain) and Denies vomiting *Genitourinary Genitourinary: Denies difficulty voiding *Musculoskeletal Musculoskeletal: Denies abnormal gait and Denies arthralgias *Neurologic Neurologic: Denies abnormal gait, Denies frequent falls, Denies headache(s), Denies syncope and Reports vertigo Meds Home Medications and Allergies Home Medications ?Medication ?Instructions ?Recorded ?Confirmed ?Type furosemide 20 mg tablet 20 mg PO DAILY 08/17/24 05/18/25 History trazodone 100 mg tablet 100 mg PO DAILY 08/17/24 05/18/25 History aspirin 325 mg tablet 325 mg PO DAILY #1 tab 11/04/24 05/18/25 Rx nitroglycerin 0.4 mg sublingual 0.4 mg sublingual Q5M #30 tabs 04/20/25 05/18/25 Rx tablet nitroglycerin 400 mcg/spray 0.4 mg translingual Q3-5M PRN 04/20/25 05/18/25 Rx translingual aerosol chest pain #4.1 grams pantoprazole 40 mg tablet,delayed 40 mg PO DAILY #30 tabs 04/20/25 05/18/25 Rx release tirzepatide (weight loss) 7.5 1 mg SQ WEEKLY 05/18/25 05/18/25 History mg/0.5 mL subcutaneous pen injector (Zepbound) New Prescriptions to Start Prescriptions: Allergies Allergy/AdvReac Type Severity Reaction Status Date / Time duloxetine (From Cymbalta) Allergy Severe liver Verified 05/18/25 15:00 swelling hydromorphone (From Dilaudid) Allergy Severe rash, Verified 05/18/25 15:00 itching ibuprofen Allergy Severe swelling Verified 05/18/25 15:00 lisinopril (LISINOPRIL) Allergy Severe chokes Verified 05/18/25 15:00 venom-honey bee Allergy Severe Anaphylaxis Verified 05/18/25 15:00 venom-wasp Allergy Severe Anaphylaxis Verified 05/18/25 15:00 COVID-19 (SARS-CoV-2) Allergy Verified 05/18/25 15:00 vaccine, mauro promethazine (From PHENERGAN) AdvReac Severe hallucinati Verified 05/18/25 15:00 ons sertraline (From Zoloft) AdvReac Severe suicidal Verified 05/18/25 15:00 paroxetine (From PAXIL) AdvReac Intermediate Palpitation Verified 05/18/25 15:00 s tetanus and diphtheria AdvReac Intermediate vomitting Verified 05/18/25 15:00 toxoids (TETANUS & DIPHTHERIA TOXOIDS) isosorbide AdvReac BP drops, Verified 05/18/25 15:00 headache Exam Data for Last 24 hours Vital signs and Labs for Last 24 Hours: Temp Pulse Resp BP Pulse Ox O2 Del Method 97.5 F L 82 18 124/78 98 Room Air 05/18/25 16:02 05/18/25 16:02 05/18/25 16:02 05/18/25 16:02 05/18/25 16:02 05/18/25 17:12 I & O for Last 24 hours: Intake & Output 05/16/25 05/17/25 05/18/25 05/19/25 11:59 11:59 11:59 11:59 Output Total 0 / 0 Balance 0 / 0 Weight 150 lb 0.005 oz Constitutional Constitutional: no acute distress Comments: Lying in bed and appears comfortable. Visiting with mother and *Routine HEENT Exam Head: Present normocephalic and atraumatic Eye: Present PERRL; Absent normal accommodation, conjunctival icterus or scleral injection ENT: Present mucous membranes moist and oropharynx clear *Routine Neck Exam Neck: Present supple; Absent carotid bruit, lymphadenopathy or thyromegaly Routine Chest/Breast/Axilla Exam Chest wall: Absent tenderness *Routine Respiratory Exam Respiratory: Present CTA bilaterally (Anteriorly and posteriorly) *Routine Cardiovascular Exam Cardiovascular: Present RRR (Monitor showing sinus rhythm) *Routine Abdominal Exam Abdominal: Present soft and normoactive bowel sounds; Absent tenderness, distended, organomegaly or mass *Routine Rectal Exam Rectal:: deferred *Routine Genitalia Exam Genitalia:: deferred *Routine Extremities Exam Extremities: Present full ROM and pulses intact; Absent edema or calf tenderness *Routine Neurological Exam Neurological: Present alert and oriented X3 Assessment and Plan *Assessment and plan (1) Chest pain: Status: Acute Qualifiers: Chest pain type: other chest pain Qualified Code(s): R07.89 - Other chest pain Category: Medical Code(s): R07.9 - Chest pain, unspecified (2) CAD (coronary atherosclerotic disease): Status: Acute Qualifiers: Associated angina: without angina Coronary Disease-Associated Artery/Lesion type: [place] artery [place] vs. transplanted heart: [place] heart Qualified Code(s): I25.10 - Atherosclerotic heart disease of [place] coronary artery without angina pectoris Category: Medical Code(s): I25.10 - Atherosclerotic heart disease of [place] coronary artery without angina pectoris (3) HLD (hyperlipidemia): Status: Acute Qualifiers: Hyperlipidemia type: mixed hyperlipidemia Qualified Code(s): E78.2 - Mixed hyperlipidemia Category: Medical Code(s): E78.5 - Hyperlipidemia, unspecified (4) Factor V Leiden mutation: Status: Acute Category: Medical Code(s): D68.51 - Activated protein C resistance Plan Patient to be scheduled for cardiac cath tomorrow. Will be followed by cardiology. Dr. Holman entry - Saw patient, agree with above note.
[2025-05-18 17:31] LABS: Troponin I 0.03 ng/ml (0.00-0.034)
[2025-05-18 20:00] VITALS: BP 108/71; PULSE 65; PULSE 70; RESP 16; TEMP 36.6; O2SAT 100
[2025-05-18 20:27] LABS: Troponin I < 0.01 ng/ml (0.00-0.034)
[2025-05-18 21:20] VITALS: BP 125/75; PULSE 60; RESP 16
[2025-05-18] MEDS: NITROGLYCERIN 0.4MG SL TABLET 0.4 MG SL (21:25)
[2025-05-18 21:35] VITALS: BP 100/64; PULSE 65; RESP 17
[2025-05-18 23:05] LABS: Troponin I < 0.01 ng/ml (0.00-0.034)
[2025-05-19] VITALS (22 sets, daily range): BP systolic 93–128; BP diastolic 62–73; PULSE 54–102; RESP 16–20; TEMP 36.4–36.6; O2SAT 96–100; BMI 27.4
[2025-05-19] MEDS: TRAZODONE 50MG TABLET 100 MG PO ×2 (00:30→22:58)
[2025-05-19] MEDS: PANTOPRAZOLE 40MG TABLET 40 MG PO ×2 (00:30→22:58)
--- NOTE | 2025-05-19 03:45 | PC.NURSE ---
Patient is alert and oriented x4. She was observed to be resting in bed with eyes closed (since approximately 01:30), respirations remain even and unlabored on room air, and she has been in no apparent distress throughout the night. Daughter has remained at bedside. She has complained once of having chest pressure, not pain this shift, of which was relieved by one dose of sublingual nitroglycerin per MAR. Thus far, her chest pressure has not returned. Previous chest pressure complaint was localized to the sternum and mild ( level 3 ). No further reports of dizziness, lightheadedness, etc. as well. Blood pressures ranged soft + stable. Auscultation of her heart, lungs, and bowels were within normal findings. On telemetry + continuous pulse ox. Scheduled medications administered per MAR (patient requested to take both Trazodone and Protonix at a later time). She ambulates independently in her room/to the bathroom without difficulties. Patient has remained NPO since midnight pending cardiology consult. At this time, the patient is resting in bed without any further complaints. No new needs thus far. Call light within reach.
--- NOTE | 2025-05-19 08:05 | P.PN_ITS ---
Subjective *Date: 05/19/25 *Time: 08:21 Interval history: Patient states she did sleep some during the night after sleeping pill. She has had ongoing chest pressure. She had 1 nitroglycerin spray which did relieve it briefly. It persists this morning. She denies any breathing difficulties. She is n.p.o. for cardiac cath this a.m. She has ambulated to the bathroom without difficulty. Her daughter stayed with her during the night. Exam Data for Last 24 hours Vital signs and Labs for Last 24 Hours: Temp Pulse Resp BP Pulse Ox O2 Del Method 97.7 F 70 16 104/64 L 96 Room Air 05/19/25 07:49 05/19/25 07:49 05/19/25 07:49 05/19/25 07:49 05/19/25 07:49 05/19/25 07:49 Laboratory Results - last 24 hr 05/18/25 16:25: Troponin I 0.03 05/18/25 19:45: Troponin I < 0.01 05/18/25 22:21: Troponin I < 0.01 I & O for Last 24 hours: Intake & Output 05/16/25 05/17/25 05/18/25 05/19/25 11:59 11:59 11:59 11:59 Intake Total 200 / 200 Output Total 0 / 0 Balance 200 / 200 Weight 155 lb 1.6 oz Constitutional Constitutional: no acute distress Comments: Working with her telephone *Routine Respiratory Exam Respiratory: Present CTA bilaterally (Anteriorly and posteriorly) *Routine Cardiovascular Exam Cardiovascular: Present RRR *Routine Abdominal Exam Abdominal: Present soft and normoactive bowel sounds; Absent tenderness *Routine Extremities Exam Extremities: Present pulses intact; Absent edema or calf tenderness *Routine Neurological Exam Neurological: Present alert and oriented X3 Assessment and Plan *Assessment and plan (1) Chest pain: Status: Acute Qualifiers: Chest pain type: other chest pain Qualified Code(s): R07.89 - Other chest pain Category: Medical Code(s): R07.9 - Chest pain, unspecified (2) CAD (coronary atherosclerotic disease): Status: Acute Qualifiers: Associated angina: without angina Coronary Disease-Associated Artery/Lesion type: [place] artery [place] vs. transplanted heart: [place] heart Qualified Code(s): I25.10 - Atherosclerotic heart disease of [place] coronary artery without angina pectoris Category: Medical Code(s): I25.10 - Atherosclerotic heart disease of [place] coronary artery without angina pectoris (3) HLD (hyperlipidemia): Status: Acute Qualifiers: Hyperlipidemia type: mixed hyperlipidemia Qualified Code(s): E78.2 - Mixed hyperlipidemia Category: Medical Code(s): E78.5 - Hyperlipidemia, unspecified (4) Factor V Leiden mutation: Status: Acute Category: Medical Code(s): D68.51 - Activated protein C resistance Plan Will have a cardiac cath today. Cardiology to follow. Dr. Holman entry - Saw patient, agree with above note.
[2025-05-19] MEDS: ASPIRIN 325MG TABLET 325 MG PO (08:11)
[2025-05-19 08:31] LABS: Hematocrit 39.5 % (37.0-47.0); Hemoglobin 13.0 g/dL (12.2-16.2); Immature Granulocytes % 0.2 %; Mean Corpuscular HGB Conc 32.9 g/dL (31.8-35.4); Mean Corpuscular Hemoglobin 29.5 pg (27.0-31.2); Mean Corpuscular Volume 89.6 fl (81-99); Nucleated Red Blood Cells % 0 %; Platelet Count 195 K/mm3 (142-424); Red Blood Count 4.41 M/mm3 (4.20-5.40); Red Cell Distribution Width-SD 41.5 fL; White Blood Count 4.3 K/mm3 (4.8-10.8)
[2025-05-19 08:35] LABS: Chloride 110 mmol/L (98-107); Potassium 3.9 mmoL/L (3.5-5.1); Sodium 142 mmol/L (136-145)
[2025-05-19 08:38] LABS: Anion Gap 10.9 mEq/L (5-15); Blood Urea Nitrogen 19 mg/dl (7-17); Carbon Dioxide 25 mmol/L (22.0-30.0); Creatinine Clearance Estimated 123 mL/min (50-200); Creatinine,Serum 0.60 mg/dl (0.52-1.04); Estimated Glomerular Filt Rate 105 ml/min (>60); GFR (African American) 128 ML/MIN (>60)
[2025-05-19 08:39] LABS: Calcium 9.0 mg/dl (8.4-10.2); Glucose 91 mg/dl (74-100)
--- NOTE | 2025-05-19 08:45 | IR_ITS ---
APPROVED REPORT Patient Location: Inpatient PROCEDURES Left heart catheterization Left ventriculogram Selective coronary angiogram INDICATION Known coronary artery disease, Unstable angina Informed consent was obtained prior to the procedure. COMPLICATIONS NONE Estimated Blood Loss: LESS THAN 10 ML TECHNIQUE One percent lidocaine was used to anesthetize the right groin. The right femoral artery was accessed via the Seldinger technique. A 4-[place]ong[place] sheath was placed in the right femoral artery. The JL-4 and JR-4 catheter was also used to perform left heart catheterization left ventriculogram and selective coronary angiogram. At the end of the procedure the patient was transferred to the post-op holding area in stable condition for arterial sheath removal. ANGIOGRAPHIC RESULTS The left main artery Normal The left anterior descending artery Has a stent in the ostial proximal segment which is widely patent free of in-stent restenosis with excellent proximal distal transitioning. The circumflex artery Nondominant yet still large and has ostial eccentric 40% stenosis with remaining vessel widely patent The right coronary artery Dominant with distal 10 to 20% smooth luminal regularities The AVELAR ventriculogram reveals Preserved 60% The left ventricular end-diastolic pressure 10 mmHg IMPRESSION Coronary arteries as described above Preserved ejection fraction Normal LVEDP PLAN 1. Continue medical management and evaluation of noncardiac symptoms Electronically signed by : Javed Zhong MD 05/19/2025 15:21:02
--- NOTE | 2025-05-19 08:51 | CA_ITS ---
APPROVED REPORT EXAM: Comprehensive 2D, Doppler, and color-flow Echocardiogram Marketing Mgr: Rubia Castro CRT Ht: 5 ft 2 in Wt: 155lbs BSA: 1.72 BP: 124/78 mmHg Indications: Chest Pain, Shortness of Breath, Hyperlipidemia, Hypertension/HDD, anoxic brain injury, stent, loop recorder 2D Dimensions LA Volume 32.50 mL LA Volume Index 18.90 mL/m2 (M/F) 16-34 M-Mode Dimensions RVDd 2.78 cm (0.9-2.6) LA Diam 3.43 cm (1.9-4.0) LVDd 4.17 cm (3.5-5.7) LVDs 2.92 cm (3.5-5.7) IVSd 1.64 cm (0.6-1.1) PWd 0.68 cm (0.6-1.1) EF (Teich) 57.60% FS 30.00% EDV (Teich) 77.30 mL TAPSE 1.61 (<1.7) ESV (Teich) 32.80 mL LV Diastology E Decel Time 203 (160-240 msec) E/A Ratio 0.86 MED A' 10.40 cm/s LAT A' 12.40 cm/s Aortic Valve AO Peak GR. 3.00 mmHg Mitral Valve MV A Velocity 63.0 (40-130 cm/s) E/A Ratio 0.86 Pulmonary Valve PV Peak Velocity 132.0 (50-150 cm/s) Tricuspid Valve TR P. Velocity 287.00 cm/s RAP Estimate 10.00 mmHg RVSP 43.00 mmHg Left Ventricle The left ventricle is normal size. Left ventricular systolic function is normal. The left ventricular ejection fraction is within the normal range. Proximal septal thickening is present. There is normal LV segmental wall motion. The left ventricular diastolic function is normal. LVEF is 55% Right Ventricle The right ventricle is moderately dilated. The right ventricular systolic function is normal. Atria The left atrium size is normal. The right atrium size is normal. There is no color Doppler evidence of interatrial shunt. Aortic Valve The aortic valve opens well. There is no hemodynamically significant aortic valvular stenosis. No aortic regurgitation is present. Mitral Valve The mitral valve is normal in structure. No evidence of mitral valve stenosis. Trace mitral regurgitation is present. Tricuspid Valve The tricuspid valve leaflets are thin and pliable. Trace tricuspid regurgitation. There is insufficient TR jet to estimate RVSP. Pulmonic Valve The pulmonary valve is grossly normal in structure. Trace pulmonic valve regurgitation is present. Great Vessels The aortic root is normal in size. IVC is normal in size and collapses >50% with inspiration. Pericardium There is no pericardial effusion. Other Information Study Quality: Fair Conclusion Normal LV systolic function. Moderate RV dilation with normal RV function. No significant valvular stenosis or regurgitation. Electronically signed by : Yola Mares MD 05/19/2025 11:59:19
--- NOTE | 2025-05-19 10:38 | EXP.CARD.CON ---
History of Present Illness History of Present Illness Consult date: 05/19/25 Requesting physician: Amadou Holman Consult reason: chest pain Chief complaint: chest pain History of present illness: This is a 50-year-old white female with a past medical history of coronary artery disease status post stenting, hypertension, gastric surgery, GERD, loop recorder in place for syncope, hyperlipidemia and diabetes mellitus who was admitted from cardiology clinic yesterday with complaints of chest pain. Patient endorses chest pressure with and without activity associated with shortness of breath and feeling lightheaded at times. She was evaluated in the emergency department 2 nights ago and DC'd home after serial normal troponins and followed up in cardiology clinic yesterday. Of note patient is intolerant to antianginals due to hypotension. EKG upon presentation to hospital was negative for STEMI. Troponins remain negative. Patient was admitted for unstable angina and for left heart catheterization. [facility] Disclaimer: The information contained in this section may have been updated after the patient was seen, as this information can be updated by other users. Medical History (Updated 05/18/25 @ 19:20 by Amadou Holman MD) Unstable angina Typical angina Obesity Factor V Leiden mutation UTI symptoms Epigastric abdominal pain URI, acute Anxiety Chest pain Left wrist pain Atypical chest pain Risk for sexually transmitted disease Mood disorder Encephalopathy History of multiple miscarriages History of recurrent deep vein thrombosis History of anoxic brain injury History of seizures Chronic headaches Hypotension Vomiting Constipation Enterocolitis Hematoma Post-op pain HTN (hypertension) Symptoms, such as flushing, sleeplessness, headache, lack of concentration, associated with the menopause Adnexal tenderness, left Status post placement of implantable loop recorder History of eclampsia Hx of nephrolithotomy with removal of calculi Depression Fibromyalgia GERD (gastroesophageal reflux disease) Hypertension Coronary artery disease Tobacco abuse disorder History of asthma 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 HLD (hyperlipidemia) Tobacco use Coronary artery disease Pericarditis Adverse reaction to COVID-19 vaccine Suicidal ideation Antidepressant discontinuation syndrome (~07/04/22) Lumbar radiculopathy CVA (cerebral vascular accident) Type 2 diabetes mellitus History of paroxysmal supraventricular tachycardia Hereditary hemochromatosis SVT (supraventricular tachycardia) Diabetes Surgical History History of loop recorder H/O gastric sleeve H/O: hysterectomy Hx laparoscopic cholecystectomy History of coronary artery stent placement Previous section Family History Other Asthma Cancer Coronary artery disease Diabetes FHx: mental illness Heart attack Hyperlipidemia Hypertension Kidney disease Social History (Updated 05/18/25 @ 17:34 by Ashley Lopez APRN) Smoking Status: Current every day smoker tobacco type: cigarettes packs per day: 1 second hand exposure: No Tobacco counseling given: provider counseling alcohol intake: never substance use type: denies use current occupational status: employed Travel in the last 8 weeks?: None household members: spouse and children housing: house marital status: education level: high school current occupational exposures/hazards: No caffeine: Yes Have you lived/traveled outside [place] in past 30 days?: No Contact w/someone who lives/traveled outside US past 30 days?: No Exposure to someone with infectious disease in past 14 days?: No Do you have a fever (greater than 100.4 F or 38 C)?: No Have you tested positive for COVID-19?: No Exposed to someone with COVID-19 in past 14 days?: No Do you have a sore throat?: No Do you have a cough?: No Do you have any weakness?: No Do you have any diarrhea?: No Are you experiencing any unusual bleeding?: No Do you have any muscle aches/pain?: No Do you have any abdominal pain?: No Are you experiencing loss of taste or smell?: No Review of Systems Review of Systems Review of systems:: pertinent systems reviewed and negative unless documented below Constitutional Constitutional: Denies frequent falls and Denies headache(s) ENT Ears, Nose, Mouth, and Throat: Denies headache(s) and Reports vertigo *Cardiovascular Cardiovascular: Reports chest pain at rest, Reports chest pain with activity and Denies syncope *Musculoskeletal Musculoskeletal: Denies abnormal gait *Neurologic Neurologic: Denies abnormal gait, Denies frequent falls, Denies headache(s), Denies syncope and Reports vertigo Exam Data for Last 24 hours Vital signs and Labs for Last 24 Hours: Temp Pulse Resp BP Pulse Ox O2 Del Method 97.7 F 70 16 104/64 L 96 Room Air 05/19/25 07:49 05/19/25 07:49 05/19/25 07:49 05/19/25 07:49 05/19/25 08:00 05/19/25 09:05 Laboratory Results - last 24 hr 05/18/25 16:25: Troponin I 0.03 05/18/25 19:45: Troponin I < 0.01 05/18/25 22:21: Troponin I < 0.01 05/19/25 08:23: WBC 4.3 L, RBC 4.41, Hgb 13.0, Hct 39.5, MCV 89.6, MCH 29.5, MCHC 32.9, RDW 12.7, Plt Count 195, MPV 9.4, Neut % (Auto) 56.1, Lymph % (Auto) 31.5, [place] % (Auto) 8.7, Eos % (Auto) 2.1, Baso % (Auto) 1.4, Neut # (Auto) 2.4, Lymph # (Auto) 1.3, [place] # (Auto) 0.4, Eos # (Auto) 0.1, Baso # (Auto) 0.1, Sodium 142, Potassium 3.9, Chloride 110 H, Carbon Dioxide 25, Anion Gap 10.9, BUN 19 H, Creatinine 0.60, Estimated Creat Clear 123, Estimated GFR 105, Est GFR ( Amer) 128, Glucose 91, Calcium 9.0 I & O for Last 24 hours: Intake & Output 05/16/25 05/17/25 05/18/25 05/19/25 23:59 23:59 23:59 23:59 Intake Total 200 / 200 Output Total 0 / 0 0 / 0 Balance 0 / 200 200 / 200 Weight 150 lb 0.005 oz 155 lb 1.6 oz Constitutional Constitutional: no acute distress *Routine Respiratory Exam Respiratory: Present CTA bilaterally and symmetric chest movement *Routine Cardiovascular Exam Cardiovascular: Present RRR, Normal S1 and Normal S2 *Routine Abdominal Exam Abdominal: Present soft and normoactive bowel sounds; Absent tenderness *Routine Extremities Exam Extremities: Present full ROM and normal capillary refill; Absent edema *Routine Skin Exam Skin: Present intact, dry and warm Detailed Neck Exam: Thyroids Thyroid: Absent bruit Meds Home Medications and Allergies Home Medications ?Medication ?Instructions ?Recorded ?Confirmed ?Type furosemide 20 mg tablet 20 mg PO HS 08/17/24 05/19/25 History trazodone 100 mg tablet 100 mg PO HS 08/17/24 05/19/25 History aspirin 325 mg tablet 325 mg PO DAILY #1 tab 11/04/24 05/18/25 Rx nitroglycerin 0.4 mg sublingual 0.4 mg sublingual Q5M #30 tabs 04/20/25 05/18/25 Rx tablet pantoprazole 40 mg tablet,delayed 40 mg PO DAILY #30 tabs 04/20/25 05/18/25 Rx release tirzepatide (weight loss) 7.5 7.5 mg SQ WEEKLY 05/18/25 05/19/25 History mg/0.5 mL subcutaneous pen injector (Zepbound) amlodipine 5 mg tablet 5 mg PO DAILY 05/19/25 05/19/25 History New Prescriptions to Start Prescriptions: Allergies Allergy/AdvReac Type Severity Reaction Status Date / Time duloxetine (From Cymbalta) Allergy Severe liver Verified 05/18/25 15:00 swelling hydromorphone (From Dilaudid) Allergy Severe rash, Verified 05/18/25 15:00 itching ibuprofen Allergy Severe swelling Verified 05/18/25 15:00 lisinopril (LISINOPRIL) Allergy Severe chokes Verified 05/18/25 15:00 venom-honey bee Allergy Severe Anaphylaxis Verified 05/18/25 15:00 venom-wasp Allergy Severe Anaphylaxis Verified 05/18/25 15:00 COVID-19 (SARS-CoV-2) Allergy Verified 05/18/25 15:00 vaccine, mauro promethazine (From PHENERGAN) AdvReac Severe hallucinati Verified 05/18/25 15:00 ons sertraline (From Zoloft) AdvReac Severe suicidal Verified 05/18/25 15:00 paroxetine (From PAXIL) AdvReac Intermediate Palpitation Verified 05/18/25 15:00 s tetanus and diphtheria AdvReac Intermediate vomitting Verified 05/18/25 15:00 toxoids (TETANUS & DIPHTHERIA TOXOIDS) isosorbide AdvReac BP drops, Verified 05/18/25 15:00 headache Assessment and Plan *Assessment and plan (1) Unstable angina: Status: Acute Category: Medical Code(s): I20.0 - Unstable angina (2) CAD (coronary atherosclerotic disease): Status: Acute Qualifiers: Associated angina: without angina Coronary Disease-Associated Artery/Lesion type: [place] artery [place] vs. transplanted heart: [place] heart Qualified Code(s): I25.10 - Atherosclerotic heart disease of [place] coronary artery without angina pectoris Category: Medical Code(s): I25.10 - Atherosclerotic heart disease of [place] coronary artery without angina pectoris (3) HLD (hyperlipidemia): Status: Acute Qualifiers: Hyperlipidemia type: mixed hyperlipidemia Qualified Code(s): E78.2 - Mixed hyperlipidemia Category: Medical Code(s): E78.5 - Hyperlipidemia, unspecified Plan History of coronary artery disease Unstable angina Unable to tolerate antianginals due to hypotension Troponins negative Chest CTA negative for acute findings EKG negative for STEMI Patient having chest pain with rest and activity Will proceed with left heart catheterization to evaluate for coronary artery disease. Discussed risk versus benefits with patient she is agreeable to proceed. Patient requesting groin access due to history of thrombosis to right radial artery status post previous cath Echo-normal LV systolic function with moderate RV dilation with normal RV function no significant valve stenosis or regurg Hyperlipidemia LDL goal less than 55, LDL is 80. statom intolerant due to myalgias CV summary 05/19/2025: Left heart catheterization is pending. Echocardiogram is pending.
[2025-05-19] MEDS: LIDOCAINE 1% 10ML MDV 10 ML IJ (14:54)
[2025-05-19] MEDS: HEPARIN 1,000 UNITS/500ML NS (CATH LAB) 3000 UNIT IV (14:54)
[2025-05-19] MEDS: 0.9 % SODIUM CHLORIDE 500 ML 25 ML IV (14:54)
[2025-05-19] MEDS: FENTANYL 100MCG/2ML VIAL 50 MCG IV (15:10)
[2025-05-19] MEDS: MIDAZOLAM HCL 1MG/ML 5ML VIAL 1 MG IV (15:10)
[2025-05-19] MEDS: ACETAMINOPHEN 325MG TAB 650 MG PO (18:34)
--- NOTE | 2025-05-19 18:58 | PC.NURSE ---
pt is A&Ox4. she had a left heart cath today and received no stents. they went through the femoral site. it has a gauze pad and tegaderm and is clean, dry, and intact. she had complained of a headache so i gave her tylenol. pt has no other complaints at this time. call light is within reach.
[2025-05-19] MEDS: TRAMADOL 50MG TABLET 50 MG PO (20:30)
[2025-05-20] VITALS: BP 98/58; PULSE 70; PULSE 73; RESP 16; TEMP 36.6; O2SAT 97
[2025-05-20 04:00] VITALS: BP 92/54; PULSE 60; PULSE 64; RESP 14; TEMP 36.6; O2SAT 95; BMI 27.8
--- NOTE | 2025-05-20 04:05 | PC.NURSE ---
Patient remains alert and oriented x4. She was observed to be resting in bed with eyes closed, respirations even and unlabored on room air, and no apparent distress throughout the night. has remained at the bedside. Patient complained of having a severe headache earlier this shift; Tramadol (one time order obtained this shift) was administered for reported pain relief. No complaints of chest pressure were made this shift. No reports of dizziness, lightheadedness, etc. were made as well. Blood pressures continue to range soft + stable. Auscultation of heart, lungs, and bowels remain within normal findings. Patient continues to report having loose bowel movements. Right femoral cath site was assessed; dressing remains clean, dry, and intact. No bleeding or drainage noted from the site. Pulses +2. Scheduled medications administered per MAR. Patient ambulated independently this morning without any difficulties. At this time, the patient is resting in bed without any further complaints. No new needs thus far. Call light within reach.
[2025-05-20 07:56] VITALS: BP 108/62; RESP 16; TEMP 36.7; O2SAT 97
[2025-05-20 08:00] VITALS: PULSE 60
--- NOTE | 2025-05-20 08:31 | EXP.ACUTE.PN ---
Subjective *Date: 05/20/25 *Time: 08:53 Interval history: The patient still has chest pressure this morning but now has a headache. She states she received medication last night that helped but has not had any this morning. She slept off and on and was able to eat. Medical Exam Vital signs and Labs for Last 24 Hours: Vital Signs Temp Pulse Pulse Pulse Resp BP Pulse Ox 05/20/25 07:56 98.0 F 16 108/62 L 97 05/20/25 06:35 05/20/25 05:00 05/20/25 04:00 60 05/20/25 04:00 97.9 F 64 14 92/54 L 95 05/20/25 03:00 05/20/25 01:00 05/20/25 00:00 70 05/20/25 00:00 97.8 F 73 16 98/58 L 97 05/19/25 23:00 05/19/25 21:00 05/19/25 20:00 70 05/19/25 20:00 05/19/25 20:00 97.8 F 79 18 113/70 99 05/19/25 19:00 05/19/25 18:40 65 16 110/73 99 05/19/25 18:10 72 16 128/72 98 05/19/25 17:40 61 16 103/64 L 98 05/19/25 17:10 64 16 93/62 L 98 05/19/25 17:05 05/19/25 16:40 54 L 16 97/65 L 100 05/19/25 16:25 58 L 18 103/68 L 100 05/19/25 16:10 72 18 107/66 L 100 05/19/25 15:57 05/19/25 15:55 97.6 F 102 H 20 110/68 99 05/19/25 15:35 68 16 115/67 100 05/19/25 15:30 68 16 113/68 100 05/19/25 15:25 70 16 116/67 100 05/19/25 15:24 69 16 113/69 100 05/19/25 15:21 73 16 116/67 100 05/19/25 15:18 73 16 114/69 100 05/19/25 15:15 68 77 20 124/66 100 05/19/25 13:05 05/19/25 12:00 70 05/19/25 12:00 97.7 F 63 16 114/70 97 05/19/25 11:20 05/19/25 09:05 O2 Del Method 05/20/25 07:56 Room Air 05/20/25 06:35 Room Air 05/20/25 05:00 Room Air 05/20/25 04:00 05/20/25 04:00 Room Air 05/20/25 03:00 Room Air 05/20/25 01:00 Room Air 05/20/25 00:00 05/20/25 00:00 Room Air 05/19/25 23:00 Room Air 05/19/25 21:00 Room Air 05/19/25 20:00 05/19/25 20:00 Room Air 05/19/25 20:00 Room Air 05/19/25 19:00 Room Air 05/19/25 18:40 Room Air 05/19/25 18:10 Room Air 05/19/25 17:40 Room Air 05/19/25 17:10 Room Air 05/19/25 17:05 Room Air 05/19/25 16:40 Room Air 05/19/25 16:25 Room Air 05/19/25 16:10 Room Air 05/19/25 15:57 Room Air 05/19/25 15:55 Room Air 05/19/25 15:35 05/19/25 15:30 Room Air 05/19/25 15:25 Room Air 05/19/25 15:24 Room Air 05/19/25 15:21 Room Air 05/19/25 15:18 Room Air 05/19/25 15:15 Room Air 05/19/25 13:05 Room Air 05/19/25 12:00 05/19/25 12:00 Room Air 05/19/25 11:20 Room Air 05/19/25 09:05 Room Air Intake and Output 05/19/25 05/20/25 05/20/25 19:59 03:59 11:59 Intake Total 860 / 1330 120 / 1330 350 / 1330 Balance 860 / 1330 120 / 1330 350 / 1330 Intake: Intake, Oral Amount 360 / 830 120 / 830 350 / 830 Intake, Total IV Amount 500 / 500 0 / 500 0.9 % Sodium Chloride 500 ml @ 500 / 500 0 / 500 25 mls/hr IV .Q25H [facility] Rx#: [id number] Other: Number of Unmeasured Voids 1 Number of Bowel Movements 2 Weight 157 lb 6.4 oz Patient Weight 05/20/25 11:59 Weight 157 lb 6.4 oz Laboratory Results - last 24 hr 05/19/25 08:23: WBC 4.3 L, RBC 4.41, Hgb 13.0, Hct 39.5, MCV 89.6, MCH 29.5, MCHC 32.9, RDW 12.7, Plt Count 195, MPV 9.4, Neut % (Auto) 56.1, Lymph % (Auto) 31.5, [place] % (Auto) 8.7, Eos % (Auto) 2.1, Baso % (Auto) 1.4, Neut # (Auto) 2.4, Lymph # (Auto) 1.3, [place] # (Auto) 0.4, Eos # (Auto) 0.1, Baso # (Auto) 0.1, Sodium 142, Potassium 3.9, Chloride 110 H, Carbon Dioxide 25, Anion Gap 10.9, BUN 19 H, Creatinine 0.60, Estimated Creat Clear 123, Estimated GFR 105, Est GFR ( Amer) 128, Glucose 91, Calcium 9.0 I & O for Labs for Last 24 Hours: Intake & Output 05/17/25 05/18/25 05/19/25 05/20/25 11:59 11:59 11:59 11:59 Intake Total 200 / 200 1330 / 1330 Output Total 0 / 0 Balance 200 / 200 1330 / 1330 Weight 155 lb 1.6 oz 157 lb 6.4 oz Constitutional: Present no acute distress Respiratory: Present CTA bilaterally Cardiac: Present Reg Rate and Rhythm GI: Present soft; Absent distention or tenderness Extremities: Absent edema Skin: Present intact Neuro: Present alert, awake and oriented x 3 Assessment and Plan *Assessment and plan (1) Chest pain: Status: Acute Qualifiers: Chest pain type: other chest pain Qualified Code(s): R07.89 - Other chest pain Category: Medical Code(s): R07.9 - Chest pain, unspecified (2) CAD (coronary atherosclerotic disease): Status: Acute Qualifiers: Associated angina: without angina Coronary Disease-Associated Artery/Lesion type: [place] artery [place] vs. transplanted heart: [place] heart Qualified Code(s): I25.10 - Atherosclerotic heart disease of [place] coronary artery without angina pectoris Category: Medical Code(s): I25.10 - Atherosclerotic heart disease of [place] coronary artery without angina pectoris (3) HLD (hyperlipidemia): Status: Acute Qualifiers: Hyperlipidemia type: mixed hyperlipidemia Qualified Code(s): E78.2 - Mixed hyperlipidemia Category: Medical Code(s): E78.5 - Hyperlipidemia, unspecified (4) Factor V Leiden mutation: Status: Acute Category: Medical Code(s): D68.51 - Activated protein C resistance (5) Headache: Status: Acute Qualifiers: Headache type: unspecified Headache chronicity pattern: unspecified pattern Intractability: intractable Qualified Code(s): R51.9 - Headache, unspecified Category: Medical Code(s): R51.9 - Headache, unspecified Plan The patient had a cath yesterday and no stents were required. She was given tramadol for headache which did help last night. She can likely be given more tramadol for her headache and be discharged this morning. Will discuss with Dr. Holman. Dr. Holman entry - Saw patient, agree with above note. OK for discharge today, will give a short supply of Tramadol, plan office f/u next week.
--- NOTE | 2025-05-20 09:32 | P.PN_ITS ---
Subjective Subjective Date: 05/20/25 Time: 08:00 Principal diagnosis: unstable angina Interval history: S/p medical management [facility]. Morning labs reviewed. Patient complaining of headache. Exam Data for Last 24 hours Vital signs and Labs for Last 24 Hours: Temp Pulse Resp BP Pulse Ox O2 Del Method 98.0 F 64 16 108/62 L 97 Room Air 05/20/25 07:56 05/20/25 04:00 05/20/25 07:56 05/20/25 07:56 05/20/25 07:56 05/20/25 07:56 I & O for Last 24 hours: Intake & Output 05/17/25 05/18/25 05/19/25 05/20/25 23:59 23:59 23:59 23:59 Intake Total 1060 / 1180 470 / 470 Output Total 0 / 0 0 / 0 Balance 0 / 200 1060 / 1180 470 / 470 Weight 150 lb 0.005 oz 155 lb 1.6 oz 157 lb 6.4 oz Constitutional Constitutional: no acute distress *Routine Respiratory Exam Respiratory: Present CTA bilaterally and symmetric chest movement *Routine Cardiovascular Exam Cardiovascular: Present RRR, Normal S1 and Normal S2 *Routine Abdominal Exam Abdominal: Present soft and normoactive bowel sounds; Absent tenderness *Routine Extremities Exam Extremities: Present full ROM and normal capillary refill; Absent edema *Routine Skin Exam Skin: Present intact, dry and warm Detailed Neck Exam: Thyroids Thyroid: Absent bruit Progress Note: A&P Assessment and plan (1) Chest pain: Status: Acute (2) CAD (coronary atherosclerotic disease): Status: Acute (3) HLD (hyperlipidemia): Status: Acute (4) Factor V Leiden mutation: Status: Acute (5) Headache: Status: Acute Assessment and Plan Assessment and Plan for All Diagnoses:: History of coronary artery disease Unstable angina [facility] 05/19: medical management, preserved EF and normal LVEDP Echo-normal LV systolic function with moderate RV dilation with normal RV function no significant valve stenosis or regurg Hyperlipidemia LDL goal less than 55, LDL is 80. statin intolerant due to myalgias. 05/20/2025: Patient is CV stable for dc home. Please have patient follow up in cardiology clinic in 1 week.
[2025-05-20] MEDS: ASPIRIN 325MG TABLET 325 MG PO (09:55)
[2025-05-20] MEDS: ACETAMINOPHEN 325MG TAB 650 MG PO (10:05)
--- NOTE | 2025-05-21 11:41 | SW/DCPLANNER ---
Spoke with patient on the phone. Patient stated that she is doing well. Patient stated that she is aware of her upcoming appointments. Patient stated that she was able to get her new medicine picked up from [facility]. Patient stated that she has no concerns or questions at this time. Naren Garland
--- NOTE | 2025-05-27 23:08 | P.DS_ITS ---
General Admission date:: 05/18/25 Discharge date: 05/20/25 HPI HPI HPI: Ms. Franco is a 50-year-old female with a history of anoxic brain injury, type 2 diabetes mellitus, coronary artery disease, fibromyalgia, kidney stones, SVT, anxiety and depression, PTSD, asthma, hereditary hemochromatosis and stent placement who was admitted from the cardiac office after being seen by ZACKARY Hameed. Patient describes having chest discomfort which is Sometimes severe and always with a pressure like feeling during the past 5 to 6 weeks. With the severe chest discomfort she experiences dizziness. She has had some swelling in feet., Last night she did suffer with severe chest pain which she described as midsternal radiating through to her back and down her arms associated with shortness of breath and diaphoresis and nausea. She did take 2 nitro sprays but the chest pain would return. Thus she presented to the ER for evaluation. With evaluation in the emergency room troponin I was normal. She also had an EKG and then was discharged home. She planned to going to work this p.m. but did see Tyler in the cardiac clinic today and was admitted from there for ongoing evaluation and to schedule for cardiac cath tomorrow a.m. At time of this exam patient does have pressure-like discomfort in her anterior chest. She denies shortness of breath.Laboratory data completed last night in the ER reveals a normal CBC. Blood chemistries with a normal electrolytes and a BUN of 19 and creatinine of 0.6. Troponin I was 0.01 x 2. Hospital Course Hospital Course Hospital Course: The patient was admitted and scheduled for a cardiac cath the following day. She was able to rest but had ongoing chest pressure. She did receive nitroglycerin spray which helped briefly. She had a cardiac cath which showed a normal LVEDP and a preserved ejection fraction. No stenting was necessary. By 05/20/2025, she continued with some chest pressure and a headache. She was given tramadol for her headache and it was felt she could be discharged home with cardiology follow-up. Exam Data for Last 24 hours Vital signs and Labs for Last 24 Hours: Temp Pulse Resp BP Pulse Ox O2 Del Method 98.0 F 60 16 108/62 L 97 Room Air 05/20/25 07:56 05/20/25 08:00 05/20/25 07:56 05/20/25 07:56 05/20/25 07:56 05/20/25 09:00 Narrative: Constitutional Constitutional: no acute distress Comments: Lying in bed and appears comfortable. Visiting with mother and *Routine HEENT Exam Head: Present normocephalic and atraumatic Eye: Present PERRL; Absent normal accommodation, conjunctival icterus or scleral injection ENT: Present mucous membranes moist and oropharynx clear *Routine Neck Exam Neck: Present supple; Absent carotid bruit, lymphadenopathy or thyromegaly Routine Chest/Breast/Axilla Exam Chest wall: Absent tenderness *Routine Respiratory Exam Respiratory: Present CTA bilaterally (Anteriorly and posteriorly) *Routine Cardiovascular Exam Cardiovascular: Present RRR (Monitor showing sinus rhythm) *Routine Abdominal Exam Abdominal: Present soft and normoactive bowel sounds; Absent tenderness, distended, organomegaly or mass *Routine Rectal Exam Rectal:: deferred *Routine Genitalia Exam Genitalia:: deferred *Routine Extremities Exam Extremities: Present full ROM and pulses intact; Absent edema or calf tenderness *Routine Neurological Exam Neurological: Present alert and oriented X3 DS: Diagnosis Discharge Diagnosis (1) Chest pain: Status: Acute Code(s): R07.9 - Chest pain, unspecified Qualifiers: Chest pain type: other chest pain Qualified Code(s): R07.89 - Other chest pain (2) CAD (coronary atherosclerotic disease): Status: Acute Code(s): I25.10 - Atherosclerotic heart disease of [place] coronary artery without angina pectoris Qualifiers: Coronary Disease-Associated Artery/Lesion type: [place] artery [place] vs. transplanted heart: [place] heart Associated angina: without angina Qualified Code(s): I25.10 - Atherosclerotic heart disease of [place] coronary artery without angina pectoris (3) HLD (hyperlipidemia): Status: Acute Code(s): E78.5 - Hyperlipidemia, unspecified Qualifiers: Hyperlipidemia type: mixed hyperlipidemia Qualified Code(s): E78.2 - Mixed hyperlipidemia (4) Factor V Leiden mutation: Status: Acute Code(s): D68.51 - Activated protein C resistance (5) Headache: Status: Acute Code(s): R51.9 - Headache, unspecified Qualifiers: Headache type: unspecified Headache chronicity pattern: unspecified pattern Intractability: intractable Qualified Code(s): R51.9 - Headache, unspecified Meds Home Medications and Allergies Home Medications ?Medication ?Instructions ?Recorded ?Confirmed ?Type furosemide 20 mg tablet 20 mg PO HS 08/17/24 5 History trazodone 100 mg tablet 100 mg PO HS 08/17/24 History aspirin 325 mg tablet 325 mg PO DAILY #1 tab 11/0405/18/25 Rx nitroglycerin 0.4 mg sublingual 0.4 mg sublingual Q5M #30 tabs 04/20/25 05/18/25 Rx tablet pantoprazole 40 mg tablet,delayed 40 mg PO DAILY #30 t abs 04/20/25 05/18/25 Rx release tirzepatide (weight loss) 7.5 7.5 mg SQ WEEKLY 5 05/19/25 History mg/0.5 mL subcutaneous pen injector (Zepbound) amlodipine 5 mg tablet 5 mg PO DAILY 05/19/2505/19 History tramadol 50 mg tablet 50 mg PO Q8H PRN pain #15 ta bs 05/20/25 Rx New Prescriptions to Start Prescriptions: tramadol [place],Amadou Allergies Allergy/AdvReac Type Severity Reaction Status Date / Time duloxetine (From Cymbalta) Allergy Severe liver Verified 05/18/25 15:00 swelling hydromorphone (From Dilaudid) Allergy Severe rash, Verified 05/18/25 15:00 itching ibuprofen Allergy Severe swelling Verified 05/18/25 15:00 lisinopril (LISINOPRIL) Allergy Severe chokes Verified 05/18/25 15:00 venom-honey bee Allergy Severe Anaphylaxis Verified 05/18/25 15:00 venom-wasp Allergy Severe Anaphylaxis Verified 05/18/25 15:00 COVID-19 (SARS-CoV-2) Allergy Verified 05/18/25 15:00 vaccine, mauro promethazine (From PHENERGAN) AdvReac Severe hallucinati Verified 05/18/25 15:00 ons sertraline (From Zoloft) AdvReac Severe suicidal Verified 05/18/25 15:00 paroxetine (From PAXIL) AdvReac Intermediate Palpitation Verified 05/18/25 15:00 s tetanus and diphtheria AdvReac Intermediate vomitting Verified 05/18/25 15:00 toxoids (TETANUS & DIPHTHERIA TOXOIDS) isosorbide AdvReac BP drops, Verified 05/18/25 15:00 headache Discharge Plan Disposition Patient Disposition: Home, Self-Care Condition: Fair Follow up Plan Follow up with: Amadou Holman MD [Staff Physician, Medical] - 05/27/25 10:45 am Javed Zhong MD [Staff Physician, Cardiology] - 06/02/25 11:30 am Prescriptions/Medication Reconciliation: New tramadol 50 mg tablet 50 mg PO Q8H PRN (Reason: pain) Qty: 15 0RF Continued pantoprazole 40 mg tablet,delayed release (DR/EC) 40 mg PO DAILY Qty: 30 2RF nitroglycerin 0.4 mg tablet, sublingual 0.4 mg sublingual Q5M Qty: 30 1RF Rx Instructions: do not exceed 3 doses per episode aspirin 325 mg tablet 325 mg PO DAILY Qty: 1 0RF Zepbound 7.5 mg/0.5 mL pen injector 7.5 mg SQ WEEKLY amlodipine 5 mg tablet 5 mg PO DAILY trazodone 100 mg tablet 100 mg PO HS furosemide 20 mg tablet 20 mg PO HS Patient Comments: TAKE 1 TABLET BY MOUTH ONCE DAILY FOR FLUID Problem Reconciliation Problems Reviewed?: Yes Patient Discharge Instructions ACTIVITY: Limited activity DIET: continue same diet Patient Instructions: Cardiac Catheterization Print Language: Cymro Providers Primary Care Provider: Walter Anaya Admit Provider: Amadou Holman Attending Provider: Amadou Holman
== END 2025-05-20 11:06 | disposition home or self-care (01) ==
PROVIDERS: Internal Medicine; Physician Assistant; Admitting Provider Family Medicine; PCP Family Medicine; Visit Provider Family Medicine
PROC: 4A023N7 Measurement of Cardiac Sampling and Pressure, Left Heart, Percutaneous Approach (ICD-10-PCS; CPT 93452; principal; 2025-05-19 13:00)
DX: I25.110 Atherosclerotic heart disease of native coronary artery with unstable angina pectoris (principal); E78.2 Mixed hyperlipidemia; D68.51 Activated protein C resistance; R51.9 Headache, unspecified; F41.9 Anxiety disorder, unspecified; K21.9 Gastro-esophageal reflux disease without esophagitis; E11.9 Type 2 diabetes mellitus without complications; F39 Unspecified mood [affective] disorder; F43.10 Post-traumatic stress disorder, unspecified; M79.7 Fibromyalgia; F32.A Depression, unspecified; F17.210 Nicotine dependence, cigarettes, uncomplicated; Z86.718 Personal history of other venous thrombosis and embolism; Z86.73 Personal history of transient ischemic attack (TIA), and cerebral infarction without residual deficits; Z95.5 Presence of coronary angioplasty implant and graft; Z82.49 Family history of ischemic heart disease and other diseases of the circulatory system; Z88.8 Allergy status to other drugs, medicaments and biological substances; Z88.5 Allergy status to narcotic agent; Z88.6 Allergy status to analgesic agent; Z91.030 Bee allergy status; Z91.038 Other insect allergy status; Z88.7 Allergy status to serum and vaccine; Z79.82 Long term (current) use of aspirin; Z79.85 Long-term (current) use of injectable non-insulin antidiabetic drugs; Z79.899 Other long term (current) drug therapy; Z90.710 Acquired absence of both cervix and uterus; Z90.49 Acquired absence of other specified parts of digestive tract; Z95.1 Presence of aortocoronary bypass graft; I10 Essential (primary) hypertension; J45.909 Unspecified asthma, uncomplicated; Z98.84 Bariatric surgery status
CPT/HCPCS: 36415; 80048; 84484; 85025; 93306; 93458; 96361; 96374; 96375; 99152; 99153; C1725; C1769; G0378; J1200; J1644; J2003; J2250; J3010; J7040

== ENCOUNTER 2025-06-02 12:49 | Outpatient (CLI) | payer BC, SELFPAY ==
--- OUTSIDE RECORDS SUMMARY | 2025-06-02 12:53 | XMS_ITS | Clinical Summary ---
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
--- OUTSIDE RECORDS SUMMARY | 2025-06-02 12:53 | XMS_ITS | Clinical Summary ---
Author Organization [facility] Address [address] [place] [address] Phone Care Team Providers Care Video Library Assistant Name Role Phone Tunde Myers MD Unavailable [phone] Michel Chacon MD Unavailable [phone] Allergies Active Allergy Reactions Criticality Noted Date [...] Zac Pascal on 10/05/18. Calorie restrict attempt 1428-6792 calories per day. Decrease starches like bread [...] your drinking? no Ever need an eye staffing clerk in the morning? no Screening for depression [...] of 2) 2024 COVID-19 Vaccine ( season) 2025 Influenza Vaccine (#1) 2025 9, 05/27/2018, 11/07/2017 [...] 5.6 % 09/23/2020 4:16 PM EST [facility] Est. Avg Glucose 117 mg/dL 09/23/2020 4:16 PM EST [employer] Blood Venipuncture / Unknown 09/23/2020 11:19 AM EST 09/23/2020 11:19 AM EST Narrative [employer] - 09/23/2020 4:16 PM EST REFERENCE RANGE: Normal: 4.0-5.6% Pre-diabetes: 5.7-6.4% Provisional diagnosis of diabetes: >6.4% Hgb F>10% and anything which shortens red cell survival, such as hemolytic anemia, or unstable hemoglobin variants such as HbSS, HbSC, or HbCC, will lower the HbA1c value associated with a given level of glycemic control. Liz Cruz APRN CHEMISTRY ORDERABLES Final Result Performing Organization Address City/[facility] Co de Phone Number PREFERRED [employer] [address] [facility] [facility] [address] , [place] [address] * LIPID SCREEN (09/23/2020 11:19 AM EST) Cholesterol 184 <200 mg/dL 09/23/2020 4:37 PM EST [employer] Comment: < 200 Desirable 200 - 239 Borderline High >= 240 High Triglyceride 82 <150 mg/dL 09/23/2020 4:37 PM EST [employer] Comment: < 150 Normal 150 - 199 Borderline High 200 - 499 High >= 500 Very High HDL 75 >=40 mg/dL 09/23/2020 4:37 PM EST [employer] Comment: > 60 Optimal 40 - 60 Acceptable < 40 Low LDL Calculated 93 <100 mg/dL 09/23/2020 4:37 PM EST [employer] Comment: < 100 Optimal 100 - 129 Near or above optimal 130 - 159 Borderline High 160 - 189 High >= 190 Very High Non-HDL-C Calculated 109 <=129 mg/dL 09/23/2020 4:37 PM EST [employer] Comment: <130 Desirable 130-159 Above Desirable 160-189 Borderline High 190-219 High >= 220 Very High Fasting Specimen? Unknown None 020 4:37 PM EST [employer] Blood VENOUS BLOOD / Unknown Venipuncture / Unknown 09/23/2020 11:19 AM EST 09/23/2020 11:19 AM EST Liz Cruz APRN CHEMISTRY ORDERABLES Final Result Performing Organization Address [facility]/ZIP Co de Phone Number PREFERRED [employer] [address] [facility] [address] , [place] [address] * (ABNORMAL) COMPREHENSIVE METABOLIC PANEL [...] 09/23/2020 4:45 PM EST [facility] GFR Afr Am 124 >=60 mL/min/1.7 3 m2 09/23/2020 4:45 PM EST [facility] GFR Non Afr Am 107 >=60 mL/min/1.7 3 m2 09/23/2020 4:45 PM EST [facility] Comment: This estimated GFR was [...] 09/23/2020 11:19 AM EST us Liz Cruz SALES OPERATIONS COORDINATOR CHEMISTRY ORDERABLES Final Result Performing Organization Address City/[facility]/ZIP Co de Phone Number [facility] [employer] [facility] [address] [facility], [place] [address] [facility] [address] [place] [address] * DIABETES EYE EXAM (03/21/2018) Left Diabetic Retinopathy Present Present/Not Present SEP OFFICE Right Diabetic Retinopathy Present Present/Not Present SEP OFFICE us Historical Provider HEALTH MAINTENANCE Final Res ult Performing Organization Address [facility] Co de Phone Number SEP OFFICE * (ABNORMAL) MICROALBUMIN/CREATININE RATIO URINE (11/07/2017 2:05 PM EST) Urine Microalb 130.0 mg/L 11/07/2017 9:00 PM EST [facility] Urine Creatinine 151.1 mg/dL 11/07/2017 9:00 PM EST [facility] Ur Microalb/Creat 86(H) 0 - 30 mg/gm 11/07/2017 9:00 PM EST [facility] Urine STRUCTURE OF URINARY TRACT PROPER / Unknown 11/07/2017 2:05 PM EST 11/07/2017 2:05 PM EST us Michel Chacon MD URINE ORDERABLES Final Resu lt Performing Organization Address City/[facility] Co de Phone Number [facility] [address] [place] [address] from Last 3 Months or Most Recently Relevant to Health Maintenance Insurance [place]PO [place]ICARE [place] PART A [place] B [place] PART A AND B Care Teams Video Library Assistant Relationship Specialty Start Date End Date Tunde Myers MD [address] [place] [address] [place] [address] Consulting Physician Obstetrics & Gynecology-Gynecologic Oncology 11/15/17 Michel Chacon MD [address] [place] [address] [place] [address] Referring Physician Family Medicine 11/08/17
--- OUTSIDE RECORDS SUMMARY | 2025-06-02 12:53 | XMS_ITS | Referral Summary ---
Author Organization [employer] ([place], [place], [place], [place]) Address [address] [place] [address] Care Team Providers Care Material Distributor Name Role Phone Walter Anaya MD Primary Care Provider [phone] Allergies Active Allergy Reactions Criticality Noted Date [...] Date Rolando rded Speak language other than Uzbek at home Not on file 10/12/2023 Want [...] on file Medical Devices Implanted Type Area Blocker And Cutter Contact Lens Device Identifier Shelf Expiration Date Model / Serial / Lot Loop Recorder-2021 Implanted:09/24 (Quantity not on file) LOOP RECORDER [employer] [id number] / [id number] / Insurance MEDICAID B BLUE CROSS/BLUE SHIELD MEDICARE PART A B Care Teams Material Distributor Relationship Specialty Start Date End Date Walter Anaya MD [address] [place] [address] PCP - General Family Medicine 11/21/22
--- OUTSIDE RECORDS SUMMARY | 2025-06-02 12:53 | XMS_ITS | Clinical Summary ---
Author Organization [employer] ([place], [place], [place], [place]) Address [address] [place] [address] Care Team Providers Care Investment Executive Name Role Phone Walter Anaya MD Primary Care Provider [phone] Allergies Active Allergy Reactions Criticality Noted Date [...] Date Rolando rded Speak language other than Senegalese at home Not on file 10/12/2023 Want [...] 2) 2024 COVID-19 VACCINE (3 - season) 2025, 05/17/2021 Influenza Vaccine (#1) 2025 06/15/2016 DTAP/TDAP/TD VACCINES (2 - Td or Tdap) 11/01/2028 Medical Devices Implanted Type Area Boot And Shoe Repairman Device Identifier Shelf Expiration Date Model / Serial / Lot Loop Recorder-2021 Implanted:09/24 (Quantity not on file) LOOP RECORDER [email or web address] [id number] / [id number] / Insurance MEDICAID [place] BLUE CROSS/BLUE SHIELD MEDICARE PART A B Care Teams Investment Executive Relationship Specialty Start Date End Date Walter Anaya MD [address] [place] [address] PCP - General Family Medicine 11/21/22
--- NOTE | 2025-06-02 13:00 | CA_ITS ---
FINAL REPORT CLINICAL HISTORY: SORE NUMBNESS POST CATH RT GROIN FINDINGS: Limited sonographic images of the right leg was performed. There is no evidence of pseudo aneurysm. No mass or fluid collection is identified. The groin muscles are intact. IMPRESSION: No evidence of pseudo aneurysm. Reviewed, Interpreted and Dictated by Bharti Torres MD Transcribed by Ashley Delgado Authenticated and . [facility]
== END 2025-06-02 23:59 | disposition home or self-care (01) ==
LOC: RT 12:49
PROVIDERS: PCP Family Medicine; Visit Provider Physician Assistant
DX: R10.31 Right lower quadrant pain (principal); R60.9 Edema, unspecified; R20.0 Anesthesia of skin; Z98.890 Other specified postprocedural states
CPT/HCPCS: 93926

== ENCOUNTER 2025-06-22 18:07 | Emergency (ER) | payer BC, MEDICARE, SELFPAY ==
--- OUTSIDE RECORDS SUMMARY | 2024-05-15 10:00 | XMS_ITS ---
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 Applicator Name Role Phone Taylor Anaya Primary Care Provider Shayla Gant Unavailable [phone] Allergies Allergen (clinical drug ingredient) Drug/Non Drug [...] Lab: Notes/Report: REASON FOR VISIT fu from [facility] admission Medications Medication SIG (Take, Route, Frequency, [...] Status Risk Notes Problem Vitamin D deficiency (31919536) Vitamin D deficiency (E55.9) Active confirmed Vital Signs Weight 168.2 lbs 05/15/2024 Blood pressure systolic 110 mm Hg 05/15/20 24 Blood pressure diastolic 70 mm Hg 024 Heart Rate 68 /min 05/15/2024 Height 64.50 in 05/15/2024 BMI 28.42 kg/m2 05/15/2024 Encounters Encounter Location Date [facility] [address] [facility] [address] [place], [place] [id number] 05/15/2024 Shayla Gant Type 2 diabetes sarita itus without complication, unspecified whether fci insulin use E11.9 ; Benign paroxysmal positional vertigo, unspecified laterality H81.10 ; History of paroxysmal supraventricular tachycardia Z86.79 ; Gastroesophageal reflux disease without esophagitis K21.9 ; Atherosclerosis of sycuan coronary artery without angina pectoris, unspecified whether sycuan or transplanted heart I25.10 ; Vitamin B12 [...] esophagitis (ICD-10 - K21.9) 05/15/2024 Atherosclerosis of sycuan coronary artery without angina pectoris, unspecified whether sycuan or transplanted heart (ICD-10 - I25.10) 05/15/2024 [...] Krueger , 08/12/2025 02:00:00 PM, [address] [facility] [address] [facility], [address], [place], [place], [phone], Progress Notes * DAKOTA AMBIKAB:1975 ( 50 yo F)Acc No.[id number]:05/15/2024 Progress Notes Patient: LIBAN RAI Provider: ZACKARY Dickson :1975 A ge:49 Y S ex:Female Date:05/15/2024 Address:[address] [place], [place] [id number] Pcp:Taylro Anaya Subjective: * Chief Complaints: * 1 . fu from [facility] admission. * HPI: N eurology: The pt is here today for a check up from [facility] ER due to Vertigo. Pt states she [...] Diagno stic Procedure: S yncope and Collapse- [facility] 03/12-, Headache, Dizziness- [facility] ER 03/15/2019, Back Pain- [facility] ER 11/14/2019, Suicidal/Homicidal Thoughts- [facility] ER 02/17/2021. * Family History: F ather: [...] without complication, unspecified whether fci insulin use - E11.9 3 . H istory of paroxysmal supraventricular tachycardia - Z86.79 4 . G astroesophageal reflux disease without esophagitis - K21.9 5 .?Atherosclerosis of sycuan coronary artery without angina pectoris, unspecified whether sycuan or transplanted heart - I25.10 6 . 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 * Procedure Codes: 22953 Urinalysis, no micro. * Electronic signature of ZACKARY Engel on 06/22/2025 at 06:21 PM EDT Sign off status: Pending * Provider: ZACKARY Dickson Date: 0 05/15/2024 Generated for Ledai ng/Fajulian/eTransmitting on: 0 06/22/2025 06:21 PM EDT History and Physical Notes * [...]
--- OUTSIDE RECORDS SUMMARY | 2024-11-10 06:00 | XMS_ITS ---
Author Organization [facility] Address [address] [facility] [address] [id number] Care Team Providers Care Silk Screen Printing Racker Name Role Phone Taylor Anaya Primary Care Provider Amadou Holman Unavailable [phone] Allergies Allergen (clinical drug ingredient) Drug/Non Drug [...] sic k to stomach Drug Allergy Active Reason For Referral Diagnosis 1 Hereditary hemochrom atosis (E83.110) Diagnosis 2 Heterozygous factor V Leiden mutation (D68.51) [facility] Referring Provider First Name Amadou Referring Provider Last Name River Referring Provider Speciality Family Pra ctice Referred Provider Michel Curtis Referred Provider Specialty Hematology/O ncology General Notes Mary Xavier 11/10/19 11:46:46 AM > faxed to Dr. Curtis's office, Mary Xavier 11/14/2024 10:04:10 AM > spoke with Dewey and confirmed referral was received Referral Priority Routine REASON FOR VISIT f/u H D/C Medications Medication SIG (Take, Route, Frequency, Duration) Notes Start Date End Date Status traZODone HCl 100 MG 1 tab(s) orally qhs ; Duration: 90 days Active EpiPen 2-Allan 0.3 MG/0.3ML as directed in tramuscularly once Active Aspirin 325 MG 1 tablet Orally Once a day; Duration: 30 day(s) Active Flintstones Multivitamin - 1 tab(s) chewed bid Active ProAir Digihaler 108 (90 Base) MCG/ACT 1-2 puff(s) inhaled every 6 hours, prn 10/05/2021 Active Furosemide 20 mg TAKE ONE TABLET BY M OUTH EVERY DAY NEEDED FOR swelling; Duration: 90 Active Problems Problem Type SNOMED Code ICD Code Onset Dates Problem Status W/U Status Risk Notes Problem Migraine (36087553) Migraine without status migrainosus, not intractable, unspecified migraine type (G43.909) Active confirmed Problem Heterozygous Factor V Leiden mutation (423464629) Heterozygous factor V Leiden mutation (D68.51) Active confirmed Vital Signs Weight 171 lbs 11/10/2024 Blood pressure systolic 130 mm Hg 11/10/19 25 Blood pressure diastolic 72 mm Hg 025 Heart Rate 67 /min 11/10/2024 Height 64.50 in 11/10/2024 BMI 28.90 kg/m2 11/10/2024 Encounters Encounter Location Date Provider Diagnosis [facility] [address] [id number] 11/10/2024 Amadou [place] Left-sided weakness R53.1 ; Migraine without status migrainosus, not intractable, unspecified migraine type G43.909 ; Primary insomnia F51.01 ; Hereditary hemochromatosis E83.110 and Heterozygous factor V Leiden mutation D68.51 Assessments Encounter Date Diagnosis (ICD Code) Assessment Notes Treatment Notes Treatment Clinical Notes Section Notes 11/10/2024 Left-sided weakness (ICD-10 - R53.1) Improved 11/10/2024 Migraine without status migrainosus, not intractable, unspecified migraine type (ICD-10 - G43.909) Improved 11/10/2024 Primary insomnia (ICD-10 - F51.01) 11/10/2024 Hereditary hemochromatosis (ICD-10 - E83.110) 11/10/2024 Heterozygous factor V Leiden mutation (ICD-10 - D68.51) Plan Of Treatment Medication Medication Name Sig Start Date Stop Date Notes traZODone HCl 100 MG 1 tab(s) orally qhs ; Duration: 90 days Treatment Notes Assessment Notes Left-sided weakness Improved Migraine without status migr ainosus, not intractable, unspecified migraine type Improved Referrals Referral Date Details 11/10/2024 11/10/2024, Michel Curtis Next Appt Details Follow Up: 3 Months, Reason: Provider Name:Amadou Krueger ry, 08/12/2025 02:00:00 PM, [address], [address], [place], [place], [id number], Progress Notes * AMBIKA DUNCANB:1975 ( 50 yo F)Acc No.[id number]:11/10/2024 Patient: LIBAN RAI Provider: Miguel Ángel Holman M.D. :1975 A ge:49 Y S ex:Female Date:11/10/2024 Address:[address] [place], [place] [address], [id number] Pcp:Taylor Anaya Subjective: * Chief Complaints: * 1 . f/u [facility] D/C. * HPI: H PI: 49 year old female presents with c/o Here for follow up on:?11/03/2024 [facility] hospitalization. Pt states that she was admitted for possible stroke. Pt states she was told that she did not have a stroke and it was a complex migraine. Pt states that lt side of of her face is no longer numb but she does still feel weak on lt side of body. * ROS: D ERMATOLOGY: no R hilario. n o H taiwo. G ASTROENTEROLOGY: no N ausea. n o V omiting. U ROLOGY: no D ifficulty urinating. n o B lood in urine. * Medical History: D isabled due to ?anoxic brain injury with severe toxemia, Type 2 DM - diet controlled after bariatric surgery, Coronary Artery Disease, Fibromyalgia, Kidney stones, supraventricular tachycardia and arrythmia/-Dr Zhong / resolved after weight loss, MRSA, Anxiety, Depression, PTSD, Severe Toxemia-1994, Elevated ferriten levels, Asthma, Bee sting allergy, Hereditary hemochromatosis, Cardiac stents placed. * Surgical History: C -Section X 3 , Lap Brooke 1995, Kidney Stone Removal 2004, Partial Hysterectomy for Fibroid Tumor -Dr Tovar 2012, Gastric Sleeve/ Dr. Pascal 10/07/2018, LHC with LAD stent/ Trevin 07/2021, Repeat LHC with LAD stent/ Trevin 08/2021. * Hospitalization/Major Diagno stic Procedure: S yncope and Collapse- [facility] 03/12-, Headache, Dizziness- [facility] ER 03/15/2019, Back Pain- [facility] ER 11/14/2019, Suicidal/Homicidal Thoughts- [facility] ER 02/17/2021. * Family History: F ather: 53 yrs, end stage cardiomyopathy, DM. M other: alive 71 yrs, diagnosed with Hypertension, Diabetes. 1 brother(s) , 1 sister(s) . 1 son(s) , 2 daughter(s) . . family HX of HAE. * Social History: C URRENT TOBACCO USE: No . C affeine: no. Home smoke detector use: yes. Alcohol: No. * Medications: T aking Aspirin 325 MG Tablet Delayed Release 1 tablet Orally Once a day , Taking Flintstones Multivitamin - Tablet Chewable 1 tab(s) chewed bid , Taking traZODone HCl 100 MG Tablet 1 tab(s) orally qhs , Taking EpiPen 2-Allan 0.3 MG/0.3ML Solution Auto-injector as directed intramuscularly once , Taking ProAir Digihaler 108 (90 Base) MCG/ACT Aerosol Powder Breath Activated 1-2 puff(s) inhaled every 6 hours, prn , Taking Furosemide 20 mg Tablet TAKE ONE TABLET BY MOUTH EVERY DAY NEEDED FOR swelling , Discontinued Meclizine HCl 25 MG Tablet 1 tablet as needed Orally every 12 hrs , Discontinued Ticagrelor 90 MG Tablet 1 tab(s) orally 2 times a day , Discontinued Pantoprazole Sodium 40 MG Tablet Delayed Release 1 tab(s) orally Two times a day , Discontinued tiZANidine HCl 2 MG Tablet 1 or 2 tab(s) orally every 8 hours as needed , Medication List reviewed and reconciled with the patient * Allergies: P axil: heart rate slows down, causing chest pain, Lisinopril: closes off airway, Zoloft: becomes homicidal , Ibuprofen: swelling, Tetanus Toxoids: swelling and sick to stomach, HYDROmorphone: hives and rash, high fever, Phenergan: hallucinations, Cymbalta: swelling of the liver, COVID-19 (mRNA) Vaccine: cardiomyopathy. Objective: * Vitals: W t:171, Temp:97.8, BP:130/72, HR:67, Nurse:shanthi, Ht: 64.50, BMI:28.90. * Examination: G eneral Examination: General Appearance: N AD. H eart: R SR. L ungs:?clear to auscultation. N eurologic Exam: Intact, gait normal, normal sensation and strength. P eripheral pulses: n ormal (2+) bilaterally. E xtremities: n o leg edema.? Assessment: * Assessment: 1. L eft-sided weakness - R53.1 (Primary) 2 . M igraine without status migrainosus, not intractable, unspecified migraine type - G43.909 3 . P rimary insomnia - F51.01 4 . H ereditary hemochromatosis - E83.110 5 . H eterozygous factor V Leiden mutation - D68.51 Plan: * Treatment: 2. M igraine without status migrainosus, not intractable, unspecified migraine type Notes: Improved 3. P rimary insomnia Refill traZODone HCl Tablet, 100 MG, 1 tab(s), orally, qhs, 90 days, 90, Refills 1. 4. H ereditary hemochromatosis Referral To:Michel Curtis Hematology/Oncology Reason: 5. H eterozygous factor V Leiden mutation Referral To:Michel Curtis Hematology/Oncology Reason: * Procedure Codes: 3 075F SYST BP GE 130 - 139MM HG, 3078F DIAST BP < 80 MM HG * Follow Up: 3 Months * Images: Billing Information: * Visit Code: 92213 Office Visit, Est Pt., Level 4. * Procedure Codes: 3075F SYST BP GE 130 - 139MM HG. 3078F DIAST BP < 80 MM HG. * Electronic signature of Fabiola Holman MD on 06/22/2025 at 06:21 PM EDT Sign off status: Pending * Provider: Miguel Ángel Holman M.D. Date: 0 11/10/2024 Generated for Kerrie winchester/Marta/Brandenitting on: 0 06/22/2025 06:21 PM EDT History and Physical Notes * HPI (History of Present Illness) Category Sub-Category Detail Notes Category Not es HPI Here for follow up on: 5 [facility] hospitalization. Pt states that she was admitted for possible stroke. Pt states she was told that she did not have a stroke and it was a complex migraine. Pt states that lt side of of her face is no longer numb but she does still feel weak on lt side of body Examination Category Sub-Category Detail Notes Category Not es General Examination Heart: RSR Lungs: clear to auscultatio n Extremities: no leg edema General Appearance: NAD Neurologic Exam: Intact, gait normal, normal sensation and strength Peripheral pulses: normal (2+) bilatera lly Consultation Request Notes Referral Date Referring Provider Referred Provider Not es 11/10/2024 Amadou Holman Michael
--- OUTSIDE RECORDS SUMMARY | 2025-02-09 09:30 | XMS_ITS ---
Author [facility] Address [address] [facility] [address] [phone] Care Team Providers Care Dental Surgery Doctor Name Role Phone Taylor Anaya Primary Care Provider Amadou Holman Unavailable [phone] Allergies Allergen (clinical drug ingredient) Drug/Non Drug [...] Normal Performing Lab: Notes/Report: Test performed by [facility], [address] , [address], [place] [address] Luis Camacho MD, Repair Armature Winder Helper CLIA: [id number] Sodium 144 135-145 mmol/L Potassium 4.2 3.5-5.3 [...] Normal Performing Lab: Notes/Report: Test performed by [facility] [address] [place] [address] , [address], [place] [address] Luis Camacho MD, Repair Armature Winder Helper CLIA: [id number] Cholesterol 177 <200 mg/dL Triglycerides 84 <150 [...] Normal Performing Lab: Notes/Report: Test performed by [facility] [address] , [place] [address] Luis Camacho MD, Repair Armature Winder Helper CLIA: [id number] TSH reflex to FT4 1.16 0.43-5.25 mU/L P-Microalbumin/Creatinine, R andom Urine Sample Reviewed date:02/11/2025 12:21:20 PM Interpretation: Normal Performing Lab: Notes/Report: Test performed by [facility] [address] , [place] [address] Luis Camacho MD, Repair Armature Winder Helper CLIA: [id number] Albumin/Creatinine Ratio, Urine 9 0-30 ug/m g Microalbumin, Urine, Random 2.5 Creatinine, Urine 292.3 P-Vitamin D 25-Hydroxy Reviewed date:02/11/2025 12:21:20 PM Interpretation:28.3 Performing Lab: Notes/Report: Test performed by [facility] [address] , [place] [address] Luis Camacho MD, Rep[employer] CLIA: [id number] Vitamin D 25-Hydroxy 28.3 30.0-100.0 ng/mL Interpretation [...] DAY NEEDED FOR swelling; Duration: 90 Active traZODone HCl 100 MG 1 tab(s) orally qhs Active Zepbound 5 MG/0.5ML 0.5 mL Subcutaneous Active Aspirin 325 MG 1 tablet Orally Once a day; Duration: 30 day(s) Active Flintstones Multivitamin - 1 tab(s) chewed bid Active Vital Signs Weight 160.4 lbs 02/09/2025 Blood pressure systolic 112 mm Hg 02/10/20 25 Blood pressure diastolic 70 mm Hg 025 Heart Rate 71 /min 02/09/2025 Height 64.50 in 02/09/2025 BMI 27.1 kg/m2 02/09/2025 Encounters Encounter Location Date Provider Diagnosis [facility] [address] [facility] [address] [phone] 02/09/2025 Amadou Holman Type 2 diabetes sarita [...] [address], [address], [place], [place], [id number], Progress Notes * DAKOTA KIRSTENRONYMAKEDAB:1975 ( 50 yo F)Acc No.[id number]:02/09/2025 Progress Notes Patient: LIBAN RAI Provider: Miguel Ángel Holman M.D. :1975 A ge:49 Y S ex:Female Date:02/09/2025 Address:[address] [place] [address], [id number] Pcp:Taylor Anaya Subjective: * Chief Complaints: * [...] Diagno stic Procedure: S yncope and Collapse- [facility] 03/12-, Headache, Dizziness- [facility] 03/15/2019, Back Pain- [facility] 11/14/2019, Suicidal/Homicidal Thoughts- [facility] 02/17/2021. * Family History: F ather: [...] o leg edema.? Assessment: * Assessment: 1. T ype 2 diabetes mellitus without complication, without long-term current use of insulin - E11.9 (Primary) 2 . V itamin D deficiency - E55.9 3 . H ereditary hemochromatosis - E83.110 4 . P rimary insomnia - F51.01 5 . P ure hypercholesterolemia, unspecified - E78.00 6 . E ssential (primary) hypertension - I10 7 . B ME 27.0-27.9,adult - Z68.27 Plan: * Treatment: Value [...] G 2211 Complex e/[place], [address] GLUCOSE TEST, 40167 GLYCATED HEMOGLOBIN TEST, Modifiers: QW , 3044F HG A1C LEVEL LT 7.0%, G8420 BMI<30 AND >=22 CALC & DOCU, G8752 MOST RECENT SYSTOLIC BP < 140MM HG, G8754 MOST RECENT DIASTOLIC BP < 90MM HG * Follow Up: 6 Months * Images: Billing Information: * Visit Code: 52351 Office Visit, Est Pt., Level 4. * Procedure Codes: G2211 Complex e/[place]. [address] GLUCOSE TEST. 45169 GLYCATED HEMOGLOBIN TEST. Modifiers: QW 3044F HG [...] 02/09/2025 Generated for Kerrie winchester/Marta/Brandenitting on: 0 06/22/2025 [...]
--- OUTSIDE RECORDS SUMMARY | 2025-05-27 06:45 | XMS_ITS ---
[facility] Address [address] [facility] [address] [place] [id number] Care Team Providers Care Washroom Cleaner Name Role Phone Taylor Anaya Primary Care Provider Amadou Holman Unavailable [phone] Allergies Allergen (clinical drug ingredient) Drug/Non Drug [...] sic k to stomach Drug Allergy Active REASON FOR VISIT [facility] discharge f/u Medications Medication SIG (Take, Route, Frequency, Duration) Notes Start Date End Date Status Vitamin D (Ergocalciferol) 35468 UNIT 1 capsule Orally weekly 05/27/2025 Acti ve traZODone HCl 100 MG 1 tablet at bedtime orally Once a day; Duration: 90 days Active Diflucan 150 MG 1 tablet Orally once ; Duration: 10 days 02/12/2025 Active Furosemide 20 mg TAKE ONE TABLET BY M OUTH EVERY DAY NEEDED FOR swelling; Duration: 90 Active ProAir Digihaler 108 (90 Base) MCG/ACT 1-2 puff(s) inhaled every 6 hours, prn 10/05/2021 Active Flintstones Multivitamin - 1 tab(s) chewed bid Active Aspirin 325 MG 1 tablet Orally Once a day; Duration: 30 day(s) Active Zepbound 5 MG/0.5ML 0.5 mL Subcutaneous Active amLODIPine Besylate 5 MG 1/2 tablet Oral ly Once a day Active EpiPen 2-Allan 0.3 MG/0.3ML as directed in tramuscularly once Active Vital Signs Weight 144.6 lbs 05/27/2025 Blood pressure systolic 122 mm Hg 05/27/20 25 Blood pressure diastolic 80 mm Hg 025 Heart Rate 64 /min 05/27/2025 Height 64.50 in 05/27/2025 BMI 24.43 kg/m2 05/27/2025 Encounters Encounter Location Date Provider Diagnosis [facility] [address] [facility] [address] [facility] [address] [place], [place] [id number] 05/27/2025 Amadou Holman Atypical chest pain R07.89 and Vitamin D deficiency E55.9 Assessments Encounter Date Diagnosis (ICD Code) Assessment Notes Treatment Notes Treatment Clinical Notes Section Notes 05/27/2025 Atypical chest pain (ICD-10 - R07.89) Symptoms have resolved 05/27/2025 Vitamin D deficiency (ICD-10 - E55.9) 05/27/2025 Other Discharge summary with available lab/diagnostic imaging results obtained and reviewed. Discharge medication list reconciled. Appropriate counseling provided. Moderate Complexity Plan Of Treatment Medication Medication Name Sig Start Date Stop Date Notes Vitamin D (Ergocalciferol) 5 0000 UNIT 1 capsule Orally weekly 05/27/2025 Treatment Notes Assessment Notes Atypical chest pain Symptoms have resolv ed Other Discharge summary wi available lab/diagnostic imaging results obtained and reviewed. Discharge medication list reconciled. Appropriate counseling provided. Moderate Complexity Next Appt Details Follow Up: as scheduled,and prn, Reason: Provider Name:Amadou Krueger ry, 08/12/2025 02:00:00 PM, [address] [facility], [address], [place], [id number], Progress Notes * AMBIKA DUNCANB:1975 ( 50 yo F)Acc No.[id number]:05/27/2025 Patient: FANNY RAI Provider: Miguel Ángel Hloman M.D. :1975 A ge:50 Y S ex:Female Date:05/27/2025 Address:[id number] Pcp:Taylor Anaya Subjective: * Chief Complaints: * 1 . [facility] discharge f/u. * HPI: H PI: Patient is here today for a Transition of Care Visit. Discharge from the following Facility: admitted to [facility] on 05/18/2025 with chest pain and subsequent Cardiac Cath procedure , Discharge date: 05/20/2025 ,Date of phone contact following discharge: 05/21/2025. Pt states she is still very sore and tired. Pt states she has not been having any chest pains. * ROS: D ERMATOLOGY: no R hilario. [...] Diagno stic Procedure: S yncope and Collapse- [facility] 03/12-, Headache, Dizziness- [facility] ER 03/15/2019, Back Pain- [facility] ER 11/14/2019, Suicidal/Homicidal Thoughts- [facility] ER 02/17/2021. * Family History: F ather: 53 yrs, end stage cardiomyopathy, DM. M other: alive 71 yrs, diagnosed with Hypertension, Diabetes. 1 brother(s) , 1 sister(s) . 1 son(s) , 2 daughter(s) . . family HX of HAE. * Social History: C URRENT TOBACCO USE: No . C affeine: no. Home smoke detector use: yes. Alcohol: No. * Medications: T aking amLODIPine Besylate 5 MG Tablet 1/2 tablet Orally Once a day , Taking Zepbound 5 MG/0.5ML Solution Auto-injector 0.5 mL [...] EVERY DAY NEEDED FOR swelling , Taking Diflucan 150 MG Tablet 1 tablet Orally once , Taking traZODone HCl 100 MG Tablet 1 tablet at bedtime orally Once a day , Medication List reviewed and reconciled with the patient * Allergies: P axil: heart rate slows down, causing chest pain, Lisinopril: closes off airway, Zoloft: becomes homicidal , Ibuprofen: swelling, Tetanus Toxoids: swelling and sick to stomach, HYDROmorphone: hives and rash, high fever, Phenergan: hallucinations, Cymbalta: swelling of the liver, COVID-19 (mRNA) Vaccine: cardiomyopathy. Objective: * Vitals: W t: 144.6, Temp: 97.8, BP: 122/80, HR: 64, Nurse: MATTIE, Ht: 64.50, BMI:24.43. * Examination: G eneral Examination: General Appearance: N AD. H eart: R SR. L ungs:?clear to auscultation. E xtremities: n o leg edema. Assessment: * Assessment: 1. A typical chest pain - R07.89 (Primary) 2 . V itamin D deficiency - E55.9 Plan: * Treatment: 2. V itamin D deficiency Start Vitamin D (Ergocalciferol) Capsule, 49211 UNIT, 1 capsule, Orally, weekly, 12, Refills 0.? 3. O thers Notes: Discharge summary with available lab/diagnostic imaging results obtained and reviewed. Discharge medication list reconciled. Appropriate counseling provided. Moderate Complexity * Procedure Codes: 9 9495 TRANS CARE MGMT 14 DAY DISCH, 1111F DSCHR MED/CURENT MED MERGE * Follow Up: a s scheduled,and prn * Images: Drawing:Fanny Duncan Billing Information: * Visit Code: 73300 Office Visit, Est Pt., Level 3. * Procedure Codes: 43652 TRANS CARE MGMT 14 DAY DISCH. 1111F DSCHR MED/CURENT MED MERGE. * Electronic signature of Fabiola Holman MD on 06/22/2025 at 06:21 PM EDT Sign off status: Pending * Provider: Miguel Ángel Holman M.D. Date: 0 05/27/2025 Generated for Kerrie winchester/Marta/eTransmitting on: 0 06/22/2025 06:21 PM EDT History and Physical Notes * HPI (History of Present Illness) Category Sub-Category Detail Notes Category Not es HPI Patient is here today for a [facility] Visit. Discharge from the following Facility: admitted to [facility] on 05/18/2025 with chest pain and subsequent Cardiac Cath procedure ,Discharge date: 05/20/2025 ,Date of phone contact following discharge: 05/21/2025. Pt states she is still very sore and tired. Pt states she has not been having any chest pains Examination Category Sub-Category Detail Notes Category Not es General Examination Heart: RSR Lungs: clear to auscultatio n Extremities: no leg edema General Appearance: NAD
--- OUTSIDE RECORDS SUMMARY | 2025-06-08 05:10 | XMS_ITS ---
Author Organization [facility] Address [address] [facility] [address] [place] [id number] Care Team Providers Care Model And Mold Maker Plaster Name Role Phone Taylor Anaya Primary Care Provider REASON FOR VISIT due jameel, col Encounters Encounter Location Date Provider Diagnosis [place] [address] [facility] [address] [place] [id number] 06/08/2025 Taylor Anaya Breast cancer screening Z12.39 and Colon cancer screening Z12.11 Assessments Encounter Date Diagnosis (ICD Code) Assessment Notes Treatment Notes Treatment Clinical Notes Section Notes 06/08/2025 Breast cancer screening (ICD-10 - Z12.39) 06/08/2025 Colon cancer screening (ICD-10 - Z12.11) Plan Of Treatment Pending Test Test Name Order Date Mammogram 06/08/2025 Cologuard 06/08/2025 Next Appt Details Provider Name:Amadou Krueger ry, 08/12/2025 02:00:00 PM, [address], [address], [place], [id number], Progress Notes * AMBIKA DUNCANB:1975 ( 50 yo F)Acc No.[id number]:06/08/2025 Patient: KIRSTEN RAIITRA :1975 A ge:50 Y S ex:Female Address:[address] [place], [address] Subjective: * Chief Complaints: * D ue jameel, col * Medical History: * Surgical History: * Hospitalization/Major Diagno stic Procedure: * Medications: Objective: * Vitals: * Physical Examination: Assessment: * Assessment: 1. B reast cancer screening - Z12.39 (Primary) 2 . C olon cancer screening - Z12.11 Plan: * Treatment: 2.?Colon cancer screening?LAB: Colseth* Danika Ulloa 06/17/2025 03:1 3:05 PM EDT > sent to Georgette Justice for Cooguard Kit order * Procedure Codes: * true * Date: Generated for Kerrie winchester/Marta/Loco on: 0 06/22/2025 06:20 PM EDT
--- OUTSIDE RECORDS SUMMARY | 2025-06-11 15:30 | XMS_ITS | Encounter Summary ---
Author Organization [facility] Address [address] [place] [address] Phone [email or web address] Care Team Providers Care Plastic Parts Designer Name Role Phone Walter Anaya MD Primary Care Provider Reason for Visit * Reason Comments Health Center Offerings Encounter Details Date Type Department Care Team (Latest Contact Info) Description 06/11/2025 3:30 PM EDT Office Visit [address] [place] [address] Naheed Torres PA [address] [place] [address] S/P cardiac catheterization (Primary Dx); History of CAD (coronary artery disease); Encounter for fitness for duty examination Social History Tobacco Use Types Packs/Day Years Used Date Smoking Tobacco: Every Day E-Cigarettes Smokeless Tobacco: Never Depression Answer Date Recorded PHQ Total Score 0 08/15/2024 Stress Answer Date Recorded Stress in your Life Not on file 07/28/2024 Dealing with Stress 3 07/28/2024 Comments Unknown Sex and Gender Information Value Date Recorded Sex Assigned at Not on file Legal Sex Female 7:08 AM ASSISTANT PROGRAM DIRECTOR Gender Identity Not on file Sexual Orientation Not on file documented as of this encounter Last Filed Vital Signs Vital Sign Reading Time Taken Comments Blood Pressure 117/79 06/11/2025 3:09 PM EDT Pulse 89 06/11/2025 3:09 PM EDT Temperature - - Respiratory Rate 18 06/11/2025 3:09 PM EDT Oxygen Saturation 98% 06/11/2025 3:09 PM EDT Inhaled Oxygen Concentration - - Weight - - Height - - Body Mass Index - - documented in this encounter Patient Instructions * Patient Instructions* ZACKARY Mccrary - 06/11/2025 3:30 PM EDT 1. Duty status: RTW Regular Duty 2. Preventive stretching 3. Referrals: None 4. Follow up: as needed. 5. Call [facility] @ [phone] for any questions/concerns/appointments. 6. Projected return to full rotation: 06/11/25 documented in this encounter Progress Notes * ZACKARY Mccrary - 06/11/2025 3:30 PM EDT Subjective Fanny Franco is a 50 y.o. female who presents for personal return to work. WD ID: [id number] Employer: [employer] Center: [employer] Shift: 2 Full-time GL and #: Stanley Li Previous/current indefinite restrictions? No LDW: 05/15/2025 DOS: 05/19/2025 PROCEDURE: Heart Cath SURGEON: Javed Zhong MD at [facility] RELEASE: Regular Duty 06/11/2025 PMLOA. TM off work due to recurrent chest pain. She underwent a right sided femoral heart cath and was diagnosed with vasospasms. She has been put on 2.5 mg amlodipine daily for blood pressure which is working well for her. Denies any LH/D at this time. TM denies any discomfort at stent site and states she is ready to RTW. Triage nurse: ELKE KISER HPI As noted in CC. PMLOA. LDW: 05/15/2025. TM has been off work for ~ 4 wks getting treatment for recurrent chest pain. She had right side femoral heart cath on 05/19/25, diagnosed with vasospasms. Due to her h/o blood disorder at f/u on 06/02/25 she had normal u/s to check for clots right femoral artery. She is taking amlodipine 2.5 mg to treat her condition. 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 TM reports she feels well, she is not having any problems with chest pain, no palpations, no left arm or jaw pain, no SOB, she is not LD or dizzy. Incision atright groin has fully healed, no swelling, tenderness or bruising presemnt. 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 TM has a release to RTW without restrictions on 06/11/25. She states that she feels able and ready to get back to work, does not feel she needs reintro. History Reviewed: Tobacco Allergies Meds Problems Med Hx Surg Hx Fam Hx Objective Visit Vitals BP 117/79 Pulse 89 Resp 18 SpO2 98% Smoking Status Every Day Review of Systems Respiratory: Negative for shortness of breath. Cardiovascular: Negative for chest pain and palpitations. Neurological: Negative for dizziness and light-headedness. PHQ-9 Total Score: 0 (06/11/2025 3:05 PM) Physical Exam Vitals and nursing note reviewed. Constitutional: Appearance: Normal appearance. Cardiovascular: Rate and Rhythm: Normal rate and regular rhythm. Pulses: Normal pulses. Heart sounds: Normal heart sounds. Pulmonary: Effort: Pulmonary effort is normal. Breath sounds: Normal breath sounds. Skin: General: Skin is warm and dry. Comments: No swelling, erythema, warmth or bruising present at right groin/thigh Neurological: Mental Status: She is oriented to person, place, and time. Gait: Gait normal. Psychiatric: Mood and Affect: Mood normal. Behavior: Behavior normal. Assessment: ICD-10-CM ICD-9-CM 1. S/P cardiac catheterization Z98.890 V45.89 ECG 12 lead on 06/19/25 2. History of CAD (coronary artery disease) Z86.79 V12.59 ECG 12 lead 3. Encounter for fitness for duty examination Z02.89 V70.5 Orders Placed This Encounter Procedures ECG 12 lead Patient Instructions 1. Duty status: RTW Regular Duty 2. Preventive stretching 3. Referrals: None 4. Follow up: as needed. 5. Call [facility] @ [phone] for any questions/concerns/appointments. 6. Projected return to full rotation: 06/11/25 documented in this encounter Plan of Treatment Not on file documented as of this encounter Procedures Procedure Name Priority Date/Time Associated Diagnosis Comments ECG 12-LEAD Routine 06/11/2025 3:40 PM EDT History of CAD (coronary artery disease) S/P cardiac catheterization documented in this encounter Results * ECG 12 lead (06/11/2025 3:40 PM EDT) Naheed Curry PA - 06/11/2025 3:40 PM EDT For baseline after cardiac cath 05/19/25, borderline ECG, sinus rhythm, leftward axis - no significant change from ECG 10/2024. TM has hx of CAD, stents x 3, myocarditis us Naheed RAYMUNDO ECG ORDERABLES Final Result documented in this encounter Visit Diagnoses Diagnosis S/P cardiac catheterization- Primary Other postprocedural status History of CAD (coronary artery disease) Encounter for fitness for duty examination documented in this encounter Care Teams Plastic Parts Designer Relationship Specialty Start Date End Date Walter Anaya MD [address] [place] [address] PCP - General 02/12/25 documented as of this encounter
[2025-06-22 18:12] VITALS: BP 120/73; PULSE 83; RESP 20; O2SAT 98; BMI 24.7
--- OUTSIDE RECORDS SUMMARY | 2025-06-22 18:21 | XMS_ITS | Patient Health Record ---
Author Organization [facility] Address [address] [facility] [address] [place] [id number] Care Team Providers Care Slide Developer Name Role Phone Taylor Anaya Primary Care Provider Amadou Holman Unavailable [phone] Allergies Allergen (clinical drug ingredient) Drug/Non Drug [...] 12:21:20 PM Interpretation: Normal Performing Lab: Notes/Report: CLIA: [id number] Luis Camacho MD, Stiff Leg Operator [address] [place] [address] Test performed by [email or web address] Sodium 144 135-145 mmol/L Potassium 4.2 3.5-5.3 [...] Normal Performing Lab: Notes/Report: Test performed by [email or web address] [address] [place] [address] [address], [place] [address] Luis Camacho MD, Stiff Leg Operator CLIA: [id number] Cholesterol 177 <200 mg/dL Triglycerides 84 <150 [...] Normal Performing Lab: Notes/Report: Test performed by [email or web address] , [address], [place] [address] Luis Camacho MD, Stiff Leg Operator CLIA: [id number] TSH reflex to FT4 1.16 0.43-5.25 mU/L P-Microalbumin/Creatinine, R andom Urine Sample Reviewed date:02/11/2025 12:21:20 PM Interpretation: Normal Performing Lab: Notes/Report: [facility] , [address], [place] [address] Luis Camacho MD, Stiff Leg Operator CLIA: [id number] Albumin/Creatinine Ratio, Urine 9 0-30 ug/m g Microalbumin, Urine, Random 2.5 Creatinine, Urine 292.3 P-Vitamin D 25-Hydroxy Reviewed date:02/11/2025 12:21:20 PM Interpretation:28.3 Performing Lab: Notes/Report: Test performed by [facility] [address] , [address], [place] [address] Luis Camacho MD, Stiff Leg Operator CLIA: [id number] Vitamin D 25-Hydroxy 28.3 30.0-100.0 ng/mL Interpretation of Vitamin D 25 [place]: < 20 ng/mL - Deficiency 20 - 29 ng/mL - Insufficiency 30 - 100 ng/mL - Sufficiency > 100 ng/mL - Super-therapeutic- toxicity may occur above this level. Clinical correlation required. Reason For Referral Diagnosis 1 Hereditary hemochrom atosis (E83.110) Diagnosis 2 Heterozygous factor V Leiden mutation (D68.51) [facility] Referring Provider First Name Amadou Referring Provider Last Name River Referring Provider Speciality Family Pra madelaine Referred Provider Michel [place] Referred Provider Specialty Hematology/O ncology General Notes Mary Xavier 11/10/19 11:46:46 AM > faxed to Dr. [place]'s office, Mary Xavier 11/14/2024 10:04:10 AM > spoke with Dewey and confirmed referral was received Referral Priority Routine Medications Medication SIG (Take, Route, Frequency, Duration) Notes Start Date End Date Status Vitamin D (Ergocalciferol) 25130 UNIT 1 capsule Orally weekly 05/27/2025 Acti ve traZODone HCl 100 MG 1 tablet at bedtime orally Once a day; Duration: 90 days Active Flintstones Multivitamin - 1 tab(s) chewed bid Active Aspirin 325 MG 1 tablet Orally Once a day; Duration: 30 day(s) Active Zepbound 5 MG/0.5ML 0.5 mL Subcutaneous Active amLODIPine Besylate 5 MG 1/2 tablet Oral ly Once a day Active Diflucan 150 MG 1 tablet Orally once ; Duration: 10 days 02/12/2025 Active Furosemide 20 mg TAKE ONE TABLET BY M OUTH EVERY DAY NEEDED FOR swelling; Duration: 90 Active ProAir Digihaler 108 (90 Base) MCG/ACT 1-2 puff(s) inhaled every 6 hours, prn 10/05/2021 Active EpiPen 2-Allan 0.3 MG/0.3ML as directed in tramuscularly once Active Immunizations Vaccine Route Administration Date Status [...] Status Risk Notes Problem Gastroesophageal reflux disease (586882057) GERD (gastroesophageal reflux disease) (K21.9) Active confirmed Problem Essential hypertensi on (47924655) Essential (primary) hypertension (I10) Active confirmed Problem Coronary arteriosclerosis (21104618) ASCVD (arteriosclerotic cardiovascular disease) (I25.10) Active confirmed Problem Vitamin D deficiency (19671172) Vitamin D deficiency (E55.9) Active confirmed Problem Constipation (00377482) Constipation (K59.00) Active confirmed Problem Skin sensation disturbance (12803563) Paresthesia of right arm (R20.2) Active confirmed Problem Skin sensation disturbance (36124379) Paresthesia of left arm (R20.2) Active confirmed Problem Hereditary hemochromatosis (52449231) Hereditary hemochromatosis (E83.110) Active confirmed Problem Primary insomnia (8625572) Primary insomnia (F51.01) Active confirmed Problem Unstable angina (7558445) Unstable angina (I20.0) Active confirmed Problem Chronic fatigue syndrome (disorder) (43556471) Chronic fatigue, unspecified (R53.82) Active confirmed Problem Seasonal allergic rhinitis (952853662) Seasonal allergic reaction (J30.2) Active confirmed Problem Factor 5 Leiden mutation (933416726) Factor V Leiden (D68.51) Active confirmed Problem Gastroesophageal reflux disease without esophagitis (518413153) Gastroesophageal reflux disease without esophagitis (K21.9) Active confirmed Problem Gastroesophageal reflux disease (disorder) (015819267) Chronic GERD (K21.9) Active confirmed Problem Migraine (60313216) Migraine wit hout status migrainosus, not intractable, unspecified migraine type (G43.909) Active confirmed Problem Mild intermittent asthma (071319998) Mild intermittent asthma without complication (J45.20) Active confirmed Problem Migraine with aura (0159794) Migraine with aura and without status migrainosus, not intractable (G43.109) Active confirmed Problem Altered mental statu s (979498961) Altered mental status, unspecified altered mental status type (R41.82) Active confirmed Problem Body mass index 30.0 0 to 34.99 (389287797851123) BMI 34.0-34.9,adult (Z68.34) Active confirmed Problem Dyslipidemia (138978903) Dyslipidemia (E78.5) Active confirmed Problem Severe recurrent bria or depression without psychotic features (32863382) Severe episode of recurrent major depressive disorder, without psychotic features (F33.2) Active confirmed Problem Stented coronary artery (369253068) Stented coronary artery (Z95.5) Active confirmed Problem Type II diabetes mellitus without complication (175233073) Type 2 diabetes mellitus without complication, without long-term current use of insulin (E11.9) Active confirmed Problem Refractory migraine without aura (786212480) Intractable migraine without aura and without status migrainosus (G43.019) Active confirmed Problem Atherosclerotic hear t disease of [place] coronary artery without angina pectoris (962310342559183) Coronary artery disease involving [place] heart without angina pectoris, unspecified vessel or lesion type (I25.10) Active confirmed Problem Atherosclerotic hear t disease of [place] coronary artery without angina pectoris (501007601093684) Atherosclerosis of [place] coronary artery without angina pectoris, unspecified whether [place] or transplanted heart (I25.10) Active confirmed Problem Pure hypercholesterolemia (605646280) Pure hypercholesterolem ia, unspecified (E78.00) Active confirmed Problem History of placement of stent for coronary artery disease (situation) (389431258) History of coronary artery stent placement (Z95.5) Active confirmed Problem Pain in female genitalia on intercourse (75620269) Dyspareunia in female (N94.10) Active confirmed Problem Factor V Leiden mutation (980115401) Factor V Leiden mutation (D68.51) Active confirmed Problem Renal calculus (60098087) Renal calculus (N20.0) Active confirmed non-ob struct ing Problem Type II diabetes mellitus without complication (319156806) Type 2 diabetes mellitus without complication, unspecified whether long chain quiller tender insulin use (E11.9) Active confirmed Problem Allergic reaction to bee sting (207754219) Bee sting allergy (Z91.030) Active confirmed Problem Coronary arteriosclerosis (disorder) (37745389) CAD in [place] artery (I25.10) Active confirmed Problem Skin sensation disturbance (13263461) Intermittent paresthesia of left hand and foot (R20.2) Active confirmed Problem 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) Active confirmed Problem Heterozygous Factor V Leiden mutation (458760551) Heterozygous factor V Leiden mutation (D68.51) Active confirmed Vital Signs Heart Rate 64 /min 05/27/2025 Blood pressure diastolic 80 mm Hg 05/27/2025 Height 64.50 in 05/27/2025 Blood pressure systolic 122 mm Hg 05/27/2025 Weight 144.6 lbs 05/27/2025 BMI 24.43 kg/m2 05/27/2025 Encounters Encounter Location Date Provider Diagnosis [facility] [address] [place], [place] [id number] 11/10/2024 Amadou [place] Left-sided weakness R53.1 ; Migraine without status migrainosus, not intractable, unspecified migraine type G43.909 ; Primary insomnia F51.01 ; Hereditary hemochromatosis E83.110 and Heterozygous factor V Leiden mutation D68.51 [facility] [address] [place], [place] [id number] 02/09/2025 Amadou [place] Type 2 diabetes sarita itus without complication, without long-term current use of insulin E11.9 ; Vitamin D deficiency E55.9 ; Hereditary hemochromatosis E83.110 ; Primary insomnia F51.01 ; Pure hypercholesterolemia, unspecified E78.00 ; Essential (primary) hypertension I10 and BMI 27.0-27.9,adult Z68.27 [facility] [address] [place], [place] [phone] 05/27/2025 Amadou [place] Atypical chest pain R07.89 and Vitamin D deficiency E55.9 [facility] [address] [place], [place] [id number] 02/11/2025 Amadou [place] [facility] [address] [place] [id number] 02/11/2025 Amadou [place] [facility] [address] [place] [id number] 05/20/2025 Amadou [place] [facility] [address] [place] [id number] 06/08/2025 Taylor Anaya Breast cancer screen ing Z12.39 and Colon cancer screening Z12.11 Assessments Encounter Date Diagnosis (ICD Code) Assessment Notes Treatment Notes Treatment Clinical Notes Section Notes 11/10/2024 Migraine without status migrainosus, not intractable, unspecified migraine type (ICD-10 - G43.909) Improved 11/10/2024 Left-sided weakness (ICD-10 - R53.1) Improved 02/09/2025 Vitamin D deficiency (ICD-10 - E55.9) 05/27/2025 Vitamin D deficiency (ICD-10 - E55.9) 05/27/2025 Atypical chest pain (ICD-10 - R07.89) Symptoms have resolved 06/08/2025 Breast cancer screening (ICD-10 - Z12.39) 02/09/2025 Type 2 diabetes mellitus without complication, without long-term current use of insulin (ICD-10 - E11.9) 11/10/2024 Primary insomnia (ICD-10 - F51.01) 06/08/2025 Colon cancer screening (ICD-10 - Z12.11) 02/09/2025 Hereditary hemochromatosis (ICD-10 - E83.110) 11/10/2024 Hereditary hemochromatosis (ICD-10 - E83.110) 02/09/2025 Primary insomnia (ICD-10 - F51.01) 02/09/2025 Pure hypercholesterolemi a, unspecified (ICD-10 - E78.00) 11/10/2024 Heterozygous factor V Leiden mutation (ICD-10 - D68.51) 02/09/2025 Essential (primary) hypertension (ICD-10 - I10) 02/09/2025 BMI 27.0-27.9,adult (ICD-10 - Z68.27) 05/27/2025 Other Discharge summary with available lab/diagnostic imaging results obtained and reviewed. Discharge medication list reconciled. Appropriate counseling provided. Moderate Complexity Plan Of Treatment Pending Test Test Name Order Date Stool Guaiac(Occult Blood) 11/18/2021 Mammogram 06/08/2025 Cologuard 06/08/2025 Next Appt Details Provider Name:Amadou kirk, 08/12/2025 02:00:00 PM, [address], [address], [place], [id number], Insurance Providers Payer Name Payer Address Payer Phone Subscriber Number Group Number Insured Name Patient Relationship to Insured Coverage Start Date Coverage End Date [employer] [address] [place] [address] [id number] 2es DAKOTAKIRSTENLIBAN Self - patient is the insured MEDICARE PART B [address] [address] [place] [address] [id number] KIRSTEN DUNCANITRA Self - patient is the insured MEDICAID [employer] [address] [place] [id number] GET DUNCANA Self - patient is the insured Medications [...] Tovar 2012 Gastric Sleeve/ Dr. Pascal 10/07/2018 [facility] with LAD stent/ Trevin 07/2021 Repeat [facility] with LAD stent/ Trevin 08/25 021 Hospitalization History Reason Date(Month/Year) Suicidal/Homicidal Thoughts- [facility] 01/23 Back Pain- [facility] 11/14/2019 Headache, Dizziness- [facility] 03/15/2019 Syncope and Collapse- [facility] 03/12-
--- OUTSIDE RECORDS SUMMARY | 2025-06-22 18:21 | XMS_ITS | Clinical Summary ---
Author Organization [facility] Address [address] [place] [address] Phone [email or web address] Care Team Providers Care Director Of Assessment Name Role Phone Walter Anaya MD Primary [...] 50 MG tablet 50 mg. 08/12/2024 Active amLODIPine (NORVASC) 2.5 MG tablet Take 2.5 mg by mouth 1 (one) time each day. 06/02/2025 Active Active Problems Problem Noted Date Diagnosed Date Controlled type 2 diabetes henry mederos without complication, without long-term current use of [...] Encounters Date Type Department Care Team Description 06/11/2025 3:30 PM EDT Office Visit [place] [address] [facility] [address] [place] [phone] Naheed Torres PA S/P cardiac catheterization (Primary Dx); History of CAD (coronary artery disease); Encounter for fitness for duty examination 06/02/[address] [place] [address] Lisandro aL MA from Last 3 Months Social History Tobacco [...] on file 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 Gender Identity Not on file Sexual Orientation Not on file Last Filed Vital Signs Vital Sign Reading Time Taken Comments Blood Pressure 117/79 06/11/2025 3:09 PM EDT Pulse 89 06/11/2025 3:09 PM EDT Temperature 36.4 C (97.6 F) 08/29/2024 10:37 PM EST Respiratory Rate 18 06/11/2025 3:09 PM EDT [...] 3-dose series) 1993 Breast Cancer Screening 2004 Pneumococcal Immunization (2 of 2 - PCV) 12/03/2014 12/03/2013 [...] on patient's age to complete this topic Procedures Procedure Name Priority Date/Time Associated Diagnosis Comments ECG 12-LEAD Routine 06/11/2025 3:40 PM EDT History of CAD (coronary artery disease) S/P cardiac catheterization from Last 3 Months Results * ECG 12 lead (06/11/2025 3:40 PM EDT) Naheed Curry PA - 06/11/2025 3:40 PM EDT For baseline after cardiac cath 05/19/25, borderline ECG, sinus rhythm, leftward axis - no significant change from ECG 10/2024. 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
--- OUTSIDE RECORDS SUMMARY | 2025-06-22 18:21 | XMS_ITS | Encounter Summary ---
Author Organization [facility] Address [address] [place] [address] Phone [email or web address] Care Team Providers Care Manifold Builder Name Role Phone Walter Anaya MD Primary Care Provider Reason for Visit * Reason Onset Date Comments Return to Work / Duty 06/02/2025 Encounter Details Date Type Department Care Team (Late st Contact Info) Description 06/02/2025 Telephone [place] [id number] [facility] [address] [place] [address] Lisandro La MA [address] [place] [address] Social History Tobacco Use Types Packs/Day Years Used Date Smoking Tobacco: Every Day E-Cigarettes Smokeless Tobacco: Never Depression Answer Date Recorded PHQ Total Score 0 08/15/2024 Stress Answer Date Recorded Stress in your Life Not on file 07/28/2024 Dealing with Stress 3 07/28/2024 Comments Unknown Sex and Gender Information Value Date Recorded Sex Assigned at Not on file 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 WD ID: [id number] Employer: [employer]: [id number] Shift: 2 Full-time GL and #: Stanley Li Previous/current indefinite restrictions? No LDW: 05/15/2025 DOS: 05/19/2025 PROCEDURE: Heart Cath SURGEON: Javed Zhong MD at [facility] RELEASE: Regular Duty 06/11/2025 Additional notes from phone call: N/A If WMLOA, still getting compensation from work comp? No: [employer] If WMLOA, treatment for any personal medical condition during leave? No If PMLOA, work-related injury immediately before leave? No Same day occ or personal follow up scheduled? No Reviewed and/or scheduled for WC/WH? No Request sent to confirm cost center? No -Lisandro La 06/02/2025 documented in this encounter Plan of Treatment Not on file documented as of this encounter Visit Diagnoses Not on filedocumented in this encounter Care Teams Manifold Builder Relationship Specialty Start Date End Date Walter Anaya MD [address] [place] [address] PCP - General 02/12/25 documented as of this encounter
--- OUTSIDE RECORDS SUMMARY | 2025-06-22 18:22 | XMS_ITS | Clinical Summary ---
Author Organization [facility] Address [address] [place] [address] Phone Care Team Providers Care Coke Loader Name Role Phone Tunde Myers MD Unavailable [phone] Michel Chacon MD Unavailable Allergies Active Allergy Reactions Criticality Noted Date [...] Zac Pascal on 10/05/18. Calorie restrict attempt [id number] calories per day. Decrease starches like bread [...] your drinking? no Ever need an eye grief counselor in the morning? no Screening for depression [...] 5.6 % 09/23/2020 4:16 PM EST [facility] [email or web address] Est. Avg Glucose 117 mg/dL 09/23/2020 4:16 PM EST [facility] [email or web address] Blood Venipuncture / Unknown 09/23/2020 11:19 AM EST 09/23/2020 11:19 AM EST Narrative [facility] [email or web address] - 09/23/2020 4:16 PM EST REFERENCE RANGE: Normal: 4.0-5.6% Pre-diabetes: 5.7-6.4% Provisional diagnosis of diabetes: >6.4% Hgb F>10% and anything which shortens red cell survival, such as hemolytic anemia, or unstable hemoglobin variants such as HbSS, HbSC, or HbCC, will lower the HbA1c value associated with a given level of glycemic control. Liz Cruz APRN CHEMISTRY ORDERABLES Final Result Performing Organization Address [facility] Co de Phone Number [facility] [address] [facility] , [place] [address] * LIPID SCREEN (09/23/2020 11:19 AM EST) Cholesterol 184 <200 mg/dL 09/23/2020 4:37 PM EST [facility] Comment: < 200 Desirable 200 - 239 Borderline High >= 240 High Triglyceride 82 <150 mg/dL 09/23/2020 4:37 PM EST [facility] Comment: < 150 Normal 150 - 199 Borderline High 200 - 499 High >= 500 Very High HDL 75 >=40 mg/dL 09/23/2020 4:37 PM EST [facility] Comment: > 60 Optimal 40 - 60 Acceptable < 40 Low LDL Calculated 93 <100 mg/dL 09/23/2020 4:37 PM EST [facility] Comment: < 100 Optimal 100 - 129 Near or above optimal 130 - 159 Borderline High 160 - 189 High >= 190 Very High Non-HDL-C Calculated 109 <=129 mg/dL 09/23/2020 4:37 PM EST [employer] [facility] Comment: <130 Desirable 130-159 Above Desirable 160-189 Borderline High 190-219 High >= 220 Very High Fasting Specimen? Unknown None 020 4:37 PM EST [employer] [facility] Blood VENOUS BLOOD / Unknown Venipuncture / Unknown 09/23/2020 11:19 AM EST 09/23/2020 11:19 AM EST Liz Cruz APRN CHEMISTRY ORDERABLES Final Result Performing Organization Address [facility]/ZIP Co de Phone Number [facility] [address] [facility] , [place] [address] * (ABNORMAL) COMPREHENSIVE METABOLIC PANEL [...] 09/23/2020 4:45 PM EST [facility] GFR Afr Am 124 >=60 mL/min/1.7 3 m2 09/23/2020 4:45 PM EST [facility] GFR Non Afr Am 107 >=60 mL/min/1.7 3 m2 09/23/2020 4:45 PM EST [facility] Comment: This estimated GFR was calculated [...] 09/23/2020 11:19 AM EST us Liz Cruz MANAGER OB CHEMISTRY ORDERABLES Final Result Performing Organization Address [facility]/ZIP Co de Phone Number [facility] [employer] [facility] [address] [facility], [place] [address] [facility] [address] [place] [address] * DIABETES EYE EXAM (03/21/2018) Left Diabetic Retinopathy Present Present/Not Present SEP OFFICE Right Diabetic Retinopathy Present Present/Not Present SEP OFFICE us Historical Provider HEALTH MAINTENANCE Final Res ult Performing Organization Address [facility] Co de Phone Number SEP OFFICE * (ABNORMAL) MICROALBUMIN/CREATININE RATIO URINE (11/07/2017 2:05 PM EST) Urine Microalb 130.0 mg/L 11/07/2017 9:00 PM EST [facility] Urine Creatinine 151.1 mg/dL 11/07/2017 9:00 PM EST [facility] Ur Microalb/Creat 86(H) 0 - 30 mg/gm 11/07/2017 9:00 PM EST [facility] Urine STRUCTURE OF URINARY TRACT PROPER / Unknown 11/07/2017 2:05 PM EST 11/07/2017 2:05 PM EST us Michel Chacon MD URINE ORDERABLES Final Resu lt Performing Organization Address [facility] Co de Phone Number [facility] [address] [place] [address] from Last 3 Months or Most Recently Relevant to Health Maintenance Insurance [employer] PPO [place]ICARE [place] PART [place] AND B [place]IC[place] PART A AND B Care Teams Coke Loader Relationship Specialty Start Date End Date Tunde Myers MD [address] [place] [address] [place] [address] Consulting Physician Obstetrics & Gynecology-Gynecologic Oncology 11/15/17 Michel Chacon MD [address] [place] [address] [place] [address] Referring Physician Family Medicine 11/08/17
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
--- NOTE | 2025-06-22 18:51 | PC.NURSE ---
Dr Smith was doing an Eply maneuver is why she doesnt have a set of vitals for awhile
[2025-06-22] MEDS: ONDANSETRON 4MG ODT 4 MG SL (18:54)
[2025-06-22 19:07] VITALS: BP 135/70; PULSE 80; RESP 20; TEMP 36.8; O2SAT 98
== END 2025-06-22 19:08 | disposition home or self-care (01) ==
PROVIDERS: Emergency Provider Student in an Organized Health Care Education/Training Program; PCP Family Medicine
DX: H81.10 Benign paroxysmal vertigo, unspecified ear (principal); R11.0 Nausea
CPT/HCPCS: 99282; 99283; Q0162

== ENCOUNTER 2025-08-11 13:50 | Outpatient (CLI) | payer BC, SELFPAY ==
--- NOTE | 2025-08-11 13:53 | MM_ITS ---
PROCEDURE INFORMATION: Exam: MG Bilateral Screening 3D Mammography Exam date and time: 08/11/2025 1:54 PM Age: 50 years old Clinical indication: Screening examination TECHNIQUE: Imaging protocol: Bilateral Screening tomosynthesis and 2D mammography including computer-aided detection (CAD) when performed. COMPARISON: 1. MG MM DIG SCREENING MAMM BI W/CAD 03/01/2023 7:27 AM 2. MG DMSB DIGITAL MAMM-SCREEN BILATERAL 02/05/2013 1:31 PM FINDINGS: MAMMOGRAPHY: Breast composition: There are scattered areas of fibroglandular density. Mass: None. Architectural distortion: None. Calcifications: No suspicious calcifications. Asymmetric density: None. Skin thickening: None. Axillary adenopathy: None. Other findings: A loop recorder device overlies the medial aspect of the left breast. IMPRESSION: No mammographic evidence of malignancy. Annual screening is recommended unless otherwise clinically indicated. ASSESSMENT: BI-RADS Category 1: Negative.
== END 2025-08-11 23:59 | disposition home or self-care (01) ==
LOC: RAD 13:51
PROVIDERS: PCP Family Medicine; Visit Provider Family Medicine
DX: Z12.31 Encounter for screening mammogram for malignant neoplasm of breast (principal); R92.323 Mammographic fibroglandular density, bilateral breasts; Z95.818 Presence of other cardiac implants and grafts
CPT/HCPCS: 77063; 77067